=== PATIENT | male | born 1955 | race Caucasian/White ===

== ENCOUNTER 2017-06-10 09:38 | Inpatient (IN) | payer MEDICARE ==
[2017-06-10 09:44] VITALS: BMI 27.4
--- NOTE | 2017-06-10 10:26 | PDOC ---
History of Present Illness - General Chief Complaint: Pain Stated Complaint: ABDOMINAL PAIN,FATIGUE,DISORIENTED X 1 WEEK Time Seen by Provider: 06/10/17 09:44 History Source: Patient, Friend Exam Limitations: No Limitations - History of Present Illness Initial Comments: 06/10/17 10:21 CHIEF COMPLAINT: Patient complains of abdominal pain for one week, somewhat diffuse, loss of appetite, inability to eat. HISTORY OF PRESENT ILLNESS: Patient presents with multiple complaints. He states he hasn't seen a doctor in more than a decade. He complains of loss of peripheral vision and poor vision over the past week. There is no blurring or diplopia, but he does have loss of peripheral vision. He also complains of severe fatigue and falls asleep multiple times every day. He also complains of diffuse abdominal pain with very poor appetite. He states he had been taking Advil for bilateral hip pain, but that was upsetting his stomach, so he stop the Advil and started taking [id number] Zantac. There is nausea but no vomiting. He denies change in bowel movements. REVIEW OF SYSTEMS: GENERAL/CONSTITUTIONAL: No fever or chills. Positive weakness and fatigue. Unsure about any weight change. HEAD, EYES, EARS, NOSE AND THROAT: Positive recent vision changes with loss of peripheral vision. No diplopia or blurring. No ear pain or discharge. No sore throat. CARDIOVASCULAR: No chest pain or shortness of breath. Smokes 2 packs a day for many years. No prior diagnosis of COPD. RESPIRATORY: Denies cough, wheezing, or hemoptysis. However, patient has audible wheezing. GASTROINTESTINAL: Positive nausea, no vomiting, diarrhea or constipation. No rectal bleeding. GENITOURINARY: No dysuria, frequency, or change in urination. MUSCULOSKELETAL: Positive bilateral hip pain, chronic. No neck or back pain. Left ankle fracture with surgery many years ago. SKIN AND BREASTS: No rash or easy bruising. NEUROLOGIC: No headache, vertigo, loss of consciousness, or loss of sensation. PSYCHIATRIC: No depression or anxiety. ENDOCRINE: No increased thirst. No abnormal weight change. HEMATOLOGIC/LYMPHATIC: No anemia, easy bleeding, or history of blood clots. ALLERGIC/IMMUNOLOGIC: No hives or skin allergy. No latex allergy. Past History - Past Medical History Allergies/Adverse Reactions: Allergies Allergy/AdvReac Type Severity Reaction Status Date / Time No Known Allergies Allergy Verified 06/10/17 09:40 Home Medications: Ambulatory Orders NK [No Known Home Medication] 06/10/17 COPD: No (smokes 2 PPD) Other medical history: PT DENIES - Surgical History Orthopedic Surgery: Yes (left ankle surgery) - Suicide/Smoking/Psychosocial Hx Smoking History: Current every day smoker Have you smoked in the past 12 months: Yes Number of Cigarettes Smoked Daily: 40 Information on smoking cessation initiated: Yes 'Breaking Loose' booklet given: 06/10/17 Hx Alcohol Use: No Drug/Substance Use Hx: No Substance Use Type: None *Physical Exam - Vital Signs Last Vital Signs Temp Pulse Resp BP Pulse Ox 98.8 F 108 H 16 151/98 95 06/10/17 09:40 06/10/17 09:40 06/10/17 09:40 06/10/17 09:40 06/10/17 09:40 - Physical Exam Comments: 06/10/17 10:26 GENERAL: The patient is awake, alert, and fully oriented, in no acute distress. HEAD: Normal with no signs of trauma. EYES: Pupils equal, round and reactive to light, extraocular movements intact, sclera anicteric, conjunctiva clear. Fundi with narrowing of the vessels. ENT: Ears normal, nares patent, oropharynx clear without exudates. Moist mucous membranes. NECK: Normal range of motion, supple without lymphadenopathy, JVD, or masses. LUNGS: Decreased breath sounds diffusely with bilateral expiratory wheezes. No crackles. HEART: Regular rhythm, normal S1 and S2 without murmur, rub or gallop. Positive tachycardia. ABDOMEN: Soft, mildly distended, positive tenderness in the right mid abdomen and the left lower quadrant. No guarding. No rebound tenderness. No masses. Negative Pope sign. No McBurney's tenderness. EXTREMITIES: Normal range of motion, no edema. No clubbing or cyanosis. No cords, erythema, or tenderness. NEUROLOGICAL: Cranial nerves II through XII grossly intact. Normal speech, normal gait. PSYCH: Normal mood, normal affect. SKIN: Warm, Dry, normal turgor, no rashes or lesions noted. ED Treatment Course - LABORATORY CBC & Chemistry Diagram: 06/10/17 10:30 06/10/17 10:30 - RADIOLOGY Radiology Studies Ordered: Category Date Time Status ABDOMEN & PELVIS CT WITH CONTR [CT] Stat CT Scan 06/10/17 10:[address] WITHOUT CONTRAST [CT] Stat CT Scan 06/10/17 10:19 Ordered CHEST PA & LAT [RAD] Stat Radiology 06/10/17 10:19 Ordered Medical Decision Making - Medical Decision Making 06/10/17 10:28 Patient presents with myriad complaints. He has neurological complaints with fatigue, frequent sleeping during the day, and also changes in vision with loss of peripheral vision. In addition, he has symptoms of abdominal pain with loss of appetite. Patient has not seen a physician in more than a decade. He will have laboratory workup, head CT scan, abdominal CT scan with oral and IV contrast, urinalysis, EKG, and chest x-ray for comprehensive evaluation given his multiple complaints. Further plans pending initial results. 06/10/17 14:02 *DC/Admit/Observation/Transfer Diagnosis at time of Disposition: Diverticulitis COPD (chronic obstructive pulmonary disease) Qualifiers: COPD type: unspecified COPD Qualified Code(s): J44.9 - Chronic obstructive pulmonary disease, unspecified - Discharge Dispostion Condition at time of disposition: Fair Admit: Yes Decision to Admit order Date/Time: 06/10/17 14:49 Admit to Jenn Tiwari aware. - Referrals - Patient Instructions - Post Discharge Activity
[2017-06-10 11:00] LABS: INR 1.1 (0.82-1.09); PROTHROMBIN TIME (PATIENT) 12.3 SEC (10.2-13.0)
[2017-06-10 11:08] LABS: ALBUMIN 3.5 g/dl (3.5-5.0); ALK PHOS 75 U/L (32-92); ANION GAP 12 (8-16); BILIRUBIN,TOTAL 1.3 mg/dl (0.2-1.0); CALCIUM 9.1 mg/dl (8.4-10.2); CO2 34 mmol/L (22-28); SGOT/AST 20 U/L (10-42); SGPT/ALT 18 U/L (10-40); TOT PROT 7.1 g/dl (6.4-8.3)
[2017-06-10 11:15] LABS: PH,URINE 5.5 (4.5-8); URINE BILIRUBIN 3+ (NEGATIVE); URINE GLUCOSE (UA) Negative (NEGATIVE); URINE KETONE 4+ (NEGATIVE); URINE LEUK ESTERASE Negative (NEGATIVE); URINE NITRITE Negative (NEGATIVE)
[2017-06-10 11:22] LABS: URINE BLOOD 1+ (NEGATIVE); URINE COLOR AMBER; URINE PROTEIN 3+ (NEGATIVE)
[2017-06-10 11:24] LABS: URINE APPEARANCE SL CLOUDY
[2017-06-10 11:28] LABS: GLUCOSE,RANDOM 140 mg/dl (74-106)
[2017-06-10 11:40] LABS: URINE RBC 0-3 /hpf (0-3)
[2017-06-10 11:41] LABS: URINE MUCUS FEW
[2017-06-10] MEDS ORDERED: SODIUM CHLORIDE 1,000 ML IV STA (11:49)
[2017-06-10] MEDS ORDERED: FUROSEMIDE 40 MG/4 ML INJECTABLE VIAL IVPB ONE (11:49)
[2017-06-10] MEDS ORDERED: FUROSEMIDE 40 MG/4 ML INJECTABLE VIAL ONE (11:50)
[2017-06-10] MEDS ORDERED: ALBUTEROL SO4 0.083% IH SOL 2.5 MG/3 ML VIAL.NEB. NEB ONE ×3 (11:50→13:30)
[2017-06-10 12:07] LABS: VENOUS BLOOD GAS HCO3 39.9 meq/L (19-25); VENOUS PH 7.36 (7.32-7.42)
[2017-06-10 13:05] LABS: MEAN PLT VOLUME 9.6 fl (7.5-11.1)
[2017-06-10 13:08] LABS: EOSINOPHIL 0.5 % (0-4.5)
[2017-06-10 13:10] LABS: BASOPHIL 0.1 % (0-2.0); MCHC 33.1 g/dl (32.0-35.9); MEAN CELL VOLUME 90.6 fl (80-96); NEUTROPHILS 72.9 % (42.8-82.8); PLATELET COUNT 306 K/MM3 (134-434); RDW 14.9 % (11.9-15.9); WHITE BLOOD COUNT 12.9 K/mm3 (4.0-10.8)
[2017-06-10] MEDS ORDERED: LEVOFLOXACIN 500 MG IVPB 500 MG/100 ML BAG IVPB ONE ×2 (14:25→15:19)
[2017-06-10] MEDS ORDERED: METRONIDAZOLE 500 MG PREMIXED 500 MG/100 ML MG IVPB ONE ×2 (14:25→15:19)
[2017-06-10] MEDS ORDERED: morphine CARPU-JECT 2 MG/1 ML DISP.SYRIN IVPUSH PRN (14:36)
--- NOTE | 2017-06-10 14:38 | HP ---
CHIEF COMPLAINT: Abdominal pain PCP: None x many years HISTORY OF PRESENT ILLNESS: This is a 62 year old male with no known medical problems (has not seen a doctor for >10 yrs) who presents complaining of band- like lower abdominal pain, nausea, and anorexia since . He denies fevers /chills. He also complains of fatigue (ongoing) and "loss of peripheral vision" (resolved) since Monday. 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 Smokin ppd x >20 yrs Alcohol: None Drugs: None Family History: Non-contributory to this admission Allergies No Known Allergies Allergy (Verified 06/10/17 09:40) HOME MEDICATIONS: Home Medications Medication Instructions Recorded NK [No Known Home Medication] 06/10/17 REVIEW OF SYSTEMS CONSTITUTIONAL: Fatigue, generalized weakness, anorexia Absent: fever, chills, diaphoresis, weight change HEENT: Absent: rhinorrhea, nasal congestion, throat pain, throat swelling, difficulty swallowing, mouth swelling, ear pain, eye pain CARDIOVASCULAR: Absent: chest pain, syncope, palpitations, irregular heart rate, lightheadedness , peripheral edema RESPIRATORY: Absent: cough, shortness of breath, dyspnea with exertion, orthopnea, wheezing, stridor, hemoptysis GASTROINTESTINAL: Abdominal pain, nausea, anorexia Absent: vomiting, diarrhea, constipation, melena, hematochezia GENITOURINARY: Absent: dysuria, frequency, urgency, hesitancy, hematuria, flank pain, genital pain MUSCULOSKELETAL: Absent: myalgia, arthralgia, joint swelling, back pain, neck pain SKIN: Absent: rash, itching, pallor HEMATOLOGIC/IMMUNOLOGIC: Absent: easy bleeding, easy bruising, lymphadenopathy, frequent infections ENDOCRINE: Absent: unexplained weight gain, unexplained weight loss, heat intolerance, cold intolerance NEUROLOGIC: Change in field of vision on Monday, resolved Absent: headache, focal weakness or paresthesias, dizziness, unsteady gait, seizure, mental status changes, bladder or bowel incontinence PSYCHIATRIC: Absent: anxiety, depression, suicidal or homicidal ideation, hallucinations. PHYSICAL EXAMINATION Vital Signs - 24 hr 06/10/17 06/10/17 06/10/17 09:40 12:40 14:07 Temperature 98.8 F 98.6 F Pulse Rate 108 H Pulse Rate [ 100 H Apical] Respiratory 16 16 Rate Blood Pressure 151/98 Blood Pressure 131/88 [Arm] O2 Sat by Pulse 95 94 L Oximetry (%) GENERAL: Awake, alert, and fully oriented, in no acute distress. HEAD: Normal with no signs of trauma. EYES: Pupils equal, round and reactive to light, extraocular movements intact, sclera anicteric, conjunctiva clear. No lid lag. EARS, NOSE, THROAT: Ears normal, nares patent, oropharynx clear without exudates. Moist mucous membranes. NECK: Normal range of motion, supple without lymphadenopathy, JVD, or masses. LUNGS: Breath sounds equal, clear to auscultation bilaterally. No wheezes, and no crackles. No accessory muscle use. HEART: Regular rate and rhythm, normal S1 and S2 without murmur, rub or gallop. ABDOMEN: Soft, obese, bilat lower abdominal tenderness to palpation, LLQ>RLQ, normoactive bowel sounds, no guarding, no rebound, no masses. No hepatomegaly or splenomegaly. MUSCULOSKELETAL: Normal range of motion at all joints. No bony deformities or tenderness. No CVA tenderness. UPPER EXTREMITIES: 2+ pulses, warm, well-perfused. No cyanosis. No clubbing. No peripheral edema. LOWER EXTREMITIES: 2+ pulses, warm, well-perfused. No calf tenderness. No peripheral edema. NEUROLOGICAL: Cranial nerves II-XII intact. Normal speech. Normal gait. PSYCHIATRIC: Cooperative. Good eye contact. Appropriate mood and affect. SKIN: Warm, dry, normal turgor, no rashes or lesions noted, normal capillary refill. Laboratory Results - last 24 hr 06/10/17 06/10/17 06/10/17 10:30 10:30 10:30 WBC 12.9 H RBC 6.53 H Hgb 19.6 H Hct 59.2 H MCV 90.6 MCH 30.0 MCHC 33.1 RDW 14.9 Plt Count 306 MPV 9.6 Neutrophils % 72.9 Lymphocytes % 15.6 Monocytes % 10.9 H Eosinophils % 0.5 Basophils % 0.1 PT with INR 12.3 INR 1.10 VBG pH POC VBG pCO2 POC VBG pO2 Mixed VBG HCO3 Sodium 134 L Potassium 6.1 H* Chloride 88 L Carbon Dioxide 34 H Anion Gap 12 BUN 23 H Creatinine 1.0 Creat Clearance w eGFR > 60 Random Glucose 140 H Calcium 9.1 Total Bilirubin 1.3 H AST 20 ALT 18 Alkaline Phosphatase 75 Troponin I Total Protein 7.1 Albumin 3.5 Lipase 26 Urine Color Urine Appearance Urine pH Ur Specific Martin Urine Protein Urine Glucose (UA) Urine Ketones Urine Blood Urine Nitrite Urine Bilirubin Urine Urobilinogen Ur Leukocyte Esterase Urine RBC Ur Epithelial Cells Urine Mucus 06/10/17 06/10/17 06/10/17 10:30 10:30 10:48 WBC RBC Hgb Hct MCV MCH MCHC RDW Plt Count MPV Neutrophils % Lymphocytes % Monocytes % Eosinophils % Basophils % PT with INR INR VBG pH 7.36 POC VBG pCO2 72.3 H* POC VBG pO2 12.4 L* Mixed VBG HCO3 39.9 H Sodium Potassium Chloride Carbon Dioxide Anion Gap BUN Creatinine Creat Clearance w eGFR Random Glucose Calcium Total Bilirubin AST ALT Alkaline Phosphatase Troponin I < 0.03 L Total Protein Albumin Lipase Urine Color Courtney Urine Appearance Sl cloudy Urine pH 5.5 Ur Specific Martin >= 1.030 H Urine Protein 3+ H Urine Glucose (UA) Negative Urine Ketones 4+ H Urine Blood 1+ H Urine Nitrite Negative Urine Bilirubin 3+ H Urine Urobilinogen 1.0 Ur Leukocyte Esterase Negative Urine RBC 0-3 Ur Epithelial Cells Rare Urine Mucus Few ASSESSMENT/PLAN: Problem List - Problem (1) Diverticulitis Assessment/Plan: -NPO, advance diet as tolerated -Levaquin 750mg daily, Flagyl 500mg q8h -Morphine 2mg IVP q4h prn pain -Zofran 4mg IVP prn nausea Code(s): K57.92 - DVTRCLI OF INTEST, PART UNSP, W/O PERF OR ABSCESS W/O BLEED (2) Hyperkalemia Assessment/Plan: -No EKG changes -Given Lasix and albuterol in ED, no kayexelate given diverticulitis -Repeat BMP 6pm -Follow Code(s): E87.5 - HYPERKALEMIA (3) COPD (chronic obstructive pulmonary disease) Assessment/Plan: -Suspected -Outpatient pulmonary followup/PFTs -Discussed with patient Code(s): J44.9 - CHRONIC OBSTRUCTIVE PULMONARY DISEASE, UNSPECIFIED Visit type - Emergency Visit Emergency Visit: Yes ED Registration Date: 06/10/17 Care time: The patient presented to the Emergency Department on the above date and was hospitalized for further evaluation of their emergent condition. - New Patient This patient is new to me today: Yes Date on this admission: 06/11/17 - Critical Care Critical Care patient: No
[2017-06-10 16:22] LABS: ANION GAP 14 (8-16); CALCIUM 8.2 mg/dl (8.4-10.2); CO2 33 mmol/L (22-28); CREATININE 0.8 mg/dl (0.6-1.3); GLUCOSE,RANDOM 80 mg/dl (74-106)
[2017-06-10] MEDS ORDERED: METRONIDAZOLE PREMIXED IVPB 250 MG/50 ML MG IVPB SCH (18:00)
--- NOTE | 2017-06-10 22:31 | EKG ---
Test Reason : Blood Pressure : / mmHG Vent. Rate : 107 BPM Atrial Rate : 107 BPM P-R Int : 116 ms QRS Dur : 110 ms QT Int : 368 ms P-R-T Axes : 088 140 064 degrees QTc Int : 491 ms SINUS TACHYCARDIA POSSIBLE LEFT ATRIAL ENLARGEMENT BORDERLINE SHORT NM INTERVAL RIGHT BUNDLE BRANCH BLOCK ABNORMAL ECG NO PREVIOUS ECGS AVAILABLE Confirmed by ANGELA DAVILA MD ([id number]) on 06/10/2017 10:30:33 PM Referred By: MERCY FAROOQ Confirmed By:ANGELA DAVILA MD
[2017-06-10] MEDS: METRONIDAZOLE PREMIXED IVPB 250 MG/50 ML MG IVPB SCH (22:42)
[2017-06-11] MEDS: DEXTROSE 5%-0.45% SALINE 1,000 ML IV SCH
[2017-06-11] MEDS: METRONIDAZOLE PREMIXED IVPB 250 MG/50 ML MG IVPB SCH ×3 (06:43→21:56)
[2017-06-11] MEDS ORDERED: PT OWN MED DRAWER 7, Y5N ONE (07:01)
[2017-06-11 09:01] LABS: MCH 29.9 pg (25.7-33.7); MCHC 32.7 g/dl (32.0-35.9); MEAN CELL VOLUME 91.3 fl (80-96); MEAN PLT VOLUME 9.1 fl (7.5-11.1); PLATELET COUNT 293 K/MM3 (134-434); RDW 14.7 % (11.9-15.9); WHITE BLOOD COUNT 11.2 K/mm3 (4.0-10.8)
[2017-06-11] MEDS: LEVOFLOXACIN 750 MG IVPB 750 MG/150 ML BAG IVPB SCH (09:33)
[2017-06-11 10:16] LABS: ALBUMIN 2.8 g/dl (3.5-5.0); ALK PHOS 60 U/L (32-92); ANION GAP 11 (8-16); BILIRUBIN,TOTAL 0.9 mg/dl (0.2-1.0); CALCIUM 8.1 mg/dl (8.4-10.2); CO2 34 mmol/L (22-28); CREATININE 0.8 mg/dl (0.6-1.3); GLUCOSE,RANDOM 67 mg/dl (74-106); SGOT/AST 19 U/L (10-42); SGPT/ALT 16 U/L (10-40); TOT PROT 5.8 g/dl (6.4-8.3)
[2017-06-11] MEDS ORDERED: ALBUTEROL SO4 2.5/IPRATROPIUM 0.5 INH SOL 3 ML VIAL.NEB. NEB PRN (10:19)
--- NOTE | 2017-06-11 10:33 | PN ---
Physical Exam: SUBJECTIVE: Patient seen and examined. Abdominal pain improved. No nausea/ vomiting. Wants to eat. OBJECTIVE: Vital Signs Period Temp Pulse Resp BP Sys/Anna Pulse Ox Last 24 Hr 97.7 F-99.2 F 99-100 16-20 114-131/64-88 89-96 GENERAL: The patient is awake, alert, and fully oriented, in no acute distress. HEAD: Normal with no signs of trauma. EYES: PERRL, extraocular movements intact, sclera anicteric, conjunctiva clear. No ptosis. ENT: Ears normal, nares patent, oropharynx clear without exudates, moist mucous membranes. NECK: Trachea midline, full range of motion, supple. LUNGS: Breath sounds equal, clear to auscultation bilaterally, no wheezes, no crackles, no accessory muscle use. Mild tachypnea. HEART: Regular rate and rhythm, S1, S2 without murmur, rub or gallop. ABDOMEN: Soft, nontender, nondistended, normoactive bowel sounds, no guarding, no rebound, no hepatosplenomegaly, no masses. EXTREMITIES: 2+ pulses, warm, well-perfused, no edema. NEUROLOGICAL: Cranial nerves II through XII grossly intact. Normal speech, gait not observed. PSYCH: Normal mood, normal affect. SKIN: Warm, dry, normal turgor, no rashes or lesions noted Laboratory Results - last 24 hr 06/10/17 06/10/17 06/10/17 10:30 10:30 10:30 WBC 12.9 H RBC 6.53 H Hgb 19.6 H Hct 59.2 H MCV 90.6 MCH 30.0 MCHC 33.1 RDW 14.9 Plt Count 306 MPV 9.6 Neutrophils % 72.9 Lymphocytes % 15.6 Monocytes % 10.9 H Eosinophils % 0.5 Basophils % 0.1 PT with INR 12.3 INR 1.10 VBG pH POC VBG pCO2 POC VBG pO2 Mixed VBG HCO3 Sodium 134 L Potassium 6.1 H* Chloride 88 L Carbon Dioxide 34 H Anion Gap 12 BUN 23 H Creatinine 1.0 Creat Clearance w eGFR > 60 Random Glucose 140 H Calcium 9.1 Phosphorus Magnesium Total Bilirubin 1.3 H AST 20 ALT 18 Alkaline Phosphatase 75 Troponin I Total Protein 7.1 Albumin 3.5 Lipase 26 Urine Color Urine Appearance Urine pH Ur Specific Strang Urine Protein Urine Glucose (UA) Urine Ketones Urine Blood Urine Nitrite Urine Bilirubin Urine Urobilinogen Ur Leukocyte Esterase Urine RBC Ur Epithelial Cells Urine Mucus Blood Type Antibody Screen 06/10/17 06/10/17 06/10/17 10:30 10:30 10:48 WBC RBC Hgb Hct MCV MCH MCHC RDW Plt Count MPV Neutrophils % Lymphocytes % Monocytes % Eosinophils % Basophils % PT with INR INR VBG pH 7.36 POC VBG pCO2 72.3 H* POC VBG pO2 12.4 L* Mixed VBG HCO3 39.9 H Sodium Potassium Chloride Carbon Dioxide Anion Gap BUN Creatinine Creat Clearance w eGFR Random Glucose Calcium Phosphorus Magnesium Total Bilirubin AST ALT Alkaline Phosphatase Troponin I < 0.03 L Total Protein Albumin Lipase Urine Color Courtney Urine Appearance Sl cloudy Urine pH 5.5 Ur Specific Strang >= 1.030 H Urine Protein 3+ H Urine Glucose (UA) Negative Urine Ketones 4+ H Urine Blood 1+ H Urine Nitrite Negative Urine Bilirubin 3+ H Urine Urobilinogen 1.0 Ur Leukocyte Esterase Negative Urine RBC 0-3 Ur Epithelial Cells Rare Urine Mucus Few Blood Type Antibody Screen 06/10/17 06/11/17 06/11/17 14:08 06:00 06:00 WBC 11.2 H RBC 5.82 H Hgb 17.4 H D Hct 53.2 H MCV 91.3 MCH 29.9 MCHC 32.7 RDW 14.7 Plt Count 293 MPV 9.1 Neutrophils % Lymphocytes % Monocytes % Eosinophils % Basophils % PT with INR INR VBG pH POC VBG pCO2 POC VBG pO2 Mixed VBG HCO3 Sodium 129 L 134 L Potassium 4.0 D 4.0 Chloride 82 L 89 L Carbon Dioxide 33 H 34 H Anion Gap 14 11 BUN 19 H 18 Creatinine 0.8 0.8 Creat Clearance w eGFR > 60 Random Glucose 80 D 67 L Calcium 8.2 L 8.1 L Phosphorus 5.0 H Magnesium 2.0 Total Bilirubin 0.9 D AST 19 ALT 16 Alkaline Phosphatase 60 Troponin I Total Protein 5.8 L Albumin 2.8 L Lipase Urine Color Urine Appearance Urine pH Ur Specific Strang Urine Protein Urine Glucose (UA) Urine Ketones Urine Blood Urine Nitrite Urine Bilirubin Urine Urobilinogen Ur Leukocyte Esterase Urine RBC Ur Epithelial Cells Urine Mucus Blood Type Antibody Screen 06/11/17 06/11/17 06:15 06:15 WBC RBC Hgb Hct MCV MCH MCHC RDW Plt Count MPV Neutrophils % Lymphocytes % Monocytes % Eosinophils % Basophils % PT with INR INR VBG pH POC VBG pCO2 POC VBG pO2 Mixed VBG HCO3 Sodium Potassium Chloride Carbon Dioxide Anion Gap BUN Creatinine Creat Clearance w eGFR Random Glucose Calcium Phosphorus Magnesium Total Bilirubin AST ALT Alkaline Phosphatase Troponin I Total Protein Albumin Lipase Urine Color Urine Appearance Urine pH Ur Specific Strang Urine Protein Urine Glucose (UA) Urine Ketones Urine Blood Urine Nitrite Urine Bilirubin Urine Urobilinogen Ur Leukocyte Esterase Urine RBC Ur Epithelial Cells Urine Mucus Blood Type A POSITIVE A POSITIVE Antibody Screen Negative Active Medications Generic Name Dose Route Start Last Admin Trade Name Freq PRN Reason Stop Dose Admin Albuterol/Ipratropium 1 amp 06/11/17 10:19 Duoneb - NEB Q6H PRN SHORTNESS OF BREATH Budesonide/Formoterol Fumarate 2 puff 06/11/17 10:30 Symbicort 80/4.5mcg - IH BID HOSSEIN Levofloxacin 750 mg in 150 mls @ 150 mls/hr 06/11/17 10:00 06/11/17 09:33 Levaquin 750 Mg Premixed Ivpb - IVPB 150 mls/hr DAILY HOSSEIN Administration Metronidazole 250 mg in 50 mls @ 50 mls/hr 06/10/17 22:00 06/11/17 06:43 Flagyl 250mg Premixed Ivpb - IVPB 50 mls/hr Q8H HOSSEIN Administration Dextrose/Sodium Chloride 1,000 mls @ 42 mls/hr 06/10/17 23:45 06/11/17 00:00 D5-1/2ns - IV 42 mls/hr ASDIR HOSSEIN Administration Morphine Sulfate 2 mg 06/10/17 14:36 Morphine Injection - IVPUSH Q4H PRN PAIN Imaging: Head CT 06/10 No pathology CTAP 06/10 Acute uncomplicated sigmoid diverticulitis CXR 06/10 Hyperaeration ASSESSMENT/PLAN: 62 year old male with acute diverticulitis. 1. Diverticulitis -Pain and tenderness improved; start clear liquid diet -Continue Levaquin 750mg daily and Flagyl 500mg q8h -Morphine 2mg IVP q4h prn pain -Zofran 4mg IVP prn nausea 2. Hyperkalemia -Resolved s/p albuterol, Lasix 3. COPD, suspected -Hyperaeration on XR, symptoms of CO2 retention (fatigue, visual changes), PCO2 72 on VBG, heavy smoking history -Send ABG today -Start Symbicort -Echo to eval for pulm HTN -Pulm consultation (patient does not currently have PMD and would expect long delay in outpatient followup) -Albuterol/Atrovent nebs prn wheezing/SOB -Discussed smoking cessation with patient; he declines NRT at this time DISPO: Requires inpatient services Problem List - Problems (1) Diverticulitis Code(s): K57.92 - DVTRCLI OF INTEST, PART UNSP, W/O PERF OR ABSCESS W/O BLEED (2) Hyperkalemia Code(s): E87.5 - HYPERKALEMIA (3) COPD (chronic obstructive pulmonary disease) Code(s): J44.9 - CHRONIC OBSTRUCTIVE PULMONARY DISEASE, UNSPECIFIED
[2017-06-11] MEDS: BUDESONIDE/FORMETEROL FUMARATE 80/4.5 mcg INHALER IH SCH ×2 (11:17→21:55)
[2017-06-11 11:26] LABS: ARTERIAL BLD GAS O2 SATURATION 97.3 % (90-98.9); ARTERIAL BLOOD GAS BASE EXCESS 6.9 meq/l (-2-2); ARTERIAL BLOOD GAS HCO3 35.6 meq/L (22-26); ARTERIAL BLOOD GAS PO2 99.8 mmHg (80-100); ARTERIAL BLOOD GAS pH 7.34 (7.35-7.45)
[2017-06-11 11:30] LABS: ALLENS TEST POSITIVE; ART PUNCT SITE RIGHT RADIAL; LPM/O2% 2L; PT. ON O2? YES
[2017-06-11 11:31] LABS: TYPE OF O2 N/C
[2017-06-12] MEDS: METRONIDAZOLE PREMIXED IVPB 250 MG/50 ML MG IVPB SCH ×3 (06:01→21:57)
[2017-06-12 08:37] LABS: BASOPHIL 0.7 % (0-2.0); EOSINOPHIL 1.2 % (0-4.5); MCHC 33.2 g/dl (32.0-35.9); MEAN CELL VOLUME 90.4 fl (80-96); MEAN PLT VOLUME 8.8 fl (7.5-11.1); NEUTROPHILS 79.1 % (42.8-82.8); PLATELET COUNT 263 K/MM3 (134-434); RDW 14.7 % (11.9-15.9); WHITE BLOOD COUNT 10.4 K/mm3 (4.0-10.8)
[2017-06-12 08:51] LABS: ANION GAP 9 (8-16); CALCIUM 8.5 mg/dl (8.4-10.2); CO2 33 mmol/L (22-28); CREATININE 0.8 mg/dl (0.6-1.3); GLUCOSE,RANDOM 113 mg/dl (74-106)
[2017-06-12] MEDS ORDERED: PT OWN MED DRAWER 7, Y5N ONE ×3 (09:24→21:50)
[2017-06-12] MEDS: BUDESONIDE/FORMETEROL FUMARATE 80/4.5 mcg INHALER IH SCH ×2 (09:30→21:57)
[2017-06-12] MEDS: LEVOFLOXACIN 750 MG IVPB 750 MG/150 ML BAG IVPB SCH (09:30)
--- NOTE | 2017-06-12 11:21 | PN ---
Progress Note (short form) - Note Progress Note: PULMONARY CONSULTATION DICTATED 06/12/17 IMP ACUTE ON CHRONIC HYPOXEMIC/HYPERCAPNEIC RESPIRATORY FAILURE COPD SECONDARY ERYTHROCYTOSIS DIVERTICULITIS PLAN SUPPLEMENTAL O2 INHALED BRONCHODILATORS ANTIBIOTICS CHEST CT MONITOR H+H PHLEBOTOMY IF HCT GREATER THAN [address] SMOKING CESS[address] BOWIE Problem List - Problems (1) Acute on chronic respiratory failure with hypoxia and hypercapnia Code(s): J96.21 - ACUTE AND CHRONIC RESPIRATORY FAILURE WITH HYPOXIA; J96.22 - ACUTE AND CHRONIC RESPIRATORY FAILURE WITH HYPERCAPNIA (2) COPD (chronic obstructive pulmonary disease) Code(s): J44.9 - CHRONIC OBSTRUCTIVE PULMONARY DISEASE, UNSPECIFIED (3) Diverticulitis Code(s): K57.92 - DVTRCLI OF INTEST, PART UNSP, W/O PERF OR ABSCESS W/O BLEED (4) Erythrocytosis Code(s): D75.1 - SECONDARY POLYCYTHEMIA
--- NOTE | 2017-06-12 11:36 | PN ---
Physical Exam: SUBJECTIVE: Patient seen and examined, reports feeling better, reports feeling hungry, denies any tactile fever. OBJECTIVE: Patient is a 62 y/o male with no signifcant past medical history, patient was admitted from the emergency department for acute diverticulitis. Vital Signs Period Temp Pulse Resp BP Sys/Anna Pulse Ox Last 24 Hr 97.8 F-98.4 F 85-92 18-18 122-137/55-73 94-94 GENERAL: The patient is awake, alert, and fully oriented, in no acute distress. HEAD: Normal with no signs of trauma. EYES: PERRL, extraocular movements intact, sclera anicteric, conjunctiva clear. No ptosis. ENT: Ears normal, nares patent, oropharynx clear without exudates, moist mucous membranes. NECK: Trachea midline, full range of motion, supple. LUNGS: Breath sounds equal, clear to auscultation bilaterally, no wheezes, no crackles, no accessory muscle use. HEART: Regular rate and rhythm, S1, S2 without murmur, rub or gallop. ABDOMEN: Soft, nontender, nondistended, normoactive bowel sounds, no guarding, no rebound, no hepatosplenomegaly, no masses. EXTREMITIES: 2+ pulses, warm, well-perfused, no edema. NEUROLOGICAL: Cranial nerves II through XII grossly intact. Normal speech, gait not observed. PSYCH: Normal mood, normal affect. SKIN: Warm, dry, normal turgor, no rashes or lesions noted Laboratory Results - last 24 hr 06/12/17 06/12/17 07:43 07:43 WBC 10.4 RBC 6.00 H Hgb 18.0 H Hct 54.3 H MCV 90.4 MCH 30.0 MCHC 33.2 RDW 14.7 Plt Count 263 MPV 8.8 Neutrophils % 79.1 Lymphocytes % 12.2 D Monocytes % 6.8 Eosinophils % 1.2 D Basophils % 0.7 D Sodium 132 L Potassium 4.4 Chloride 90 L Carbon Dioxide 33 H Anion Gap 9 BUN 10 D Creatinine 0.8 Random Glucose 113 H D Calcium 8.5 Active Medications Generic Name Dose Route Start Last Admin Trade Name Freq PRN Reason Stop Dose Admin Albuterol/Ipratropium 1 amp 06/11/17 10:19 Duoneb - NEB Q6H PRN SHORTNESS OF BREATH Budesonide/Formoterol Fumarate 2 puff 06/11/17 10:30 06/12/17 09:30 Symbicort 80/4.5mcg - IH 2 inhaler BID [facility] Administration Levofloxacin 750 mg in 150 mls @ 150 mls/hr 06/11/17 10:00 06/12/17 09:30 Levaquin 750 Mg Premixed Ivpb - IVPB 150 mls/hr DAILY [facility] Administration Metronidazole 250 mg in 50 mls @ 50 mls/hr 06/10/17 22:00 06/12/17 06:01 Flagyl 250mg Premixed Ivpb - IVPB 50 mls/hr Q8H [facility]OS[facility] Administration Dextrose/Sodium Chloride 1,000 mls @ 42 mls/hr 06/10/17 23:45 06/11/17 00:00 D5-1/2ns - IV 42 mls/hr ASDIR [facility]OS[facility] Administration Morphine Sulfate 2 mg 06/10/17 14:36 Morphine Injection - IVPUSH Q4H PRN PAIN Microbiology 06/10/17 14:08 Blood - Peripheral Venous Blood Culture - Preliminary NO GROWTH OBTAINED AFTER 24 HOURS, INCUBATION TO CONTINUE FOR 4 DAYS. 06/10/17 14:08 Blood - Peripheral Venous Blood Culture - Preliminary NO GROWTH OBTAINED AFTER 24 HOURS, INCUBATION TO CONTINUE FOR 4 DAYS. Imaging: Head CT 06/10 No pathology CTAP 06/10 Acute uncomplicated sigmoid diverticulitis CXR 06/10 Hyperaration ASSESSMENT/PLAN: 1. GI Diverticulitis - continue Levaquin 750mg daily and Flagyl 500mg q8h -Morphine 2mg IVP q4h prn pain -Zofran 4mg IVP prn nausea 2. Hyperkalemia -Resolved s/p albuterol, Lasix 3.pulmonary COPD, suspected -ABG respiratory acidosis, uncompensated metabolic alkalosis, consistent with copd -continue Symbicort -Echo to eval for pulm HTN pending -Pulm consultation (patient does not currently have PMD and would expect long delay in outpatient followup) -Albuterol/Atrovent nebs prn wheezing/SOB -Discussed smoking cessation with patient; he declines NRT at this time DISPO: Requires inpatient services Visit type - Emergency Visit Emergency Visit: Yes ED Registration Date: 06/10/17 Care time: The patient presented to the Emergency Department on the above date and was hospitalized for further evaluation of their emergent condition. - New Patient This patient is new to me today: No - Critical Care Critical Care patient: No - Discharge Referral Referred to [facility] Med P.C.: No
[2017-06-12] MEDS: DEXTROSE 5%-0.45% SALINE 1,000 ML IV SCH (19:48)
--- NOTE | 2017-06-12 21:01 | CONS ---
PULMONARY CONSULTATION DATE OF CONSULTATION: 06/12/2017 REFERRING PHYSICIAN: Adelina Gore NP HISTORY OF PRESENT ILLNESS: The patient is a 62-year-old white male without any significant past medical history, not seen a physician in greater than 10 years secondary to insurance issues, longstanding history of tobacco use, approximately 2 packs a day for many years, admitted to [facility] on June 10 with complaint of 1-week history of generally not feeling himself, sleepiness, and some nausea and some anorexia and just fatigue. He also noticed some loss of peripheral vision which resolved last Monday. He presented to the emergency room with the above. On admission, he was noted to have [id number]-sy-[id number] hypercapnic respiratory failure. Patient denies any fevers, chills. Denies hemoptysis. He does complain of shortness of breath with exertion while walking at a rapid pace or up inclines. He does complain of occasional bronchospasm. PAST MEDICAL HISTORY: Again is unremarkable. 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 Resides in [place]. CURRENT MEDICATIONS: Include Symbicort, Levaquin, Flagyl, DuoNeb, morphine p.r.n. REVIEW OF SYSTEMS: No orthopnea. No PND. No chest pain. No palpitations. Positive shortness of breath. Positive mild abdominal discomfort. PHYSICAL EXAMINATION: General: The patient is a well-developed, well-nourished male, awake, alert, currently in no acute distress. Vital Signs: He is afebrile. Blood pressure 137/55, respiratory rate is 18, O2 saturation is 94% on room air. HEENT: Normocephalic, atraumatic. Neck: Supple. Heart: Regular. S1, S2. Chest: Clear. Abdomen: Soft. Bowel sounds positive. Extremities: No signs of edema. LABORATORY DATA: WBC is 12.9, hemoglobin 19.6, hematocrit 59.2, with a platelet count of 306,000. Repeat WBC is 10.4, hemoglobin 18, hematocrit 54.3, with a platelet count of 263,000. Blood gases showed pH of 7.34, pCO2 of 67, with pCO2 of 99, a bicarbonate of 35, and a saturation of 97; that was on 2 L nasal cannula. Chemistries: BUN 10, creatinine 0.8. Chest x-ray: No acute infiltrates or effusions. CT scan of the head: Negative. Abdominal CT: Acute, uncomplicated sigmoid diverticulitis. IMPRESSION: 1. Appmj-fp-jsmoais hypercapnic respiratory failure. 2. Chronic obstructive pulmonary disease exacerbation. 3. Secondary risk for . 4. Diverticulitis. PLAN: 1. Inhaled bronchodilators. 2. Supplemental O2. Check O2 saturation at rest and post exercise prior to discharge to determine if the patient is a candidate for home O2. 3. Monitor CBC. Patient may require a phlebotomy. 4. Antibiotic therapy. 5. PFTs as an outpatient. JORI BOWIE M.D. JENNIFER/[id number]
[2017-06-12] MEDS ORDERED: REFRIGERATED ANITBIOTICS ONE (21:50)
[2017-06-12 23:16] VITALS: PULSE 86
[2017-06-13] MEDS: DEXTROSE 5%-0.45% SALINE 1,000 ML IV SCH (05:13)
[2017-06-13] MEDS: METRONIDAZOLE PREMIXED IVPB 250 MG/50 ML MG IVPB SCH (05:14)
[2017-06-13] MEDS ORDERED: PT OWN MED DRAWER 7, Y5N ONE ×2 (05:14→10:04)
[2017-06-13 06:38] VITALS: BP 116/69; TEMP 98.1
--- NOTE | 2017-06-13 09:46 | PN ---
Progress Note, Physician History of Present Illness: pulmonary alert,feeling,less dyspneic better,less abd discomfort - Current Medication List Current Medications: Active Medications Albuterol/Ipratropium (Duoneb -) 1 amp NEB Q6H PRN PRN Reason: SHORTNESS OF BREATH Budesonide/Formoterol Fumarate (Symbicort 80/4.5mcg -) 2 puff IH BID [facility] Last Admin: 06/12/17 21:57 Dose: 2 inhaler Levofloxacin (Levaquin 750 Mg Premixed Ivpb -) 750 mg in 150 mls @ 150 mls/hr IVPB DAILY [facility] Last Admin: 06/12/17 09:30 Dose: 150 mls/hr Metronidazole (Flagyl 250mg Premixed Ivpb -) 250 mg in 50 mls @ 50 mls/hr IVPB Q8H [facility] Last Admin: 06/13/17 05:14 Dose: 50 mls/hr Dextrose/Sodium Chloride (D5-1/2ns -) 1,000 mls @ 42 mls/hr IV ASDIR [facility] Last Admin: 06/13/17 05:13 Dose: 42 mls/hr Morphine Sulfate (Morphine Injection -) 2 mg IVPUSH Q4H PRN PRN Reason: PAIN - Objective Vital Signs: Vital Signs Temperature 98.1 F 06/13/17 06:00 Pulse Rate 86 06/13/17 06:00 Respiratory Rate 17 06/13/17 06:00 Blood Pressure 116/69 06/13/17 06:00 O2 Sat by Pulse Oximetry (%) 92 L 06/12/17 22:00 Constitutional: Yes: Well Nourished, Calm Eyes: Yes: WNL HENT: Yes: WNL Neck: Yes: WNL Cardiovascular: Yes: Regular Rate and Rhythm, S1, S2 Respiratory: Yes: CTA Bilaterally Gastrointestinal: Yes: Normal Bowel Sounds, Soft Extremities: Yes: WNL Edema: No Labs: CBC, BMP 12 Problem List - Problems (1) Acute on chronic respiratory failure with hypoxia and hypercapnia Code(s): J96.21 - ACUTE AND CHRONIC RESPIRATORY FAILURE WITH HYPOXIA; J96.22 - ACUTE AND CHRONIC RESPIRATORY FAILURE WITH HYPERCAPNIA (2) COPD (chronic obstructive pulmonary disease) Code(s): J44.9 - CHRONIC OBSTRUCTIVE PULMONARY DISEASE, UNSPECIFIED (3) Diverticulitis Code(s): K57.92 - DVTRCLI OF INTEST, PART UNSP, W/O PERF OR ABSCESS W/O BLEED (4) Erythrocytosis Code(s): D75.1 - SECONDARY POLYCYTHEMIA Assessment/Plan IMP ACUTE ON CHRONIC HYPOXEMIC/HYPERCAPNEIC RESPIRATORY FAILURE COPD SECONDARY ERYTHROCYTOSIS DIVERTICULITIS PLAN SUPPLEMENTAL O2 INHALED BRONCHODILATORS ANTIBIOTICS CHEST CT MONITOR H+H PHLEBOTOMY IF HCT GREATER THAN [address] BOWIE Problem List - Problems (1) Acute on chronic respiratory failure with hypoxia and hypercapnia Code(s): J96.21 - ACUTE AND CHRONIC RESPIRATORY FAILURE WITH HYPOXIA; J96.22 - ACUTE AND CHRONIC RESPIRATORY FAILURE WITH HYPERCAPNIA (2) COPD (chronic obstructive pulmonary disease) Code(s): J44.9 - CHRONIC OBSTRUCTIVE PULMONARY DISEASE, UNSPECIFIED (3) Diverticulitis Code(s): K57.92 - DVTRCLI OF INTEST, PART UNSP, W/O PERF OR ABSCESS W/O BLEED (4) Erythrocytosis Code(s): D75.1 - SECONDARY POLYCYTHEMIA
[2017-06-13] MEDS: LEVOFLOXACIN 750 MG IVPB 750 MG/150 ML BAG IVPB SCH (10:06)
[2017-06-13] MEDS: BUDESONIDE/FORMETEROL FUMARATE 80/4.5 mcg INHALER IH SCH (10:06)
--- NOTE | 2017-06-13 12:26 | DS ---
Physical Exam: SUBJECTIVE: Patient seen and examined, reports feeling improved, denies any chest pain or shortness of breath, patient is tolerating soft diet. OBJECTIVE: patient is a 62 year old male with no known medical problems (has not seen a doctor for >10 yrs) who presents complaining of band-like lower abdominal pain, nausea, and anorexia since . He denies fevers/chills. He also complains of fatigue (ongoing) and "loss of peripheral vision" (resolved ) since Monday. ER course was notable for: (1) SIRS criteria: HR 108, WBC 12.9 (2) CTAP with acute, uncomplicated sigmoid diverticulitis (3) CXR with hyperinflated lungs possible consistent with COPD, venous PCO2 72 (5) K 6.1 without EKG changes (6) CTH: No acute intracranial process Vital Signs Period Temp Pulse Resp BP Sys/Anna Pulse Ox Last 24 Hr 97.5 F-98.1 F 86-93 16-18 110-116/69-70 92-96 PHYSICAL EXAM GENERAL: The patient is awake, alert, and fully oriented, in no acute distress. HEAD: Normal with no signs of trauma. EYES: PERRL, extraocular movements intact, sclera anicteric, conjunctiva clear. ENT: Ears normal, nares patent, oropharynx clear without exudates, moist mucous membranes. NECK: Trachea midline, full range of motion, supple. LUNGS: Breath sounds equal, clear to auscultation bilaterally, no wheezes, no crackles, no accessory muscle use. HEART: Regular rate and rhythm, S1, S2 without murmur, rub or gallop. ABDOMEN: Soft, nontender, nondistended, normoactive bowel sounds, no guarding, no rebound, no hepatosplenomegaly, no masses. EXTREMITIES: 2+ pulses, warm, well-perfused, no edema. NEUROLOGICAL: Cranial nerves II through XII grossly intact. Normal speech, gait not observed. PSYCH: Normal mood, normal affect. SKIN: Warm, dry, normal turgor, no rashes or lesions noted. LABS CBC WBC 10.4 K/mm3 (4.0-10.8) 06/12/17 07:43 RBC 6.00 M/mm3 (4.00-5.60) H 06/12/17 07:43 Hgb 18.0 GM/dl (11.7-16.9) H 06/12/17 07:43 Hct 54.3 % (35.4-49) H 06/12/17 07:43 MCV 90.4 fl (80-96) 06/12/17 07:43 MCH 30.0 pg (25.7-33.7) 06/12/17 07:43 MCHC 33.2 g/dl (32.0-35.9) 06/12/17 07:43 RDW 14.7 % (11.9-15.9) 06/12/17 07:43 Plt Count 263 K/MM3 (134-434) 06/12/17 07:43 MPV 8.8 fl (7.5-11.1) 06/12/17 07:43 Neutrophils % 79.1 % (42.8-82.8) 06/12/17 07:43 Lymphocytes % 12.2 % (8-40) D 06/12/17 07:43 Monocytes % 6.8 % (3.8-10.2) 06/12/17 07:43 Eosinophils % 1.2 % (0-4.5) D 06/12/17 07:43 Basophils % 0.7 % (0-2.0) D 06/12/17 07:43 CMP Sodium 132 mmol/L (136-145) L 06/12/17 07:43 Potassium 4.4 mmol/L (3.5-5.1) 06/12/17 07:43 Chloride 90 mmol/L (98-107) L 06/12/17 07:43 Carbon Dioxide 33 mmol/L (22-28) H 06/12/17 07:43 Anion Gap 9 (8-16) 06/12/17 07:43 BUN 10 mg/dl (7-18) D 06/12/17 07:43 Creatinine 0.8 mg/dl (0.6-1.3) 06/12/17 07:43 Creat Clearance w eGFR > 60 (>60) 06/11/17 06:00 Random Glucose 113 mg/dl (74-106) H D 06/12/17 07:43 Calcium 8.5 mg/dl (8.4-10.2) 06/12/17 07:43 Phosphorus 5.0 mg/dl (2.5-4.6) H 06/11/17 06:00 Magnesium 2.0 mg/dL (1.8-2.4) 06/11/17 06:00 Total Bilirubin 0.9 mg/dl (0.2-1.0) D 06/11/17 06:00 AST 19 U/L (10-42) 06/11/17 06:00 ALT 16 U/L (10-40) 06/11/17 06:00 Alkaline Phosphatase 60 U/L (32-92) 06/11/17 06:00 Troponin I < 0.03 ng/ml (0.03-0.50) L 06/10/17 10:30 Total Protein 5.8 g/dl (6.4-8.3) L 06/11/17 06:00 Albumin 2.8 g/dl (3.5-5.0) L 06/11/17 06:00 Lipase 26 U/L (22-51) 06/10/17 10:30 Microbiology 06/10/17 14:08 Blood - Peripheral Venous Blood Culture - Preliminary NO GROWTH OBTAINED AFTER 48 HOURS, INCUBATION TO CONTINUE FOR 3 DAYS. 06/10/17 14:08 Blood - Peripheral Venous Blood Culture - Preliminary NO GROWTH OBTAINED AFTER 48 HOURS, INCUBATION TO CONTINUE FOR 3 DAYS. 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 Discussed smoking cessation with patient; he declines NRT at this time PLAN: - discharge home, levaquin and flagyl - continue symbicort with prn albuterol - strict followup with GI, pulmonary and PCP within 1 week Date of Admission:06/10/17 Date of Discharge: 06/13/17 Minutes to complete discharge: 45 Discharge Summary Reason For Visit: DIVERTICULITIS & COPD Current Active Problems Acute on chronic respiratory failure with hypoxia and hypercapnia (Acute) COPD (chronic obstructive pulmonary disease) (Acute) COPD (chronic obstructive pulmonary disease) (Acute) Diverticulitis (Acute) Diverticulitis (Acute) Erythrocytosis (Acute) Hyperkalemia (Acute) Condition: Fair - Instructions Diet, Activity, Other Instructions: continue levaquin and flagyl for the next 5 days continue symbicort daily please follow up with GI within 1 week. if any new or persistent symptoms develop please return to the emergency department Referrals: Juancarlos Dong MD [Staff Physician] - 2 Weeks Emanuel Baldwin MD [Staff Physician] - 2 Weeks Disposition: HOME - Home Medications Comprehensive Discharge Medication List: Ambulatory Orders NK [No Known Home Medication] 06/10/17 This patient is new to me today: No Emergency Visit: Yes ED Registration Date: 06/10/17 Care time: The patient presented to the Emergency Department on the above date and was hospitalized for further evaluation of their emergent condition. Critical Care patient: No - Discharge Referral Referred to [facility] Med P.C.: No
== END 2017-06-13 13:54 | disposition home or self-care (01) | DRG 244 ==
LOC: FER 09:38 → FM/S 16:53
PROVIDERS: ADMIT Hospitalist; ATTEND Nurse Practitioner Family
DX: K57.32 Diverticulitis of large intestine without perforation or abscess without bleeding (principal); J44.9 Chronic obstructive pulmonary disease, unspecified; R63.0 Anorexia; Z68.27 Body mass index [BMI] 27.0-27.9, adult; F17.200 Nicotine dependence, unspecified, uncomplicated; E87.5 Hyperkalemia; J96.21 Acute and chronic respiratory failure with hypoxia; J96.22 Acute and chronic respiratory failure with hypercapnia; D75.1 Secondary polycythemia; E87.4 Mixed disorder of acid-base balance
CPT/HCPCS: 36415; 36600; 70450-TC; 71020-TC; 71250-TC; 74177-TC; 80048; 80053; 81003; 81015; 82803; 83690; 83735; 84100; 84484; 85025; 85027; 85610; 86850; 86900; 86901; 87040; 93005; 93306-TC; 99285-25

== ENCOUNTER 2019-01-09 16:33 | Inpatient (IN) | payer OTHER ==
[2019-01-09] MEDS ORDERED: RAPID SEQUENCE INTUBATION KIT NR ONE (16:57)
[2019-01-09 17:31] LABS: VENOUS PO2 70.5 mmHg (30-40)
[2019-01-09 17:34] LABS: BASO % 0.3 % (0-2.0); HEMATOCRIT 63.7 % (35.4-49); LYMPH % 8.5 % (8-40); MCH 30.4 pg (25.7-33.7); MCHC 31.5 g/dl (32.0-35.9); MEAN CELL VOLUME 96.5 fl (80-96); MEAN PLT VOLUME 9.6 fl (7.5-11.1); MONO % 8.9 % (3.8-10.2); NEUT % 82.3 % (42.8-82.8); PLATELET COUNT 327 K/MM3 (134-434); RDW 16.6 % (11.9-15.9); VENOUS PH 7.09 (7.31-7.41); WHITE BLOOD COUNT 11.5 K/mm3 (4.0-10.0)
--- NOTE | 2019-01-09 17:40 | PDOC ---
History of Present Illness - General Chief Complaint: Respiratory Distress Stated Complaint: SEMICONSCIOUS Time Seen by Provider: 01/09/19 17:30 - History of Present Illness Initial Comments: The pt is a 63M w/ a history of COPD, diverticulitis, tobacco abuse who presents by EMS for evaluation of AMS. The pt was noted to be lethargic upon EMS arrival, neighbors may have noted that pt may have fell last night but it was unwitnessed and not investigated until this AM. EMS reports no family/ associates on scene. En route, pt was tachypnic, placed on CPAP, and no meds were given prior to arrival. Remainder of history limited 2/2 pt medical condition. On arrival pt unable to provide history 01/09/19 17:38 Past History - Past Medical History Allergies/Adverse Reactions: Allergies Allergy/AdvReac Type Severity Reaction Status Date / Time No Known Allergies Allergy Verified 01/09/19 17:06 Home Medications: Ambulatory Orders Albuterol Sulfate Inhaler - [Ventolin Hfa Inhaler -] 2 inh PO Q4H PRN #1 inh 06/18 Budesonide/Formeterol Fumarate [SYMBICORT 80/4.5mcg -] 2 puff IH BID #1 inhaler 06/13/17 COPD: No (smokes 2 PPD) - Surgical History Orthopedic Surgery: Yes (left ankle surgery) - Suicide/Smoking/Psychosocial Hx Smoking History: Unknown if ever smoked Have you smoked in the past 12 months: Yes Number of Cigarettes Smoked Daily: 40 Information on smoking cessation initiated: No 'Breaking Loose' booklet given: 06/10/17 Hx Alcohol Use: No Drug/Substance Use Hx: No Substance Use Type: None Review of Systems - Review of Systems Able to Perform ROS?: No (2/2 medical condition) *Physical Exam - Vital Signs Last Vital Signs Temp Pulse Resp BP Pulse Ox 98.3 F 114 H 32 H 149/93 80 L 01/09/19 17:06 01/09/19 17:06 01/09/19 17:06 01/09/19 17:06 01/09/19 17:06 - Physical Exam Comments: GENERAL: Awake, lethargic, wince to pain, not verbally responsive HEAD: No signs of trauma, normocephalic, atraumatic EYES: pupils equal, 3mm, sluggish, sclera anicteric, conjunctiva clear ENT: Nares patent, oropharynx clear without exudates, poor dentition, few teeth present. No uvular deviation. Moist mucosa LUNGS: Tachypnic, breath sounds present b/l, poor inspiratory effort HEART: Tachycardic rate with regular rhythm, normal S1 and S2, no murmurs appreciated, peripheral pulses normal and equal bilaterally. ABDOMEN: Soft, no wince to palpation, normoactive bowel sounds EXTREMITIES: No wounds/obvious deformity; Does not attempt to move extremities independently; no resistance to PROM NEUROLOGICAL: Lethargic, wince to pain, aphasic, does not follow commands, mild BUE clonus on brisk extension of wrists, no upward toe movement with plantar foot stimulus; SKIN: Warm, diaphoretic, no open wounds Procedures - Intubation Intubation Method: orotracheal Blade used: Mac (4) Tube Size (Fr): 7.5 Medications: Etomidate, Succinylcholine Tube position @ lip (cm): 22 Tube position confirmed by: Direct visualization, CO2 detector, Chest x-ray, Breath sounds Breath Sounds after Intubation: equal Intubation Complications: no complications Post Intubation Xray: Yes (Post-intubation CXR w/ confirmation of ETT placement) ED Treatment Course - LABORATORY CBC & Chemistry Diagram: 01/09/19 17:00 01/09/19 17:00 - ADDITIONAL ORDERS Additional order review: Laboratory Results 01/09/19 17:00 VBG pH 7.09 L* POC VBG pCO2 149 H* POC VBG pO2 70.5 H VBG HCO3 42.8 H VBG O2 Sat (Feli) 82.0 H VBG Base Excess 0.8 Medical Decision Making - Medical Decision Making The pt is a 63 w/ a history of COPD, diverticulitis, and tobacco abuse per chart review who presents by EMS lethargic, in acute respiratory distress, tachycardic, and diaphoretic. Ddx includes sepsis (aspiration/PNA/UTI), ACS, fall/trauma, CVA, intoxication/ metabolic, hypoglycemia Pt initially hypoxic to 80% on NC, placed on BiPAP w/ improvement to 92-95% and mild improvement to stimulation with wince to sternal rub 2 IVs obtained Sepsis labs obtained/sent BGM 304 Pt tachycardic to 120s -NS bolus started 01/09/19 17:40 Pt w/ persistent lethargy, tachypnia 7.5cm ETT placed on first pass, 22cm at lip via DL w/ etomidate and succinylcholine -500/16/5/100 -Confirmed with +color change and CXR -Pt with subsequent improvement in SpO2 from mid 90s on BiPAP to 99-100% -Propofol gtt for sedation Queen placed Evidence of polycythemia vera -s/p 1L IVF -Will place on mIVF Will give Vancomycin 1g and Zosyn 3.325mg IV for presumed sepsis 01/09/19 17:55 CT head and c-spine w/o acute bleed/fx ABG obtained and sent VBG w/ evidence of acute hypercapnic respiratory failure -Vent settings changed to 500/18/5/100 -ABG pending Propofol increased to 50mcg/kg/min -Will add Versed IVP PRN for sedation ICU consulted, will evaluate pt Microblog placed to [facility] Admitting Pt signed out to Dr. Moran 01/09/19 17:58 *DC/Admit/Observation/Transfer Diagnosis at time of Disposition: Sepsis Qualifiers: Sepsis type: sepsis due to unspecified organism Qualified Code(s): A41.9 - Sepsis, unspecified organism Acute respiratory failure Qualifiers: Respiratory failure complication: hypercapnia Qualified Code(s): J96.02 - Acute respiratory failure with hypercapnia COPD (chronic obstructive pulmonary disease) Qualifiers: COPD type: unspecified COPD Qualified Code(s): J44.9 - Chronic obstructive pulmonary disease, unspecified - Discharge Dispostion Condition at time of disposition: Critical Decision to Admit order: Yes - Referrals - Patient Instructions - Post Discharge Activity
[2019-01-09] MEDS ORDERED: MIDAZOLAM HCL 2 MG/2 ML SINGLE DOSE VIAL IVPUSH ONE ×3 (17:42→19:25)
[2019-01-09] MEDS ORDERED: MIDAZOLAM HCL 2 MG/2 ML SINGLE DOSE VIAL ONE ×3 (17:43→19:01)
[2019-01-09] MEDS ORDERED: PROPOFOL 1,000,000 MCG/100 ML VIAL IVPB SCH (17:45)
[2019-01-09 17:46] LABS: HEMOGLOBIN 20.1 GM/dL (11.7-16.9)
[2019-01-09] MEDS ORDERED: LACTATED RINGERS SOLUTION 1000 ML INFUS.BAG IV ONE (17:50)
[2019-01-09] MEDS ORDERED: PIPERACILLIN/TAZOB 3.375 GM 3.375 GM in DEXTROSE 5%-WATER - 50 ML IVPB ONE (17:56)
[2019-01-09 17:59] LABS: INR 0.98 (0.83-1.09); PROTHROMBIN TIME (PATIENT) 11.6 SEC (9.7-13.0)
[2019-01-09 18:02] LABS: ACTIVATED PTT 30.2 SECONDS (25.2-36.5)
[2019-01-09] MEDS ORDERED: PIPERACILLIN/TAZOB 3.375 GM 3.375 GM/50 ML BAG IVPB ONE (18:03)
[2019-01-09 18:07] LABS: ALBUMIN 3.1 g/dl (3.4-5.0); ALK PHOS 113 U/L (45-117); ANION GAP 4 MMOL/L (8-16); BILIRUBIN,TOTAL 0.5 mg/dL (0.2-1); BLOOD UREA NITROGEN 58.9 mg/dL (7-18); CALCIUM 9.2 mg/dL (8.5-10.1); CHLORIDE 95 mmol/L (98-107); CO2 40 mmol/L (21-32); CREATININE 1.5 mg/dL (0.55-1.3); POTASSIUM 5.8 mmol/L (3.5-5.1); SGOT/AST 17 U/L (15-37); SGPT/ALT 18 U/L (13-61); SODIUM 140 mmol/L (136-145); TOT PROT 7.8 g/dl (6.4-8.2)
[2019-01-09 18:21] LABS: GLUCOSE,RANDOM 349 mg/dL (74-106)
[2019-01-09 19:28] LABS: ACETONE SERUM NEGATIVE (NEGATIVE)
--- NOTE | 2019-01-09 19:33 | PDOC ---
*Physical Exam - Vital Signs Last Vital Signs Temp Pulse Resp BP Pulse Ox 98.3 F 88 18 105/87 100 01/09/19 17:06 01/09/19 18:50 01/09/19 18:50 01/09/19 18:50 01/09/19 18:50 <DeanDaphne - Last Filed: 01/09/19 19:42> - Vital Signs Last Vital Signs Temp Pulse Resp BP Pulse Ox 98.3 F 76 18 117/80 95 01/09/19 17:06 01/09/19 20:37 01/09/19 19:40 01/09/19 20:37 01/09/19 20:37 <Jeremie Feliciano - Last Filed: 01/09/19 21:12> ED Treatment Course - LABORATORY CBC & Chemistry Diagram: 01/09/19 17:00 01/09/19 17:00 - ADDITIONAL ORDERS Additional order review: Laboratory Results 01/09/19 01/09/19 01/09/19 17:00 17:00 17:00 PT with INR INR PTT (Actin FS) VBG pH POC VBG pCO2 POC VBG pO2 VBG HCO3 VBG O2 Sat (Feli) VBG Base Excess Sodium 140 Potassium 5.8 H Chloride 95 L Carbon Dioxide 40 H Anion Gap 4 L BUN 58.9 H Creatinine 1.5 H Est GFR (CKD-EPI)AfAm 57.01 Est GFR (CKD-EPI)NonAf 49.19 Random Glucose 349 H* Lactic Acid 2.8 H* Calcium 9.2 Total Bilirubin 0.5 AST 17 ALT 18 Alkaline Phosphatase 113 Ammonia 59.30 H Troponin I 0.02 Total Protein 7.8 Albumin 3.1 L Alcohol, Quantitative < 3.0 Acetone, Qual Negative 01/09/19 01/09/19 17:00 17:00 PT with INR 11.60 INR 0.98 PTT (Actin FS) 30.2 VBG pH 7.09 L* POC VBG pCO2 149 H* POC VBG pO2 70.5 H VBG HCO3 42.8 H VBG O2 Sat (Feli) 82.0 H VBG Base Excess 0.8 Sodium Potassium Chloride Carbon Dioxide Anion Gap BUN Creatinine Est GFR (CKD-EPI)AfAm Est GFR (CKD-EPI)NonAf Random Glucose Lactic Acid Calcium Total Bilirubin AST ALT Alkaline Phosphatase Ammonia Troponin I Total Protein Albumin Alcohol, Quantitative Acetone, Qual 01/09/19 17:00 RBC 6.60 H MCV 96.5 H MCHC 31.5 L RDW 16.6 H MPV 9.6 Neutrophils % 82.3 Lymphocytes % 8.5 Monocytes % 8.9 Eosinophils % 0.0 Basophils % 0.3 - Medications Given in the ED: ED Medications Discontinued Medications Generic Name Dose Route Start Last Admin Trade Name Blayne PRN Reason Stop Dose Admin Piperacillin Sod/Tazobactam 50 mls @ 100 mls/hr 01/09/19 17:56 01/09/19 18:23 Sod 3.375 gm/ Dextrose IVPB 01/09/19 18:25 100 mls/hr ONCE ONE Administration Protocol Lactated Ringer's 2,000 ml 01/09/19 17:50 01/09/19 18:23 Lactated Ringers Solution IV 01/09/19 17:51 2,000 ml ONCE ONE Administration Midazolam HCl 2 mg 01/09/19 17:42 01/09/19 17:48 Versed - IVPUSH 01/09/19 17:43 2 mg ONCE ONE Administration Midazolam HCl 2 mg 01/09/19 18:10 01/09/19 18:23 Versed - IVPUSH 01/09/19 18:11 2 mg ONCE ONE Administration Midazolam HCl 2 mg 01/09/19 19:25 01/09/19 19:25 Versed - IVPUSH 01/09/19 19:26 2 mg NOW ONE Administration <Daphne Moran - Last Filed: 01/09/19 19:42> - LABORATORY CBC & Chemistry Diagram: 01/09/19 17:00 01/09/19 17:00 - ADDITIONAL ORDERS Additional order review: Laboratory Results 01/09/19 01/09/19 01/09/19 20:18 19:35 19:30 PT with INR INR PTT (Actin FS) Anticoagulation Therapy No Result Required. Puncture Site No Result Required. ABG pH 7.48 H ABG pCO2 at Pt Temp 44.7 ABG pO2 at Pt Temp 72.8 L ABG HCO3 32.7 H ABG O2 Sat (Measured) 94.8 L ABG O2 Content 24.3 H ABG Base Excess 8.1 H Chaz Test No Result Required. VBG pH POC VBG pCO2 POC VBG pO2 VBG HCO3 VBG O2 Sat (Feli) VBG Base Excess Carboxyhemoglobin 1.6 Methemoglobin 0.6 O2 Delivery Device No Result Required. Oxygen Flow Rate No Result Required. Vent Mode No Result Required. Vent Rate No Result Required. Mechanical Rate No Result Required. Pressure Support Vent No Result Required. Sodium Potassium Chloride Carbon Dioxide Anion Gap BUN Creatinine Est GFR (CKD-EPI)AfAm Est GFR (CKD-EPI)NonAf POC Glucometer 304 Random Glucose Lactic Acid Calcium Total Bilirubin AST ALT Alkaline Phosphatase Ammonia Creatine Kinase Troponin I Total Protein Albumin Urine Color Urine Appearance Urine pH Ur Specific [place] Urine Protein Urine Glucose (UA) Urine Ketones Urine Blood Urine Nitrite Urine Bilirubin Urine Urobilinogen Ur Leukocyte Esterase Urine WBC (Auto) Urine RBC (Auto) U Pathogenic Cast Auto U Epithel Cells (Auto) U Sm Round Cell (Auto) Urine Bacteria (Auto) Alcohol, Quantitative Acetone, Qual 01/09/19 01/09/19 01/09/19 19:30 19:20 17:13 PT with INR INR PTT (Actin FS) Anticoagulation Therapy No Result Required. Puncture Site No Result Required. ABG pH 7.44 ABG pCO2 at Pt Temp 48.4 H ABG pO2 at Pt Temp 93.9 ABG HCO3 32.4 H ABG O2 Sat (Measured) 97.2 ABG O2 Content 24.7 H ABG Base Excess 7.0 H Chaz Test No Result Required. VBG pH POC VBG pCO2 POC VBG pO2 VBG HCO3 VBG O2 Sat (Feli) VBG Base Excess Carboxyhemoglobin Methemoglobin O2 Delivery Device No Result Required. Oxygen Flow Rate No Result Required. Vent Mode No Result Required. Vent Rate No Result Required. Mechanical Rate No Result Required. Pressure Support Vent No Result Required. Sodium Potassium Chloride Carbon Dioxide Anion Gap BUN Creatinine Est GFR (CKD-EPI)AfAm Est GFR (CKD-EPI)NonAf POC Glucometer Random Glucose Lactic Acid 5.3 H* Calcium Total Bilirubin AST ALT Alkaline Phosphatase Ammonia Creatine Kinase Troponin I Total Protein Albumin Urine Color Dk yellow Urine Appearance Cloudy Urine pH 5.0 Ur Specific [place] 1.037 H Urine Protein 4+ H Urine Glucose (UA) 1+ H Urine Ketones Trace H Urine Blood 2+ H Urine Nitrite Negative Urine Bilirubin Small Urine Urobilinogen 1.0 Ur Leukocyte Esterase Negative Urine WBC (Auto) 4.9 Urine RBC (Auto) 6.2 U Pathogenic Cast Auto None seen U Epithel Cells (Auto) 93.9 U Sm Round Cell (Auto) None seen Urine Bacteria (Auto) 3.9 Alcohol, Quantitative Acetone, Qual 01/09/19 01/09/19 01/09/19 17:00 17:00 17:00 PT with INR INR PTT (Actin FS) Anticoagulation Therapy Puncture Site ABG pH ABG pCO2 at Pt Temp ABG pO2 at Pt Temp ABG HCO3 ABG O2 Sat (Measured) ABG O2 Content ABG Base Excess Chaz Test VBG pH POC VBG pCO2 POC VBG pO2 VBG HCO3 VBG O2 Sat (Feli) VBG Base Excess Carboxyhemoglobin Methemoglobin O2 Delivery Device Oxygen Flow Rate Vent Mode Vent Rate Mechanical Rate Pressure Support Vent Sodium 140 Potassium 5.8 H Chloride 95 L Carbon Dioxide 40 H Anion Gap 4 L BUN 58.9 H Creatinine 1.5 H Est GFR (CKD-EPI)AfAm 57.01 Est GFR (CKD-EPI)NonAf 49.19 POC Glucometer Random Glucose 349 H* Lactic Acid 2.8 H* Calcium 9.2 Total Bilirubin 0.5 AST 17 ALT 18 Alkaline Phosphatase 113 Ammonia 59.30 H Creatine Kinase 107 Troponin I 0.02 Total Protein 7.8 Albumin 3.1 L Urine Color Urine Appearance Urine pH Ur Specific [place] Urine Protein Urine Glucose (UA) Urine Ketones Urine Blood Urine Nitrite Urine Bilirubin Urine Urobilinogen Ur Leukocyte Esterase Urine WBC (Auto) Urine RBC (Auto) U Pathogenic Cast Auto U Epithel Cells (Auto) U Sm Round Cell (Auto) Urine Bacteria (Auto) Alcohol, Quantitative < 3.0 Acetone, Qual Negative 01/09/19 01/09/19 17:00 17:00 PT with INR 11.60 INR 0.98 PTT (Actin FS) 30.2 Anticoagulation Therapy Puncture Site ABG pH ABG pCO2 at Pt Temp ABG pO2 at Pt Temp ABG HCO3 ABG O2 Sat (Measured) ABG O2 Content ABG Base Excess Chaz Test VBG pH 7.09 L* POC VBG pCO2 149 H* POC VBG pO2 70.5 H VBG HCO3 42.8 H VBG O2 Sat (Feli) 82.0 H VBG Base Excess 0.8 Carboxyhemoglobin Methemoglobin O2 Delivery Device Oxygen Flow Rate Vent Mode Vent Rate Mechanical Rate Pressure Support Vent Sodium Potassium Chloride Carbon Dioxide Anion Gap BUN Creatinine Est GFR (CKD-EPI)AfAm Est GFR (CKD-EPI)NonAf POC Glucometer Random Glucose Lactic Acid Calcium Total Bilirubin AST ALT Alkaline Phosphatase Ammonia Creatine Kinase Troponin I Total Protein Albumin Urine Color Urine Appearance Urine pH Ur Specific [place] Urine Protein Urine Glucose (UA) Urine Ketones Urine Blood Urine Nitrite Urine Bilirubin Urine Urobilinogen Ur Leukocyte Esterase Urine WBC (Auto) Urine RBC (Auto) U Pathogenic Cast Auto U Epithel Cells (Auto) U Sm Round Cell (Auto) Urine Bacteria (Auto) Alcohol, Quantitative Acetone, Qual 01/09/19 01/09/19 20:18 17:00 RBC 6.60 H MCV 96.5 H MCHC 31.5 L RDW 16.6 H MPV 9.6 Neutrophils % 82.3 Lymphocytes % 8.5 Monocytes % 8.9 Eosinophils % 0.0 Basophils % 0.3 POC Glucometer 304 - Medications Given in the ED: ED Medications Discontinued Medications Generic Name Dose Route Start Last Admin Trade Name Freq PRN Reason Stop Dose Admin Piperacillin Sod/Tazobactam 50 mls @ 100 mls/hr 01/09/19 17:56 01/09/19 18:23 Sod 3.375 gm/ Dextrose IVPB 01/09/19 18:25 100 mls/hr ONCE ONE Administration Protocol Insulin Human Regular 6 units 01/09/19 20:22 01/09/19 20:30 Novolin R Vial *For Ivpush Or Iv Drip Only* SQ 01/09/19 20:23 6 units ONCE ONE Administration Lactated Ringer's 2,000 ml 01/09/19 17:50 01/09/19 18:23 Lactated Ringers Solution IV 01/09/19 17:51 2,000 ml ONCE ONE Administration Midazolam HCl 2 mg 01/09/19 17:42 01/09/19 17:48 Versed - IVPUSH 01/09/19 17:43 2 mg ONCE ONE Administration Midazolam HCl 2 mg 01/09/19 18:10 01/09/19 18:23 Versed - IVPUSH 01/09/19 18:11 2 mg ONCE ONE Administration Midazolam HCl 2 mg 01/09/19 19:25 01/09/19 19:25 Versed - IVPUSH 01/09/19 19:26 2 mg NOW ONE Administration <Jeremie Feliciano - Last Filed: 01/09/19 21:12> Medical Decision Making - Medical Decision Making 01/09/19 19:31 Sign out received from Dr Nicolas. Kailash Kwan is a 63yo man with a PMH of COPD who was BIBA after being found down. On arrival he grimaced to noxious stimuli but was otherwise unresponsive to commands. He was intubated in the ED, and sepsis order set was sent. ED course so far was notable for: - Intubated - vbg notable for CO2 149, pH 7.09. ABG sent - Leukocytosis to 11, elevated hgb, elevated glucose in 300's w/ negative acetone. - UA pending - ICU consulted - Microblog sent to hospitalist team for admission, waiting for call back 01/09/19 19:42 <Daphne Moran - Last Filed: 01/09/19 19:42> *DC/Admit/Observation/Transfer <Daphne Moran - Last Filed: 01/09/19 19:42> - Discharge Dispostion Decision to Admit order: Yes <Jeremie Feliciano - Last Filed: 01/09/19 21:12> Diagnosis at time of Disposition: Acute renal failure Sepsis Qualifiers: Sepsis type: sepsis due to unspecified organism Qualified Code(s): A41.9 - Sepsis, unspecified organism Acute respiratory failure Qualifiers: Respiratory failure complication: hypercapnia Qualified Code(s): J96.02 - Acute respiratory failure with hypercapnia - Discharge Dispostion Condition at time of disposition: Critical
[2019-01-09 19:45] LABS: ARTERIAL BLD GAS O2 SATURATION 97.2 % (95-98); ARTERIAL BLOOD GAS PCO2 48.4 mmHg (35-45); ARTERIAL BLOOD GAS PO2 93.9 mmHg (80-105); ARTERIAL BLOOD GAS pH 7.44 (7.35-7.45)
[2019-01-09 19:48] LABS: CARBOXYHEMOGLOBIN 1.6 % (0-2)
[2019-01-09] MEDS ORDERED: ALBUTEROL SO4 8 GM HFA INHALER IH PRN (19:52)
[2019-01-09 19:54] LABS: URINE COLOR DK YELLOW
[2019-01-09 19:55] LABS: URINE APPEARANCE CLOUDY
[2019-01-09 19:56] LABS: URINE BILIRUBIN SMALL (NEGATIVE); URINE GLUCOSE (UA) 1+ (NEGATIVE); URINE KETONE TRACE (NEGATIVE)
[2019-01-09 19:57] LABS: URINE PROTEIN 4+ (NEGATIVE)
[2019-01-09 19:58] LABS: EPI CELLS 93.9 /HPF (0-5/HPF); URINE BACTERIA 3.9 /hpf (NEGATIVE); URINE LEUK ESTERASE NEGATIVE (NEGATIVE); URINE NITRITE NEGATIVE (NEGATIVE); URINE RBC 6.2 /hpf (0-4); URINE WBC 4.9 /hpf (0-5)
[2019-01-09] MEDS ORDERED: HEPARIN NA (PORCINE) 5,000 UNITS/ML 1ML VIAL SQ SCH (20:00)
[2019-01-09] MEDS ORDERED: methylPREDNISolone NA SUCC 40 MG/1 ML VIAL IVPUSH SCH (20:00)
[2019-01-09] MEDS ORDERED: LACTULOSE 20 GM/30 ML UDC (FOR ORAL USE ONLY) NGT ONE (20:04)
[2019-01-09] MEDS ORDERED: INSULIN REGULAR HUMAN 100 UNITS/ML *VIAL SQ ONE (20:22)
[2019-01-09] MEDS ORDERED: SODIUM CHLORIDE 1,000 ML IV SCH (20:30)
[2019-01-09] MEDS ORDERED: ALBUTEROL SO4 2.5/IPRATROPIUM 0.5 INH SOL 3 ML VIAL.NEB. NEB ONE (20:30)
[2019-01-09] MEDS: INSULIN SLIDING SCALE (NOVOLOG) 1 VIAL SQ SCH (20:35)
[2019-01-09] MEDS: ALBUTEROL SO4 2.5/IPRATROPIUM 0.5 INH SOL 3 ML VIAL.NEB. NEB SCH (20:35)
--- NOTE | 2019-01-09 20:37 | PDOC ---
Documentation entered by Latoya Be SCRIBE, acting as scribe for Jeremie Feliciano MD. Jeremie Feliciano MD: This documentation has been prepared by the eleniibe, Latoya Be SCRIBE, under my direction and personally reviewed by me in its entirety. I confirm that the documentation accurately reflects all work, treatment, procedures, and medical decision making performed by me. Attending Attestation - Resident Resident Name: FidencioJosé - ED Attending Attestation I have performed the following: I have examined & evaluated the patient, The case was reviewed & discussed with the resident, I agree w/resident's findings & plan, Exceptions are as noted - HPI HPI: 01/09/19 20:30 63-year-old male with history of COPD, possible polycythemia brought in by EMS after he was found on the floor of his house during a welfare check. Initially patient was somnolent but arousable and was able to provide his name to EMS personnel. Patient's mental status deteriorated prior to arrival in the ER. No other history is provided. No history of trauma or toxic ingestion is available. Patient is unable to cooperate with the detailed history of present illness due to his clinical condition. - Physicial Exam PE: 01/09/19 20:32 Patient seen and evaluated immediately upon arrival. This physical exam is being recorded prior to admission to the ICU. On arrival: Patient is lethargic, opens his eyes to sternal rub, does not follow commands, does not localize to pain. Patient is noted to be tachycardic, tachypneic and dyspneic. Normocephalic, atraumatic Pupils are reactive to light, round (3 mm); I'm unable to test extraocular movements; mm-dry no jvd RRR, tachycardic Tachypneic, dyspneic, patient's respirations are shallow; no wheezing/rhonchi or rails appreciated bilaterally; Abdomen is soft, nontender, nondistended Pelvis is stable Bilateral bruising to the knees is appreciated, there is no lower extremity edema bilaterally Babinski is negative bilaterally Increased tone to the upper extremities is noted + Asterixis bilaterally - Critical Care Time Total Critical Care Time: 55 Critical Care Statement: The care of this patient involved high complexity decision making to prevent further life threatening deterioration of the patient 's condition and/or to evaluate & treat vital organ system(s) failure or risk of failure. - Medical Decision Making 01/09/19 20:35 Patient is a 63-year-old male with history of COPD, polycythemia who presents with altered mental status, tachycardic, tachypnea and hypoxemia which corrected with administration of supplemental O2 via nonrebreather. Given the patient's decreased mental status, hypoxemia and route quire meant of further testing, patient was intubated for airway protection, oxygenation and expectant management using RSI. Differential diagnoses includes metabolic encephalopathy versus neurological insult versus sepsis versus traumatic brain injury versus toxic ingestion. Blood and urine cultures were obtained. Blood alcohol and ammonia were obtained as well. Broad-spectrum antibiotics were administered. CT of head and cervical spine was obtained to rule out traumatic injury. Will hydrate. Will admit to the ICU. 01/09/19 21:[address] shows no evidence of acute cranial pathology. Cervical spine CT reveals no evidence of traumatic fracture/dislocation. Ammonia levels noted to be elevated. ABG reveals no evidence of severe acidosis or hypercapnia. CBC revealed significantly elevated hemoglobin/hematocrit consistent with previous finding of polycythemia. Urinalysis reveals no evidence of pyuria. Chest x-ray reveals no evidence of aspiration pneumonia. We'll admit to the ICU for respiratory failure, acute renal failure, dehydration.
[2019-01-09 20:45] LABS: ARTERIAL BLD GAS O2 SATURATION 94.8 % (95-98); ARTERIAL BLOOD GAS BASE EXCESS 8.1 meq/l (-2-2); ARTERIAL BLOOD GAS PCO2 44.7 mmHg (35-45); ARTERIAL BLOOD GAS PO2 72.8 mmHg (80-105); ARTERIAL BLOOD GAS pH 7.48 (7.35-7.45)
--- NOTE | 2019-01-09 20:58 | CONSULT ---
Consultation: REQUESTING PROVIDER: Dr. Esposito CONSULT REQUEST: We have been asked to medically evaluate this patient for altered mental status HISTORY OF PRESENT ILLNESS: 63 year old male with a history of COPD and diverticulitis was brought to the ED by ambulance after he was found down in his home. Per EMS reports, neighbors heard him fall the day prior, but no one checked on him until today. In the ED patient was lethargic and reportedly had difficulty breathing. He was on bipap, and when he was sent to CT he was intubated for airway protection. On my exam, patient is not awake or alert and is unable to provide any history. Patient has no family at bedside and next of kin, a friend named Josue in the chart, was unable to be reached by phone. REVIEW OF SYSTEMS: Unable to assess based on mental status PHYSICAL EXAMINATION Vital Signs - 24 hr 01/09/19 01/09/19 01/09/19 17:00 17:06 18:50 Temperature 98.3 F Pulse Rate 114 H Pulse Rate [ 88 Apical] Respiratory 16 32 H 18 Rate Blood Pressure 149/93 Blood Pressure 105/87 [Left Arm] O2 Sat by Pulse 80 L 100 Oximetry (%) 01/09/19 01/09/19 19:40 20:37 Temperature Pulse Rate Pulse Rate [ 76 Apical] Respiratory 18 Rate Blood Pressure Blood Pressure 117/80 [Left Arm] O2 Sat by Pulse 95 Oximetry (%) GENERAL: A&Ox0, intubated/sedated EYES: pinpoint pupils, minimally reactive ENT: Dry mucus membranes NECK: No JVD LUNGS: Coarse mechanical breath sounds HEART: RRR, no murmurs ABDOMEN: Soft, BS present EXTREMITIES: 2+ pulses, no edema. NEUROLOGICAL: Unable to assess due to mental status Laboratory Results - last 24 hr 01/09/19 01/09/19 01/09/19 17:00 17:00 17:00 WBC 11.5 H RBC 6.60 H Hgb 20.1 H* Hct 63.7 H MCV 96.5 H MCH 30.4 MCHC 31.5 L RDW 16.6 H Plt Count 327 MPV 9.6 Absolute Neuts (auto) 9.4 H Neutrophils % 82.3 Lymphocytes % 8.5 Monocytes % 8.9 Eosinophils % 0.0 Basophils % 0.3 Nucleated RBC % 0 PT with INR 11.60 INR 0.98 PTT (Actin FS) 30.2 Anticoagulation Therapy Puncture Site ABG pH ABG pCO2 at Pt Temp ABG pO2 at Pt Temp ABG HCO3 ABG O2 Sat (Measured) ABG O2 Content ABG Base Excess Chaz Test VBG pH 7.09 L* POC VBG pCO2 149 H* POC VBG pO2 70.5 H VBG HCO3 42.8 H VBG O2 Sat (Feli) 82.0 H VBG Base Excess 0.8 Carboxyhemoglobin Methemoglobin O2 Delivery Device Oxygen Flow Rate Vent Mode Vent Rate Mechanical Rate Pressure Support Vent Sodium Potassium Chloride Carbon Dioxide Anion Gap BUN Creatinine Est GFR (CKD-EPI)AfAm Est GFR (CKD-EPI)NonAf POC Glucometer Random Glucose Lactic Acid Calcium Total Bilirubin AST ALT Alkaline Phosphatase Ammonia Creatine Kinase Troponin I Total Protein Albumin Urine Color Urine Appearance Urine pH Ur Specific [place] Urine Protein Urine Glucose (UA) Urine Ketones Urine Blood Urine Nitrite Urine Bilirubin Urine Urobilinogen Ur Leukocyte Esterase Urine WBC (Auto) Urine RBC (Auto) U Pathogenic Cast Auto U Epithel Cells (Auto) U Sm Round Cell (Auto) Urine Bacteria (Auto) Alcohol, Quantitative Acetone, Qual 01/09/19 01/09/19 01/09/19 17:00 17:00 17:00 WBC RBC Hgb Hct MCV MCH MCHC RDW Plt Count MPV Absolute Neuts (auto) Neutrophils % Lymphocytes % Monocytes % Eosinophils % Basophils % Nucleated RBC % PT with INR INR PTT (Actin FS) Anticoagulation Therapy Puncture Site ABG pH ABG pCO2 at Pt Temp ABG pO2 at Pt Temp ABG HCO3 ABG O2 Sat (Measured) ABG O2 Content ABG Base Excess Chaz Test VBG pH POC VBG pCO2 POC VBG pO2 VBG HCO3 VBG O2 Sat (Feli) VBG Base Excess Carboxyhemoglobin Methemoglobin O2 Delivery Device Oxygen Flow Rate Vent Mode Vent Rate Mechanical Rate Pressure Support Vent Sodium 140 Potassium 5.8 H Chloride 95 L Carbon Dioxide 40 H Anion Gap 4 L BUN 58.9 H Creatinine 1.5 H Est GFR (CKD-EPI)AfAm 57.01 Est GFR (CKD-EPI)NonAf 49.19 POC Glucometer Random Glucose 349 H* Lactic Acid 2.8 H* Calcium 9.2 Total Bilirubin 0.5 AST 17 ALT 18 Alkaline Phosphatase 113 Ammonia 59.30 H Creatine Kinase 107 Troponin I 0.02 Total Protein 7.8 Albumin 3.1 L Urine Color Urine Appearance Urine pH Ur Specific [place] Urine Protein Urine Glucose (UA) Urine Ketones Urine Blood Urine Nitrite Urine Bilirubin Urine Urobilinogen Ur Leukocyte Esterase Urine WBC (Auto) Urine RBC (Auto) U Pathogenic Cast Auto U Epithel Cells (Auto) U Sm Round Cell (Auto) Urine Bacteria (Auto) Alcohol, Quantitative < 3.0 Acetone, Qual Negative 01/09/19 01/09/19 01/09/19 17:13 19:20 19:30 WBC RBC Hgb Hct MCV MCH MCHC RDW Plt Count MPV Absolute Neuts (auto) Neutrophils % Lymphocytes % Monocytes % Eosinophils % Basophils % Nucleated RBC % PT with INR INR PTT (Actin FS) Anticoagulation Therapy No Result Required. Puncture Site No Result Required. ABG pH 7.44 ABG pCO2 at Pt Temp 48.4 H ABG pO2 at Pt Temp 93.9 ABG HCO3 32.4 H ABG O2 Sat (Measured) 97.2 ABG O2 Content 24.7 H ABG Base Excess 7.0 H Chaz Test No Result Required. VBG pH POC VBG pCO2 POC VBG pO2 VBG HCO3 VBG O2 Sat (Feli) VBG Base Excess Carboxyhemoglobin Methemoglobin O2 Delivery Device No Result Required. Oxygen Flow Rate No Result Required. Vent Mode No Result Required. Vent Rate No Result Required. Mechanical Rate No Result Required. Pressure Support Vent No Result Required. Sodium Potassium Chloride Carbon Dioxide Anion Gap BUN Creatinine Est GFR (CKD-EPI)AfAm Est GFR (CKD-EPI)NonAf POC Glucometer Random Glucose Lactic Acid 5.3 H* Calcium Total Bilirubin AST ALT Alkaline Phosphatase Ammonia Creatine Kinase Troponin I Total Protein Albumin Urine Color Dk yellow Urine Appearance Cloudy Urine pH 5.0 Ur Specific [place] 1.037 H Urine Protein 4+ H Urine Glucose (UA) 1+ H Urine Ketones Trace H Urine Blood 2+ H Urine Nitrite Negative Urine Bilirubin Small Urine Urobilinogen 1.0 Ur Leukocyte Esterase Negative Urine WBC (Auto) 4.9 Urine RBC (Auto) 6.2 U Pathogenic Cast Auto None seen U Epithel Cells (Auto) 93.9 U Sm Round Cell (Auto) None seen Urine Bacteria (Auto) 3.9 Alcohol, Quantitative Acetone, Qual 01/09/19 01/09/19 01/09/19 19:30 19:35 20:18 WBC RBC Hgb Hct MCV MCH MCHC RDW Plt Count MPV Absolute Neuts (auto) Neutrophils % Lymphocytes % Monocytes % Eosinophils % Basophils % Nucleated RBC % PT with INR INR PTT (Actin FS) Anticoagulation Therapy No Result Required. Puncture Site No Result Required. ABG pH 7.48 H ABG pCO2 at Pt Temp 44.7 ABG pO2 at Pt Temp 72.8 L ABG HCO3 32.7 H ABG O2 Sat (Measured) 94.8 L ABG O2 Content 24.3 H ABG Base Excess 8.1 H Chaz Test No Result Required. VBG pH POC VBG pCO2 POC VBG pO2 VBG HCO3 VBG O2 Sat (Feli) VBG Base Excess Carboxyhemoglobin 1.6 Methemoglobin 0.6 O2 Delivery Device No Result Required. Oxygen Flow Rate No Result Required. Vent Mode No Result Required. Vent Rate No Result Required. Mechanical Rate No Result Required. Pressure Support Vent No Result Required. Sodium Potassium Chloride Carbon Dioxide Anion Gap BUN Creatinine Est GFR (CKD-EPI)AfAm Est GFR (CKD-EPI)NonAf POC Glucometer 304 Random Glucose Lactic Acid Calcium Total Bilirubin AST ALT Alkaline Phosphatase Ammonia Creatine Kinase Troponin I Total Protein Albumin Urine Color Urine Appearance Urine pH Ur Specific [place] Urine Protein Urine Glucose (UA) Urine Ketones Urine Blood Urine Nitrite Urine Bilirubin Urine Urobilinogen Ur Leukocyte Esterase Urine WBC (Auto) Urine RBC (Auto) U Pathogenic Cast Auto U Epithel Cells (Auto) U Sm Round Cell (Auto) Urine Bacteria (Auto) Alcohol, Quantitative Acetone, Qual Active Medications Generic Name Dose Route Start Last Admin Trade Name Freq PRN Reason Stop Dose Admin Albuterol Sulfate 2 puff 01/09/19 19:52 Ventolin Hfa Inhaler - IH Q4H PRN SHORT OF BREATH/WHEEZING Albuterol/Ipratropium 1 amp 01/09/19 20:00 01/09/19 20:35 Duoneb - NEB 1 amp RQID HOSSEIN Administration Budesonide/Formoterol Fumarate 2 puff 01/09/19 22:00 Symbicort 80/4.5mcg - IH BID HOSSEIN Chlorhexidine Gluconate 1 applic 01/09/19 22:00 Hibiclens For Decolonization - TP HS HOSSEIN Heparin Sodium (Porcine) 5,000 unit 01/09/19 20:00 Heparin - SQ Q8H-IV HOSSEIN Propofol 1,000,000 mcg in 100 mls @ 4.8 mls/hr 01/09/19 17:45 01/09/19 18:20 Diprivan - IVPB 10 mcg/kg/min TITR HOS[facility] 4.8 mls/hr Administration Protocol 10 MCG/KG/MIN Sodium Chloride 1,000 mls @ 100 mls/hr 01/09/19 20:30 01/09/19 20:35 Normal Saline - IV 100 mls/hr ASDIR [facility]OS[facility] Administration Insulin Aspart 1 vial 01/09/19 19:45 01/09/19 20:35 Novolog Vial Sliding Scale - SQ Not Given Q6HPO [facility] Protocol Methylprednisolone Sodium Succinate 40 mg 01/09/19 20:00 Solu-Medrol - IVPUSH DAILY HOSSEIN Mupirocin 1 applic 01/09/19 22:00 Bactroban Ointment (For Decolonization) - NS 01/14/19 21:59 BID [facility] ASSESSMENT/PLAN: 63 year old male with a history of COPD and diverticulitis was brought to the ED by ambulance after he was found down in his home and admitted for acute on chronic hypoxic hypercapnic respiratory failure Neurologic -altered mental status on presentation -now intubated/sedated on propofol -pinpoint pupils that are sluggish to react -will observe patient on period off propofol for proper neurologic exam -head CT shows no evidence of intracranial pathology Cardiovascular -tachycardia likely 2/2 hypovolemia and hypoxia, resolved after intubation and mechanical ventilation and fluid resuscitation -no other current cardiovascular issues -EKG shows sinus tachycardia rate 111, qtc 481, right bundle branch block, unchanged from prior EKG from 2017 -troponins negative -echo ordered by primary team Pulmonary -acute on chronic hypoxic hypercapnic respiratory failure likely 2/2 to COPD exacerbation -patient is intubated and mechanically ventilated with the following settings: -on medrol 60q6h -duonebs/albuterol -will attempt to wean patient in the morning -VBG initially showed pH 7.09, PCO2 149, HCO3 42.8, likely representing an acute on chronic respiratory acidosis -Repeat ABG after intubation improved to a pH of 7.48, PCO2 44.7, HCO3 34.7 -CXR unremarkable -per primary team, will get CT chest to assess for source of infection Gastrointestinal -no acute issues -will be getting CT abd/pelvis per primary team Renal -Acute kidney injury with creatinine 1.5, baseline normal in 2017 -this is likely pre-renal azotemia 2/2 volume depletion -patient is s/p 2L LR and on maintenance fluids -UA shows concentrated urine with evidence of nephrotic range proteinuria, nitrite/LE negative and negative for pyuria; notably urine had 2+ blood with only 6 RBCs, however patient has a CK that is normal, making rhabdo less likely a diagnosis -would appreciate renal consultation for proteinuria in the setting of acute kidney injury -lactic acidosis is worsening, initial LA 2.8 -> 5.3, could be 2/2 hypoxemia and end organ tissue injury vs overt sepsis -> will hydrate and oxygenate patient, repeat LA q4h until normal -hyperkalemia, could be a result of extracellular shift due to acidosis, will repeat BMP - no EKG changes suggestive of severe hyperkalemia Infectious Diseases -patient meets SIRS criteria, however source of infection is unclear -patient may be tachycardic/tachypneic from hypoxic respiratory failure due to COPD and not necessarily from sepsis -CXR normal -UA clean -CT chest/abdomen ordered -ID consulted -fluid resuscitation -lactic acidosis worsening, will repeat -continue zosyn for now Heme Onc -patient has polycythemia, which had been present on previous admission to the hospital in 2017. Based on patient's history of COPD, CO2 retention and likely chronic hypoxia, suspect this polycythemia is due to reflexive EPO secretion due to chronic respiratory disease -however, patient may have underlying polycythemia vera -heme/onc consulted by primary team and several heme lab studies have been ordered -if considering polycythemia vera, may consider ordering EPO level Endocrine -patient has hyperglycemia >300 without a known diagnosis of diabetes mellitus, likely insulin independent -will order insulin sliding scale coverage q6h with a low dose scale -blood glucose monitoring q6h while NPO -A1C for the morning -will need diabetic counseling prior to discharge FEN -on NS @ 100cc/hr -replete lytes as necessary in AM -NPO while intubated Prophylaxis -heparin prophylaxis Disposition -continue to monitor in ICU -full code -would like to wean patient off ventilator hopefully by tomorrow and obtain a more comprehensive history Visit type - Emergency Visit Emergency Visit: Yes ED Registration Date: 01/09/19 Care time: The patient presented to the Emergency Department on the above date and was hospitalized for further evaluation of their emergent condition. - New Patient This patient is new to me today: Yes Date on this admission: 01/09/19 - Critical Care Critical Care patient: Yes Total Critical Care Time (in minutes): 45 Critical Care Statement: The care of this patient involved high complexity decision making to prevent further life threatening deterioration of the patient 's condition and/or to evaluate & treat vital organ system(s) failure or risk of failure. ATTENDING PHYSICIAN STATEMENT I saw and evaluated the patient. I reviewed the resident's note and discussed the case with the resident. I agree with the resident's findings and plan as documented. SUBJECTIVE: OBJECTIVE: ASSESSMENT AND PLAN:
[2019-01-09] MEDS ORDERED: HEPARIN NA (PORCINE) 5,000 UNITS/ML 1ML VIAL ONE (21:00)
[2019-01-09] MEDS ORDERED: methylPREDNISolone NA SUCC 40 MG/1 ML VIAL ONE (21:01)
[2019-01-09] MEDS ORDERED: LACTULOSE 20 GM/30 ML UDC (FOR RECTAL USE ONLY) PR ONE (21:06)
[2019-01-09] MEDS ORDERED: PROPOFOL 1,000,000 MCG/100 ML VIAL ONE (21:26)
[2019-01-09] MEDS ORDERED: BUDESONIDE/FORMETEROL FUMARATE 80/4.5 mcg INHALER IH SCH (22:00)
[2019-01-09] MEDS ORDERED: MUPIROCIN 2% TOPICAL OINTMENT FOR DECOLONIZATION NS SCH (22:00)
[2019-01-09] MEDS ORDERED: CHLORHEXIDINE GLUCONATE 4% CLEANSER FOR DECOLONIZATION TP SCH (22:00)
[2019-01-09 22:03] LABS: COCAINE, UR NEGATIVE ng/ml (CUTOFF=300); METHADONE, UR NEGATIVE ng/ml (CUTOFF=300); OPIATES, URI NEGATIVE ng/ml (CUTOFF=300); PHENCYCLIDINE,URINE NEGATIVE ng/ml (CUTOFF=25); URINE AMPHETAMINES NEGATIVE ng/ml (CUTOFF=500); URINE BARBITURATES NEGATIVE ng/ml (CUTOFF=200); URINE BENZODIAZEPINES NEGATIVE ng/ml (CUTOFF=200)
--- NOTE | 2019-01-09 22:27 | PN ---
Teaching Attending Note ATTENDING PHYSICIAN STATEMENT I saw and evaluated the patient. I reviewed the resident's note and discussed the case with the resident. I agree with the resident's findings and plan as documented. SUBJECTIVE: Seen and examined; please refer to resident note for HPI/PMH/PSH/FH/SH/ROS. Briefly, patient presents altered found on the floor of his house during a welfare check and is unable to provide further history. He is tachycardic, tachypnic, and hypoxic on arrival. OBJECTIVE: Intubated and sedated, not agitated, RASS 3 NC AT EOMI PERRLA RRR s1/2 no mgr Lungs with vent assoc. breath sounds and scattered wheezes Questionably tender abd, ND +BS CN2-12 wnl, moves all [address] C-spine/Head negative for acute cranial pathology/trauma; CT abd/pelv/chest pending ABG reviewed; slight metabolic alkalosis with mild hypoxia after intial primary respiratory acidosis on VBG CBC with leukocytosis with Hb 20.1 and macrocytosis to 96.5 Chemistry with uptrending lactate 2.8 to 5.3, elevated NH4 59, hyperglycemia 304 , hyperkalemia 5.8, BUN/Cr 58/1/5, normal anion gap, 3.1 alb UA with 4+ protein, trace ketones, 2+ blood Utox negative, negative acetone, negative alcohol ASSESSMENT AND PLAN: Patient presents with AMS found to have: #Acute Hypercarbic Respiratory Failure with likely COPD exacerbation #AMS #Sepsis #Severe Lactic Acidosis #Elevated Hb/Polycythemia #Severe Hyperglycemia #Elevated NH4 #Hx Diverticulitis #RONAK #COPD hx #Hyperkalemia #Hypoalbuminemia Patient will be admitted to the ICU for respiratory support and vent care will be deferred to pulmonary medicine. He will be treated for presumed COPD exacerbation with IV steroids and ATC nebs. He will be aggressively hydrated and his lactate and ABG will be trended, and he will be kept on broad-spectrum abx with ID consultation per policy given abx choices; we will also followup imaging as source not clear (some ? discomfort on abd exam with hx diverticultitis). Pancultures willbe followed. For the polycythemia we will check iron studies, B12/folate, epo, and consult hematology. His AMS is likely multifactoral-considering toxic metabolic encephalopathy due to sepsis, hypercarbia, polycythemia, hyperglycemia, hyperammonemia, etc. If his mentation doesn't improve with sedation holiday can consider further neuro workup/neuroimaging. Will be started prophylactically on thiamine and folate. For the likely hepatic encephalopathy component can start lactulose enemas. Given his sepsis assuming potential prerenal etiology for RONAK; recheck BMP tonight (also to check for hyperK resolution) and consider nephrology consult if worsens. Finally, can check prealbumin, HCV Ab, HIV screen. Consultants: PCCM, ID, Hematology DVT Px: Hep SQ GI Px: IV PPI 65 minutes critical care time.
[2019-01-09] MEDS: PANTOPRAZOLE SODIUM 40 MG VIAL IVPUSH SCH (23:30)
[2019-01-09] MEDS: MUPIROCIN 2% TOPICAL OINTMENT FOR DECOLONIZATION NS SCH (23:30)
[2019-01-09] MEDS: CHLORHEXIDINE GLUCONATE 4% CLEANSER FOR DECOLONIZATION TP SCH (23:30)
[2019-01-09] MEDS ORDERED: PNEUMOC 13-VAL CONJ-DIP CRM/PF 0.5 ML DISP.SYRIN IM ONE (23:46)
--- NOTE | 2019-01-10 00:16 | HP ---
CHIEF COMPLAINT: PCP: HISTORY OF PRESENT ILLNESS: 63M with pmh of simgoid diverticulitis, nondomicile, BIBA after being found down during a social sciences lecturer field visit. EMS found patient responsive and oriented. In the ED, patient had increased respiratory requirements and AMS. Intubated to protect airway. Patient was intubated, on propofol gtt upon Medicine team assessment. HPI supplemented by chart review ER course was notable for: (1) increased respiratory needs + AMS (2) intubation (3) CT Head - neg (4) CXR - neg (5) ABG 7.44/48.4/93.9/32.4/7 Recent Travel: PAST MEDICAL HISTORY: simgoid diverticulitis, nondomicile PAST SURGICAL HISTORY: uknown Social History: Smoking: unknown, possibly 2ppd x 20ys Alcohol: unknown Drugs: unknown Family History: Allergies: No Known Allergies Allergy (Verified 01/09/19 17:06) HOME MEDICATIONS: Home Medications Medication Instructions Recorded Albuterol Sulfate Inhaler - 2 inh PO Q4H PRN #1 inh 06/13/17 [Ventolin Hfa Inhaler -] Budesonide/Formeterol Fumarate 2 puff IH BID #1 inhaler 06/13/17 [SYMBICORT 80/4.5mcg -] REVIEW OF SYSTEMS -unable to obtain as patient is intubated PHYSICAL EXAMINATION Vital Signs - 24 hr 01/09/19 01/09/19 01/09/19 17:00 17:06 18:50 Temperature 98.3 F Pulse Rate 114 H Pulse Rate [ 88 Apical] Respiratory 16 32 H 18 Rate Blood Pressure 149/93 Blood Pressure 105/87 [Left Arm] O2 Sat by Pulse 80 L 100 Oximetry (%) 01/09/19 01/09/19 01/09/19 19:40 20:37 21:31 Temperature Pulse Rate Pulse Rate [ 76 78 Apical] Respiratory 18 20 Rate Blood Pressure Blood Pressure 117/80 126/84 [Left Arm] O2 Sat by Pulse 95 95 Oximetry (%) 01/09/19 01/09/19 23:08 23:13 Temperature 98 F Pulse Rate 84 Pulse Rate [ Apical] Respiratory 20 16 Rate Blood Pressure 142/95 Blood Pressure [Left Arm] O2 Sat by Pulse 95 Oximetry (%) GENERAL: intubated, on propofol gtt HEAD: Normal with no signs of trauma. EYES: no exudate EARS, NOSE, THROAT: Ears normal, nares patent, oropharynx clear without exudates. Moist mucous membranes. NECK: supple without lymphadenopathy, JVD, or masses. LUNGS: Breath sounds equal, mild wheezes. Mechanical ventilation HEART: Regular rate and rhythm, normal S1 and S2 without murmur, rub or gallop. ABDOMEN: Soft, not distended MUSCULOSKELETAL: no spontaneous movements as patient is intubated and sedated UPPER EXTREMITIES: 2+ pulses, warm, well-perfused. Ecchymosis of medial upper arm. LOWER EXTREMITIES: 2+ pulses, cool. No peripheral edema. Mild abrasions to knees b/l NEUROLOGICAL: not assessed as patient is sedated PSYCHIATRIC: not assessed as patient is sedated SKIN: cool lower extremities. Dry, normal turgor, no rashes or lesions noted, normal capillary refill. Laboratory Results - last 24 hr 01/09/19 01/09/19 01/09/19 17:00 17:00 17:00 WBC 11.5 H RBC 6.60 H Hgb 20.1 H* Hct 63.7 H MCV 96.5 H MCH 30.4 MCHC 31.5 L RDW 16.6 H Plt Count 327 MPV 9.6 Absolute Neuts (auto) 9.4 H Neutrophils % 82.3 Lymphocytes % 8.5 Monocytes % 8.9 Eosinophils % 0.0 Basophils % 0.3 Nucleated RBC % 0 PT with INR 11.60 INR 0.98 PTT (Actin FS) 30.2 Anticoagulation Therapy Puncture Site ABG pH ABG pCO2 at Pt Temp ABG pO2 at Pt Temp ABG HCO3 ABG O2 Sat (Measured) ABG O2 Content ABG Base Excess Chaz Test VBG pH 7.09 L* POC VBG pCO2 149 H* POC VBG pO2 70.5 H VBG HCO3 42.8 H VBG O2 Sat (Feli) 82.0 H VBG Base Excess 0.8 Carboxyhemoglobin Methemoglobin O2 Delivery Device Oxygen Flow Rate Vent Mode Vent Rate Mechanical Rate Pressure Support Vent Sodium Potassium Chloride Carbon Dioxide Anion Gap BUN Creatinine Est GFR (CKD-EPI)AfAm Est GFR (CKD-EPI)NonAf POC Glucometer Random Glucose Lactic Acid Calcium Total Bilirubin AST ALT Alkaline Phosphatase Ammonia Creatine Kinase Troponin I Total Protein Albumin Urine Color Urine Appearance Urine pH Ur Specific [place] Urine Protein Urine Glucose (UA) Urine Ketones Urine Blood Urine Nitrite Urine Bilirubin Urine Urobilinogen Ur Leukocyte Esterase Urine WBC (Auto) Urine RBC (Auto) U Pathogenic Cast Auto U Epithel Cells (Auto) U Sm Round Cell (Auto) Urine Bacteria (Auto) Opiates Screen Methadone Screen Barbiturate Screen Phencyclidine Screen Ur Amphetamines Screen MDMA (Ecstasy) Screen Benzodiazepines Screen Cocaine Screen U Marijuana (THC) Screen Alcohol, Quantitative Acetone, Qual 01/09/19 01/09/19 01/09/19 17:00 17:00 17:00 WBC RBC Hgb Hct MCV MCH MCHC RDW Plt Count MPV Absolute Neuts (auto) Neutrophils % Lymphocytes % Monocytes % Eosinophils % Basophils % Nucleated RBC % PT with INR INR PTT (Actin FS) Anticoagulation Therapy Puncture Site ABG pH ABG pCO2 at Pt Temp ABG pO2 at Pt Temp ABG HCO3 ABG O2 Sat (Measured) ABG O2 Content ABG Base Excess Chaz Test VBG pH POC VBG pCO2 POC VBG pO2 VBG HCO3 VBG O2 Sat (Feli) VBG Base Excess Carboxyhemoglobin Methemoglobin O2 Delivery Device Oxygen Flow Rate Vent Mode Vent Rate Mechanical Rate Pressure Support Vent Sodium 140 Potassium 5.8 H Chloride 95 L Carbon Dioxide 40 H Anion Gap 4 L BUN 58.9 H Creatinine 1.5 H Est GFR (CKD-EPI)AfAm 57.01 Est GFR (CKD-EPI)NonAf 49.19 POC Glucometer Random Glucose 349 H* Lactic Acid 2.8 H* Calcium 9.2 Total Bilirubin 0.5 AST 17 ALT 18 Alkaline Phosphatase 113 Ammonia 59.30 H Creatine Kinase 107 Troponin I 0.02 Total Protein 7.8 Albumin 3.1 L Urine Color Urine Appearance Urine pH Ur Specific [place] Urine Protein Urine Glucose (UA) Urine Ketones Urine Blood Urine Nitrite Urine Bilirubin Urine Urobilinogen Ur Leukocyte Esterase Urine WBC (Auto) Urine RBC (Auto) U Pathogenic Cast Auto U Epithel Cells (Auto) U Sm Round Cell (Auto) Urine Bacteria (Auto) Opiates Screen Methadone Screen Barbiturate Screen Phencyclidine Screen Ur Amphetamines Screen MDMA (Ecstasy) Screen Benzodiazepines Screen Cocaine Screen U Marijuana (THC) Screen Alcohol, Quantitative < 3.0 Acetone, Qual Negative 01/09/19 01/09/19 01/09/19 17:13 19:20 19:30 WBC RBC Hgb Hct MCV MCH MCHC RDW Plt Count MPV Absolute Neuts (auto) Neutrophils % Lymphocytes % Monocytes % Eosinophils % Basophils % Nucleated RBC % PT with INR INR PTT (Actin FS) Anticoagulation Therapy No Result Required. Puncture Site No Result Required. ABG pH 7.44 ABG pCO2 at Pt Temp 48.4 H ABG pO2 at Pt Temp 93.9 ABG HCO3 32.4 H ABG O2 Sat (Measured) 97.2 ABG O2 Content 24.7 H ABG Base Excess 7.0 H Chaz Test No Result Required. VBG pH POC VBG pCO2 POC VBG pO2 VBG HCO3 VBG O2 Sat (Feli) VBG Base Excess Carboxyhemoglobin Methemoglobin O2 Delivery Device No Result Required. Oxygen Flow Rate No Result Required. Vent Mode No Result Required. Vent Rate No Result Required. Mechanical Rate No Result Required. Pressure Support Vent No Result Required. Sodium Potassium Chloride Carbon Dioxide Anion Gap BUN Creatinine Est GFR (CKD-EPI)AfAm Est GFR (CKD-EPI)NonAf POC Glucometer Random Glucose Lactic Acid 5.3 H* Calcium Total Bilirubin AST ALT Alkaline Phosphatase Ammonia Creatine Kinase Troponin I Total Protein Albumin Urine Color Dk yellow Urine Appearance Cloudy Urine pH 5.0 Ur Specific [place] 1.037 H Urine Protein 4+ H Urine Glucose (UA) 1+ H Urine Ketones Trace H Urine Blood 2+ H Urine Nitrite Negative Urine Bilirubin Small Urine Urobilinogen 1.0 Ur Leukocyte Esterase Negative Urine WBC (Auto) 4.9 Urine RBC (Auto) 6.2 U Pathogenic Cast Auto None seen U Epithel Cells (Auto) 93.9 U Sm Round Cell (Auto) None seen Urine Bacteria (Auto) 3.9 Opiates Screen Methadone Screen Barbiturate Screen Phencyclidine Screen Ur Amphetamines Screen MDMA (Ecstasy) Screen Benzodiazepines Screen Cocaine Screen U Marijuana (THC) Screen Alcohol, Quantitative Acetone, Qual 01/09/19 01/09/19 01/09/19 19:30 19:35 20:18 WBC RBC Hgb Hct MCV MCH MCHC RDW Plt Count MPV Absolute Neuts (auto) Neutrophils % Lymphocytes % Monocytes % Eosinophils % Basophils % Nucleated RBC % PT with INR INR PTT (Actin FS) Anticoagulation Therapy No Result Required. Puncture Site No Result Required. ABG pH 7.48 H ABG pCO2 at Pt Temp 44.7 ABG pO2 at Pt Temp 72.8 L ABG HCO3 32.7 H ABG O2 Sat (Measured) 94.8 L ABG O2 Content 24.3 H ABG Base Excess 8.1 H Chaz Test No Result Required. VBG pH POC VBG pCO2 POC VBG pO2 VBG HCO3 VBG O2 Sat (Feli) VBG Base Excess Carboxyhemoglobin 1.6 Methemoglobin 0.6 O2 Delivery Device No Result Required. Oxygen Flow Rate No Result Required. Vent Mode No Result Required. Vent Rate No Result Required. Mechanical Rate No Result Required. Pressure Support Vent No Result Required. Sodium Potassium Chloride Carbon Dioxide Anion Gap BUN Creatinine Est GFR (CKD-EPI)AfAm Est GFR (CKD-EPI)NonAf POC Glucometer 304 Random Glucose Lactic Acid Calcium Total Bilirubin AST ALT Alkaline Phosphatase Ammonia Creatine Kinase Troponin I Total Protein Albumin Urine Color Urine Appearance Urine pH Ur Specific [place] Urine Protein Urine Glucose (UA) Urine Ketones Urine Blood Urine Nitrite Urine Bilirubin Urine Urobilinogen Ur Leukocyte Esterase Urine WBC (Auto) Urine RBC (Auto) U Pathogenic Cast Auto U Epithel Cells (Auto) U Sm Round Cell (Auto) Urine Bacteria (Auto) Opiates Screen Methadone Screen Barbiturate Screen Phencyclidine Screen Ur Amphetamines Screen MDMA (Ecstasy) Screen Benzodiazepines Screen Cocaine Screen U Marijuana (THC) Screen Alcohol, Quantitative Acetone, Qual 01/09/19 20:35 WBC RBC Hgb Hct MCV MCH MCHC RDW Plt Count MPV Absolute Neuts (auto) Neutrophils % Lymphocytes % Monocytes % Eosinophils % Basophils % Nucleated RBC % PT with INR INR PTT (Actin FS) Anticoagulation Therapy Puncture Site ABG pH ABG pCO2 at Pt Temp ABG pO2 at Pt Temp ABG HCO3 ABG O2 Sat (Measured) ABG O2 Content ABG Base Excess Chaz Test VBG pH POC VBG pCO2 POC VBG pO2 VBG HCO3 VBG O2 Sat (Feli) VBG Base Excess Carboxyhemoglobin Methemoglobin O2 Delivery Device Oxygen Flow Rate Vent Mode Vent Rate Mechanical Rate Pressure Support Vent Sodium Potassium Chloride Carbon Dioxide Anion Gap BUN Creatinine Est GFR (CKD-EPI)AfAm Est GFR (CKD-EPI)NonAf POC Glucometer Random Glucose Lactic Acid Calcium Total Bilirubin AST ALT Alkaline Phosphatase Ammonia Creatine Kinase Troponin I Total Protein Albumin Urine Color Urine Appearance Urine pH Ur Specific [place] Urine Protein Urine Glucose (UA) Urine Ketones Urine Blood Urine Nitrite Urine Bilirubin Urine Urobilinogen Ur Leukocyte Esterase Urine WBC (Auto) Urine RBC (Auto) U Pathogenic Cast Auto U Epithel Cells (Auto) U Sm Round Cell (Auto) Urine Bacteria (Auto) Opiates Screen Negative Methadone Screen Negative Barbiturate Screen Negative Phencyclidine Screen Negative Ur Amphetamines Screen Negative MDMA (Ecstasy) Screen Negative Benzodiazepines Screen Negative Cocaine Screen Negative U Marijuana (THC) Screen Negative Alcohol, Quantitative Acetone, Qual ASSESSMENT/PLAN: 63M with pmh of simgoid diverticulitis, nondomicile, BIBA after being found down during a social sciences lecturer field visit. Intubated for increased respiratory requirements and AMS. # SIRS - s/p LR 2L - cw zosyn - fu bcx, ucx, sputum cx - possible CT A/P to r/o abdominal source # AMS >CT Head(01/09) - neg >ammonia 59.3 >Utox - neg -lactulose -glycemic control: SSI vs insulin gtt -fu HbAc1 # respiratory distress >CXR -- neg >Lactic acid ~5.3 - fu repeat lactate - COPD tx: prednisone 60mg q6H, scheduled duoneb # polycythemia vera - uknown if w/u done # possible h/o of substance abuse - labs: hepC, HIV Jaziel Cai, DO PGY-1 Medicine, PM-Float [id number] 01/10/19 Visit type - Emergency Visit Emergency Visit: Yes ED Registration Date: 01/09/19 Care time: The patient presented to the Emergency Department on the above date and was hospitalized for further evaluation of their emergent condition. - New Patient This patient is new to me today: Yes Date on this admission: 01/10/19 - Critical Care Critical Care patient: No ATTENDING PHYSICIAN STATEMENT I saw and evaluated the patient. I reviewed the resident's note and discussed the case with the resident. I agree with the resident's findings and plan as documented. SUBJECTIVE: OBJECTIVE: ASSESSMENT AND PLAN:
[2019-01-10 00:37] LABS: HEMATOCRIT 59.8 % (35.4-49); HEMOGLOBIN 19.2 GM/dL (11.7-16.9); MCH 30.4 pg (25.7-33.7); MCHC 32.1 g/dl (32.0-35.9); MEAN CELL VOLUME 94.6 fl (80-96); MEAN PLT VOLUME 9.4 fl (7.5-11.1); PLATELET COUNT 242 K/MM3 (134-434); RBC 6.32 M/mm3 (4.00-5.60); RDW 16.5 % (11.9-15.9); WHITE BLOOD COUNT 12.7 K/mm3 (4.0-10.0)
[2019-01-10 01:07] LABS: INR 1.04 (0.83-1.09); PROTHROMBIN TIME (PATIENT) 12.3 SEC (9.7-13.0)
[2019-01-10 01:48] LABS: BLOOD UREA NITROGEN 53.9 mg/dL (7-18); CALCIUM 8.1 mg/dL (8.5-10.1); CREATININE 0.9 mg/dL (0.55-1.3); MAGNESIUM 2.2 mg/dL (1.8-2.4); PHOSPHOROUS 1.9 mg/dL (2.5-4.9); POTASSIUM 4.2 mmol/L (3.5-5.1)
[2019-01-10] MEDS ORDERED: NAPH,MB-DB/K PH,MBDB POWDER PACKET NGT ONE (02:20)
[2019-01-10] MEDS: PIPERACILLIN/TAZOB 3.375 GM 3.375 GM in DEXTROSE 5%-WATER - 50 ML IVPB SCH ×4 (03:00→21:15)
[2019-01-10 03:01] LABS: RETICULOCYTES 1.74 % (0.5-1.5)
[2019-01-10] MEDS ORDERED: DEXTROSE 5%-WATER - 50 ML IVPB ONE ×4 (03:49→20:44)
[2019-01-10] MEDS ORDERED: PIPERACILLIN/TAZOBACTAM 3.375 GM VIAL IVPB ONE ×4 (03:49→20:44)
[2019-01-10] MEDS: methylPREDNISolone NA SUCC 40 MG/1 ML VIAL IVPUSH SCH ×4 (03:50→21:15)
[2019-01-10] MEDS: HEPARIN NA (PORCINE) 5,000 UNITS/ML 1ML VIAL SQ SCH ×3 (05:50→21:16)
[2019-01-10] MEDS: INSULIN SLIDING SCALE (NOVOLOG) 1 VIAL SQ SCH ×5 (05:59→21:16)
[2019-01-10] MEDS ORDERED: LACTULOSE 20 GM/30 ML UDC (FOR RECTAL USE ONLY) PR SCH (06:00)
[2019-01-10 06:09] LABS: ARTERIAL BLD GAS O2 SATURATION 94.2 % (95-98); ARTERIAL BLOOD GAS BASE EXCESS 8.8 meq/l (-2-2); ARTERIAL BLOOD GAS PCO2 45.3 mmHg (35-45); ARTERIAL BLOOD GAS PO2 72.1 mmHg (80-105); ARTERIAL BLOOD GAS pH 7.48 (7.35-7.45)
[2019-01-10 06:12] LABS: ALLENS TEST POSITIVE
[2019-01-10 06:18] LABS: HEMATOCRIT 56.8 % (35.4-49); HEMOGLOBIN 18.4 GM/dL (11.7-16.9); MCH 30.4 pg (25.7-33.7); MCHC 32.3 g/dl (32.0-35.9); MEAN PLT VOLUME 9.3 fl (7.5-11.1); PLATELET COUNT 244 K/MM3 (134-434); RBC 6.04 M/mm3 (4.00-5.60); RDW 16.6 % (11.9-15.9)
[2019-01-10 06:52] LABS: ALBUMIN 2.1 g/dl (3.4-5.0); BILIRUBIN,TOTAL 0.4 mg/dL (0.2-1); BLOOD UREA NITROGEN 47.7 mg/dL (7-18); CALCIUM 8.1 mg/dL (8.5-10.1); CREATININE 0.9 mg/dL (0.55-1.3); POTASSIUM 4.2 mmol/L (3.5-5.1); TOT PROT 5.1 g/dl (6.4-8.2)
[2019-01-10 08:18] LABS: PHOSPHOROUS 2.6 mg/dL (2.5-4.9)
[2019-01-10] MEDS: ALBUTEROL SO4 2.5/IPRATROPIUM 0.5 INH SOL 3 ML VIAL.NEB. NEB SCH ×2 (08:30→14:01)
[2019-01-10] MEDS ORDERED: FOLIC ACID 5 MG/1 ML IVPB SCH (10:00)
[2019-01-10] MEDS ORDERED: FOLIC ACID 5 MG/1 ML SQ SCH (10:00)
[2019-01-10] MEDS ORDERED: THIAMINE HCL 200 MG/2 ML VIAL IVPB SCH (10:00)
[2019-01-10] MEDS ORDERED: PT OWN MED DRAWER 7, Y5N ONE ×2 (10:42→11:08)
[2019-01-10] MEDS: MUPIROCIN 2% TOPICAL OINTMENT FOR DECOLONIZATION NS SCH ×2 (10:59→21:19)
[2019-01-10] MEDS: PANTOPRAZOLE SODIUM 40 MG VIAL IVPUSH SCH (10:59)
[2019-01-10] MEDS ORDERED: PNEUMOCOCCAL 23 VACCINE 0.5 ML VIAL IM ONE (11:00)
--- NOTE | 2019-01-10 11:18 | CONSULT ---
Consultation: CONSULT REQUEST: Heme/Onc HISTORY OF PRESENT ILLNESS: Patient a 63 yo M with a PMHx of COPD, Diverticulitis, presented to the ED after being found down on the floor during a social psychologist visit. Patient was found hypoxic with altered mental status and had increased respiratory secretions and was intubated for airway protection. He was extubated this morning. Patient says he has no recollection on what happened except falling on the floor. He had He says he currently has no symptoms. He currently denies chest pain, cough, sob, dizziness, urinary changes, nausea, vomiting, diarrhea, fevers, chills, myalgia, weakness, fatigue, blurred vision, headaches. ER course was notable for: Head/Spine CT unremarkable. CXR unremarkable. Light metabolic alkalosis with mild hypoxia after initial primary respiratory acidosis on VBG. He was started on broad spectrum antibiotics and was fluid rescusitated. CBC with leukocytosis with Hb 20.1, HCT 63. When asked about history of increased hgb, hct levels, patient says he was told they were elevated in the past but does not know why. He says he was admitted in [place] around June and was told then. Patient says he does not follow with a doctor nor does he take any medications. 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 Never had a colonoscopy REVIEW OF SYSTEMS: CONSTITUTIONAL: Absent: fever, chills, diaphoresis, generalized weakness, malaise, loss of appetite, weight change HEENT: Absent: rhinorrhea, nasal congestion, throat pain, throat swelling, difficulty swallowing, mouth swelling, ear pain, eye pain, visual changes CARDIOVASCULAR: Absent: chest pain, syncope, palpitations, irregular heart rate, lightheadedness , peripheral edema RESPIRATORY: Absent: cough, shortness of breath, dyspnea with exertion, orthopnea, wheezing, stridor, hemoptysis GASTROINTESTINAL: Absent: abdominal pain, abdominal distension, nausea, vomiting, diarrhea, constipation, melena, hematochezia GENITOURINARY: Absent: dysuria, frequency, urgency, hesitancy, hematuria, flank pain, genital pain MUSCULOSKELETAL: Absent: myalgia, arthralgia, joint swelling, back pain, neck pain SKIN: Absent: rash, itching, pallor HEMATOLOGIC/IMMUNOLOGIC: Absent: easy bleeding, easy bruising, lymphadenopathy, frequent infections PHYSICAL EXAMINATION Vital Signs - 24 hr 01/09/19 01/09/19 01/09/19 17:00 17:06 18:50 Temperature 98.3 F Pulse Rate 114 H Pulse Rate [ 88 Apical] Respiratory 16 32 H 18 Rate Blood Pressure 149/93 Blood Pressure 105/87 [Left Arm] O2 Sat by Pulse 80 L 100 Oximetry (%) 01/09/19 01/09/19 01/09/19 19:40 20:37 21:31 Temperature Pulse Rate Pulse Rate [ 76 78 Apical] Respiratory 18 20 Rate Blood Pressure Blood Pressure 117/80 126/84 [Left Arm] O2 Sat by Pulse 95 95 Oximetry (%) 01/09/19 01/09/19 01/10/19 23:08 23:13 00:13 Temperature 98 F Pulse Rate 84 88 Pulse Rate [ Apical] Respiratory 20 16 16 Rate Blood Pressure 142/95 124/83 Blood Pressure [Left Arm] O2 Sat by Pulse 95 Oximetry (%) GENERAL: A/o x 3 HEAD: Normal with no signs of trauma. EYES: Pupils equal, round and reactive to light, extraocular movements intact, sclera anicteric EARS, NOSE, THROAT: oropharynx clear without exudates. dry mucous membranes NECK: supple without lymphadenopathy, JVD, or masses. LUNGS: scattered mild wheezing HEART: Regular rate and rhythm, normal S1 and S2 without murmur, rub or gallop. ABDOMEN: Soft, nontender, not distended, normoactive bowel sounds, no guarding, no rebound, no masses. No hepatomegaly or splenomegaly. LOWER EXTREMITIES: 2+ pulses, warm, well-perfused. No calf tenderness. No peripheral edema. NEUROLOGICAL: Cranial nerves II-XII intact. Normal speech. b/l hand tremors TESTES: no masses palpable. Laboratory Results - last 24 hr 01/09/19 01/09/19 01/09/19 17:00 17:00 17:00 WBC RBC Hgb Hct MCV MCH MCHC RDW Plt Count MPV Absolute Neuts (auto) Neutrophils % Lymphocytes % Monocytes % Eosinophils % Basophils % Nucleated RBC % Retic Count PT with INR INR PTT (Actin FS) Anticoagulation Therapy Puncture Site ABG pH ABG pCO2 at Pt Temp ABG pO2 at Pt Temp ABG HCO3 ABG O2 Sat (Measured) ABG O2 Content ABG Base Excess Chaz Test VBG pH 7.09 L* POC VBG pCO2 149 H* POC VBG pO2 70.5 H VBG HCO3 42.8 H VBG O2 Sat (Feli) 82.0 H VBG Base Excess 0.8 Carboxyhemoglobin Methemoglobin O2 Delivery Device Oxygen Flow Rate Vent Mode Vent Rate Mechanical Rate PEEP Pressure Support Vent Sodium 140 Potassium 5.8 H Chloride 95 L Carbon Dioxide 40 H Anion Gap 4 L BUN 58.9 H Creatinine 1.5 H Est GFR (CKD-EPI)AfAm 57.01 Est GFR (CKD-EPI)NonAf 49.19 POC Glucometer Random Glucose 349 H* Hemoglobin A1c % Lactic Acid 2.8 H* Calcium 9.2 Phosphorus Magnesium Ferritin Total Bilirubin 0.5 AST 17 ALT 18 Alkaline Phosphatase 113 Ammonia Creatine Kinase 107 Troponin I 0.02 Total Protein 7.8 Albumin 3.1 L Vitamin B12 Urine Color Urine Appearance Urine pH Ur Specific [place] Urine Protein Urine Glucose (UA) Urine Ketones Urine Blood Urine Nitrite Urine Bilirubin Urine Urobilinogen Ur Leukocyte Esterase Urine WBC (Auto) Urine RBC (Auto) U Pathogenic Cast Auto U Epithel Cells (Auto) U Sm Round Cell (Auto) Urine Bacteria (Auto) Salicylates Opiates Screen Methadone Screen Barbiturate Screen Phencyclidine Screen Ur Amphetamines Screen MDMA (Ecstasy) Screen Benzodiazepines Screen Cocaine Screen U Marijuana (THC) Screen Alcohol, Quantitative < 3.0 Acetone, Qual Negative ASSESSMENT/PLAN: #Polycythemia -likely secondary to chronic respiratory failure, hypoxia from COPD -FU epo levels -baseline HCT around 54% -consider phlebotomy if needed Dispo: We will continue to follow the patient. Thank you for this consultative opportunity. Visit type - Emergency Visit Emergency Visit: Yes ED Registration Date: 01/09/19 Care time: The patient presented to the Emergency Department on the above date and was hospitalized for further evaluation of their emergent condition. - New Patient This patient is new to me today: Yes Date on this admission: 01/17/19 - Critical Care Critical Care patient: No ATTENDING PHYSICIAN STATEMENT I saw and evaluated the patient. I reviewed the resident's note and discussed the case with the resident. I agree with the resident's findings and plan as documented. SUBJECTIVE: OBJECTIVE: ASSESSMENT AND PLAN:
--- NOTE | 2019-01-10 12:12 | PN ---
Teaching Attending Note Name of Resident: Oneil Abbasi ATTENDING PHYSICIAN STATEMENT I saw and evaluated the patient. I reviewed the resident's note and discussed the case with the resident. I agree with the resident's findings and plan as documented. SUBJECTIVE: Pt seen and examined in the ICU. Awake, alert while intubated, following commands. Placed on CPAP/PS with good RSBI and respiratory effort, subsequently extubated during rounds. OBJECTIVE: Vital Signs Period Temp Pulse Resp BP Sys/Anna Pulse Ox Last 24 Hr 98 F-98.3 F 76-114 16-32 105-149/80-95 80-100 Intake & Output 01/07/19 01/08/19 01/09/19 01/10/19 23:59 23:59 23:59 23:59 Output Total 100 800 Balance -100 -800 Weight 77.6 kg 77.6 kg Gen: extubated Heart: RRR Lung: scattered rhonchi Abd: soft, nontender Ext: no edema CBC, BMP 01/10/19 05:25 Active Medications Albuterol/Ipratropium (Duoneb -) 1 amp NEB RQID [facility] Last Admin: 01/10/19 08:30 Dose: 1 amp Chlorhexidine Gluconate (Hibiclens For Decolonization -) 1 applic TP HS [facility] Last Admin: 01/09/19 23:30 Dose: 1 applic Folic Acid (Folic Acid -) 1 mg PO DAILY [facility] Heparin Sodium (Porcine) (Heparin -) 5,000 unit SQ TID [facility] Last Admin: 01/10/19 05:50 Dose: 5,000 unit Sodium Chloride (Normal Saline -) 1,000 mls @ 100 mls/hr IV ASDIR [facility] Last Admin: 01/09/19 20:35 Dose: 100 mls/hr Piperacillin Sod/Tazobactam (Sod 3.375 gm/ Dextrose) 50 mls @ 100 mls/hr IVPB Q6H-IV [facility]; Protocol Piperacillin Sod/Tazobactam (Sod 3.375 gm/ Dextrose) 50 mls @ 100 mls/hr IVPB Q6H-IV [facility]OS[facility]; Protocol Stop: 01/10/19 21:29 Last Admin: 01/10/19 10:58 Dose: 100 mls/hr Azithromycin 250 mg/ Dextrose 250 mls @ 250 mls/hr IVPB DAILY [facility] Ceftriaxone Sodium 1 gm/ (Dextrose) 100 mls @ 200 mls/hr IVPB DAILY [facility]OS[facility]; Protocol Insulin Aspart (Novolog Vial Sliding Scale -) 1 vial SQ Q6HPO [facility]OS[facility]; Protocol Last Admin: 01/10/19 05:59 Dose: 1 units Lactulose (Cephulac (Oral Use)) 20 gm PO TID [facility] Methylprednisolone Sodium Succinate (Solu-Medrol -) 60 mg IVPUSH Q6H-IV [facility] Last Admin: 01/10/19 10:00 Dose: 60 mg Mupirocin (Bactroban Ointment (For Decolonization) -) 1 applic NS BID [facility] Stop: 01/14/19 21:59 Last Admin: 01/10/19 10:59 Dose: 1 applic Pantoprazole Sodium (Protonix -) 40 mg PO DAILY [facility]OS[facility] Thiamine HCl (Vitamin B1 -) 200 mg PO DAILY [facility]OS[facility] ASSESSMENT AND PLAN: Acute on likely Chronic Hypoxic and Hypercapneic Respiratory Failure r/o Pneumonia Acute COPD Exacerbation Acute Kidney Injury Lactic Acidosis Polycythemia likely due to chronic hypoxia - pt extubated - continue antibiotics - f/u cultures - IV medrol - inhaled bronchodilators - O2 to keep SpO2 >90% - monitor urine output, creatinine - PO as tolerated - DVT prophylaxis critical care time spent in reviewing chart, evaluating patient and formulating plan 35 min
[2019-01-10] MEDS ORDERED: AZITHROMYCIN IVPB 250 MG in DEXTROSE 5%-WATER - 250 ML IVPB SCH (12:30)
[2019-01-10] MEDS ORDERED: ALBUTEROL SO4 2.5/IPRATROPIUM 0.5 INH SOL 3 ML VIAL.NEB. NEB PRN (12:31)
--- NOTE | 2019-01-10 12:55 | CON.ID ---
Consult Consult Specialty:: infectious diseases Referred by:: Sade Reason for Consultation:: resp failure,ams - History of Present Illness Chief Complaint: resp failure,ams History of Present Illness: 63-year-old male with history of COPD, polycythemia who came because of altered mental status, tachycardic, tachypnea and hypoxemia which corrected with administration of supplemental O2 via nonrebreather. Given the patient's decreased mental status, hypoxemia and route quire meant of further testing, patient was intubated for airway protection, patient was extubated this morning and now is feeling better,though he still does have tremors patient was started on zosyn and then switched to ceftriaxone patient does not remember rest of the things - History Source History Provided By: Patient, Medical Record Limitations to Obtaining History: Clinical Condition - Alcohol/Substance Use Hx Alcohol Use: No - Smoking History Smoking history: Unknown if ever smoked Have you smoked in the past 12 months: Yes Aproximately how many cigarettes per day: 40 Home Medications - Allergies Allergies/Adverse Reactions: Allergies Allergy/AdvReac Type Severity Reaction Status Date / Time No Known Allergies Allergy Verified 01/09/19 17:06 - Home Medications Home Medications: Ambulatory Orders Albuterol Sulfate Inhaler - [Ventolin Hfa Inhaler -] 2 inh PO Q4H PRN #1 inh 06/18 Budesonide/Formeterol Fumarate [SYMBICORT 80/4.5mcg -] 2 puff IH BID #1 inhaler 06/13/17 Review of Systems Unable to obtain ROS, reason: doesnt remember Physical Exam Vital Signs: Vital Signs Temperature 98.4 F 01/10/19 08:00 Pulse Rate 82 01/10/19 08:00 Respiratory Rate 16 01/10/19 08:57 Blood Pressure 133/82 01/10/19 08:00 O2 Sat by Pulse Oximetry (%) 95 01/09/19 23:08 Constitutional: Yes: Calm, Mild Distress Cardiovascular: Yes: Regular Rate and Rhythm Respiratory: Yes: On Nasal O2, Poor Air Entry (bases) Gastrointestinal: Yes: Normal Bowel Sounds, Soft Musculoskeletal: Yes: WNL Extremities: Yes: WNL Integumentary: Yes: Other (redness of the face) Neurological: Yes: Alert, Oriented, Other (tremors) Psychiatric: Yes: Alert, Oriented Labs: CBC, BMP 07/11/19 05:25 Imaging - Results Chest X-ray: Report Reviewed, Image Reviewed Cat Scan: Report Reviewed, Image Reviewed Assessment/Plan 63 year old male with a history of COPD and diverticulitis was brought to the ED by ambulance after he was found down in his home and admitted for acute on chronic hypoxic hypercapnic respiratory failure ams resp failure ac kidney njury tremors polycythemia lactic acidosis leukocytosis plan hydration close watch rest as per icu monitor wbc await for all reports if patient remains s table can stop abx cc 40 min
--- NOTE | 2019-01-10 13:38 | ECHO ---
Name: JENNA BOOGIE Exam:Adult Echocardiogram Study Date: 01/10/2019 07:33 AM Age: 63 yrs Reason For Study: sepsis Height: 67 in Weight: 176 lb BSA: 1.9 m2 MMode/2D Measurements & Calculations IVSd: 1.1 cm Ao root diam: 2.9 cm LVIDd: 4.0 cm LA dimension: 2.4 cm LVIDs: 2.9 cm LVPWd: 1.2 cm EDV(Teich): 68.0 ml LVOT diam: 2.0 cm ESV(Teich): 33.1 ml Doppler Measurements & Calculations MV E max pedrito: 60.6 cm/sec Ao V2 max: 97.7 cm/sec MV A max pedrito: 95.6 cm/sec Ao max P.8 mmHg MV E/A: 0.63 MV dec time: 0.16 sec HERMINIA(V,D): 2.3 cm2 LV V1 max P.2 mmHg PA V2 max: 66.5 cm/sec LV V1 max: 73.7 cm/sec PA max P.8 mmHg Med Peak E' Pedrito: 4.6 cm/sec Med E/e': 13.3 Lat Peak E' Pedrito: 4.9 cm/sec Lat E/e': 12.4 Procedure A complete two-dimensional transthoracic echocardiogram was performed (2D, M-mode, Doppler and color flow Doppler). Left Ventricle The left ventricular size, thickness and function are normal. The left ventricular ejection fraction is normal. Ejection Fraction = 60-65%. The left ventricular wall motion is normal. Right Ventricle The right ventricle is normal in size and function. Atria Normal left and right atrial size and function. Mitral Valve There is no mitral regurgitation noted. Tricuspid Valve There is trace tricuspid regurgitation. There was insufficient TR detected to calculate RV systolic p ressure. Aortic Valve No hemodynamically significant valvular aortic stenosis. No aortic regurgitation is present. Pulmonic Valve There is no pulmonic valvular regurgitation. Great Vessels The aortic root is normal size. Pericardium/Pleura There is no pericardial effusion. Interpretation Summary The left ventricular size, thickness and function are normal The right ventricle is normal in size and function. There is trace tricuspid regurgitation. MD Joe Dodson 01/10/2019 01:37 PM
[2019-01-10] MEDS ORDERED: HALOPERIDOL LACTATE 5 MG/ML ONE (13:42)
--- NOTE | 2019-01-10 13:46 | PN ---
Physical Exam: SUBJECTIVE: Patient seen and examined at the bedside. While intubated, patient was able to follow basic commands and respond nonverbally. Patient had good RSBI , good cough reflex, and a resolution of his primary respiratory failure. Patient was subsequently extubated and tolerated this well. Currently on NC 7L. Denies sob, cp, abd pain, n/v/c/d, numbness, tingling, weakness. OBJECTIVE: Vital Signs Period Temp Pulse Resp BP Sys/Anna Pulse Ox Last 24 Hr 98 F-98.4 F 76-114 16-32 105-149/80-95 80-100 GENERAL: The patient is awake, alert, and fully oriented, in no acute distress. Has tremors. HEAD: Normal with no signs of trauma. EYES: PERRL, extraocular movements intact, sclera anicteric, conjunctiva clear. No ptosis. NECK: Trachea midline, full range of motion, supple. LUNGS: Expiratory wheezes heard bilaterally L>R. No crackles, or coarse breath sounds heard. HEART: Regular rate and rhythm, S1, S2 without murmur, rub or gallop. ABDOMEN: Soft, nontender, nondistended, normoactive bowel sounds, no guarding, no rebound, no hepatosplenomegaly, no masses. EXTREMITIES: 2+ pulses, warm, well-perfused, no edema. NEUROLOGICAL: Cranial nerves II through XII grossly intact. Normal speech, tremors observed. PSYCH: Normal mood, normal affect. SKIN: Warm, dry, normal turgor, no rashes or lesions noted Laboratory Results - last 24 hr 01/09/19 01/09/19 01/09/19 00:10 17:00 17:00 WBC 11.5 H RBC 6.60 H Hgb 20.1 H* Hct 63.7 H MCV 96.5 H MCH 30.4 MCHC 31.5 L RDW 16.6 H Plt Count 327 MPV 9.6 Absolute Neuts (auto) 9.4 H Neutrophils % 82.3 Lymphocytes % 8.5 Monocytes % 8.9 Eosinophils % 0.0 Basophils % 0.3 Nucleated RBC % 0 Retic Count PT with INR 12.30 11.60 INR 1.04 0.98 PTT (Actin FS) 30.2 Anticoagulation Therapy Puncture Site ABG pH ABG pCO2 at Pt Temp ABG pO2 at Pt Temp ABG HCO3 ABG O2 Sat (Measured) ABG O2 Content ABG Base Excess Chaz Test VBG pH POC VBG pCO2 POC VBG pO2 VBG HCO3 VBG O2 Sat (Feli) VBG Base Excess Carboxyhemoglobin Methemoglobin O2 Delivery Device Oxygen Flow Rate Vent Mode Vent Rate Mechanical Rate PEEP Pressure Support Vent Sodium Potassium Chloride Carbon Dioxide Anion Gap BUN Creatinine Est GFR (CKD-EPI)AfAm Est GFR (CKD-EPI)NonAf POC Glucometer Random Glucose Hemoglobin A1c % Lactic Acid Calcium Phosphorus Magnesium Ferritin Total Bilirubin AST ALT Alkaline Phosphatase Ammonia Creatine Kinase Troponin I Total Protein Albumin Vitamin B12 Urine Color Urine Appearance Urine pH Ur Specific [place] Urine Protein Urine Glucose (UA) Urine Ketones Urine Blood Urine Nitrite Urine Bilirubin Urine Urobilinogen Ur Leukocyte Esterase Urine WBC (Auto) Urine RBC (Auto) U Pathogenic Cast Auto U Epithel Cells (Auto) U Sm Round Cell (Auto) Urine Bacteria (Auto) Salicylates Opiates Screen Methadone Screen Barbiturate Screen Phencyclidine Screen Ur Amphetamines Screen MDMA (Ecstasy) Screen Benzodiazepines Screen Cocaine Screen U Marijuana (THC) Screen Alcohol, Quantitative Acetone, Qual 01/09/19 01/09/19 01/09/19 17:00 17:00 17:00 WBC RBC Hgb Hct MCV MCH MCHC RDW Plt Count MPV Absolute Neuts (auto) Neutrophils % Lymphocytes % Monocytes % Eosinophils % Basophils % Nucleated RBC % Retic Count PT with INR INR PTT (Actin FS) Anticoagulation Therapy Puncture Site ABG pH ABG pCO2 at Pt Temp ABG pO2 at Pt Temp ABG HCO3 ABG O2 Sat (Measured) ABG O2 Content ABG Base Excess Chaz Test VBG pH 7.09 L* POC VBG pCO2 149 H* POC VBG pO2 70.5 H VBG HCO3 42.8 H VBG O2 Sat (Feli) 82.0 H VBG Base Excess 0.8 Carboxyhemoglobin Methemoglobin O2 Delivery Device Oxygen Flow Rate Vent Mode Vent Rate Mechanical Rate PEEP Pressure Support Vent Sodium 140 Potassium 5.8 H Chloride 95 L Carbon Dioxide 40 H Anion Gap 4 L BUN 58.9 H Creatinine 1.5 H Est GFR (CKD-EPI)AfAm 57.01 Est GFR (CKD-EPI)NonAf 49.19 POC Glucometer Random Glucose 349 H* Hemoglobin A1c % Lactic Acid 2.8 H* Calcium 9.2 Phosphorus Magnesium Ferritin Total Bilirubin 0.5 AST 17 ALT 18 Alkaline Phosphatase 113 Ammonia Creatine Kinase 107 Troponin I 0.02 Total Protein 7.8 Albumin 3.1 L Vitamin B12 Urine Color Urine Appearance Urine pH Ur Specific [place] Urine Protein Urine Glucose (UA) Urine Ketones Urine Blood Urine Nitrite Urine Bilirubin Urine Urobilinogen Ur Leukocyte Esterase Urine WBC (Auto) Urine RBC (Auto) U Pathogenic Cast Auto U Epithel Cells (Auto) U Sm Round Cell (Auto) Urine Bacteria (Auto) Salicylates Opiates Screen Methadone Screen Barbiturate Screen Phencyclidine Screen Ur Amphetamines Screen MDMA (Ecstasy) Screen Benzodiazepines Screen Cocaine Screen U Marijuana (THC) Screen Alcohol, Quantitative < 3.0 Acetone, Qual Negative 01/09/19 01/09/19 01/09/19 17:00 17:13 19:20 WBC RBC Hgb Hct MCV MCH MCHC RDW Plt Count MPV Absolute Neuts (auto) Neutrophils % Lymphocytes % Monocytes % Eosinophils % Basophils % Nucleated RBC % Retic Count PT with INR INR PTT (Actin FS) Anticoagulation Therapy Puncture Site ABG pH ABG pCO2 at Pt Temp ABG pO2 at Pt Temp ABG HCO3 ABG O2 Sat (Measured) ABG O2 Content ABG Base Excess Chaz Test VBG pH POC VBG pCO2 POC VBG pO2 VBG HCO3 VBG O2 Sat (Feli) VBG Base Excess Carboxyhemoglobin Methemoglobin O2 Delivery Device Oxygen Flow Rate Vent Mode Vent Rate Mechanical Rate PEEP Pressure Support Vent Sodium Potassium Chloride Carbon Dioxide Anion Gap BUN Creatinine Est GFR (CKD-EPI)AfAm Est GFR (CKD-EPI)NonAf POC Glucometer Random Glucose Hemoglobin A1c % Lactic Acid 5.3 H* Calcium Phosphorus Magnesium Ferritin Total Bilirubin AST ALT Alkaline Phosphatase Ammonia 59.30 H Creatine Kinase Troponin I Total Protein Albumin Vitamin B12 Urine Color Dk yellow Urine Appearance Cloudy Urine pH 5.0 Ur Specific [place] 1.037 H Urine Protein 4+ H Urine Glucose (UA) 1+ H Urine Ketones Trace H Urine Blood 2+ H Urine Nitrite Negative Urine Bilirubin Small Urine Urobilinogen 1.0 Ur Leukocyte Esterase Negative Urine WBC (Auto) 4.9 Urine RBC (Auto) 6.2 U Pathogenic Cast Auto None seen U Epithel Cells (Auto) 93.9 U Sm Round Cell (Auto) None seen Urine Bacteria (Auto) 3.9 Salicylates Opiates Screen Methadone Screen Barbiturate Screen Phencyclidine Screen Ur Amphetamines Screen MDMA (Ecstasy) Screen Benzodiazepines Screen Cocaine Screen U Marijuana (THC) Screen Alcohol, Quantitative Acetone, Qual 01/09/19 01/09/19 01/09/19 19:30 19:30 19:35 WBC RBC Hgb Hct MCV MCH MCHC RDW Plt Count MPV Absolute Neuts (auto) Neutrophils % Lymphocytes % Monocytes % Eosinophils % Basophils % Nucleated RBC % Retic Count PT with INR INR PTT (Actin FS) Anticoagulation Therapy No Result Required. No Result Required. Puncture Site No Result Required. No Result Required. ABG pH 7.44 7.48 H ABG pCO2 at Pt Temp 48.4 H 44.7 ABG pO2 at Pt Temp 93.9 72.8 L ABG HCO3 32.4 H 32.7 H ABG O2 Sat (Measured) 97.2 94.8 L ABG O2 Content 24.7 H 24.3 H ABG Base Excess 7.0 H 8.1 H Chaz Test No Result Required. No Result Required. VBG pH POC VBG pCO2 POC VBG pO2 VBG HCO3 VBG O2 Sat (Feli) VBG Base Excess Carboxyhemoglobin 1.6 Methemoglobin 0.6 O2 Delivery Device No Result Required. No Result Required. Oxygen Flow Rate No Result Required. No Result Required. Vent Mode No Result Required. No Result Required. Vent Rate No Result Required. No Result Required. Mechanical Rate No Result Required. No Result Required. PEEP Pressure Support Vent No Result Required. No Result Required. Sodium Potassium Chloride Carbon Dioxide Anion Gap BUN Creatinine Est GFR (CKD-EPI)AfAm Est GFR (CKD-EPI)NonAf POC Glucometer Random Glucose Hemoglobin A1c % Lactic Acid Calcium Phosphorus Magnesium Ferritin Total Bilirubin AST ALT Alkaline Phosphatase Ammonia Creatine Kinase Troponin I Total Protein Albumin Vitamin B12 Urine Color Urine Appearance Urine pH Ur Specific [place] Urine Protein Urine Glucose (UA) Urine Ketones Urine Blood Urine Nitrite Urine Bilirubin Urine Urobilinogen Ur Leukocyte Esterase Urine WBC (Auto) Urine RBC (Auto) U Pathogenic Cast Auto U Epithel Cells (Auto) U Sm Round Cell (Auto) Urine Bacteria (Auto) Salicylates Opiates Screen Methadone Screen Barbiturate Screen Phencyclidine Screen Ur Amphetamines Screen MDMA (Ecstasy) Screen Benzodiazepines Screen Cocaine Screen U Marijuana (THC) Screen Alcohol, Quantitative Acetone, Qual 01/09/19 01/09/19 01/10/19 20:18 20:35 00:10 WBC RBC Hgb Hct MCV MCH MCHC RDW Plt Count MPV Absolute Neuts (auto) Neutrophils % Lymphocytes % Monocytes % Eosinophils % Basophils % Nucleated RBC % Retic Count PT with INR INR PTT (Actin FS) Anticoagulation Therapy Puncture Site ABG pH ABG pCO2 at Pt Temp ABG pO2 at Pt Temp ABG HCO3 ABG O2 Sat (Measured) ABG O2 Content ABG Base Excess Chaz Test VBG pH POC VBG pCO2 POC VBG pO2 VBG HCO3 VBG O2 Sat (Feli) VBG Base Excess Carboxyhemoglobin Methemoglobin O2 Delivery Device Oxygen Flow Rate Vent Mode Vent Rate Mechanical Rate PEEP Pressure Support Vent Sodium Potassium Chloride Carbon Dioxide Anion Gap BUN Creatinine Est GFR (CKD-EPI)AfAm Est GFR (CKD-EPI)NonAf POC Glucometer 304 Random Glucose Hemoglobin A1c % Lactic Acid 2.5 H* Calcium Phosphorus Magnesium Ferritin Total Bilirubin AST ALT Alkaline Phosphatase Ammonia Creatine Kinase Troponin I Total Protein Albumin Vitamin B12 Urine Color Urine Appearance Urine pH Ur Specific [place] Urine Protein Urine Glucose (UA) Urine Ketones Urine Blood Urine Nitrite Urine Bilirubin Urine Urobilinogen Ur Leukocyte Esterase Urine WBC (Auto) Urine RBC (Auto) U Pathogenic Cast Auto U Epithel Cells (Auto) U Sm Round Cell (Auto) Urine Bacteria (Auto) Salicylates Opiates Screen Negative Methadone Screen Negative Barbiturate Screen Negative Phencyclidine Screen Negative Ur Amphetamines Screen Negative MDMA (Ecstasy) Screen Negative Benzodiazepines Screen Negative Cocaine Screen Negative U Marijuana (THC) Screen Negative Alcohol, Quantitative Acetone, Qual 01/10/19 01/10/19 01/10/19 00:10 00:10 01:00 WBC 12.7 H RBC 6.32 H Hgb 19.2 H Hct 59.8 H MCV 94.6 MCH 30.4 MCHC 32.1 RDW 16.5 H Plt Count 242 D MPV 9.4 Absolute Neuts (auto) Neutrophils % Lymphocytes % Monocytes % Eosinophils % Basophils % Nucleated RBC % Retic Count 1.74 H PT with INR INR PTT (Actin FS) Anticoagulation Therapy Puncture Site ABG pH ABG pCO2 at Pt Temp ABG pO2 at Pt Temp ABG HCO3 ABG O2 Sat (Measured) ABG O2 Content ABG Base Excess Chaz Test VBG pH POC VBG pCO2 POC VBG pO2 VBG HCO3 VBG O2 Sat (Feli) VBG Base Excess Carboxyhemoglobin Methemoglobin O2 Delivery Device Oxygen Flow Rate Vent Mode Vent Rate Mechanical Rate PEEP Pressure Support Vent Sodium Cancelled 144 Potassium Cancelled 4.2 Chloride Cancelled 106 Carbon Dioxide Cancelled 33 H Anion Gap Cancelled 5 L BUN Cancelled 53.9 H Creatinine Cancelled 0.9 Est GFR (CKD-EPI)AfAm Cancelled 105.72 Est GFR (CKD-EPI)NonAf Cancelled 91.22 POC Glucometer Random Glucose Cancelled 214 H Hemoglobin A1c % Lactic Acid Calcium Cancelled 8.1 L Phosphorus Cancelled 1.9 L Magnesium Cancelled 2.2 Ferritin Cancelled 16.9 Total Bilirubin AST ALT Alkaline Phosphatase Ammonia Creatine Kinase Troponin I 0.04 Total Protein Albumin Vitamin B12 Cancelled Urine Color Urine Appearance Urine pH Ur Specific [place] Urine Protein Urine Glucose (UA) Urine Ketones Urine Blood Urine Nitrite Urine Bilirubin Urine Urobilinogen Ur Leukocyte Esterase Urine WBC (Auto) Urine RBC (Auto) U Pathogenic Cast Auto U Epithel Cells (Auto) U Sm Round Cell (Auto) Urine Bacteria (Auto) Salicylates Cancelled Opiates Screen Methadone Screen Barbiturate Screen Phencyclidine Screen Ur Amphetamines Screen MDMA (Ecstasy) Screen Benzodiazepines Screen Cocaine Screen U Marijuana (THC) Screen Alcohol, Quantitative Acetone, Qual 01/10/19 01/10/19 01/10/19 05:25 05:25 05:25 WBC 10.0 RBC 6.04 H Hgb 18.4 H Hct 56.8 H MCV 94.0 MCH 30.4 MCHC 32.3 RDW 16.6 H Plt Count 244 MPV 9.3 Absolute Neuts (auto) Neutrophils % Lymphocytes % Monocytes % Eosinophils % Basophils % Nucleated RBC % Retic Count PT with INR INR PTT (Actin FS) Anticoagulation Therapy Puncture Site ABG pH ABG pCO2 at Pt Temp ABG pO2 at Pt Temp ABG HCO3 ABG O2 Sat (Measured) ABG O2 Content ABG Base Excess Chaz Test VBG pH POC VBG pCO2 POC VBG pO2 VBG HCO3 VBG O2 Sat (Feli) VBG Base Excess Carboxyhemoglobin Methemoglobin O2 Delivery Device Oxygen Flow Rate Vent Mode Vent Rate Mechanical Rate PEEP Pressure Support Vent Sodium Potassium Chloride Carbon Dioxide Anion Gap BUN Creatinine Est GFR (CKD-EPI)AfAm Est GFR (CKD-EPI)NonAf POC Glucometer Random Glucose Hemoglobin A1c % 8.3 H Lactic Acid 1.3 Calcium Phosphorus Magnesium Ferritin Total Bilirubin AST ALT Alkaline Phosphatase Ammonia Creatine Kinase Troponin I Total Protein Albumin Vitamin B12 Urine Color Urine Appearance Urine pH Ur Specific [place] Urine Protein Urine Glucose (UA) Urine Ketones Urine Blood Urine Nitrite Urine Bilirubin Urine Urobilinogen Ur Leukocyte Esterase Urine WBC (Auto) Urine RBC (Auto) U Pathogenic Cast Auto U Epithel Cells (Auto) U Sm Round Cell (Auto) Urine Bacteria (Auto) Salicylates Opiates Screen Methadone Screen Barbiturate Screen Phencyclidine Screen Ur Amphetamines Screen MDMA (Ecstasy) Screen Benzodiazepines Screen Cocaine Screen U Marijuana (THC) Screen Alcohol, Quantitative Acetone, Qual 01/10/19 01/10/19 01/10/19 05:25 05:33 06:00 WBC RBC Hgb Hct MCV MCH MCHC RDW Plt Count MPV Absolute Neuts (auto) Neutrophils % Lymphocytes % Monocytes % Eosinophils % Basophils % Nucleated RBC % Retic Count PT with INR INR PTT (Actin FS) Anticoagulation Therapy Puncture Site Left radial ABG pH 7.48 H ABG pCO2 at Pt Temp 45.3 H ABG pO2 at Pt Temp 72.1 L ABG HCO3 33.5 H ABG O2 Sat (Measured) 94.2 L ABG O2 Content 24.5 H ABG Base Excess 8.8 H Chaz Test Positive VBG pH POC VBG pCO2 POC VBG pO2 VBG HCO3 VBG O2 Sat (Feli) VBG Base Excess Carboxyhemoglobin Methemoglobin O2 Delivery Device Vent Oxygen Flow Rate 60% Vent Mode A/c Vent Rate 16 Mechanical Rate PEEP 5.0 Pressure Support Vent 500 Sodium 145 Potassium 4.2 Chloride 106 Carbon Dioxide 34 H Anion Gap 6 L BUN 47.7 H Creatinine 0.9 Est GFR (CKD-EPI)AfAm 105.72 Est GFR (CKD-EPI)NonAf 91.22 POC Glucometer 218 Random Glucose 213 H Hemoglobin A1c % Lactic Acid Calcium 8.1 L Phosphorus 2.6 Magnesium Ferritin Total Bilirubin 0.4 AST 13 L ALT 11 L Alkaline Phosphatase 69 Ammonia Creatine Kinase Troponin I Total Protein 5.1 L Albumin 2.1 L Vitamin B12 Urine Color Urine Appearance Urine pH Ur Specific [place] Urine Protein Urine Glucose (UA) Urine Ketones Urine Blood Urine Nitrite Urine Bilirubin Urine Urobilinogen Ur Leukocyte Esterase Urine WBC (Auto) Urine RBC (Auto) U Pathogenic Cast Auto U Epithel Cells (Auto) U Sm Round Cell (Auto) Urine Bacteria (Auto) Salicylates Opiates Screen Methadone Screen Barbiturate Screen Phencyclidine Screen Ur Amphetamines Screen MDMA (Ecstasy) Screen Benzodiazepines Screen Cocaine Screen U Marijuana (THC) Screen Alcohol, Quantitative Acetone, Qual 01/10/19 12:14 WBC RBC Hgb Hct MCV MCH MCHC RDW Plt Count MPV Absolute Neuts (auto) Neutrophils % Lymphocytes % Monocytes % Eosinophils % Basophils % Nucleated RBC % Retic Count PT with INR INR PTT (Actin FS) Anticoagulation Therapy Puncture Site ABG pH ABG pCO2 at Pt Temp ABG pO2 at Pt Temp ABG HCO3 ABG O2 Sat (Measured) ABG O2 Content ABG Base Excess Chaz Test VBG pH POC VBG pCO2 POC VBG pO2 VBG HCO3 VBG O2 Sat (Feli) VBG Base Excess Carboxyhemoglobin Methemoglobin O2 Delivery Device Oxygen Flow Rate Vent Mode Vent Rate Mechanical Rate PEEP Pressure Support Vent Sodium Potassium Chloride Carbon Dioxide Anion Gap BUN Creatinine Est GFR (CKD-EPI)AfAm Est GFR (CKD-EPI)NonAf POC Glucometer 166 Random Glucose Hemoglobin A1c % Lactic Acid Calcium Phosphorus Magnesium Ferritin Total Bilirubin AST ALT Alkaline Phosphatase Ammonia Creatine Kinase Troponin I Total Protein Albumin Vitamin B12 Urine Color Urine Appearance Urine pH Ur Specific [place] Urine Protein Urine Glucose (UA) Urine Ketones Urine Blood Urine Nitrite Urine Bilirubin Urine Urobilinogen Ur Leukocyte Esterase Urine WBC (Auto) Urine RBC (Auto) U Pathogenic Cast Auto U Epithel Cells (Auto) U Sm Round Cell (Auto) Urine Bacteria (Auto) Salicylates Opiates Screen Methadone Screen Barbiturate Screen Phencyclidine Screen Ur Amphetamines Screen MDMA (Ecstasy) Screen Benzodiazepines Screen Cocaine Screen U Marijuana (THC) Screen Alcohol, Quantitative Acetone, Qual Active Medications Generic Name Dose Route Start Last Admin Trade Name Freq PRN Reason Stop Dose Admin Albuterol/Ipratropium 1 amp 01/10/19 12:31 Duoneb - NEB RQID PRN WHEEZING Chlorhexidine Gluconate 1 applic 01/09/19 22:00 01/09/19 23:30 Hibiclens For Decolonization - TP 1 applic HS HOSSEIN Administration Folic Acid 1 mg 01/11/19 10:00 Folic Acid - PO DAILY HOSSEIN Heparin Sodium (Porcine) 5,000 unit 01/10/19 06:00 01/10/19 05:50 Heparin - SQ 5,000 unit TID HOSSEIN Administration Sodium Chloride 1,000 mls @ 100 mls/hr 01/09/19 20:30 01/09/19 20:35 Normal Saline - IV 100 mls/hr ASDIR HOSSEIN Administration Piperacillin Sod/Tazobactam 50 mls @ 100 mls/hr 01/10/19 03:00 Sod 3.375 gm/ Dextrose IVPB Q6H-IV HOSSEIN Protocol Piperacillin Sod/Tazobactam 50 mls @ 100 mls/hr 01/10/19 03:00 01/10/19 10:58 Sod 3.375 gm/ Dextrose IVPB 01/10/19 21:29 100 mls/hr Q6H-IV HOSSEIN Administration Protocol Ceftriaxone Sodium 1 gm/ 50 mls @ 100 mls/hr 01/11/19 10:00 Dextrose IVPB DAILY HOSSEIN Protocol Azithromycin 250 mg/ Dextrose 250 mls @ 250 mls/hr 01/11/19 10:00 IVPB DAILY HOSSEIN Insulin Aspart 1 vial 01/09/19 19:45 01/10/19 05:59 Novolog Vial Sliding Scale - SQ 1 units Q6HPO HOSSEIN Administration Protocol Lactulose 20 gm 01/10/19 14:00 Cephulac (Oral Use) PO TID HOSSEIN Methylprednisolone Sodium Succinate 60 mg 01/10/19 03:00 01/10/19 10:00 Solu-Medrol - IVPUSH 60 mg Q6H-IV HOSSEIN Administration Mupirocin 1 applic 01/09/19 22:00 01/10/19 10:59 Bactroban Ointment (For Decolonization) - NS 01/14/19 21:59 1 applic BID HOSSEIN Administration Pantoprazole Sodium 40 mg 01/11/19 10:00 Protonix - PO DAILY HOSSEIN Thiamine HCl 200 mg 01/11/19 10:00 Vitamin B1 - PO DAILY HOSSEIN ASSESSMENT/PLAN: Kailash Kwan is a 63 year old male with a PMHx of COPD, diverticulitis , former tobacco user who was admitted to the ICU after being intubated for acute hypoxic hyerpcapneic respiratory failure. Acute hypoxic hypercapneic respiratory failure COPD Polycythemia vera Diabetes Mellitus NEUROLOGIC - alert, some disorientation likely secondary to hypoxia - continue to monitor neurologic status - head CT shows no acute pathology - Utox negative CARDIOLOGY - echocardiogram is within normal limits, EF 60-65% - continue to monitor hemodynamics - syncope workup RESPIRATORY - initial VBG pH 7.09, pCO2 149 - subsequent ABG 7.48, CO2 45, resolution of hypercapneia - CXR show no acute pathology - Chest CT pending - extubated - currently on NC 7L - continue to monitor respiratory status - Duoneb qid prn - Solumedrol 60mg q6h - Zosyn doses given RENAL - RONAK upon presentation of CRE to 1.5, likely pre-renal, resolving latest CRE 0.9 - 1/2NS for fluids for RONAK - Dr. Winter consulted, recs appreciated GASTROINTESTINAL - elevated ammonia level 59 - LFTS within normal limits - lactulose 20g tid given, stopped due to excessive diarrhea and dehydration - Abd pelvis CT with contrast pending GENITOURINARY - no acute issues - butler discontinued INFECTIOUS DISEASE - lactic elevated upon arrival at 2.8--> 5.2--> 2.5--> 1.3, normalized - Zosyn doses given - if remains stable, can d/c antibiotics - urine cxs pending - blood cxs negative after 24 hours - Dr. Fisher consulted recs appreciated - if patient stable can d/c antibiotics ENDOCRINE - HgbA1c 8.3 - BGM q6h - ISS - field counsel patient on DM management and f/u with outpatient provider HEMATOLOGY - elevated WBC likely from acute COPD exacerbation and corticosteroid treatment - elevated HGb likely from chronic hypoxia - iron studies, B12, folate ordered - EPO ordered - Dr. Palomino consulted recs appreciated MUSCULOSKELETAL - no acute issues PSYCHIATRY - no acute issues F/E/N - 1/2NS @ 100mls/hr - hypophosphatemia, repleted, replete electrolytes as necessary - diabetic diet LINES - R FA inserted 01/09 PROPHYLAXIS - heparin 5000 units tid subq CODE - full code DISPO - continue to monitor patient in ICU CASE DISCUSSED WITH DR. ANGLIN AND PRIMARY TEAM JUNG LARSON DO - PGY-1 INTERNAL MEDICINE Problem List - Problems (1) Acute renal failure Code(s): N17.9 - ACUTE KIDNEY FAILURE, UNSPECIFIED (2) COPD (chronic obstructive pulmonary disease) Code(s): J44.9 - CHRONIC OBSTRUCTIVE PULMONARY DISEASE, UNSPECIFIED Qualifiers: COPD type: unspecified COPD Qualified Code(s): J44.9 - Chronic obstructive pulmonary disease, unspecified (3) Acute on chronic respiratory failure with hypoxia and hypercapnia Code(s): J96.21 - ACUTE AND CHRONIC RESPIRATORY FAILURE WITH HYPOXIA; J96.22 - ACUTE AND CHRONIC RESPIRATORY FAILURE WITH HYPERCAPNIA Visit type - Emergency Visit Emergency Visit: No - New Patient This patient is new to me today: Yes Date on this admission: 01/10/19 - Critical Care Critical Care patient: Yes Total Critical Care Time (in minutes): 35 Critical Care Statement: The care of this patient involved high complexity decision making to prevent further life threatening deterioration of the patient 's condition and/or to evaluate & treat vital organ system(s) failure or risk of failure. ATTENDING PHYSICIAN STATEMENT I saw and evaluated the patient. I reviewed the resident's note and discussed the case with the resident. I agree with the resident's findings and plan as documented. SUBJECTIVE: OBJECTIVE: ASSESSMENT AND PLAN:
[2019-01-10] MEDS ORDERED: LACTULOSE 20 GM/30 ML UDC (FOR ORAL USE ONLY) PO SCH (14:00)
--- NOTE | 2019-01-10 14:07 | CONSULT ---
Consult Consult Specialty:: Nephrology Reason for Consultation:: RONAK - History of Present Illness Chief Complaint: change in mental status History of Present Illness: Pt is a 63 year old male with pmhx of COPD, diverticulitis, and tobacco use who was brought to the ER with change in mental status. He was also lethargic. I was called to evaluate him for RONAK. He was intubated yesterday and extubated today. He does not remember what happened. He is confused and not a great historian. He was also found to have lactic acidosis. He is now awake and denies shortness of breath. He denies history of kidney disease. He denies nsaid use. - History Source History Provided By: Patient, Medical Record - Past Medical History Pulmonary: Yes: COPD Gastrointestinal: Yes: Diverticulitis - Alcohol/Substance Use Hx Alcohol Use: No - Smoking History Smoking history: Unknown if ever smoked Have you smoked in the past 12 months: Yes Aproximately how many cigarettes per day: 40 Home Medications - Allergies Allergies/Adverse Reactions: Allergies Allergy/AdvReac Type Severity Reaction Status Date / Time No Known Allergies Allergy Verified 01/09/19 17:06 - Home Medications Home Medications: Ambulatory Orders Albuterol Sulfate Inhaler - [Ventolin Hfa Inhaler -] 2 inh PO Q4H PRN #1 inh 06/18 Budesonide/Formeterol Fumarate [SYMBICORT 80/4.5mcg -] 2 puff IH BID #1 inhaler 06/13/17 Family Disease History - Family Disease History Family History: Denies Review of Systems - Review of Systems Constitutional: reports: No Symptoms Eyes: reports: No Symptoms HENT: reports: No Symptoms Neck: reports: No Symptoms Cardiovascular: reports: No Symptoms Respiratory: reports: SOB on Exertion, Wheezing Gastrointestinal: reports: No Symptoms Genitourinary: reports: No Symptoms Musculoskeletal: reports: No Symptoms Integumentary: reports: No Symptoms Neurological: reports: No Symptoms Endocrine: reports: No Symptoms Hematology/Lymphatic: reports: No Symptoms Psychiatric: reports: No Symptoms Physical Exam Vital Signs: Vital Signs Temperature 98.4 F 01/10/19 08:00 Pulse Rate 82 01/10/19 08:00 Respiratory Rate 16 01/10/19 08:57 Blood Pressure 133/82 01/10/19 08:00 O2 Sat by Pulse Oximetry (%) 95 01/09/19 23:08 Constitutional: Yes: Calm, Poor Hygeine Eyes: Yes: Conjunctiva Clear Cardiovascular: Yes: S1, S2 Respiratory: Yes: On Nasal O2, Wheezes Gastrointestinal: Yes: Soft Renal/: Yes: Queen Present Musculoskeletal: Yes: WNL Edema: No Integumentary: Yes: WNL Neurological: Yes: Confusion Psychiatric: Yes: Oriented Labs: CBC, BMP 01/10/19 05:25 Laboratory Tests 01/09/19 01/09/19 01/09/19 17:00 17:00 17:00 WBC 11.5 H Hgb 20.1 H* Plt Count Sodium Potassium BUN 58.9 H Creatinine 1.5 H Lactic Acid 2.8 H* Urine Protein Urine Blood 01/09/19 01/09/19 01/10/19 17:13 19:20 00:10 WBC Hgb Plt Count Sodium Potassium BUN Creatinine Lactic Acid 5.3 H* 2.5 H* Urine Protein 4+ H Urine Blood 2+ H 01/10/19 01/10/19 01/10/19 00:10 01:00 05:25 WBC 12.7 H Hgb 19.2 H Plt Count Sodium Potassium BUN 53.9 H Creatinine 0.9 Lactic Acid 1.3 Urine Protein Urine Blood 01/10/19 01/10/19 05:25 05:25 WBC Hgb 18.4 H Plt Count 244 Sodium 145 Potassium 4.2 BUN 47.7 H Creatinine 0.9 Lactic Acid Urine Protein Urine Blood Imaging - Results Chest X-ray: Report Reviewed Assessment/Plan Current Medications Generic Name Dose Route Start Last Admin Trade Name Freq PRN Reason Stop Dose Admin Albuterol/Ipratropium 1 amp 01/10/19 12:31 Duoneb - NEB RQID PRN WHEEZING Chlorhexidine Gluconate 1 applic 01/09/19 22:00 01/09/19 23:30 Hibiclens For Decolonization - TP 1 applic HS [facility]OS[facility] Administration Folic Acid 1 mg 01/11/19 10:00 Folic Acid - PO DAILY [facility]OS[facility] Heparin Sodium (Porcine) 5,000 unit 01/10/19 06:00 01/10/19 05:50 Heparin - SQ 5,000 unit TID [facility]OS[facility] Administration Sodium Chloride 1,000 mls @ 100 mls/hr 01/09/19 20:30 01/09/19 20:35 Normal Saline - IV 100 mls/hr ASDIR [facility] Administration Piperacillin Sod/Tazobactam 50 mls @ 100 mls/hr 01/10/19 03:00 Sod 3.375 gm/ Dextrose IVPB Q6H-IV [facility]OS[facility] Protocol Piperacillin Sod/Tazobactam 50 mls @ 100 mls/hr 01/10/19 03:00 01/10/19 10:58 Sod 3.375 gm/ Dextrose IVPB 01/10/19 21:29 100 mls/hr Q6H-IV [facility] Administration Protocol Ceftriaxone Sodium 1 gm/ 50 mls @ 100 mls/hr 01/11/19 10:00 Dextrose IVPB DAILY [facility] Protocol Azithromycin 250 mg/ Dextrose 250 mls @ 250 mls/hr 01/11/19 10:00 IVPB DAILY [facility]OS[facility]IN Insulin Aspart 1 vial 01/09/19 19:45 01/10/19 13:57 Novolog Vial Sliding Scale - SQ Not Given Q6HPO [facility] Protocol Lactulose 20 gm 01/10/19 14:00 Cephulac (Oral Use) PO TID [facility] Methylprednisolone Sodium Succinate 60 mg 01/10/19 03:00 01/10/19 10:00 Solu-Medrol - IVPUSH 60 mg Q6H-IV [facility] Administration Mupirocin 1 applic 01/09/19 22:00 01/10/19 10:59 Bactroban Ointment (For Decolonization) - NS 01/14/19 21:59 1 applic BID [facility]OS[facility] Administration Pantoprazole Sodium 40 mg 01/11/19 10:00 Protonix - PO DAILY [facility] Thiamine HCl 200 mg 01/11/19 10:00 Vitamin B1 - PO DAILY [facility] Impression 1. RONAK 2. dehydration 3. polycythemia 4. copd 5. resp failure requiring intubation 6. lactic acidosis 7. copd 8. hx diverticulitis Plan - renal function is improving - lactic acid improved - repeat ua - change fluids to 1/2 ns - follow cultures
--- NOTE | 2019-01-10 14:13 | PN ---
Teaching Attending Note Name of Resident: Princess Khalil ATTENDING PHYSICIAN STATEMENT I saw and evaluated the patient. I reviewed the resident's note and discussed the case with the resident. I agree with the resident's findings and plan as documented. pt seen just shortly after extubation and was uneasy, was unable to question patient more in depth to obtain PMI SUBJECTIVE: reports no pain or difficulty breathing OBJECTIVE: Last Vital Signs Temp Pulse Resp BP Pulse Ox 98.4 F 82 16 133/82 95 01/10/19 08:00 01/10/19 08:00 01/10/19 08:57 01/10/19 08:00 01/09/19 23:08 General mildly anxious CV S1 S2 tachy Lungs diffuse rhonchi, poor inspiratory effort Abdomen soft NT/ND no rebound or guarding normal BS Extremities no pedal edema ASSESSMENT AND PLAN: 63yo M with PMH COPD and diverticulosis presented to the ER after he was found on the floor of his home. he was intubated in the ER for airway protection 1. Acute on likely Chronic Hypoxic and Hypercapneic Respiratory Failure- due to COPD exacerbation. now extubated. saturating 92% on 50% face mask. on medrol 60mg Q6H, can start azithro for inflammatory effects. nebs prn and inhalers. titrate down supplemental oxygen as tolerated. pulmonary team on board 2. Acute metabolic encephalopathy- currently alert. may have been obtunded due to hypoxia vs dehydration vs alternate etiology. mildly elevated ammonia level. will need to obtain more information from patient. come back and re-assess patient. Head and c-spine CT are negative. will d/c abx at this time due to no source identified. Utox negative. 3. SIRS- unclear source. possible could have aspirated, CXR negative but can lag. received vanco/zosyn in the ER. CT chest ordered.can likely stop and monitor. f/u Cx 4. Severe dehydration- as evident in labs. IVF. cont at this time. encourage po intake 5. Lactic acidosis- due to hypoxia vs dehydration. quickly resolved with IVF 6. RONAK with proteinuria- would repeat UA. likely dehydration component. nephro consulted 7. Acute on chronic polycythemia- likely due to chronic hypoxia. epo level pending. hematology consulted 8. Hyperkalemia- treated in the Er. resolved 9. DVT ppx- hep sq 10. MICU monitoring The care of this patient involved high complexity decision making to prevent further life threatening deterioration of the patient's condition and/or to evaluate & treat vital organ system(s) failure or risk of failure. 45 minutes
--- NOTE | 2019-01-10 17:03 | EKG ---
Test Reason : Blood Pressure : / mmHG Vent. Rate : 111 BPM Atrial Rate : 111 BPM P-R Int : 130 ms QRS Dur : 136 ms QT Int : 354 ms P-R-T Axes : 088 191 060 degrees QTc Int : 481 ms SINUS TACHYCARDIA POSSIBLE LEFT ATRIAL ENLARGEMENT RIGHT BUNDLE BRANCH BLOCK ABNORMAL ECG WHEN COMPARED WITH ECG OF 10-JUN-2017 10:43, QRS DURATION HAS INCREASED Confirmed by JUANITA WILSON MD ([id number]) on 01/10/2019 5:03:00 PM Referred By: Confirmed By:JUANITA WILSON MD
[2019-01-10] MEDS: SODIUM CHLORIDE 0.45% 1,000 ML IV SCH (17:26)
--- NOTE | 2019-01-10 18:01 | PN ---
Physical Exam: SUBJECTIVE: Patient seen and examined bedside. Pt is extubated. Pt states he is not experiencing any pain. Pt does not remember what happened yesterday or what brought him into the hospital. OBJECTIVE: Vital Signs Period Temp Pulse Resp BP Sys/Anna Pulse Ox Last 24 Hr 98 F-98.6 F 76-117 16-23 105-166/80-95 95-100 GENERAL: The patient is awake, alert, and oriented, in no acute distress. HEAD: Normal with no signs of trauma. LUNGS: Breath sounds equal, B/L rhonchi no accessory muscle use. HEART: tachycardic and regular rhythm, S1, S2 without murmur, rub or gallop. ABDOMEN: Soft, nontender, nondistended, normoactive bowel sounds EXTREMITIES: warm, well-perfused, no edema. SKIN: Warm, dry, normal turgor, no rashes or lesions noted Laboratory Last Values WBC 10.0 K/mm3 (4.0-10.0) 01/10/19 05:25 RBC 6.04 M/mm3 (4.00-5.60) H 01/10/19 05:25 Hgb 18.4 GM/dL (11.7-16.9) H 01/10/19 05:25 Hct 56.8 % (35.4-49) H 01/10/19 05:25 MCV 94.0 fl (80-96) 01/10/19 05:25 MCH 30.4 pg (25.7-33.7) 01/10/19 05:25 MCHC 32.3 g/dl (32.0-35.9) 01/10/19 05:25 RDW 16.6 % (11.9-15.9) H 01/10/19 05:25 Plt Count 244 K/MM3 (134-434) 01/10/19 05:25 MPV 9.3 fl (7.5-11.1) 01/10/19 05:25 Absolute Neuts (auto) 9.4 K/mm3 (1.5-8.0) H 01/09/19 17:00 Neutrophils % 82.3 % (42.8-82.8) 01/09/19 17:00 Lymphocytes % 8.5 % (8-40) 01/09/19 17:00 Monocytes % 8.9 % (3.8-10.2) 01/09/19 17:00 Eosinophils % 0.0 % (0-4.5) 01/09/19 17:00 Basophils % 0.3 % (0-2.0) 01/09/19 17:00 Nucleated RBC % 0 % (0-0) 01/09/19 17:00 Retic Count 1.74 % (0.5-1.5) H 01/10/19 00:10 PT with INR 11.60 SEC (9.7-13.0) 01/09/19 17:00 INR 0.98 (0.83-1.09) 01/09/19 17:00 PTT (Actin FS) 30.2 SECONDS (25.2-36.5) 01/09/19 17:00 Anticoagulation Therapy No Result Required. 01/09/19 19:35 Puncture Site Left radial 01/10/19 06:00 ABG pH 7.48 (7.35-7.45) H 01/10/19 06:00 ABG pCO2 at Pt Temp 45.3 mmHg (35-45) H 01/10/19 06:00 ABG pO2 at Pt Temp 72.1 mmHg (80-105) L 01/10/19 06:00 ABG HCO3 33.5 mmol/L (22-27) H 01/10/19 06:00 ABG O2 Sat (Measured) 94.2 % (95-98) L 01/10/19 06:00 ABG O2 Content 24.5 % vol (15-22) H 01/10/19 06:00 ABG Base Excess 8.8 meq/l (-2-2) H 01/10/19 06:00 Chaz Test Positive 01/10/19 06:00 VBG pH 7.09 (7.31-7.41) L* 01/09/19 17:00 POC VBG pCO2 149 mmHg (41-51) H* 01/09/19 17:00 POC VBG pO2 70.5 mmHg (30-40) H 01/09/19 17:00 VBG HCO3 42.8 mmol/L (23-29) H 01/09/19 17:00 VBG O2 Sat (Feli) 82.0 % (70-80) H 01/09/19 17:00 VBG Base Excess 0.8 meq/l (-2-2) 01/09/19 17:00 Carboxyhemoglobin 1.6 % (0-2) 01/09/19 19:30 Methemoglobin 0.6 % (0-2) 01/09/19 19:30 O2 Delivery Device Vent 01/10/19 06:00 Oxygen Flow Rate 60% 01/10/19 06:00 Vent Mode A/c 01/10/19 06:00 Vent Rate 16 01/10/19 06:00 Mechanical Rate No Result Required. 01/09/19 19:35 PEEP 5.0 cmH2O 01/10/19 06:00 Pressure Support Vent 500 01/10/19 06:00 Sodium 145 mmol/L (136-145) 01/10/19 05:25 Potassium 4.2 mmol/L (3.5-5.1) 01/10/19 05:25 Chloride 106 mmol/L (98-107) 01/10/19 05:25 Carbon Dioxide 34 mmol/L (21-32) H 01/10/19 05:25 Anion Gap 6 MMOL/L (8-16) L 01/10/19 05:25 BUN 47.7 mg/dL (7-18) H 01/10/19 05:25 Creatinine 0.9 mg/dL (0.55-1.3) 01/10/19 05:25 Est GFR (CKD-EPI)AfAm 105.72 01/10/19 05:25 Est GFR (CKD-EPI)NonAf 91.22 01/10/19 05:25 POC Glucometer 166 UNITS (80-120) 01/10/19 12:14 Random Glucose 213 mg/dL (74-106) H 01/10/19 05:25 Hemoglobin A1c % 8.3 % (4.2-6.3) H 01/10/19 05:25 Lactic Acid 1.3 mmol/L (0.4-2.0) 01/10/19 05:25 Calcium 8.1 mg/dL (8.5-10.1) L 01/10/19 05:25 Phosphorus 2.6 mg/dL (2.5-4.9) 01/10/19 05:25 Magnesium 2.2 mg/dL (1.8-2.4) 01/10/19 01:00 Ferritin 16.9 ng/ml (8-388) 01/10/19 01:00 Total Bilirubin 0.4 mg/dL (0.2-1) 01/10/19 05:25 AST 13 U/L (15-37) L 01/10/19 05:25 ALT 11 U/L (13-61) L 01/10/19 05:25 Alkaline Phosphatase 69 U/L (45-117) 01/10/19 05:25 Ammonia 59.30 umol/L (11-32) H 01/09/19 17:00 Creatine Kinase 107 U/L (26-308) 01/09/19 17:00 Troponin I 0.04 ng/ml (0.00-0.05) 01/10/19 01:00 Total Protein 5.1 g/dl (6.4-8.2) L 01/10/19 05:25 Albumin 2.1 g/dl (3.4-5.0) L 01/10/19 05:25 Vitamin B12 Cancelled 01/10/19 00:10 Urine Color Dk yellow 01/09/19 17:13 Urine Appearance Cloudy 01/09/19 17:13 Urine pH 5.0 (5.0-8.0) 01/09/19 17:13 Ur Specific [place] 1.037 (1.010-1.035) H 01/09/19 17:13 Urine Protein 4+ (NEGATIVE) H 01/09/19 17:13 Urine Glucose (UA) 1+ (NEGATIVE) H 01/09/19 17:13 Urine Ketones Trace (NEGATIVE) H 01/09/19 17:13 Urine Blood 2+ (NEGATIVE) H 01/09/19 17:13 Urine Nitrite Negative (NEGATIVE) 01/09/19 17:13 Urine Bilirubin Small (NEGATIVE) 01/09/19 17:13 Urine Urobilinogen 1.0 mg/dL (0.2-1.0) 01/09/19 17:13 Ur Leukocyte Esterase Negative (NEGATIVE) 01/09/19 17:13 Urine WBC (Auto) 4.9 /hpf (0-5) 01/09/19 17:13 Urine RBC (Auto) 6.2 /hpf (0-4) 01/09/19 17:13 U Pathogenic Cast Auto None seen /lpf (NEGATIVE) 01/09/19 17:13 U Epithel Cells (Auto) 93.9 /HPF (0-5/HPF) 01/09/19 17:13 U Sm Round Cell (Auto) None seen 01/09/19 17:13 Urine Bacteria (Auto) 3.9 /hpf (NEGATIVE) 01/09/19 17:13 Salicylates Cancelled 01/10/19 00:10 Opiates Screen Negative ng/ml (JITZRW=975) 01/09/19 20:35 Methadone Screen Negative ng/ml (QDURIM=123) 01/09/19 20:35 Barbiturate Screen Negative ng/ml (UMRKVC=881) 01/09/19 20:35 Phencyclidine Screen Negative ng/ml (CUTOFF=25) 01/09/19 20:35 Ur Amphetamines Screen Negative ng/ml (IXVAUI=684) 01/09/19 20:35 MDMA (Ecstasy) Screen Negative ng/ml (WDNVUL=118) 01/09/19 20:35 Benzodiazepines Screen Negative ng/ml (KYNPVG=290) 01/09/19 20:35 Cocaine Screen Negative ng/ml (OXZDFO=004) 01/09/19 20:35 U Marijuana (THC) Screen Negative ng/ml (CUTOFF=50) 01/09/19 20:35 Alcohol, Quantitative < 3.0 mg/dL (0.0-5.0) 01/09/19 17:00 Acetone, Qual Negative (NEGATIVE) 01/09/19 17:00 CT Cervical Spine IMPRESSION: Mild degenerative arthritis with no fracture or acute pathology. CT Head IMPRESSION: No evidence of acute intracranial pathology. CT Abdomen/ Pelvis IMPRESSION: 1. Extensive left lower lobe atelectasis with small bilateral pleural effusions. 2. No evidence of intra-abdominal abscess or acute pathology within the abdomen or pelvis. Current Medications Albuterol/Ipratropium (Duoneb -) 1 amp NEB RQID PRN PRN Reason: WHEEZING Chlorhexidine Gluconate (Hibiclens For Decolonization -) 1 applic TP HS [facility] Last Admin: 01/09/19 23:30 Dose: 1 applic Folic Acid (Folic Acid -) 1 mg PO DAILY [facility] Heparin Sodium (Porcine) (Heparin -) 5,000 unit SQ TID [facility] Last Admin: 01/10/19 16:30 Dose: 5,000 unit Piperacillin Sod/Tazobactam (Sod 3.375 gm/ Dextrose) 50 mls @ 100 mls/hr IVPB Q6H-IV [facility]; Protocol Piperacillin Sod/Tazobactam (Sod 3.375 gm/ Dextrose) 50 mls @ 100 mls/hr IVPB Q6H-IV [facility]; Protocol Stop: 01/10/19 21:29 Last Admin: 01/10/19 16:50 Dose: 100 mls/hr Sodium Chloride (1/2 Normal Saline) 1,000 mls @ 100 mls/hr IV ASDIR [facility] Insulin Aspart (Novolog Vial Sliding Scale -) 1 vial SQ Q6HPO [facility]; Protocol Last Admin: 01/10/19 13:57 Dose: Not Given Lactulose (Cephulac (Oral Use)) 20 gm PO TID [facility] Last Admin: 01/10/19 15:00 Dose: Not Given Methylprednisolone Sodium Succinate (Solu-Medrol -) 60 mg IVPUSH Q6H-IV [facility] Last Admin: 01/10/19 16:48 Dose: 60 mg Mupirocin (Bactroban Ointment (For Decolonization) -) 1 applic NS BID [facility]OSSEIN Stop: 01/14/19 21:59 Last Admin: 01/10/19 10:59 Dose: 1 applic Pantoprazole Sodium (Protonix -) 40 mg PO DAILY [facility]OS[facility] Thiamine HCl (Vitamin B1 -) 200 mg PO DAILY [facility]OS[facility] ASSESSMENT/PLAN: 63M with PMH of simgoid diverticulitis and COPD BIBA after being found down during a social worker health services field visit. EMS found patient responsive and oriented. In the ED, patient had increased respiratory distress and AMS therefore was intubated to protect airway. Overnight, pt was on propofol gtt. Pt is observed in the ICU Acute on likely Chronic Hypoxic and Hypercapneic Respiratory Failure -2/2 COPD exacerbation. -now extubated saturating well on 6L NC. continue titrating O2 as tolerated -on medrol 60mg Q6H, on duonebs prn -pulm on board Acute metabolic encephalopathy- likely 2/2 hypoxia -pt currently alert. -mildly elevated ammonia level -pt unable to remember events from last night -Head and c-spine CT are negative. -Utox negative. SIRS- -unclear source -possible could have aspirated, - CT chest ordered Severe dehydration -c/w IVF -c/w PO intake Lactic acidosis 2/2 hypoxia vs dehydration -resolved w/ IVF RONAK with proteinuria -repeat UA -likely dehydration component -nephro consult appreciated Acute on chronic polycythemia- likely 2/2 hypoxia -awaiting epo level -Heme consult appreciated DVT ppx- hep sq Visit type - Emergency Visit Emergency Visit: No - New Patient This patient is new to me today: Yes Date on this admission: 01/10/19 - Critical Care Critical Care patient: Yes Total Critical Care Time (in minutes): 37 Critical Care Statement: The care of this patient involved high complexity decision making to prevent further life threatening deterioration of the patient 's condition and/or to evaluate & treat vital organ system(s) failure or risk of failure. - Discharge Referral Referred to [facility] No ATTENDING PHYSICIAN STATEMENT I saw and evaluated the patient. I reviewed the resident's note and discussed the case with the resident. I agree with the resident's findings and plan as documented. SUBJECTIVE: OBJECTIVE: ASSESSMENT AND PLAN:
[2019-01-10] MEDS ORDERED: SODIUM CHLORIDE 0.45% 500 ML IV ONE (18:11)
[2019-01-10 18:24] LABS: EPI CELLS 3.3 /HPF (0-5/HPF); HYALINE CASTS 11 /lpf (0-8); URINE APPEARANCE TURBID; URINE BACTERIA 34.5 /hpf (NEGATIVE); URINE BILIRUBIN NEGATIVE (NEGATIVE); URINE COLOR YELLOW; URINE GLUCOSE (UA) NEGATIVE (NEGATIVE); URINE KETONE TRACE (NEGATIVE); URINE LEUK ESTERASE 1+ (NEGATIVE); URINE NITRITE NEGATIVE (NEGATIVE); URINE PROTEIN 2+ (NEGATIVE); URINE UROBILINOGEN 0.2 mg/dL (0.2-1.0); URINE WBC 10 /hpf (0-5)
[2019-01-10 19:03] LABS: URINE CRYSTALS URIC ACID /hpf
[2019-01-10] MEDS: CHLORHEXIDINE GLUCONATE 4% CLEANSER FOR DECOLONIZATION TP SCH (21:16)
--- NOTE | 2019-01-10 21:42 | PN ---
Teaching Attending Note Name of Resident: Elise Egna ATTENDING PHYSICIAN STATEMENT I saw and evaluated the patient. I reviewed the resident's note and discussed the case with the resident. I agree with the resident's findings and plan as documented. ASSESSMENT AND PLAN: 63 y/o patient with COPD, acute on chronic respiratory failure Extubated Patien oriened WE have been consuled for eryhrocyosis Suspect secondary due to underlying COPD f/u epo level Baseline hc seems 54% Would consider phlebotomy if needed based on clinical course follow CBC
--- NOTE | 2019-01-10 21:45 | FALL ---
Fall Exam - Event Witnessed fall: No Location of Fall: ICU Fall from: Bed - Pre-Fall Mental Status: Alert, Oriented, Cooperative Current Medications: Current Medications Generic Name Dose Route Start Last Admin Trade Name Blayne PRN Reason Stop Dose Admin Albuterol/Ipratropium 1 amp 01/10/19 12:31 Duoneb - NEB RQID PRN WHEEZING Chlorhexidine Gluconate 1 applic 01/09/19 22:00 01/10/19 21:16 Hibiclens For Decolonization - TP 1 applic HS [facility]OS[facility] Administration Folic Acid 1 mg 01/11/19 10:00 Folic Acid - PO DAILY [facility]OS[facility]IN Heparin Sodium (Porcine) 5,000 unit 01/10/19 06:00 01/10/19 21:16 Heparin - SQ 5,000 unit TID [facility]OS[facility] Administration Piperacillin Sod/Tazobactam 50 mls @ 100 mls/hr 01/10/19 03:00 Sod 3.375 gm/ Dextrose IVPB Q6H-IV [facility] Protocol Sodium Chloride 1,000 mls @ 100 mls/hr 01/10/19 14:15 01/10/19 17:26 1/2 Normal Saline IV 100 mls/hr ASDIR [facility] Administration Insulin Aspart 1 vial 01/10/19 22:00 01/10/19 21:16 Novolog Vial Sliding Scale - SQ 4 units ACHS [facility]OS[facility] Administration Protocol Methylprednisolone Sodium Succinate 60 mg 01/10/19 03:00 01/10/19 21:15 Solu-Medrol - IVPUSH 60 mg Q6H-IV [facility]OS[facility] Administration Mupirocin 1 applic 01/09/19 22:00 01/10/19 21:19 Bactroban Ointment (For Decolonization) - NS 01/14/19 21:59 1 applic BID [facility]OS[facility] Administration Pantoprazole Sodium 40 mg 01/11/19 10:00 Protonix - PO DAILY HOSSEIN Thiamine HCl 200 mg 01/11/19 10:00 Vitamin B1 - PO DAILY [facility]OS[facility] - Post-Fall Patient Outcome: No Injury Exam Findings: Gen: A&O x 2(baseline) unchanged. Head: No gross trauma to head. Heart: nml S1, S2, no murmurs. Lungs: baseline coarse breath sounds. Abd: NT, ND, soft. Ext: 2+ dpp, ROM intact, no tenderness, no bruises, no hematoma, no lcaerations, Neuro: 5/5 muscle strength and sensation grossly intact bilaterally, no dysmetria, no dysarthria, EOMI, PERRLA, CN II-XII. Skin : in tact, as baseline Treatment: None Vital Signs: Vital Signs Temperature 98.6 F 01/10/19 10:00 Pulse Rate 120 H 01/10/19 19:46 Respiratory Rate 22 H 01/10/19 19:46 Blood Pressure 151/86 01/10/19 19:46 O2 Sat by Pulse Oximetry (%) 96 01/10/19 19:46 LOC Post-Fall: Awake, Alert, Oriented Identify factors for HIGH RISK for Head Injury: Pt on anticoagulant (Hep. SQ)
[2019-01-11] MEDS: PIPERACILLIN/TAZOB 3.375 GM 3.375 GM in DEXTROSE 5%-WATER - 50 ML IVPB SCH (00:19)
[2019-01-11] MEDS ORDERED: ALBUTEROL SO4 0.042% IH SOL 1.25 MG/3 ML VIAL.NEB NEB ONE (02:05)
[2019-01-11] MEDS: methylPREDNISolone NA SUCC 40 MG/1 ML VIAL IVPUSH SCH ×4 (02:06→21:50)
[2019-01-11 04:56] LABS: ARTERIAL BLD GAS O2 SATURATION 88.5 % (95-98); ARTERIAL BLOOD GAS BASE EXCESS 2.6 meq/l (-2-2); ARTERIAL BLOOD GAS PO2 68.4 mmHg (80-105)
[2019-01-11 05:03] LABS: ALLENS TEST POSITIVE
[2019-01-11 05:06] LABS: ARTERIAL BLOOD GAS PCO2 97.8 mmHg (35-45)
--- NOTE | 2019-01-11 05:16 | PN ---
Progress Note (short form) - Note Progress Note: Overnight, patient desaturated to mid to low 80s. Patient was encouraged to breathe and head of bed was raised and chin lifted to open airway. Oxygen requirements increased to 4-5L NC for brief periods with limited efficacy. Patient continued to have shortened breaths with snoring sounds and wheezing. One dose of low dose albuterol given as patient's HR was in 90s. Limited efficacy of albuterol as patient continued to wheeze. Repeat ABG done pH 7.20, CO2 97.8, 02 68.4, respiratory acidosis. Patient placed back on BiPAP, rate 18, IPAP 12, EPAP 6, O2 50%. Patient will likely require BiPAP at night to maintain airway patency. Will likely need sleep apnea evaluation. Problem List - Problems (1) Acute renal failure Code(s): N17.9 - ACUTE KIDNEY FAILURE, UNSPECIFIED (2) COPD (chronic obstructive pulmonary disease) Code(s): J44.9 - CHRONIC OBSTRUCTIVE PULMONARY DISEASE, UNSPECIFIED Qualifiers: COPD type: unspecified COPD Qualified Code(s): J44.9 - Chronic obstructive pulmonary disease, unspecified (3) Acute on chronic respiratory failure with hypoxia and hypercapnia Code(s): J96.21 - ACUTE AND CHRONIC RESPIRATORY FAILURE WITH HYPOXIA; J96.22 - ACUTE AND CHRONIC RESPIRATORY FAILURE WITH HYPERCAPNIA
[2019-01-11] MEDS: HEPARIN NA (PORCINE) 5,000 UNITS/ML 1ML VIAL SQ SCH ×3 (05:53→21:51)
[2019-01-11] MEDS: INSULIN SLIDING SCALE (NOVOLOG) 1 VIAL SQ SCH ×4 (06:06→21:52)
[2019-01-11 06:14] LABS: HEMATOCRIT 58.8 % (35.4-49); MCH 30.6 pg (25.7-33.7); MCHC 31.7 g/dl (32.0-35.9); MEAN CELL VOLUME 96.5 fl (80-96); MEAN PLT VOLUME 9.2 fl (7.5-11.1); PLATELET COUNT 255 K/MM3 (134-434); RDW 16.4 % (11.9-15.9); WHITE BLOOD COUNT 13.5 K/mm3 (4.0-10.0)
[2019-01-11 06:42] LABS: ALBUMIN 2.5 g/dl (3.4-5.0); BILIRUBIN,TOTAL 0.6 mg/dL (0.2-1); BLOOD UREA NITROGEN 40.1 mg/dL (7-18); CALCIUM 8.2 mg/dL (8.5-10.1); MAGNESIUM 2.5 mg/dL (1.8-2.4); PHOSPHOROUS 6.4 mg/dL (2.5-4.9); POTASSIUM 5.3 mmol/L (3.5-5.1); TOT PROT 6.5 g/dl (6.4-8.2)
[2019-01-11 08:05] LABS: HEMOGLOBIN 18.7 GM/dL (11.7-16.9)
[2019-01-11 08:11] LABS: SERUM IRON SATURATION 7 % (15-55); TOTAL IRON BINDING CAPACITY 256 ug/dL (250-450)
[2019-01-11 08:11] LABS: SERUM IRON SATURATION 7 % (15-55); TOTAL IRON BINDING CAPACITY 281 ug/dL (250-450)
--- NOTE | 2019-01-11 09:19 | PN ---
Physical Exam: SUBJECTIVE: Patient seen and examined at the bedside. Overnight, patient desaturated to mid to low 80s. His positioning was adjusted to open airway and his NC O2 requirements were increased. Patient continued to have difficulty breathing and was SOB and a repeat ABG showed respiratory acidosis, pH 7.20, CO2 97.8, 02 68.4. Patient was placed on BiPAP rate 18, IPAP 12, EPAP 6, O2 50% and his O2 saturation improved. Patient will likely require BiPAP at night to maintain airway patency. Will likely need sleep apnea evaluation. OBJECTIVE: Vital Signs Period Temp Pulse Resp BP Sys/Anna Pulse Ox Last 24 Hr 98.6 F-99 F 88-120 17-25 116-166/73-95 91-96 GENERAL: The patient is awake, alert, and fully oriented, in no acute distress. Has tremors. HEAD: Normal with no signs of trauma. EYES: PERRL, extraocular movements intact, sclera anicteric, conjunctiva clear. No ptosis. NECK: Trachea midline, full range of motion, supple. LUNGS: Expiratory wheezes heard bilaterally. No crackles, or coarse breath sounds heard. HEART: Regular rate and rhythm, S1, S2 without murmur, rub or gallop. ABDOMEN: Soft, nontender, nondistended, normoactive bowel sounds, no guarding, no rebound, no hepatosplenomegaly, no masses. EXTREMITIES: 2+ pulses, warm, well-perfused, no edema. NEUROLOGICAL: Cranial nerves II through XII grossly intact. Normal speech, tremors observed. PSYCH: Normal mood, normal affect. SKIN: Warm, dry, normal turgor, no rashes or lesions noted Laboratory Results - last 24 hr 01/10/19 01/10/19 01/10/19 01:00 07:45 07:45 WBC RBC Hgb Hct 55.9 H MCV MCH MCHC RDW Plt Count MPV Puncture Site ABG pH ABG pCO2 at Pt Temp ABG pO2 at Pt Temp ABG HCO3 ABG O2 Sat (Measured) ABG O2 Content ABG Base Excess Chaz Test O2 Delivery Device Oxygen Flow Rate Sodium Potassium Chloride Carbon Dioxide Anion Gap BUN Creatinine Est GFR (CKD-EPI)AfAm Est GFR (CKD-EPI)NonAf POC Glucometer Random Glucose Calcium Phosphorus Magnesium Iron 19 L TIBC 281 Iron Saturation 7 L Unsaturated IBC 262 Total Bilirubin AST ALT Alkaline Phosphatase Total Protein Albumin Folate 766 Folate Hemolysate 428.2 Urine Color Urine Appearance Urine pH Ur Specific [place] Urine Protein Urine Glucose (UA) Urine Ketones Urine Blood Urine Nitrite Urine Bilirubin Urine Urobilinogen Ur Leukocyte Esterase Urine WBC (Auto) Urine RBC (Auto) Urine Casts (Auto) U Epithel Cells (Auto) Urine Crystals (Auto) Urine Bacteria (Auto) HIV 1&2 Ag/Ab, 4th Gen Non reactive 01/10/19 01/10/19 01/10/19 07:45 12:14 16:30 WBC RBC Hgb Hct MCV MCH MCHC RDW Plt Count MPV Puncture Site ABG pH ABG pCO2 at Pt Temp ABG pO2 at Pt Temp ABG HCO3 ABG O2 Sat (Measured) ABG O2 Content ABG Base Excess Chaz Test O2 Delivery Device Oxygen Flow Rate Sodium Potassium Chloride Carbon Dioxide Anion Gap BUN Creatinine Est GFR (CKD-EPI)AfAm Est GFR (CKD-EPI)NonAf POC Glucometer 166 Random Glucose Calcium Phosphorus Magnesium Iron 18 L TIBC 256 Iron Saturation 7 L Unsaturated IBC 238 Total Bilirubin AST ALT Alkaline Phosphatase Total Protein Albumin Folate Folate Hemolysate Urine Color Yellow Urine Appearance Turbid Urine pH 6.0 Ur Specific [place] 1.025 Urine Protein 2+ H Urine Glucose (UA) Negative Urine Ketones Trace H Urine Blood 3+ H Urine Nitrite Negative Urine Bilirubin Negative Urine Urobilinogen 0.2 Ur Leukocyte Esterase 1+ H Urine WBC (Auto) 10 Urine RBC (Auto) 26.0 Urine Casts (Auto) 11 U Epithel Cells (Auto) 3.3 Urine Crystals (Auto) Uric acid Urine Bacteria (Auto) 34.5 HIV 1&2 Ag/Ab, 4th Gen 01/10/19 01/10/19 01/11/19 17:42 20:58 04:37 WBC RBC Hgb Hct MCV MCH MCHC RDW Plt Count MPV Puncture Site Right radial ABG pH 7.20 L ABG pCO2 at Pt Temp 97.8 H* ABG pO2 at Pt Temp 68.4 L ABG HCO3 36.7 H ABG O2 Sat (Measured) 88.5 L ABG O2 Content 23.7 H ABG Base Excess 2.6 H Chaz Test Positive O2 Delivery Device Nasal Oxygen Flow Rate 3l Sodium Potassium Chloride Carbon Dioxide Anion Gap BUN Creatinine Est GFR (CKD-EPI)AfAm Est GFR (CKD-EPI)NonAf POC Glucometer 233 262 Random Glucose Calcium Phosphorus Magnesium Iron TIBC Iron Saturation Unsaturated IBC Total Bilirubin AST ALT Alkaline Phosphatase Total Protein Albumin Folate Folate Hemolysate Urine Color Urine Appearance Urine pH Ur Specific [place] Urine Protein Urine Glucose (UA) Urine Ketones Urine Blood Urine Nitrite Urine Bilirubin Urine Urobilinogen Ur Leukocyte Esterase Urine WBC (Auto) Urine RBC (Auto) Urine Casts (Auto) U Epithel Cells (Auto) Urine Crystals (Auto) Urine Bacteria (Auto) HIV 1&2 Ag/Ab, 4th Gen 01/11/19 01/11/19 01/11/19 05:40 05:40 05:51 WBC 13.5 H RBC 6.10 H Hgb 18.7 H Hct 58.8 H MCV 96.5 H MCH 30.6 MCHC 31.7 L RDW 16.4 H Plt Count 255 MPV 9.2 Puncture Site ABG pH ABG pCO2 at Pt Temp ABG pO2 at Pt Temp ABG HCO3 ABG O2 Sat (Measured) ABG O2 Content ABG Base Excess Chaz Test O2 Delivery Device Oxygen Flow Rate Sodium 143 Potassium 5.3 H Chloride 100 Carbon Dioxide 39 H Anion Gap 4 L BUN 40.1 H Creatinine 1.0 Est GFR (CKD-EPI)AfAm 93.08 Est GFR (CKD-EPI)NonAf 80.31 POC Glucometer 233 Random Glucose 222 H Calcium 8.2 L Phosphorus 6.4 H Magnesium 2.5 H Iron TIBC Iron Saturation Unsaturated IBC Total Bilirubin 0.6 AST 20 ALT 17 Alkaline Phosphatase 74 Total Protein 6.5 Albumin 2.5 L Folate Folate Hemolysate Urine Color Urine Appearance Urine pH Ur Specific [place] Urine Protein Urine Glucose (UA) Urine Ketones Urine Blood Urine Nitrite Urine Bilirubin Urine Urobilinogen Ur Leukocyte Esterase Urine WBC (Auto) Urine RBC (Auto) Urine Casts (Auto) U Epithel Cells (Auto) Urine Crystals (Auto) Urine Bacteria (Auto) HIV 1&2 Ag/Ab, 4th Gen Active Medications Generic Name Dose Route Start Last Admin Trade Name Freq PRN Reason Stop Dose Admin Albuterol/Ipratropium 1 amp 01/10/19 12:31 Duoneb - NEB RQID PRN WHEEZING Chlorhexidine Gluconate 1 applic 01/09/19 22:00 01/10/19 21:16 Hibiclens For Decolonization - TP 1 applic HS [facility] Administration Folic Acid 1 mg 01/11/19 10:00 Folic Acid - PO DAILY [facility] Heparin Sodium (Porcine) 5,000 unit 01/10/19 06:00 01/11/19 05:53 Heparin - SQ 5,000 unit TID [facility] Administration Sodium Chloride 1,000 mls @ 100 mls/hr 01/10/19 14:15 01/10/19 17:26 1/2 Normal Saline IV 100 mls/hr ASDIR [facility] Administration Insulin Aspart 1 vial 01/10/19 22:00 01/11/19 06:06 Novolog Vial Sliding Scale - SQ 2 units ACHS [facility] Administration Protocol Methylprednisolone Sodium Succinate 60 mg 01/10/19 03:00 01/11/19 02:06 Solu-Medrol - IVPUSH 60 mg Q6H-IV [facility] Administration Mupirocin 1 applic 01/09/19 22:00 01/10/19 21:19 Bactroban Ointment (For Decolonization) - NS 01/14/19 21:59 1 applic BID [facility] Administration Pantoprazole Sodium 40 mg 01/11/19 10:00 Protonix - PO DAILY [facility] Thiamine HCl 200 mg 01/11/19 10:00 Vitamin B1 - PO DAILY [facility] ASSESSMENT/PLAN: Kailash Kwan is a 63 year old male with a PMHx of COPD, diverticulitis , former tobacco user who was admitted to the ICU after being intubated for acute hypoxic hyerpcapneic respiratory failure. NEUROLOGIC - alert and oriented to self and location - continue to monitor neurologic status - head CT shows no acute pathology - Utox negative CARDIOLOGY - echocardiogram is within normal limits, EF 60-65% - continue to monitor hemodynamics RESPIRATORY - initial VBG pH 7.09, pCO2 149 - subsequent ABG 7.48, CO2 45, resolution of hypercapneia however, overnight the patient was having difficulty breathing and was once again acidodic ABG H 7.20, CO2 97.8, 02 68.4. Patient was placed on BiPAP over night and ABG was repeated in the morning. - Pending results of ABG, start high flow NC - CXR show no acute pathology - Chest CT pending - extubated - currently on BiPAP rate 18, IPAP 12, EPAP 6, O2 50% - continue to monitor respiratory status - Duoneb qid prn - Solumedrol 60mg q6h RENAL - RONAK upon presentation of CRE to 1.5, likely pre-renal, resolving latest CRE 1.0 - 1/2NS for fluids for RONAK - Dr. Winter consulted, recs appreciated GASTROINTESTINAL - elevated ammonia level 59 - LFTS within normal limits - lactulose 20g tid given, stopped due to excessive diarrhea and dehydration - Abd pelvis CT with contrast pending GENITOURINARY - no acute issues - butler discontinued INFECTIOUS DISEASE - lactic elevated upon arrival at 2.8--> 5.2--> 2.5--> 1.3, normalized - Zosyn doses given -> D/C'd as NGTD in [place] and lactic acidosis resolved - urine cxs pending - blood cxs negative after 24 hours - Dr. 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 Palomino consulted recs appreciated MUSCULOSKELETAL - no acute issues PSYCHIATRY - no acute issues F/E/N - 1/2NS @ 100mls/hr - hypophosphatemia, repleted, replete electrolytes as necessary - diabetic diet LINES - R FA inserted 01/09 PROPHYLAXIS - heparin 5000 units tid subq CODE - full code DISPO - continue to monitor patient in ICU Visit type - Emergency Visit Emergency Visit: Yes ED Registration Date: 01/09/19 Care time: The patient presented to the Emergency Department on the above date and was hospitalized for further evaluation of their emergent condition. - New Patient This patient is new to me today: No - Critical Care Critical Care patient: Yes Total Critical Care Time (in minutes): 40 Critical Care Statement: The care of this patient involved high complexity decision making to prevent further life threatening deterioration of the patient 's condition and/or to evaluate & treat vital organ system(s) failure or risk of failure. ATTENDING PHYSICIAN STATEMENT I saw and evaluated the patient. I reviewed the resident's note and discussed the case with the resident. I agree with the resident's findings and plan as documented. SUBJECTIVE: OBJECTIVE: ASSESSMENT AND PLAN:
[2019-01-11] MEDS: THIAMINE HCL 100 MG TABLET (FP) PO SCH (09:37)
[2019-01-11] MEDS: FOLIC ACID 1 MG TABLET (FP) PO SCH (09:37)
[2019-01-11] MEDS: PANTOPRAZOLE 40 MG TABLET (FP) PO SCH (09:37)
[2019-01-11] MEDS: MUPIROCIN 2% TOPICAL OINTMENT FOR DECOLONIZATION NS SCH ×2 (09:37→21:51)
[2019-01-11] MEDS ORDERED: AZITHROMYCIN IVPB 250 MG in DEXTROSE 5%-WATER - 250 ML IVPB SCH (10:00)
[2019-01-11] MEDS ORDERED: CEFTRIAXONE 1 GM in DEXTROSE 5%-WATER - 50 ML IVPB SCH (10:00)
--- NOTE | 2019-01-11 11:41 | PN ---
Progress Note, Physician History of Present Illness: starting to improve still with resp difficulty needed bipap this morning - Current Medication List Current Medications: Active Medications Albuterol/Ipratropium (Duoneb -) 1 amp NEB RQID PRN PRN Reason: WHEEZING Chlorhexidine Gluconate (Hibiclens For Decolonization -) 1 applic TP HS [facility] Last Admin: 01/10/19 21:16 Dose: 1 applic Folic Acid (Folic Acid -) 1 mg PO DAILY [facility] Last Admin: 01/11/19 09:37 Dose: 1 mg Heparin Sodium (Porcine) (Heparin -) 5,000 unit SQ TID [facility] Last Admin: 01/11/19 05:53 Dose: 5,000 unit Sodium Chloride (1/2 Normal Saline) 1,000 mls @ 100 mls/hr IV ASDIR [facility] Last Admin: 01/10/19 17:26 Dose: 100 mls/hr Insulin Aspart (Novolog Vial Sliding Scale -) 1 vial SQ ACHS [facility]; Protocol Last Admin: 01/11/19 11:19 Dose: 2 units Methylprednisolone Sodium Succinate (Solu-Medrol -) 60 mg IVPUSH Q6H-IV [facility] Last Admin: 01/11/19 09:37 Dose: 60 mg Mupirocin (Bactroban Ointment (For Decolonization) -) 1 applic NS BID [facility] Stop: 01/14/19 21:59 Last Admin: 01/11/19 09:37 Dose: 1 applic Pantoprazole Sodium (Protonix -) 40 mg PO DAILY [facility] Last Admin: 01/11/19 09:37 Dose: 40 mg Thiamine HCl (Vitamin B1 -) 200 mg PO DAILY [facility] Last Admin: 01/11/19 09:37 Dose: 200 mg - Objective Vital Signs: Vital Signs Temperature 98.9 F 01/11/19 06:00 Pulse Rate 104 H 01/11/19 10:00 Respiratory Rate 23 H 01/11/19 10:00 Blood Pressure 125/80 01/11/19 10:00 O2 Sat by Pulse Oximetry (%) 92 L 01/11/19 08:26 Constitutional: Yes: No Distress, Calm Cardiovascular: Yes: Regular Rate and Rhythm, S1 Respiratory: Yes: Regular, On Nasal O2, Poor Air Entry, Rhonchi Gastrointestinal: Yes: Normal Bowel Sounds, Soft Musculoskeletal: Yes: WNL Extremities: Yes: WNL Neurological: Yes: Alert, Oriented, Tremors Psychiatric: Yes: Alert, Oriented Labs: CBC, BMP 01/11/19 05:40 01/11/19 05:40 INR, PTT INR 0.98 (0.83-1.09) 01/09/19 17:00 Assessment/Plan 63 year old male with a history of COPD and diverticulitis was brought to the ED by ambulance after he was found down in his home and admitted for acute on chronic hypoxic hypercapnic respiratory failure ams resp failure ac kidney njury tremors polycythemia lactic acidosis leukocytosis plan hydration close watch rest as per icu monitor wbc await for all reports cc 40 min
--- NOTE | 2019-01-11 12:19 | PN ---
Teaching Attending Note Name of Resident: Aliza Castillo ATTENDING PHYSICIAN STATEMENT I saw and evaluated the patient. I reviewed the resident's note and discussed the case with the resident. I agree with the resident's findings and plan as documented. SUBJECTIVE: Patient seen and examined in the ICU. Awake and alert. Mildly tachypneic on NC O2. ABG early this AM reveals significant worsening of hypercapneic respiratory failure. No CP. Congested cough persists. Intake & Output 01/08/19 01/09/19 01/10/19 01/11/19 23:59 23:59 23:59 23:59 Intake Total 1350 1250 Output Total 100 800 Balance -461 869 4751 Weight 171 lb 1.259 oz 171 lb 1.259 oz 172 lb 4.8 oz Last Vital Signs Temp Pulse Resp BP Pulse Ox 98.9 F 103 H 23 H 142/86 92 L 01/11/19 06:00 01/11/19 12:00 01/11/19 10:00 01/11/19 12:00 01/11/19 08:26 Active Medications Albuterol/Ipratropium (Duoneb -) 1 amp NEB RQID PRN PRN Reason: WHEEZING Chlorhexidine Gluconate (Hibiclens For Decolonization -) 1 applic TP HS [facility] Last Admin: 01/10/19 21:16 Dose: 1 applic Folic Acid (Folic Acid -) 1 mg PO DAILY [facility] Last Admin: 01/11/19 09:37 Dose: 1 mg Heparin Sodium (Porcine) (Heparin -) 5,000 unit SQ TID [facility] Last Admin: 01/11/19 05:53 Dose: 5,000 unit Sodium Chloride (1/2 Normal Saline) 1,000 mls @ 100 mls/hr IV ASDIR [facility] Last Admin: 01/10/19 17:26 Dose: 100 mls/hr Insulin Aspart (Novolog Vial Sliding Scale -) 1 vial SQ ACHS [facility]; Protocol Last Admin: 01/11/19 11:19 Dose: 2 units Methylprednisolone Sodium Succinate (Solu-Medrol -) 60 mg IVPUSH Q6H-IV [facility] Last Admin: 01/11/19 09:37 Dose: 60 mg Mupirocin (Bactroban Ointment (For Decolonization) -) 1 applic NS BID [facility] Stop: 01/14/19 21:59 Last Admin: 01/11/19 09:37 Dose: 1 applic Pantoprazole Sodium (Protonix -) 40 mg PO DAILY [facility] Last Admin: 01/11/19 09:37 Dose: 40 mg Thiamine HCl (Vitamin B1 -) 200 mg PO DAILY [facility] Last Admin: 01/11/19 09:37 Dose: 200 mg Gen: Awake and alert, mildly tachypneic on NC O2 Heart: RRR Lung: Bilateral expiratory wheeze and scattered rhonchi Abd: soft, nontender Ext: no edema Laboratory Results - last 24 hr 01/10/19 01/10/19 01/10/19 01:00 05:25 07:45 WBC RBC Hgb Hct MCV MCH MCHC RDW Plt Count MPV Puncture Site ABG pH ABG pCO2 at Pt Temp ABG pO2 at Pt Temp ABG HCO3 ABG O2 Sat (Measured) ABG O2 Content ABG Base Excess Chaz Test O2 Delivery Device Oxygen Flow Rate Sodium Potassium Chloride Carbon Dioxide Anion Gap BUN Creatinine Est GFR (CKD-EPI)AfAm Est GFR (CKD-EPI)NonAf POC Glucometer Random Glucose Calcium Phosphorus Magnesium Iron 19 L TIBC 281 Iron Saturation 7 L Unsaturated IBC 262 Erythropoietin 47.6 H Total Bilirubin AST ALT Alkaline Phosphatase Total Protein Albumin Folate Folate Hemolysate Urine Color Urine Appearance Urine pH Ur Specific [place] Urine Protein Urine Glucose (UA) Urine Ketones Urine Blood Urine Nitrite Urine Bilirubin Urine Urobilinogen Ur Leukocyte Esterase Urine WBC (Auto) Urine RBC (Auto) Urine Casts (Auto) U Epithel Cells (Auto) Urine Crystals (Auto) Urine Bacteria (Auto) HIV 1&2 Ag/Ab, 4th Gen Non reactive 01/10/19 01/10/19 01/10/19 07:45 07:45 12:14 WBC RBC Hgb Hct 55.9 H MCV MCH MCHC RDW Plt Count MPV Puncture Site ABG pH ABG pCO2 at Pt Temp ABG pO2 at Pt Temp ABG HCO3 ABG O2 Sat (Measured) ABG O2 Content ABG Base Excess Chaz Test O2 Delivery Device Oxygen Flow Rate Sodium Potassium Chloride Carbon Dioxide Anion Gap BUN Creatinine Est GFR (CKD-EPI)AfAm Est GFR (CKD-EPI)NonAf POC Glucometer 166 Random Glucose Calcium Phosphorus Magnesium Iron 18 L TIBC 256 Iron Saturation 7 L Unsaturated IBC 238 Erythropoietin Total Bilirubin AST ALT Alkaline Phosphatase Total Protein Albumin Folate 766 Folate Hemolysate 428.2 Urine Color Urine Appearance Urine pH Ur Specific [place] Urine Protein Urine Glucose (UA) Urine Ketones Urine Blood Urine Nitrite Urine Bilirubin Urine Urobilinogen Ur Leukocyte Esterase Urine WBC (Auto) Urine RBC (Auto) Urine Casts (Auto) U Epithel Cells (Auto) Urine Crystals (Auto) Urine Bacteria (Auto) HIV 1&2 Ag/Ab, 4th Gen 01/10/19 01/10/19 01/10/19 16:30 17:42 20:58 WBC RBC Hgb Hct MCV MCH MCHC RDW Plt Count MPV Puncture Site ABG pH ABG pCO2 at Pt Temp ABG pO2 at Pt Temp ABG HCO3 ABG O2 Sat (Measured) ABG O2 Content ABG Base Excess Chaz Test O2 Delivery Device Oxygen Flow Rate Sodium Potassium Chloride Carbon Dioxide Anion Gap BUN Creatinine Est GFR (CKD-EPI)AfAm Est GFR (CKD-EPI)NonAf POC Glucometer 233 262 Random Glucose Calcium Phosphorus Magnesium Iron TIBC Iron Saturation Unsaturated IBC Erythropoietin Total Bilirubin AST ALT Alkaline Phosphatase Total Protein Albumin Folate Folate Hemolysate Urine Color Yellow Urine Appearance Turbid Urine pH 6.0 Ur Specific [place] 1.025 Urine Protein 2+ H Urine Glucose (UA) Negative Urine Ketones Trace H Urine Blood 3+ H Urine Nitrite Negative Urine Bilirubin Negative Urine Urobilinogen 0.2 Ur Leukocyte Esterase 1+ H Urine WBC (Auto) 10 Urine RBC (Auto) 26.0 Urine Casts (Auto) 11 U Epithel Cells (Auto) 3.3 Urine Crystals (Auto) Uric acid Urine Bacteria (Auto) 34.5 HIV 1&2 Ag/Ab, 4th Gen 01/11/19 01/11/19 01/11/19 04:37 05:40 05:40 WBC 13.5 H RBC 6.10 H Hgb 18.7 H Hct 58.8 H MCV 96.5 H MCH 30.6 MCHC 31.7 L RDW 16.4 H Plt Count 255 MPV 9.2 Puncture Site Right radial ABG pH 7.20 L ABG pCO2 at Pt Temp 97.8 H* ABG pO2 at Pt Temp 68.4 L ABG HCO3 36.7 H ABG O2 Sat (Measured) 88.5 L ABG O2 Content 23.7 H ABG Base Excess 2.6 H Chaz Test Positive O2 Delivery Device Nasal Oxygen Flow Rate 3l Sodium 143 Potassium 5.3 H Chloride 100 Carbon Dioxide 39 H Anion Gap 4 L BUN 40.1 H Creatinine 1.0 Est GFR (CKD-EPI)AfAm 93.08 Est GFR (CKD-EPI)NonAf 80.31 POC Glucometer Random Glucose 222 H Calcium 8.2 L Phosphorus 6.4 H Magnesium 2.5 H Iron TIBC Iron Saturation Unsaturated IBC Erythropoietin Total Bilirubin 0.6 AST 20 ALT 17 Alkaline Phosphatase 74 Total Protein 6.5 Albumin 2.5 L Folate Folate Hemolysate Urine Color Urine Appearance Urine pH Ur Specific [place] Urine Protein Urine Glucose (UA) Urine Ketones Urine Blood Urine Nitrite Urine Bilirubin Urine Urobilinogen Ur Leukocyte Esterase Urine WBC (Auto) Urine RBC (Auto) Urine Casts (Auto) U Epithel Cells (Auto) Urine Crystals (Auto) Urine Bacteria (Auto) HIV 1&2 Ag/Ab, 4th Gen 01/11/19 05:51 WBC RBC Hgb Hct MCV MCH MCHC RDW Plt Count MPV Puncture Site ABG pH ABG pCO2 at Pt Temp ABG pO2 at Pt Temp ABG HCO3 ABG O2 Sat (Measured) ABG O2 Content ABG Base Excess Chaz Test O2 Delivery Device Oxygen Flow Rate Sodium Potassium Chloride Carbon Dioxide Anion Gap BUN Creatinine Est GFR (CKD-EPI)AfAm Est GFR (CKD-EPI)NonAf POC Glucometer 233 Random Glucose Calcium Phosphorus Magnesium Iron TIBC Iron Saturation Unsaturated IBC Erythropoietin Total Bilirubin AST ALT Alkaline Phosphatase Total Protein Albumin Folate Folate Hemolysate Urine Color Urine Appearance Urine pH Ur Specific [place] Urine Protein Urine Glucose (UA) Urine Ketones Urine Blood Urine Nitrite Urine Bilirubin Urine Urobilinogen Ur Leukocyte Esterase Urine WBC (Auto) Urine RBC (Auto) Urine Casts (Auto) U Epithel Cells (Auto) Urine Crystals (Auto) Urine Bacteria (Auto) HIV 1&2 Ag/Ab, 4th Gen ASSESSMENT AND PLAN: Acute on likely Chronic Hypoxic and Hypercapneic Respiratory Failure r/o Pneumonia Acute COPD Exacerbation Acute Kidney Injury Lactic Acidosis Polycythemia likely due to chronic hypoxia - Recheck ABG: if hypercapneic -> trial of HFOT - continue antibiotics - f/u cultures - IV medrol - inhaled bronchodilators - O2 to keep SpO2 >90% - monitor urine output, creatinine - PO as tolerated - DVT prophylaxis Dr Trujillo critical care time spent in reviewing chart, evaluating patient and formulating plan 35 min
--- NOTE | 2019-01-11 12:19 | PN ---
Progress Note, Physician History of Present Illness: Pt seen and examined at bedside. He is more awake and alert today. - Current Medication List Current Medications: Active Medications Albuterol/Ipratropium (Duoneb -) 1 amp NEB RQID PRN PRN Reason: WHEEZING Chlorhexidine Gluconate (Hibiclens For Decolonization -) 1 applic TP HS [facility] Last Admin: 01/10/19 21:16 Dose: 1 applic Folic Acid (Folic Acid -) 1 mg PO DAILY [facility] Last Admin: 01/11/19 09:37 Dose: 1 mg Heparin Sodium (Porcine) (Heparin -) 5,000 unit SQ TID [facility] Last Admin: 01/11/19 05:53 Dose: 5,000 unit Sodium Chloride (1/2 Normal Saline) 1,000 mls @ 100 mls/hr IV ASDIR [facility] Last Admin: 01/10/19 17:26 Dose: 100 mls/hr Insulin Aspart (Novolog Vial Sliding Scale -) 1 vial SQ ACHS [facility]; Protocol Last Admin: 01/11/19 11:19 Dose: 2 units Methylprednisolone Sodium Succinate (Solu-Medrol -) 60 mg IVPUSH Q6H-IV [facility] Last Admin: 01/11/19 09:37 Dose: 60 mg Mupirocin (Bactroban Ointment (For Decolonization) -) 1 applic NS BID [facility] Stop: 01/14/19 21:59 Last Admin: 01/11/19 09:37 Dose: 1 applic Pantoprazole Sodium (Protonix -) 40 mg PO DAILY [facility] Last Admin: 01/11/19 09:37 Dose: 40 mg Thiamine HCl (Vitamin B1 -) 200 mg PO DAILY [facility] Last Admin: 01/11/19 09:37 Dose: 200 mg - Objective Vital Signs: Vital Signs Temperature 98.9 F 01/11/19 06:00 Pulse Rate 103 H 01/11/19 12:00 Respiratory Rate 23 H 01/11/19 10:00 Blood Pressure 142/86 01/11/19 12:00 O2 Sat by Pulse Oximetry (%) 92 L 01/11/19 08:26 Constitutional: Yes: Calm Eyes: Yes: Conjunctiva Clear HENT: Yes: Atraumatic Neck: Yes: Supple Cardiovascular: Yes: S1, S2 Respiratory: Yes: CTA Bilaterally Gastrointestinal: Yes: Normal Bowel Sounds, Soft Genitourinary: Yes: WNL Musculoskeletal: Yes: WNL Edema: No Neurological: Yes: Oriented Psychiatric: Yes: Oriented Labs: CBC, BMP 01/11/19 05:40 01/11/19 05:40 INR, PTT INR 0.98 (0.83-1.09) 01/09/19 17:00 Assessment/Plan Current Medications Generic Name Dose Route Start Last Admin Trade Name Freq PRN Reason Stop Dose Admin Albuterol/Ipratropium 1 amp 01/10/19 12:31 Duoneb - NEB RQID PRN WHEEZING Chlorhexidine Gluconate 1 applic 01/09/19 22:00 01/10/19 21:16 Hibiclens For Decolonization - TP 1 applic HS [facility] Administration Folic Acid 1 mg 01/11/19 10:00 01/11/19 09:37 Folic Acid - PO 1 mg DAILY [facility] Administration Heparin Sodium (Porcine) 5,000 unit 01/10/19 06:00 01/11/19 05:53 Heparin - SQ 5,000 unit TID [facility] Administration Sodium Chloride 1,000 mls @ 100 mls/hr 01/10/19 14:15 01/10/19 17:26 1/2 Normal Saline IV 100 mls/hr [facility] Administration Insulin Aspart 1 vial 01/10/19 22:00 01/11/19 11:19 Novolog Vial Sliding Scale - SQ 2 units ACHS [facility] Administration Protocol Methylprednisolone Sodium Succinate 60 mg 01/10/19 03:00 01/11/19 09:37 Solu-Medrol - IVPUSH 60 mg Q6H-IV [facility] Administration Mupirocin 1 applic 01/09/19 22:00 01/11/19 09:37 Bactroban Ointment (For Decolonization) - NS 01/14/19 21:59 1 applic BID [facility] Administration Pantoprazole Sodium 40 mg 01/11/19 10:00 01/11/19 09:37 Protonix - PO 40 mg DAILY [facility] Administration Thiamine HCl 200 mg 01/11/19 10:00 01/11/19 09:37 Vitamin B1 - PO 200 mg DAILY [facility] Administration Microbiology 01/10/19 16:30 Urine For Antigen Detection Legionella Antigen - Final 01/10/19 16:30 Urine For Antigen Detection Streptococcus pneumoniae Antigen (M - Final 01/09/19 17:13 Urine - Urine - Catheterized Urine Culture - Final Lactobacillus Species 01/09/19 17:13 Blood - Peripheral Venous Blood Culture - Preliminary NO GROWTH OBTAINED AFTER 24 HOURS, INCUBATION TO CONTINUE FOR 4 DAYS. 01/09/19 17:00 Blood - Peripheral Venous Blood Culture - Preliminary NO GROWTH OBTAINED AFTER 24 HOURS, INCUBATION TO CONTINUE FOR 4 DAYS. Impression 1. RONAK 2. dehydration 3. polycythemia 4. copd 5. resp failure requiring intubation 6. lactic acidosis 7. copd 8. hx diverticulitis Plan - bun is improving - repeat labs to evaluate potassium - cont to monitor renal function - follow repeat ua - follow cultures
[2019-01-11 12:36] LABS: ARTERIAL BLD GAS O2 SATURATION 88.4 % (95-98); ARTERIAL BLOOD GAS BASE EXCESS 3.2 meq/l (-2-2); ARTERIAL BLOOD GAS PO2 63.2 mmHg (80-105); ARTERIAL BLOOD GAS pH 7.25 (7.35-7.45)
[2019-01-11 12:38] LABS: ALLENS TEST POSITIVE
--- NOTE | 2019-01-11 12:52 | PN ---
Teaching Attending Note Name of Resident: Princess Kahlil ATTENDING PHYSICIAN STATEMENT I saw and evaluated the patient. I reviewed the resident's note and discussed the case with the resident. I agree with the resident's findings and plan as documented. SUBJECTIVE:asymptomatic. reports he felt weak going to the bathroom yesterday and fell to his knees. denies Cp, SOB, fever, chills, N/V/C/D states he was in usual state of health the past few weeks. states he was sitting at the desk and then felt dizzy when he stood up and remembers falling. he does not recall any other events until yesterday when the ventilator tube was pulled out yesterday but those memories are fuzzy. currently he has a cough but unsure if he is bringing up phlegm. does not have any medical problems and does not take any medications. has not seem PMD in 5+ years. 2ppd smoker OBJECTIVE: Last Vital Signs Temp Pulse Resp BP Pulse Ox 98.9 F 103 H 23 H 142/86 92 L 01/11/19 06:00 01/11/19 12:00 01/11/19 10:00 01/11/19 12:00 01/11/19 08:26 General NAD CV S1 S2 RRR no murmur/rub/gallop Lungs scattered expiratory wheezes, coarse breath sounds Abdomen soft NT/ND obese Extremities no pedal edema ASSESSMENT AND PLAN: 63yo M with PMH COPD and diverticulosis presented to the ER after he was found on the floor of his home. he was intubated in the ER for airway protection 1. Acute on likely Chronic Hypoxic and Hypercapneic Respiratory Failure- due to COPD exacerbation. CO2 trending up 80's and started on bipap. will need to repeat ABG. cont steroids. will need to start LABA/ICS/LAMA. titrate down supplemental oxygen as tolerated. pulmonary team on board. will need official PFT as outpatient and polysomography 2. Acute metabolic encephalopathy-possible due to hypercapnia. alert but has poor recollection of what happened. cont with neurochecks. 3. SIRS- unclear source. possible could have aspirated, CXR negative but can lag. received vanco/zosyn in the ER. CT chest ordered.can likely stop and monitor. f/u Cx 4. Fall- likely mechanical due to generalized weakness. will need PT eval and will likely benefit from KAREN when medically optimized 5. Severe dehydration- as evident in labs. IVF. cont at this time. encourage po intake 6. Lactic acidosis- due to hypoxia vs dehydration. quickly resolved with IVF 7. RONAK with proteinuria- RONAK now resolved. repeat UA to follow up protein level. nephro on board 8. Acute on chronic polycythemia- likely due to chronic hypoxia. epo level pending. hematology consulted 9. Hyperkalemia-slight uptrend. no ekg changes. repeat 10. hyperphosphatemia- repeat later today. 11. DVT ppx- hep sq 12. If Co2 improves can transfer to floor that has continuous pulse oximetry The care of this patient involved high complexity decision making to prevent further life threatening deterioration of the patient's condition and/or to evaluate & treat vital organ system(s) failure or risk of failure. 40 minutes
[2019-01-11] MEDS: NICOTINE 21 MG/24 HOURS TOPICAL PATCH TD SCH (13:45)
--- NOTE | 2019-01-11 14:13 | PN ---
Physical Exam: SUBJECTIVE: Patient seen and examined at bedside. pt has no acute complaints. pt does not remember the events prior to falling at home. pt smokes 2 ppd OBJECTIVE: Vital Signs Period Temp Pulse Resp BP Sys/Anna Pulse Ox Last 24 Hr 98.9 F-99 F 88-120 17-25 116-151/73-92 91-96 GENERAL: The patient is awake, alert, and fully oriented, in no acute distress. LUNGS: Breath sounds equal, scattered wheezes, no accessory muscle use. HEART: Regular rate and rhythm, S1, S2 without murmur, rub or gallop. ABDOMEN: Soft, nontender, nondistended, normoactive bowel sounds, no guarding EXTREMITIES: 2+ pulses, warm, well-perfused, no edema. Current Medications Albuterol/Ipratropium (Duoneb -) 1 amp NEB RQID PRN PRN Reason: WHEEZING Chlorhexidine Gluconate (Hibiclens For Decolonization -) 1 applic TP HS [facility] Last Admin: 01/10/19 21:16 Dose: 1 applic Folic Acid (Folic Acid -) 1 mg PO DAILY [facility] Last Admin: 01/11/19 09:37 Dose: 1 mg Heparin Sodium (Porcine) (Heparin -) 5,000 unit SQ TID [facility] Last Admin: 01/11/19 13:51 Dose: 5,000 unit Sodium Chloride (1/2 Normal Saline) 1,000 mls @ 100 mls/hr IV [facility] Last Admin: 01/10/19 17:26 Dose: 100 mls/hr Insulin Aspart (Novolog Vial Sliding Scale -) 1 vial SQ ACHS [facility]; Protocol Last Admin: 01/11/19 11:19 Dose: 2 units Methylprednisolone Sodium Succinate (Solu-Medrol -) 60 mg IVPUSH Q6H-IV [facility] Last Admin: 01/11/19 09:37 Dose: 60 mg Mupirocin (Bactroban Ointment (For Decolonization) -) 1 applic NS BID [facility] Stop: 01/14/19 21:59 Last Admin: 01/11/19 09:37 Dose: 1 applic Nicotine (Nicoderm Patch -) 21 mg TD DAILY [facility] Last Admin: 01/11/19 13:45 Dose: 21 mg Pantoprazole Sodium (Protonix -) 40 mg PO DAILY [facility] Last Admin: 01/11/19 09:37 Dose: 40 mg Thiamine HCl (Vitamin B1 -) 200 mg PO DAILY [facility] Last Admin: 01/11/19 09:37 Dose: 200 mg ASSESSMENT/PLAN: 63M with PMH of simgoid diverticulitis and COPD BIBA after being found down during a certified social workers in health care field visit. EMS found patient responsive and oriented. In the ED, patient had increased respiratory distress and AMS therefore was intubated to protect airway. Overnight, pt was on propofol gtt. Pt is observed in the ICU. Overnight, the pt fell and was seen in mild distress with low sat. pt was put on BIPAP and ABG was drawn showing respiratory acidosis Acute on likely Chronic Hypoxic and Hypercapneic Respiratory Failure -2/2 COPD exacerbation. -awaiting rpt ABG -now extubated saturating well on 6L NC. continue titrating O2 as tolerated -on medrol 60mg Q6H, on duonebs prn -should initiate on Spiriva, symbicort -pulm recs appreciated -pt should follow up outpt with pulmonology for PFT & polysomography Acute metabolic encephalopathy- likely 2/2 hypoxia -pt currently alert. -pt unable to remember events from falling -Head and c-spine CT are negative. -Utox negative. -c/w neurochecks SIRS- -unclear source -s/p vanc , zosyn in ED -possible could have aspirated, - CT chest above - awaiting Cultures Severe dehydration -c/w IVF -c/w PO intake Lactic acidosis 2/2 hypoxia vs dehydration -resolved w/ IVF RONAK with proteinuria -repeat UA -likely dehydration component -nephro consult appreciated Acute on chronic polycythemia- likely 2/2 hypoxia -awaiting epo level -Heme consult appreciated DVT ppx- hep sq Visit type - Emergency Visit Emergency Visit: No - New Patient This patient is new to me today: No - Critical Care Critical Care patient: Yes Total Critical Care Time (in minutes): 36 Critical Care Statement: The care of this patient involved high complexity decision making to prevent further life threatening deterioration of the patient 's condition and/or to evaluate & treat vital organ system(s) failure or risk of failure. - Discharge Referral Referred to [facility] Med [facility] No ATTENDING PHYSICIAN STATEMENT I saw and evaluated the patient. I reviewed the resident's note and discussed the case with the resident. I agree with the resident's findings and plan as documented. SUBJECTIVE: OBJECTIVE: ASSESSMENT AND PLAN:
[2019-01-11] MEDS: SODIUM CHLORIDE 0.45% 1,000 ML IV SCH (15:44)
--- NOTE | 2019-01-11 16:59 | PN ---
Progress Note (short form) - Note Progress Note: Patient seen and examined Oriented in person, place On BIPAP Discussed secondary erythrocytosis due to hypoxia Informed consent obtained to phlebotomize 1 unit of blood. Discussed rare side effects of hypotension/hemodynamic instability Last Vital Signs Temp Pulse Resp BP Pulse Ox 99.1 F 99 H 22 H 147/75 96 01/11/19 14:00 01/11/19 16:00 01/11/19 16:00 01/11/19 16:00 01/11/19 13:51 Cor: RSR, No murmurs, No gallops Lungs: Clear to P&A Abd: Soft, Normal bowel sounds, Ext:No significant edema Abnormal Lab Results 01/10/19 01/10/19 01/10/19 01:00 05:25 07:45 WBC RBC Hgb Hct 55.9 H MCV MCHC RDW ABG pH ABG pCO2 at Pt Temp ABG pO2 at Pt Temp ABG HCO3 ABG O2 Sat (Measured) ABG O2 Content ABG Base Excess Potassium Carbon Dioxide Anion Gap BUN Random Glucose Calcium Phosphorus Magnesium Iron 19 L Iron Saturation 7 L Erythropoietin 47.6 H Albumin Urine Protein Urine Ketones Urine Blood Ur Leukocyte Esterase 01/10/19 01/10/19 01/11/19 07:45 16:30 04:37 WBC RBC Hgb Hct MCV MCHC RDW ABG pH 7.20 L ABG pCO2 at Pt Temp 97.8 H* ABG pO2 at Pt Temp 68.4 L ABG HCO3 36.7 H ABG O2 Sat (Measured) 88.5 L ABG O2 Content 23.7 H ABG Base Excess 2.6 H Potassium Carbon Dioxide Anion Gap BUN Random Glucose Calcium Phosphorus Magnesium Iron 18 L Iron Saturation 7 L Erythropoietin Albumin Urine Protein 2+ H Urine Ketones Trace H Urine Blood 3+ H Ur Leukocyte Esterase 1+ H 01/11/19 01/11/19 01/11/19 05:40 05:40 12:20 WBC 13.5 H RBC 6.10 H Hgb 18.7 H Hct 58.8 H MCV 96.5 H MCHC 31.7 L RDW 16.4 H ABG pH 7.25 L ABG pCO2 at Pt Temp 81.0 H* ABG pO2 at Pt Temp 63.2 L ABG HCO3 34.6 H ABG O2 Sat (Measured) 88.4 L ABG O2 Content 23.2 H ABG Base Excess 3.2 H Potassium 5.3 H Carbon Dioxide 39 H Anion Gap 4 L BUN 40.1 H Random Glucose 222 H Calcium 8.2 L Phosphorus 6.4 H Magnesium 2.5 H Iron Iron Saturation Erythropoietin Albumin 2.5 L Urine Protein Urine Ketones Urine Blood Ur Leukocyte Esterase 01/11/19 16:18 WBC RBC Hgb Hct MCV MCHC RDW ABG pH 7.23 L ABG pCO2 at Pt Temp 92.8 H* ABG pO2 at Pt Temp ABG HCO3 37.4 H ABG O2 Sat (Measured) 93.8 L ABG O2 Content 24.3 H ABG Base Excess 4.4 H Potassium Carbon Dioxide Anion Gap BUN Random Glucose Calcium Phosphorus Magnesium Iron Iron Saturation Erythropoietin Albumin Urine Protein Urine Ketones Urine Blood Ur Leukocyte Esterase Active Medications Generic Name Dose Route Start Last Admin Trade Name Freq PRN Reason Stop Dose Admin Albuterol/Ipratropium 1 amp 01/10/19 12:31 Duoneb - NEB RQID PRN WHEEZING Chlorhexidine Gluconate 1 applic 01/09/19 22:00 01/10/19 21:16 Hibiclens For Decolonization - TP 1 applic [facility] Administration Folic Acid 1 mg 01/11/19 10:00 01/11/19 09:37 Folic Acid - PO 1 mg DAILY [facility] Administration Heparin Sodium (Porcine) 5,000 unit 01/10/19 06:00 01/11/19 13:51 Heparin - SQ 5,000 unit TID [facility] Administration Sodium Chloride 1,000 mls @ 100 mls/hr 01/10/19 14:15 01/11/19 15:44 1/2 Normal Saline IV 100 mls/hr ASDIR [facility] Administration Insulin Aspart 1 vial 01/10/19 22:00 01/11/19 16:51 Novolog Vial Sliding Scale - SQ 4 units ACHS [facility] Administration Protocol Methylprednisolone Sodium Succinate 60 mg 01/10/19 03:00 01/11/19 15:44 Solu-Medrol - IVPUSH 60 mg Q6H-IV [facility] Administration Mupirocin 1 applic 01/09/19 22:00 01/11/19 09:37 Bactroban Ointment (For Decolonization) - NS 01/14/19 21:59 1 applic BID [facility] Administration Nicotine 21 mg 01/11/19 12:45 01/11/19 13:45 Nicoderm Patch - TD 21 mg DAILY [facility] Administration Pantoprazole Sodium 40 mg 01/11/19 10:00 01/11/19 09:37 Protonix - PO 40 mg DAILY [facility] Administration Thiamine HCl 200 mg 01/11/19 10:00 01/11/19 09:37 Vitamin B1 - PO 200 mg DAILY [facility] Administration A/P 63 y/o patient with COPD, acute on chronic respiratory failure We have been consuled for eryhrocyosis Suspect secondary due to underlying COPD/ chronic resp. failure f/u epo level Baseline hct seems 54% Phlebotomized 1 unit whole blood-- 450ml . Replace with 500ml saline. Patient tolerated the phlebotomy well Monitor Hgb/HCt
[2019-01-11 17:16] LABS: ARTERIAL BLD GAS O2 SATURATION 93.8 % (95-98); ARTERIAL BLOOD GAS BASE EXCESS 4.4 meq/l (-2-2); ARTERIAL BLOOD GAS PO2 82.3 mmHg (80-105); ARTERIAL BLOOD GAS pH 7.23 (7.35-7.45)
[2019-01-11 17:17] LABS: ALLENS TEST POSITIVE
[2019-01-11 17:20] LABS: ARTERIAL BLOOD GAS PCO2 92.8 mmHg (35-45)
[2019-01-11] MEDS ORDERED: SODIUM CHLORIDE 0.9% 500 ML INFUS.BAG IV ONE (18:38)
[2019-01-11] MEDS: CHLORHEXIDINE GLUCONATE 4% CLEANSER FOR DECOLONIZATION TP SCH (21:52)
[2019-01-12] MEDS: methylPREDNISolone NA SUCC 40 MG/1 ML VIAL IVPUSH SCH ×4 (02:31→21:21)
[2019-01-12] MEDS: HEPARIN NA (PORCINE) 5,000 UNITS/ML 1ML VIAL SQ SCH ×3 (05:05→21:21)
[2019-01-12] MEDS: INSULIN SLIDING SCALE (NOVOLOG) 1 VIAL SQ SCH ×4 (07:01→21:21)
[2019-01-12 07:17] LABS: HEMATOCRIT 56.1 % (35.4-49); HEMOGLOBIN 17.1 GM/dL (11.7-16.9); MCH 29.6 pg (25.7-33.7); MCHC 30.5 g/dl (32.0-35.9); MEAN CELL VOLUME 97.1 fl (80-96); MEAN PLT VOLUME 9.2 fl (7.5-11.1); PLATELET COUNT 212 K/MM3 (134-434); RBC 5.78 M/mm3 (4.00-5.60); RDW 16.7 % (11.9-15.9); WHITE BLOOD COUNT 11.8 K/mm3 (4.0-10.0)
[2019-01-12 07:37] LABS: ARTERIAL BLD GAS O2 SATURATION 86.9 % (95-98); ARTERIAL BLOOD GAS BASE EXCESS 8.9 meq/l (-2-2); ARTERIAL BLOOD GAS PO2 56.7 mmHg (80-105)
[2019-01-12 07:37] LABS: ALBUMIN 2.4 g/dl (3.4-5.0); BILIRUBIN,TOTAL 0.2 mg/dL (0.2-1); BLOOD UREA NITROGEN 30.1 mg/dL (7-18); CALCIUM 8.4 mg/dL (8.5-10.1); CREATININE 0.8 mg/dL (0.55-1.3); MAGNESIUM 2.2 mg/dL (1.8-2.4); PHOSPHOROUS 3.2 mg/dL (2.5-4.9); POTASSIUM 4.9 mmol/L (3.5-5.1); TOT PROT 5.8 g/dl (6.4-8.2)
--- NOTE | 2019-01-12 08:01 | PN ---
Progress Note (short form) - Note Progress Note: states breathing well. denies CP, SOB, fever, chills, N/V/C/D Current Medications Generic Name Dose Route Start Last Admin Trade Name Freq PRN Reason Stop Dose Admin Albuterol/Ipratropium 1 amp 01/10/19 12:31 01/11/19 21:15 Duoneb - NEB 1 amp RQID PRN Administration WHEEZING Chlorhexidine Gluconate 1 applic 01/09/19 22:00 01/11/19 21:52 Hibiclens For Decolonization - TP 1 applic HS [facility] Administration Folic Acid 1 mg 01/11/19 10:00 01/11/19 09:37 Folic Acid - PO 1 mg DAILY [facility] Administration Heparin Sodium (Porcine) 5,000 unit 01/10/19 06:00 01/12/19 05:05 Heparin - SQ 5,000 unit TID [facility] Administration Sodium Chloride 1,000 mls @ 100 mls/hr 01/10/19 14:15 01/11/19 15:44 1/2 Normal Saline IV 100 mls/hr [facility] Administration Insulin Aspart 1 vial 01/10/19 22:00 01/12/19 07:01 Novolog Vial Sliding Scale - SQ 2 units ACHS [facility] Administration Protocol Methylprednisolone Sodium Succinate 60 mg 01/10/19 03:00 01/12/19 02:31 Solu-Medrol - IVPUSH 60 mg Q6H-IV [facility] Administration Mupirocin 1 applic 01/09/19 22:00 01/11/19 21:51 Bactroban Ointment (For Decolonization) - NS 01/14/19 21:59 1 applic BID [facility] Administration Nicotine 21 mg 01/11/19 12:45 01/11/19 13:45 Nicoderm Patch - TD 21 mg DAILY [facility] Administration Pantoprazole Sodium 40 mg 01/11/19 10:00 01/11/19 09:37 Protonix - PO 40 mg DAILY [facility] Administration Thiamine HCl 200 mg 01/11/19 10:00 01/11/19 09:37 Vitamin B1 - PO 200 mg DAILY [facility] Administration Last Vital Signs Temp Pulse Resp BP Pulse Ox 98.2 F 102 H 18 139/88 90 L 01/12/19 06:00 01/12/19 07:16 01/12/19 06:00 01/12/19 06:00 01/12/19 07:16 General NAD, shaky CV S1 S2 RRR no murmur/rub/gallop Lungs poor inspiratory effort, decreased bases Abdomen soft NT/ND obese Extremities no pedal edema CBCD WBC 11.8 K/mm3 (4.0-10.0) H 01/12/19 05:30 RBC 5.78 M/mm3 (4.00-5.60) H 01/12/19 05:30 Hgb 17.1 GM/dL (11.7-16.9) H 01/12/19 05:30 Hct 56.1 % (35.4-49) H 01/12/19 05:30 MCV 97.1 fl (80-96) H 01/12/19 05:30 MCHC 30.5 g/dl (32.0-35.9) L 01/12/19 05:30 RDW 16.7 % (11.9-15.9) H 01/12/19 05:30 Plt Count 212 K/MM3 (134-434) 01/12/19 05:30 MPV 9.2 fl (7.5-11.1) 01/12/19 05:30 CMP Sodium 141 mmol/L (136-145) 01/12/19 05:30 Potassium 4.9 mmol/L (3.5-5.1) 01/12/19 05:30 Chloride 100 mmol/L (98-107) 01/12/19 05:30 Carbon Dioxide 40 mmol/L (21-32) H 01/12/19 05:30 Anion Gap 1 MMOL/L (8-16) L 01/12/19 05:30 BUN 30.1 mg/dL (7-18) H 01/12/19 05:30 Creatinine 0.8 mg/dL (0.55-1.3) 01/12/19 05:30 Random Glucose 197 mg/dL (74-106) H 01/12/19 05:30 Calcium 8.4 mg/dL (8.5-10.1) L 01/12/19 05:30 Total Bilirubin 0.2 mg/dL (0.2-1) 01/12/19 05:30 AST 13 U/L (15-37) L 01/12/19 05:30 ALT 16 U/L (13-61) 01/12/19 05:30 Alkaline Phosphatase 57 U/L (45-117) 01/12/19 05:30 Total Protein 5.8 g/dl (6.4-8.2) L 01/12/19 05:30 Albumin 2.4 g/dl (3.4-5.0) L 01/12/19 05:30 CARDIAC ENZYMES Creatine Kinase 107 U/L (26-308) 01/09/19 17:00 Troponin I 0.04 ng/ml (0.00-0.05) 01/10/19 01:00 ASSESSMENT AND PLAN: 63yo M with PMH COPD and diverticulosis presented to the ER after he was found on the floor of his home. he was intubated in the ER for airway protection 1. Acute on likely Chronic Hypoxic and Hypercapneic Respiratory Failure- due to COPD exacerbation. currently on high flow oxygen, intermittently on bipap for hypercapnia. trend CO2. cont steroids. will need to start LABA/ICS/LAMA. titrate down supplemental oxygen as tolerated. pulmonary team on board. will need official PFT as outpatient and polysomography 2. Acute metabolic encephalopathy-possible due to hypercapnia. alert but confused with poor memory recollection. 3. SIRS- unclear source. possible could have aspirated, CXR negative but can lag. monitoring off abx. 4. Fall- likely mechanical due to generalized weakness. no repeat episodes since yesterday. will need PT eval and will likely benefit from KAREN when medically optimized 5. Severe dehydration- as evident in labs. resolved. can d/c IVF 6. Lactic acidosis- due to hypoxia vs dehydration. quickly resolved with IVF 7. RONAK with proteinuria- RONAK now resolved. proteinuria improved however remains 2+. nephro on board 8. Acute on chronic polycythemia- likely due to chronic hypoxia. epo level pending. s/p phlebotomized 1 unit of PRBC and tolerated well. note drop in Hgb today. will monitor and consider repeat if necessary hematology consulted 9. Hyperkalemia-slight uptrend. no ekg changes 10. hyperphosphatemia- now resolved 11. DVT ppx- hep sq 12. Do to tennuous breathing status would cont to monitor in ICU The care of this patient involved high complexity decision making to prevent further life threatening deterioration of the patient's condition and/or to evaluate & treat vital organ system(s) failure or risk of failure. 38 minutes Visit type - Emergency Visit Emergency Visit: Yes ED Registration Date: 01/09/19 Care time: The patient presented to the Emergency Department on the above date and was hospitalized for further evaluation of their emergent condition. - New Patient This patient is new to me today: No - Critical Care Critical Care patient: Yes Total Critical Care Time (in minutes): 38 Critical Care Statement: The care of this patient involved high complexity decision making to prevent further life threatening deterioration of the patient 's condition and/or to evaluate & treat vital organ system(s) failure or risk of failure. - Discharge Referral Referred to [facility] No
[2019-01-12 08:02] LABS: ARTERIAL BLOOD GAS PCO2 84.2 mmHg (35-45)
[2019-01-12] MEDS: FOLIC ACID 1 MG TABLET (FP) PO SCH (09:25)
[2019-01-12] MEDS: NICOTINE 21 MG/24 HOURS TOPICAL PATCH TD SCH (09:25)
[2019-01-12] MEDS: MUPIROCIN 2% TOPICAL OINTMENT FOR DECOLONIZATION NS SCH ×2 (09:25→21:27)
[2019-01-12] MEDS: PANTOPRAZOLE 40 MG TABLET (FP) PO SCH (09:25)
[2019-01-12] MEDS: THIAMINE HCL 100 MG TABLET (FP) PO SCH (09:26)
--- NOTE | 2019-01-12 10:11 | PN ---
Progress Note (short form) - Note Progress Note: PULMONARY/CRITICAL CARE PROGRESS NOTE: SUBJECTIVE: Patient seen and examined in the ICU. States SOB is better Still with significant expiratory wheeze ABG better on HFNC Has been off abx Current Medications Albuterol/Ipratropium (Duoneb -) 1 amp NEB RQID PRN PRN Reason: WHEEZING Last Admin: 01/11/19 21:15 Dose: 1 amp Chlorhexidine Gluconate (Hibiclens For Decolonization -) 1 applic TP HS [facility] Last Admin: 01/11/19 21:52 Dose: 1 applic Folic Acid (Folic Acid -) 1 mg PO DAILY [facility] Last Admin: 01/12/19 09:25 Dose: 1 mg Heparin Sodium (Porcine) (Heparin -) 5,000 unit SQ TID [facility] Last Admin: 01/12/19 05:05 Dose: 5,000 unit Insulin Aspart (Novolog Vial Sliding Scale -) 1 vial SQ ACHS [facility]; Protocol Last Admin: 01/12/19 07:01 Dose: 2 units Methylprednisolone Sodium Succinate (Solu-Medrol -) 60 mg IVPUSH Q6H-IV [facility] Last Admin: 01/12/19 09:24 Dose: 60 mg Mupirocin (Bactroban Ointment (For Decolonization) -) 1 applic NS BID [facility] Stop: 01/14/19 21:59 Last Admin: 01/12/19 09:25 Dose: 1 applic Nicotine (Nicoderm Patch -) 21 mg TD DAILY [facility] Last Admin: 01/12/19 09:25 Dose: 21 mg Pantoprazole Sodium (Protonix -) 40 mg PO DAILY [facility] Last Admin: 01/12/19 09:25 Dose: 40 mg Thiamine HCl (Vitamin B1 -) 200 mg PO DAILY [facility] Last Admin: 01/12/19 09:26 Dose: 200 mg Vital Signs Temp 98.2 F 01/12/19 06:00 Pulse 97 H 01/12/19 08:14 Resp 18 01/12/19 06:00 BP 139/88 01/12/19 06:00 Pulse Ox 93 L 01/12/19 08:14 Intake & Output 01/11/19 01/12/19 01/12/19 18:59 06:59 18:59 Intake Total 900 1200 Output Total 300 200 Balance 600 1000 Weight 78.018 kg 78.199 kg Intake: IV 900 1200 1/2 Normal Saline 1,291 095 8792 ml @ 100 mls/hr IV [facility] Rx#:[id number] Output: Urine 300 200 Queen 300 200 Other: Voiding Method Urinal Urinal Bowel Movement Yes Yes # Bowel Movements 2 2 Height 5 ft 7 in Body Mass Index (BMI) 26.9 Weight Measurement [facility] neuro: alert and oriented HEENT: PERRL, anicteric, dry mucus membranes chest: significant expiratory wheeze heart: tachy abd: soft, non-tender ext: no edema, warm skin: warm, dry CBC, BMP 01/12/19 05:30 01/12/19 05:30 ASSESSMENT AND PLAN: Acute on Chronic Hypoxic and Hypercapneic Respiratory Failure r/o Pneumonia Acute COPD Exacerbation Polycythemia likely due to chronic hypoxia -Needs standing nebs + PRN for now -Continue IV Solu-medrol at current dose because he still has significant wheeze , can taper when improves - Continue HFNC O2 to keep SpO2 >90% - monitor urine output, creatinine - PO as tolerated - DVT prophylaxis Patient is critically ill Critical Care time 35" Continue ICU level of care Oneil Feliciano Pulm/Critical Care CONTROL CHEMIST
[2019-01-12] MEDS ORDERED: ALBUTEROL SO4 0.5 % INH SOLN 2.5 MG/0.5 ML VIAL.NEB. NEB PRN (10:13)
[2019-01-12] MEDS: ALBUTEROL SO4 2.5/IPRATROPIUM 0.5 INH SOL 3 ML VIAL.NEB. NEB SCH ×3 (12:02→21:10)
--- NOTE | 2019-01-12 12:12 | PN ---
Progress Note, Physician History of Present Illness: continues to need resp support calm - Current Medication List Current Medications: Active Medications Albuterol Sulfate (Ventolin 0.5% -) 1 amp NEB Q4H PRN PRN Reason: SHORT OF BREATH/WHEEZING Albuterol/Ipratropium (Duoneb -) 1 amp NEB RQID [facility] Last Admin: 01/12/19 12:02 Dose: 1 amp Chlorhexidine Gluconate (Hibiclens For Decolonization -) 1 applic TP HS [facility] Last Admin: 01/11/19 21:52 Dose: 1 applic Folic Acid (Folic Acid -) 1 mg PO DAILY [facility] Last Admin: 01/12/19 09:25 Dose: 1 mg Heparin Sodium (Porcine) (Heparin -) 5,000 unit SQ TID [facility] Last Admin: 01/12/19 05:05 Dose: 5,000 unit Insulin Aspart (Novolog Vial Sliding Scale -) 1 vial SQ ACHS [facility]; Protocol Last Admin: 01/12/19 07:01 Dose: 2 units Methylprednisolone Sodium Succinate (Solu-Medrol -) 60 mg IVPUSH Q6H-IV [facility] Last Admin: 01/12/19 09:24 Dose: 60 mg Mupirocin (Bactroban Ointment (For Decolonization) -) 1 applic NS BID [facility] Stop: 01/14/19 21:59 Last Admin: 01/12/19 09:25 Dose: 1 applic Nicotine (Nicoderm Patch -) 21 mg TD DAILY [facility] Last Admin: 01/12/19 09:25 Dose: 21 mg Pantoprazole Sodium (Protonix -) 40 mg PO DAILY [facility] Last Admin: 01/12/19 09:25 Dose: 40 mg Thiamine HCl (Vitamin B1 -) 200 mg PO DAILY [facility] Last Admin: 01/12/19 09:26 Dose: 200 mg - Objective Vital Signs: Vital Signs Temperature 98.2 F 01/12/19 06:00 Pulse Rate 97 H 01/12/19 08:14 Respiratory Rate 18 01/12/19 06:00 Blood Pressure 139/88 01/12/19 06:00 O2 Sat by Pulse Oximetry (%) 93 L 01/12/19 08:14 Constitutional: Yes: Calm, Mild Distress Cardiovascular: Yes: S1, S2 Respiratory: Yes: On Nasal O2, Poor Air Entry, Other Gastrointestinal: Yes: Normal Bowel Sounds, Soft Musculoskeletal: Yes: WNL Extremities: Yes: WNL Neurological: Yes: Alert, Oriented Labs: CBC, BMP 01/12/19 05:30 01/12/19 05:30 INR, PTT INR 0.98 (0.83-1.09) 01/09/19 17:00 Assessment/Plan 63 year old male with a history of COPD and diverticulitis was brought to the ED by ambulance after he was found down in his home and admitted for acute on chronic hypoxic hypercapnic respiratory failure ams resp failure ac kidney njury tremors polycythemia lactic acidosis leukocytosis plan hydration close watch rest as per icu monitor wbc await for all reports cc 40 min
--- NOTE | 2019-01-12 15:05 | PN ---
Progress Note (short form) - Note Progress Note: covering dr helton 1. RONAK 2. dehydration 3. polycythemia 4. copd 5. resp failure requiring intubation 6. lactic acidosis 7. copd 8. hx diverticulitis Current Medications Albuterol Sulfate (Ventolin 0.5% -) 1 amp NEB Q4H PRN PRN Reason: SHORT OF BREATH/WHEEZING Albuterol/Ipratropium (Duoneb -) 1 amp NEB RQID [facility] Last Admin: 01/12/19 12:02 Dose: 1 amp Chlorhexidine Gluconate (Hibiclens For Decolonization -) 1 applic TP HS [facility] Last Admin: 01/11/19 21:52 Dose: 1 applic Folic Acid (Folic Acid -) 1 mg PO DAILY [facility] Last Admin: 01/12/19 09:25 Dose: 1 mg Heparin Sodium (Porcine) (Heparin -) 5,000 unit SQ TID [facility] Last Admin: 01/12/19 05:05 Dose: 5,000 unit Insulin Aspart (Novolog Vial Sliding Scale -) 1 vial SQ ACHS [facility]; Protocol Last Admin: 01/12/19 12:39 Dose: 2 units Methylprednisolone Sodium Succinate (Solu-Medrol -) 60 mg IVPUSH Q6H-IV [facility] Last Admin: 01/12/19 09:24 Dose: 60 mg Mupirocin (Bactroban Ointment (For Decolonization) -) 1 applic NS BID [facility] Stop: 01/14/19 21:59 Last Admin: 01/12/19 09:25 Dose: 1 applic Nicotine (Nicoderm Patch -) 21 mg TD DAILY [facility] Last Admin: 01/12/19 09:25 Dose: 21 mg Pantoprazole Sodium (Protonix -) 40 mg PO DAILY [facility] Last Admin: 01/12/19 09:25 Dose: 40 mg Thiamine HCl (Vitamin B1 -) 200 mg PO DAILY [facility] Last Admin: 01/12/19 09:26 Dose: 200 mg Last Vital Signs Temp Pulse Resp BP Pulse Ox 98.4 F 105 H 20 129/57 L 93 L 01/12/19 12:00 01/12/19 12:00 01/12/19 10:00 01/12/19 12:00 01/12/19 08:14 stable lying flat in nad Lungs clear Heart reg Abd soft nontender CBC, BMP 01/12/19 05:30 01/12/19 05:30 IMP -resolving ronak Plan- f/u bmp Plan - bun is improving - repeat labs to evaluate potassium - cont to monitor renal function - follow repeat ua - follow cultures
[2019-01-12] MEDS: CHLORHEXIDINE GLUCONATE 4% CLEANSER FOR DECOLONIZATION TP SCH (21:22)
[2019-01-13] MEDS: methylPREDNISolone NA SUCC 40 MG/1 ML VIAL IVPUSH SCH ×4 (02:29→21:58)
[2019-01-13] MEDS: HEPARIN NA (PORCINE) 5,000 UNITS/ML 1ML VIAL SQ SCH ×3 (05:58→21:58)
[2019-01-13] MEDS: INSULIN SLIDING SCALE (NOVOLOG) 1 VIAL SQ SCH ×4 (05:59→22:04)
--- NOTE | 2019-01-13 06:32 | PN ---
Progress Note (short form) - Note Progress Note: PULMONARY/CRITICAL CARE PROGRESS NOTE: SUBJECTIVE: Patient seen and examined in the ICU. Significant improvement after adding standing nebs Changed to regular NC Oxygen this morning Current Medications Albuterol Sulfate (Ventolin 0.5% -) 1 amp NEB Q4H PRN PRN Reason: SHORT OF BREATH/WHEEZING Albuterol/Ipratropium (Duoneb -) 1 amp NEB RQID [facility] Last Admin: 01/12/19 21:10 Dose: 1 amp Chlorhexidine Gluconate (Hibiclens For Decolonization -) 1 applic TP HS [facility] Last Admin: 01/12/19 21:22 Dose: 1 applic Folic Acid (Folic Acid -) 1 mg PO DAILY [facility] Last Admin: 01/12/19 09:25 Dose: 1 mg Heparin Sodium (Porcine) (Heparin -) 5,000 unit SQ TID [facility] Last Admin: 01/13/19 05:58 Dose: 5,000 unit Insulin Aspart (Novolog Vial Sliding Scale -) 1 vial SQ ACHS [facility]; Protocol Last Admin: 01/13/19 05:59 Dose: 4 units Methylprednisolone Sodium Succinate (Solu-Medrol -) 60 mg IVPUSH Q6H-IV [facility] Last Admin: 01/13/19 02:29 Dose: 60 mg Mupirocin (Bactroban Ointment (For Decolonization) -) 1 applic NS BID [facility] Stop: 01/14/19 21:59 Last Admin: 01/12/19 21:27 Dose: 1 applic Nicotine (Nicoderm Patch -) 21 mg TD DAILY [facility] Last Admin: 01/12/19 09:25 Dose: 21 mg Pantoprazole Sodium (Protonix -) 40 mg PO DAILY [facility] Last Admin: 01/12/19 09:25 Dose: 40 mg Thiamine HCl (Vitamin B1 -) 200 mg PO DAILY [facility] Last Admin: 01/12/19 09:26 Dose: 200 mg Vital Signs Temp 98.9 F 01/13/19 06:00 Pulse 97 H 01/13/19 06:00 Resp 21 H 01/13/19 06:00 BP 147/79 01/13/19 06:00 Pulse Ox 98 01/12/19 20:43 Intake & Output 01/12/19 01/12/19 01/13/19 06:59 18:59 06:59 Intake Total 1200 1000 Output Total 200 300 Balance 1000 1000 -300 Weight 78.199 kg 78.698 kg Intake: IV 1200 1000 1/2 Normal Saline 1,000 1200 1000 ml @ 100 mls/hr IV [facility] Rx#:[id number] Output: Urine 200 300 Queen 200 300 Other: Voiding Method Urinal Urinal Urinal # Unmeasured Voids Queen 1 Bowel Movement Yes Yes # Bowel Movements 2 1 Weight Measurement Method Built in Bedscale EXAM: neuro: alert and oriented HEENT: PERRL, anicteric, dry mucus membranes chest: no wheezing, diminished heart: RRR abd: soft, non-tender ext: no edema, warm skin: warm, dry CBC, BMP 01/13/19 05:40 01/13/19 05:40 ASSESSMENT AND PLAN: Acute on Chronic Hypoxic and Hypercapneic Respiratory Failure r/o Pneumonia Acute COPD Exacerbation Polycythemia likely due to chronic hypoxia -Continue standing nebs + PRN for now -Continue IV Solu-medrol at current dose - start taper tomorrow if remains stable on NC -NC O2 -Monitor urine output, creatinine -PO as tolerated -DVT prophylaxis Can transfer to floor if able to tolerate being off HFNC Critical Care time 35" Oneil Feliciano Pulm/Critical Care [employer]
[2019-01-13 06:37] LABS: BASO % 0.1 % (0-2.0); HEMATOCRIT 51.2 % (35.4-49); HEMOGLOBIN 16.5 GM/dL (11.7-16.9); LYMPH % 2.6 % (8-40); MCH 30.7 pg (25.7-33.7); MCHC 32.3 g/dl (32.0-35.9); MEAN CELL VOLUME 95.1 fl (80-96); MEAN PLT VOLUME 9.1 fl (7.5-11.1); MONO % 0.7 % (3.8-10.2); NEUT % 96.6 % (42.8-82.8); PLATELET COUNT 221 K/MM3 (134-434); RBC 5.38 M/mm3 (4.00-5.60); RDW 16.1 % (11.9-15.9); WHITE BLOOD COUNT 9.5 K/mm3 (4.0-10.0)
[2019-01-13 07:12] LABS: ALBUMIN 2.5 g/dl (3.4-5.0); BILIRUBIN,TOTAL 0.7 mg/dL (0.2-1); BLOOD UREA NITROGEN 22.1 mg/dL (7-18); CALCIUM 7.9 mg/dL (8.5-10.1); CREATININE 0.6 mg/dL (0.55-1.3); MAGNESIUM 1.9 mg/dL (1.8-2.4); PHOSPHOROUS 2.9 mg/dL (2.5-4.9); POTASSIUM 4.9 mmol/L (3.5-5.1); TOT PROT 5.8 g/dl (6.4-8.2)
[2019-01-13 07:28] LABS: ARTERIAL BLD GAS O2 SATURATION 91.4 % (95-98); ARTERIAL BLOOD GAS BASE EXCESS 10.1 meq/l (-2-2); ARTERIAL BLOOD GAS PO2 68.4 mmHg (80-105)
[2019-01-13 07:29] LABS: ALLENS TEST POSITIVE
[2019-01-13 07:30] LABS: ARTERIAL BLOOD GAS PCO2 79.4 mmHg (35-45)
[2019-01-13] MEDS: ALBUTEROL SO4 2.5/IPRATROPIUM 0.5 INH SOL 3 ML VIAL.NEB. NEB SCH ×4 (07:30→19:50)
[2019-01-13] MEDS: MUPIROCIN 2% TOPICAL OINTMENT FOR DECOLONIZATION NS SCH ×2 (10:14→21:06)
[2019-01-13] MEDS: FOLIC ACID 1 MG TABLET (FP) PO SCH (10:14)
[2019-01-13] MEDS: NICOTINE 21 MG/24 HOURS TOPICAL PATCH TD SCH (10:15)
[2019-01-13] MEDS: THIAMINE HCL 100 MG TABLET (FP) PO SCH (10:15)
[2019-01-13] MEDS: PANTOPRAZOLE 40 MG TABLET (FP) PO SCH (10:15)
--- NOTE | 2019-01-13 11:15 | PN ---
Progress Note, Physician History of Present Illness: improving on nasal canula breathing better says he feels better - Current Medication List Current Medications: Active Medications Albuterol Sulfate (Ventolin 0.5% -) 1 amp NEB Q4H PRN PRN Reason: SHORT OF BREATH/WHEEZING Albuterol/Ipratropium (Duoneb -) 1 amp NEB RQID [facility] Last Admin: 01/13/19 07:30 Dose: 1 amp Chlorhexidine Gluconate (Hibiclens For Decolonization -) 1 applic TP HS [facility] Last Admin: 01/12/19 21:22 Dose: 1 applic Folic Acid (Folic Acid -) 1 mg PO DAILY [facility] Last Admin: 01/13/19 10:14 Dose: 1 mg Heparin Sodium (Porcine) (Heparin -) 5,000 unit SQ TID [facility] Last Admin: 01/13/19 05:58 Dose: 5,000 unit Insulin Aspart (Novolog Vial Sliding Scale -) 1 vial SQ ACHS [facility]; Protocol Last Admin: 01/13/19 05:59 Dose: 4 units Methylprednisolone Sodium Succinate (Solu-Medrol -) 60 mg IVPUSH Q6H-IV [facility] Last Admin: 01/13/19 10:14 Dose: 60 mg Mupirocin (Bactroban Ointment (For Decolonization) -) 1 applic NS BID [facility] Stop: 01/14/19 21:59 Last Admin: 01/13/19 10:14 Dose: 1 applic Nicotine (Nicoderm Patch -) 21 mg TD DAILY [facility] Last Admin: 01/13/19 10:15 Dose: 21 mg Pantoprazole Sodium (Protonix -) 40 mg PO DAILY [facility] Last Admin: 01/13/19 10:15 Dose: 40 mg Thiamine HCl (Vitamin B1 -) 200 mg PO DAILY [facility] Last Admin: 01/13/19 10:15 Dose: 200 mg - Objective Vital Signs: Vital Signs Temperature 98.9 F 01/13/19 06:00 Pulse Rate 93 H 01/13/19 08:27 Respiratory Rate 21 H 01/13/19 06:00 Blood Pressure 147/79 01/13/19 06:00 O2 Sat by Pulse Oximetry (%) 92 L 01/13/19 08:27 Constitutional: Yes: No Distress, Calm Cardiovascular: Yes: Regular Rate and Rhythm Respiratory: Yes: Regular, On Nasal O2, Poor Air Entry Gastrointestinal: Yes: Normal Bowel Sounds, Soft Musculoskeletal: Yes: WNL Extremities: Yes: WNL Neurological: Yes: Alert, Oriented Psychiatric: Yes: Alert, Oriented Labs: CBC, BMP 01/13/19 05:40 01/13/19 05:40 INR, PTT INR 0.98 (0.83-1.09) 01/09/19 17:00 Assessment/Plan 63 year old male with a history of COPD and diverticulitis was brought to the ED by ambulance after he was found down in his home and admitted for acute on chronic hypoxic hypercapnic respiratory failure ams resp failure ac kidney njury tremors polycythemia lactic acidosis leukocytosis plan hydration close watch rest as per icu monitor wbc await for all reports cc 38 min
--- NOTE | 2019-01-13 11:25 | PN ---
Teaching Attending Note Name of Resident: Princess Khalil ATTENDING PHYSICIAN STATEMENT I saw and evaluated the patient. I reviewed the resident's note and discussed the case with the resident. I agree with the resident's findings and plan as documented. SUBJECTIVE:states breathing is better. denies CP, SOB, fever, chills, N/V/?CD OBJECTIVE: Last Vital Signs Temp Pulse Resp BP Pulse Ox 98.9 F 93 H 21 H 147/79 92 L 01/13/19 06:00 01/13/19 08:27 01/13/19 06:00 01/13/19 06:00 01/13/19 08:27 General NAD Lungs CTA B/L decreased at bases. no wheezing ASSESSMENT AND PLAN: 63yo M with PMH COPD and diverticulosis presented to the ER after he was found on the floor of his home. he was intubated in the ER for airway protection 1. Acute on likely Chronic Hypoxic and Hypercapneic Respiratory Failure- due to COPD exacerbation. currently 92% on 2L NC. remains hypercapnic mental status is stable. likely has chronic component. cont with current steroid dosing. will consider tapering if continues to stay stable on current oxygen therapy. would benefit from pulmonary rehab. might require device for hypercapnia. will need to start LABA/ICS/LAMA. titrate down supplemental oxygen as tolerated. pulmonary team on board. will need official PFT as outpatient and polysomography 2. Acute metabolic encephalopathy-possible due to hypercapnia. alert but confused with poor memory recollection. 3. SIRS- unclear source. possible could have aspirated, CXR negative but can lag. monitoring off abx. 4. Fall- likely mechanical due to generalized weakness. no repeat episodes. will need PT eval and will likely benefit from KAREN when medically optimized 5. Severe dehydration- as evident in labs. resolved. can d/c IVF 6. Lactic acidosis- due to hypoxia vs dehydration. quickly resolved with IVF 7. RONAK with proteinuria- RONAK now resolved. proteinuria improved however remains 2+. nephro on board 8. Acute on chronic polycythemia- likely due to chronic hypoxia. epo level pending. s/p phlebotomized 1 unit of PRBC and tolerated well. note drop in Hgb today. will monitor and consider repeat if necessary hematology consulted 9. Hyperkalemia-resolved 10. hyperphosphatemia- now resolved 11. DVT ppx- hep sq 12. stable for transfer to floor when oxygen level can be continuously monitored. Will need KAREN when medically optimized. patient is agreeable The care of this patient involved high complexity decision making to prevent further life threatening deterioration of the patient's condition and/or to evaluate & treat vital organ system(s) failure or risk of failure. 38 minutes
[2019-01-13 12:36] LABS: ANISOCYTOSIS 0; MACROCYTOSIS 1+; PLATELET ESTIMATE NORMAL
--- NOTE | 2019-01-13 12:42 | PN ---
Physical Exam: SUBJECTIVE: Patient seen and examined at bedside. pt has no acute complants. pt states his breathing is improved. OBJECTIVE: Vital Signs Period Temp Pulse Resp BP Sys/Anna Pulse Ox Last 24 Hr 98.2 F-98.9 F 92-104 20- 121-147/71-91 92-98 GENERAL: The patient is awake, alert, and oriented, in no acute distress. HEAD: Normal with no signs of trauma. LUNGS: Breath sounds equal, clear to auscultation bilaterally, no wheezes, no crackles, no accessory muscle use. HEART: Regular rate and rhythm, S1, S2 without murmur, rub or gallop. ABDOMEN: Soft, nontender, nondistended, normoactive bowel sounds, no guarding EXTREMITIES: 2+ pulses, warm, well-perfused, no edema. PSYCH: Normal mood, normal affect. SKIN: Warm, dry, normal turgor, no rashes or lesions noted Laboratory Results - last 24 hr 01/13/19 01/13/19 01/13/19 05:40 05:40 07:00 WBC 9.5 RBC 5.38 Hgb 16.5 Hct 51.2 H MCV 95.1 MCH 30.7 MCHC 32.3 RDW 16.1 H Plt Count 221 MPV 9.1 Absolute Neuts (auto) 9.2 H Neutrophils % 96.6 H Lymphocytes % 2.6 L D Monocytes % 0.7 L D Eosinophils % 0.0 Basophils % 0.1 Nucleated RBC % 0 Anticoagulation Therapy No Result Required. Puncture Site Right radial ABG pH 7.30 L ABG pCO2 at Pt Temp 79.4 H* ABG pO2 at Pt Temp 68.4 L ABG HCO3 40.9 H ABG O2 Sat (Measured) 91.4 L ABG O2 Content 20.9 ABG Base Excess 10.1 H Chaz Test Positive O2 Delivery Device No Result Required. Oxygen Flow Rate Yes Vent Mode No Result Required. Vent Rate No Result Required. Mechanical Rate No Result Required. Pressure Support Vent No Result Required. Sodium 140 Potassium 4.9 Chloride 96 L Carbon Dioxide 40 H Anion Gap 4 L BUN 22.1 H Creatinine 0.6 Est GFR (CKD-EPI)AfAm 124.89 Est GFR (CKD-EPI)NonAf 107.76 Random Glucose 252 H Calcium 7.9 L Phosphorus 2.9 Magnesium 1.9 Total Bilirubin 0.7 AST 13 L ALT 18 Alkaline Phosphatase 59 Total Protein 5.8 L Albumin 2.5 L Current Medications Albuterol Sulfate (Ventolin 0.5% -) 1 amp NEB Q4H PRN PRN Reason: SHORT OF BREATH/WHEEZING Albuterol/Ipratropium (Duoneb -) 1 amp NEB RQID [facility] Last Admin: 01/13/19 11:30 Dose: 1 amp Chlorhexidine Gluconate (Hibiclens For Decolonization -) 1 applic TP HS [facility] Last Admin: 01/12/19 21:22 Dose: 1 applic Folic Acid (Folic Acid -) 1 mg PO DAILY [facility] Last Admin: 01/13/19 10:14 Dose: 1 mg Heparin Sodium (Porcine) (Heparin -) 5,000 unit SQ TID [facility] Last Admin: 01/13/19 05:58 Dose: 5,000 unit Insulin Aspart (Novolog Vial Sliding Scale -) 1 vial SQ ACHS [facility]; Protocol Last Admin: 01/13/19 05:59 Dose: 4 units Methylprednisolone Sodium Succinate (Solu-Medrol -) 60 mg IVPUSH Q6H-IV [facility] Last Admin: 01/13/19 10:14 Dose: 60 mg Mupirocin (Bactroban Ointment (For Decolonization) -) 1 applic NS BID [facility] Stop: 01/14/19 21:59 Last Admin: 01/13/19 10:14 Dose: 1 applic Nicotine (Nicoderm Patch -) 21 mg TD DAILY [facility] Last Admin: 01/13/19 10:15 Dose: 21 mg Pantoprazole Sodium (Protonix -) 40 mg PO DAILY [facility] Last Admin: 01/13/19 10:15 Dose: 40 mg Thiamine HCl (Vitamin B1 -) 200 mg PO DAILY [facility] Last Admin: 01/13/19 10:15 Dose: [address] Cervical Spine IMPRESSION: Mild degenerative arthritis with no fracture or acute pathology. CT Head IMPRESSION: No evidence of acute intracranial pathology. CT Abdomen/ Pelvis IMPRESSION: 1. Extensive left lower lobe atelectasis with small bilateral pleural effusions. 2. No evidence of intra-abdominal abscess or acute pathology within the abdomen or pelvis. 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 EMS found patient responsive and oriented. In the ED, patient had increased respiratory distress and AMS therefore was intubated to protect airway.In ICU, pt was on propofol gtt. Pt is observed in the ICU. Throughout the ICU course, the pt fell and was seen in mild distress with low sat. pt was put on BIPAP and ABG was drawn showing respiratory acidosis. pt ABG progressively showing improving pCO2. Acute on likely Chronic Hypoxic and Hypercapneic Respiratory Failure -2/2 COPD exacerbation. -pt on 2L NC saturating 90%, will titrate as tolerated -daily ABG -on medrol 60mg Q6H, on duonebs prn -consider initiating Spiriva, symbicort -pulm recs appreciated -pt should follow up outpt with pulmonology for PFT & polysomography Acute metabolic encephalopathy- likely 2/2 hypoxia -pt currently alert and oriented -pt unable to remember events from fall at home -Head and c-spine CT are negative. -Utox negative. SIRS- -unclear source -s/p vanc , zosyn in ED -possible could have aspirated - CT chest above -BCx neg Severe dehydration -c/w IVF -c/w PO intake Lactic acidosis 2/2 hypoxia vs dehydration -resolved w/ IVF RONAK with proteinuria -repeat UA -likely dehydration component -resolved -rpt UA Acute on chronic polycythemia- likely 2/2 hypoxia - epo level 47.6 -Heme following Fall: -likely mechanical -PT eval -KAREN on D/C DVT ppx- hep sq Dispo: transfer to floors with oxygen monitoring, KAREN when medically optimized 8. Acute on chronic polycythemia- likely due to chronic hypoxia. epo level pending. s/p phlebotomized 1 unit of PRBC and tolerated well. note drop in Hgb today. will monitor and consider repeat if necessary hematology consulted 9. Hyperkalemia-resolved 10. hyperphosphatemia- now resolved Visit type - Emergency Visit Emergency Visit: No - New Patient This patient is new to me today: No - Critical Care Critical Care patient: No - Discharge Referral Referred to [facility] Med P.C[facility] No ATTENDING PHYSICIAN STATEMENT I saw and evaluated the patient. I reviewed the resident's note and discussed the case with the resident. I agree with the resident's findings and plan as documented. SUBJECTIVE: OBJECTIVE: ASSESSMENT AND PLAN:
--- NOTE | 2019-01-13 16:34 | PN ---
Progress Note (short form) - Note Progress Note: covering dr helton 1. RONAK 2. dehydration 3. polycythemia 4. copd 5. resp failure requiring intubation 6. lactic acidosis 7. copd 8. hx diverticulitis Current Medications Albuterol Sulfate (Ventolin 0.5% -) 1 amp NEB Q4H PRN PRN Reason: SHORT OF BREATH/WHEEZING Albuterol/Ipratropium (Duoneb -) 1 amp NEB RQID [facility] Last Admin: 01/13/19 11:30 Dose: 1 amp Chlorhexidine Gluconate (Hibiclens For Decolonization -) 1 applic TP HS [facility] Last Admin: 01/12/19 21:22 Dose: 1 applic Folic Acid (Folic Acid -) 1 mg PO DAILY [facility] Last Admin: 01/13/19 10:14 Dose: 1 mg Heparin Sodium (Porcine) (Heparin -) 5,000 unit SQ TID [facility] Last Admin: 01/13/19 13:48 Dose: 5,000 unit Insulin Aspart (Novolog Vial Sliding Scale -) 1 vial SQ ACHS [facility]; Protocol Last Admin: 01/13/19 13:25 Dose: 6 units Methylprednisolone Sodium Succinate (Solu-Medrol -) 60 mg IVPUSH Q6H-IV [facility] Last Admin: 01/13/19 10:14 Dose: 60 mg Mupirocin (Bactroban Ointment (For Decolonization) -) 1 applic NS BID [facility] Stop: 01/14/19 21:59 Last Admin: 01/13/19 10:14 Dose: 1 applic Nicotine (Nicoderm Patch -) 21 mg TD DAILY [facility] Last Admin: 01/13/19 10:15 Dose: 21 mg Pantoprazole Sodium (Protonix -) 40 mg PO DAILY [facility] Last Admin: 01/13/19 10:15 Dose: 40 mg Thiamine HCl (Vitamin B1 -) 200 mg PO DAILY [facility] Last Admin: 01/13/19 10:15 Dose: 200 mg clinically better pending transfer to medical floor Last Vital Signs Temp Pulse Resp BP Pulse Ox 98.9 F 93 H 21 H 147/79 92 L 01/13/19 06:00 01/13/19 08:27 01/13/19 06:00 01/13/19 06:00 01/13/19 08:27 stable lying flat in nad Lungs clear Heart reg Abd soft nontender CBC, BMP 01/13/19 05:40 01/13/19 05:40 CBC, BMP 01/12/19 05:30 01/12/19 05:30 IMP -s/p ronak ckd elevated bun partly from steroids copd Plan- f/u bmp Plan - bun is improving - repeat labs to evaluate potassium - cont to monitor renal function - follow repeat ua - follow cultures
[2019-01-13 18:56] LABS: HEP B CORE AB, TOT NEGATIVE
[2019-01-13 18:57] LABS: HEP A AB, IGM NEGATIVE
[2019-01-13] MEDS: CHLORHEXIDINE GLUCONATE 4% CLEANSER FOR DECOLONIZATION TP SCH (21:06)
[2019-01-14] MEDS: methylPREDNISolone NA SUCC 40 MG/1 ML VIAL IVPUSH SCH ×3 (03:15→17:43)
[2019-01-14] MEDS: HEPARIN NA (PORCINE) 5,000 UNITS/ML 1ML VIAL SQ SCH ×3 (06:26→22:22)
[2019-01-14] MEDS: INSULIN SLIDING SCALE (NOVOLOG) 1 VIAL SQ SCH ×4 (06:26→22:25)
[2019-01-14 07:02] LABS: ARTERIAL BLD GAS O2 SATURATION 94.5 % (95-98); ARTERIAL BLOOD GAS BASE EXCESS 11.5 meq/l (-2-2); ARTERIAL BLOOD GAS PCO2 75.7 mmHg (35-45); ARTERIAL BLOOD GAS PO2 75.6 mmHg (80-105); ARTERIAL BLOOD GAS pH 7.35 (7.35-7.45)
[2019-01-14] MEDS: ALBUTEROL SO4 2.5/IPRATROPIUM 0.5 INH SOL 3 ML VIAL.NEB. NEB SCH ×4 (07:14→20:47)
[2019-01-14 07:29] LABS: HEMATOCRIT 50.1 % (35.4-49); HEMOGLOBIN 16.2 GM/dL (11.7-16.9); MCH 30.4 pg (25.7-33.7); MCHC 32.3 g/dl (32.0-35.9); MEAN CELL VOLUME 94.3 fl (80-96); MEAN PLT VOLUME 9.1 fl (7.5-11.1); PLATELET COUNT 216 K/MM3 (134-434); RBC 5.31 M/mm3 (4.00-5.60); RDW 16.2 % (11.9-15.9); WHITE BLOOD COUNT 8.9 K/mm3 (4.0-10.0)
[2019-01-14 08:00] LABS: BLOOD UREA NITROGEN 21.9 mg/dL (7-18); CREATININE 0.6 mg/dL (0.55-1.3); MAGNESIUM 2.1 mg/dL (1.8-2.4); PHOSPHOROUS 2.9 mg/dL (2.5-4.9)
--- NOTE | 2019-01-14 09:30 | PN ---
Progress Note, Physician History of Present Illness: continues to improve no issues nothing bothering him at the moment - Current Medication List Current Medications: Active Medications Albuterol Sulfate (Ventolin 0.5% -) 1 amp NEB Q4H PRN PRN Reason: SHORT OF BREATH/WHEEZING Albuterol/Ipratropium (Duoneb -) 1 amp NEB RQID [facility] Last Admin: 01/14/19 07:14 Dose: 1 amp Chlorhexidine Gluconate (Hibiclens For Decolonization -) 1 applic TP HS [facility] Last Admin: 01/13/19 21:06 Dose: Not Given Folic Acid (Folic Acid -) 1 mg PO DAILY [facility] Last Admin: 01/13/19 10:14 Dose: 1 mg Heparin Sodium (Porcine) (Heparin -) 5,000 unit SQ TID [facility] Last Admin: 01/14/19 06:26 Dose: 5,000 unit Insulin Aspart (Novolog Vial Sliding Scale -) 1 vial SQ ACHS [facility]; Protocol Last Admin: 01/14/19 06:26 Dose: 4 units Methylprednisolone Sodium Succinate (Solu-Medrol -) 60 mg IVPUSH Q6H-IV [facility] Last Admin: 01/14/19 03:15 Dose: 60 mg Mupirocin (Bactroban Ointment (For Decolonization) -) 1 applic NS BID [facility] Stop: 01/14/19 21:59 Last Admin: 01/13/19 21:06 Dose: Not Given Nicotine (Nicoderm Patch -) 21 mg TD DAILY [facility] Last Admin: 01/13/19 10:15 Dose: 21 mg Pantoprazole Sodium (Protonix -) 40 mg PO DAILY [facility] Last Admin: 01/13/19 10:15 Dose: 40 mg Thiamine HCl (Vitamin B1 -) 200 mg PO DAILY [facility] Last Admin: 01/13/19 10:15 Dose: 200 mg - Objective Vital Signs: Vital Signs Temperature 98.1 F 01/14/19 06:00 Pulse Rate 93 H 01/14/19 06:00 Respiratory Rate 20 01/14/19 06:00 Blood Pressure 141/87 01/14/19 06:00 O2 Sat by Pulse Oximetry (%) 92 L 01/13/19 22:00 Constitutional: Yes: No Distress, Calm Cardiovascular: Yes: Regular Rate and Rhythm Respiratory: Yes: Regular, On Nasal O2, Poor Air Entry Gastrointestinal: Yes: Normal Bowel Sounds, Soft Musculoskeletal: Yes: WNL Extremities: Yes: WNL Neurological: Yes: Alert, Oriented Psychiatric: Yes: Alert, Oriented Labs: CBC, BMP 01/14/19 06:45 01/14/19 06:45 INR, PTT INR 0.98 (0.83-1.09) 01/09/19 17:00 Assessment/Plan 63 year old male with a history of COPD and diverticulitis was brought to the ED by ambulance after he was found down in his home and admitted for acute on chronic hypoxic hypercapnic respiratory failure ams resp failure ac kidney njury tremors polycythemia lactic acidosis leukocytosis plan continue current mgmt resp support
[2019-01-14] MEDS: MUPIROCIN 2% TOPICAL OINTMENT FOR DECOLONIZATION NS SCH (10:27)
[2019-01-14] MEDS: FOLIC ACID 1 MG TABLET (FP) PO SCH (10:36)
[2019-01-14] MEDS: PANTOPRAZOLE 40 MG TABLET (FP) PO SCH (10:36)
[2019-01-14] MEDS: THIAMINE HCL 100 MG TABLET (FP) PO SCH (10:36)
[2019-01-14] MEDS: NICOTINE 21 MG/24 HOURS TOPICAL PATCH TD SCH (10:36)
--- NOTE | 2019-01-14 11:05 | PN ---
Progress Note (short form) - Note Progress Note: PULMONARY States breathing improving. Less cough and wheezing. No fevers or chills. Vital Signs Period Temp Pulse Resp BP Sys/Anna Pulse Ox Last 24 Hr 97.0 F-98.8 F 92-96 20-20 131-148/77-87 92-94 Gen: NAD at rest Heart: RRR Lung: scattered rhonchi, wheezes Abd: soft, nontender Ext: + edema CBC, BMP 01/14/19 06:45 01/14/19 06:45 Active Medications Albuterol Sulfate (Ventolin 0.5% -) 1 amp NEB Q4H PRN PRN Reason: SHORT OF BREATH/WHEEZING Albuterol/Ipratropium (Duoneb -) 1 amp NEB RQID [facility] Last Admin: 01/14/19 07:14 Dose: 1 amp Chlorhexidine Gluconate (Hibiclens For Decolonization -) 1 applic TP HS [facility] Last Admin: 01/13/19 21:06 Dose: Not Given Folic Acid (Folic Acid -) 1 mg PO DAILY [facility] Last Admin: 01/14/19 10:36 Dose: 1 mg Heparin Sodium (Porcine) (Heparin -) 5,000 unit SQ TID [facility] Last Admin: 01/14/19 06:26 Dose: 5,000 unit Insulin Aspart (Novolog Vial Sliding Scale -) 1 vial SQ ACHS [facility]; Protocol Last Admin: 01/14/19 06:26 Dose: 4 units Methylprednisolone Sodium Succinate (Solu-Medrol -) 60 mg IVPUSH Q6H-IV [facility] Last Admin: 01/14/19 10:35 Dose: 60 mg Mupirocin (Bactroban Ointment (For Decolonization) -) 1 applic NS BID [facility] Stop: 01/14/19 21:59 Last Admin: 01/14/19 10:27 Dose: Not Given Nicotine (Nicoderm Patch -) 21 mg TD DAILY [facility] Last Admin: 01/14/19 10:36 Dose: 21 mg Pantoprazole Sodium (Protonix -) 40 mg PO DAILY [facility] Last Admin: 01/14/19 10:36 Dose: 40 mg Thiamine HCl (Vitamin B1 -) 200 mg PO DAILY [facility] Last Admin: 01/14/19 10:36 Dose: 200 mg A/P Acute on likely Chronic Hypoxic and Hypercapneic Respiratory Failure r/o Pneumonia Acute COPD Exacerbation Acute Kidney Injury improved Polycythemia likely due to chronic hypoxia - will decrease medrol to 40mg q8h - inhaled bronchodilators - O2 to keep SpO2 >90% - monitor urine output, creatinine - PO as tolerated - DVT prophylaxis - when ready for discharge, check ambulatory SpO2 on room air to assess for home O2
--- NOTE | 2019-01-14 16:02 | PN ---
Teaching Attending Note Name of Resident: Princess Khalil ATTENDING PHYSICIAN STATEMENT I saw and evaluated the patient. I reviewed the resident's note and discussed the case with the resident. I agree with the resident's findings and plan as documented. SUBJECTIVE:states breathing has improved. minimal cough. denies CP, SOB, fever, chills, N/V/C/D OBJECTIVE: Last Vital Signs Temp Pulse Resp BP Pulse Ox 97.8 F 86 20 137/76 92 L 01/14/19 10:00 01/14/19 10:00 01/14/19 10:01/14/19 10:01/13/19 22:00 General NAD Lungs CTA B/L no wheezing ASSESSMENT AND PLAN: 63yo M with PMH COPD and diverticulosis presented to the ER after he was found on the floor of his home. he was intubated in the ER for airway protection 1. Acute on likely Chronic Hypoxic and Hypercapneic Respiratory Failure- due to COPD exacerbation. currently 92% on 2L NC. remains hypercapnic will benefit from trilogy device. will decrease medrol to 40mg Q6H. supplemental oxygen as needed. pulmonary team on board. will need official PFT as outpatient and polysomography 2. Acute metabolic encephalopathy-possible due to hypercapnia. alert but confused with poor memory recollection. 3. SIRS- unclear source. possible could have aspirated, CXR negative but can lag. monitoring off abx. 4. Fall- likely mechanical due to generalized weakness. no repeat episodes. will need PT eval and will likely benefit from KAREN when medically optimized 5. Severe dehydration- as evident in labs. resolved. 6. Lactic acidosis- due to hypoxia vs dehydration. quickly resolved with IVF 7. RONAK with proteinuria- RONAK now resolved. proteinuria improved however remains 2+. nephro on board 8. Acute on chronic polycythemia- likely due to chronic hypoxia. epo level pending. s/p phlebotomized 1 unit of PRBC and tolerated well. note drop in Hgb today. will monitor and consider repeat if necessary hematology consulted 9. Hyperkalemia-resolved 10. hyperphosphatemia- now resolved 11. DVT ppx- hep sq 12. PT eval. will liekly benefit from KAREN and pulmonary rehab
--- NOTE | 2019-01-14 16:18 | PN ---
Progress Note, Physician History of Present Illness: Pt seen and examined at bedside. He is awake and alert. He denies dysuria. - Current Medication List Current Medications: Active Medications Albuterol Sulfate (Ventolin 0.5% -) 1 amp NEB Q4H PRN PRN Reason: SHORT OF BREATH/WHEEZING Albuterol/Ipratropium (Duoneb -) 1 amp NEB RQID [facility] Last Admin: 01/14/19 11:05 Dose: 1 amp Folic Acid (Folic Acid -) 1 mg PO DAILY [facility] Last Admin: 01/14/19 10:36 Dose: 1 mg Heparin Sodium (Porcine) (Heparin -) 5,000 unit SQ TID [facility] Last Admin: 01/14/19 13:37 Dose: 5,000 unit Insulin Aspart (Novolog Vial Sliding Scale -) 1 vial SQ ACHS [facility]; Protocol Last Admin: 01/14/19 11:29 Dose: 6 units Methylprednisolone Sodium Succinate (Solu-Medrol -) 40 mg IVPUSH Q8H-IV [facility] Nicotine (Nicoderm Patch -) 21 mg TD DAILY [facility] Last Admin: 01/14/19 10:36 Dose: 21 mg Pantoprazole Sodium (Protonix -) 40 mg PO DAILY [facility] Last Admin: 01/14/19 10:36 Dose: 40 mg Thiamine HCl (Vitamin B1 -) 200 mg PO DAILY [facility] Last Admin: 01/14/19 10:36 Dose: 200 mg - Objective Vital Signs: Vital Signs Temperature 97.8 F 01/14/19 10:00 Pulse Rate 86 01/14/19 10:00 Respiratory Rate 20 01/14/19 10:00 Blood Pressure 137/76 01/14/19 10:00 O2 Sat by Pulse Oximetry (%) 92 L 01/13/19 22:00 Constitutional: Yes: Calm Eyes: Yes: Conjunctiva Clear HENT: Yes: Atraumatic Neck: Yes: Supple Cardiovascular: Yes: S1, S2 Respiratory: Yes: CTA Bilaterally Gastrointestinal: Yes: Normal Bowel Sounds, Soft Genitourinary: Yes: WNL Musculoskeletal: Yes: WNL Edema: No Neurological: Yes: Oriented Psychiatric: Yes: Oriented Labs: CBC, BMP 01/14/19 06:45 01/14/19 06:45 INR, PTT INR 0.98 (0.83-1.09) 01/09/19 17:00 Assessment/Plan Current Medications Generic Name Dose Route Start Last Admin Trade Name Blayne PRN Reason Stop Dose Admin Albuterol Sulfate 1 amp 01/12/19 10:13 Ventolin 0.5% - NEB Q4H PRN SHORT OF BREATH/WHEEZING Albuterol/Ipratropium 1 amp 01/12/19 12:00 01/14/19 11:05 Duoneb - NEB 1 amp RQID [facility] Administration Folic Acid 1 mg 01/11/19 10:00 01/14/19 10:36 Folic Acid - PO 1 mg DAILY [facility] Administration Heparin Sodium (Porcine) 5,000 unit 01/10/19 06:00 01/14/19 13:37 Heparin - SQ 5,000 unit TID [facility] Administration Insulin Aspart 1 vial 01/10/19 22:00 01/14/19 11:29 Novolog Vial Sliding Scale - SQ 6 units ACHS [facility] Administration Protocol Methylprednisolone Sodium Succinate 40 mg 01/14/19 18:00 Solu-Medrol - IVPUSH Q8H-IV [facility] Nicotine 21 mg 01/11/19 12:45 01/14/19 10:36 Nicoderm Patch - TD 21 mg DAILY [facility] Administration Pantoprazole Sodium 40 mg 01/11/19 10:00 01/14/19 10:36 Protonix - PO 40 mg DAILY [facility] Administration Thiamine HCl 200 mg 01/11/19 10:00 01/14/19 10:36 Vitamin B1 - PO 200 mg DAILY [facility] Administration Impression 1. RONAK 2. dehydration 3. polycythemia 4. copd 5. resp failure requiring intubation 6. lactic acidosis 7. copd 8. hx diverticulitis Plan - renal function stabilizing - steroids can contribute to elevated bun - potassium improved - avoid nephrotoxins
--- NOTE | 2019-01-14 18:40 | PN ---
Progress Note (short form) - Note Progress Note: Patient seen and examined Breathing improved Last Vital Signs Temp Pulse Resp BP Pulse Ox 98.0 F 88 18 139/71 92 L 01/14/19 14:00 01/14/19 14:00 01/14/19 14:00 01/14/19 14:00 01/13/19 22:00 Diminished breath sounds bilaterally Cor-RSR Soft abd Ext- neg CBC, BMP 01/14/19 06:45 01/14/19 06:45 Current Medications Generic Name Dose Route Start Last Admin Trade Name Freq PRN Reason Stop Dose Admin Albuterol Sulfate 1 amp 01/12/19 10:13 Ventolin 0.5% - NEB Q4H PRN SHORT OF BREATH/WHEEZING Albuterol/Ipratropium 1 amp 01/12/19 12:00 01/14/19 16:25 Duoneb - NEB 1 amp RQID [facility] Administration Folic Acid 1 mg 01/11/19 10:00 01/14/19 10:36 Folic Acid - PO 1 mg DAILY [facility] Administration Heparin Sodium (Porcine) 5,000 unit 01/10/19 06:00 01/14/19 13:37 Heparin - SQ 5,000 unit TID [facility] Administration Insulin Aspart 1 vial 01/10/19 22:00 01/14/19 16:44 Novolog Vial Sliding Scale - SQ 6 units ACHS [facility] Administration Protocol Methylprednisolone Sodium Succinate 40 mg 01/14/19 18:00 01/14/19 17:43 Solu-Medrol - IVPUSH 40 mg Q8H-IV [facility] Administration Nicotine 21 mg 01/11/19 12:45 01/14/19 10:36 Nicoderm Patch - TD 21 mg DAILY [facility] Administration Pantoprazole Sodium 40 mg 01/11/19 10:00 01/14/19 10:36 Protonix - PO 40 mg DAILY [facility] Administration Thiamine HCl 200 mg 01/11/19 10:00 01/14/19 10:36 Vitamin B1 - PO 200 mg DAILY [facility] Administration Impression Hypercapniaa /chronic respiratory failure COPD Erythrocytosis Hct has declined post phlebotomy Would optimize with additional phlebotomy to Hct 45%.
--- NOTE | 2019-01-14 19:26 | PN ---
Physical Exam: SUBJECTIVE: Patient seen and examined OBJECTIVE: Vital Signs Period Temp Pulse Resp BP Sys/Anna Pulse Ox Last 24 Hr 97.0 F-98.4 F 86-96 18-20 131-141/71-87 92-94 GENERAL: The patient is awake, alert, and fully oriented, in no acute distress. HEAD: Normal with no signs of trauma. EYES: PERRL, extraocular movements intact, sclera anicteric, conjunctiva clear. No ptosis. ENT: Ears normal, nares patent, oropharynx clear without exudates, moist mucous membranes. NECK: Trachea midline, full range of motion, supple. LUNGS: Breath sounds equal, clear to auscultation bilaterally, no wheezes, no crackles, no accessory muscle use. HEART: Regular rate and rhythm, S1, S2 without murmur, rub or gallop. ABDOMEN: Soft, nontender, nondistended, normoactive bowel sounds, no guarding, no rebound, no hepatosplenomegaly, no masses. EXTREMITIES: 2+ pulses, warm, well-perfused, no edema. NEUROLOGICAL: Cranial nerves II through XII grossly intact. Normal speech, gait not observed. PSYCH: Normal mood, normal affect. SKIN: Warm, dry, normal turgor, no rashes or lesions noted Laboratory Results - last 24 hr 01/11/19 01/11/19 01/11/19 11:16 16:49 21:45 WBC RBC Hgb Hct MCV MCH MCHC RDW Plt Count MPV Puncture Site ABG pH ABG pCO2 at Pt Temp ABG pO2 at Pt Temp ABG HCO3 ABG O2 Sat (Measured) ABG O2 Content ABG Base Excess Chaz Test O2 Delivery Device Oxygen Flow Rate Sodium Potassium Chloride Carbon Dioxide Anion Gap BUN Creatinine Est GFR (CKD-EPI)AfAm Est GFR (CKD-EPI)NonAf POC Glucometer 212 253 242 Random Glucose Calcium Phosphorus Magnesium 01/12/19 01/12/19 01/12/19 05:43 12:36 18:29 WBC RBC Hgb Hct MCV MCH MCHC RDW Plt Count MPV Puncture Site ABG pH ABG pCO2 at Pt Temp ABG pO2 at Pt Temp ABG HCO3 ABG O2 Sat (Measured) ABG O2 Content ABG Base Excess Chaz Test O2 Delivery Device Oxygen Flow Rate Sodium Potassium Chloride Carbon Dioxide Anion Gap BUN Creatinine Est GFR (CKD-EPI)AfAm Est GFR (CKD-EPI)NonAf POC Glucometer 201 229 127 Random Glucose Calcium Phosphorus Magnesium 01/12/19 01/13/19 01/13/19 21:12 13:21 17:51 WBC RBC Hgb Hct MCV MCH MCHC RDW Plt Count MPV Puncture Site ABG pH ABG pCO2 at Pt Temp ABG pO2 at Pt Temp ABG HCO3 ABG O2 Sat (Measured) ABG O2 Content ABG Base Excess Chaz Test O2 Delivery Device Oxygen Flow Rate Sodium Potassium Chloride Carbon Dioxide Anion Gap BUN Creatinine Est GFR (CKD-EPI)AfAm Est GFR (CKD-EPI)NonAf POC Glucometer 157 334 202 Random Glucose Calcium Phosphorus Magnesium 01/13/19 01/14/19 01/14/19 22:00 05:15 06:00 WBC RBC Hgb Hct MCV MCH MCHC RDW Plt Count MPV Puncture Site Right radial ABG pH 7.35 ABG pCO2 at Pt Temp 75.7 H* ABG pO2 at Pt Temp 75.6 L ABG HCO3 41.1 H ABG O2 Sat (Measured) 94.5 L ABG O2 Content 21.5 ABG Base Excess 11.5 H Chaz Test No Result Required. O2 Delivery Device N/c Oxygen Flow Rate 3l Sodium Potassium Chloride Carbon Dioxide Anion Gap BUN Creatinine Est GFR (CKD-EPI)AfAm Est GFR (CKD-EPI)NonAf POC Glucometer 389 252 Random Glucose Calcium Phosphorus Magnesium 01/14/19 01/14/19 01/14/19 06:45 06:45 11:22 WBC 8.9 RBC 5.31 Hgb 16.2 Hct 50.1 H MCV 94.3 MCH 30.4 MCHC 32.3 RDW 16.2 H Plt Count 216 MPV 9.1 Puncture Site ABG pH ABG pCO2 at Pt Temp ABG pO2 at Pt Temp ABG HCO3 ABG O2 Sat (Measured) ABG O2 Content ABG Base Excess Chaz Test O2 Delivery Device Oxygen Flow Rate Sodium 137 Potassium 5.0 Chloride 94 L Carbon Dioxide 41 H Anion Gap 3 L BUN 21.9 H Creatinine 0.6 Est GFR (CKD-EPI)AfAm 124.89 Est GFR (CKD-EPI)NonAf 107.76 POC Glucometer 302 Random Glucose 248 H Calcium 8.0 L Phosphorus 2.9 Magnesium 2.1 01/14/19 16:42 WBC RBC Hgb Hct MCV MCH MCHC RDW Plt Count MPV Puncture Site ABG pH ABG pCO2 at Pt Temp ABG pO2 at Pt Temp ABG HCO3 ABG O2 Sat (Measured) ABG O2 Content ABG Base Excess Chaz Test O2 Delivery Device Oxygen Flow Rate Sodium Potassium Chloride Carbon Dioxide Anion Gap BUN Creatinine Est GFR (CKD-EPI)AfAm Est GFR (CKD-EPI)NonAf POC Glucometer 301 Random Glucose Calcium Phosphorus Magnesium Current Medications Albuterol Sulfate (Ventolin 0.5% -) 1 amp NEB Q4H PRN PRN Reason: SHORT OF BREATH/WHEEZING Albuterol/Ipratropium (Duoneb -) 1 amp NEB RQID [facility] Last Admin: 01/14/19 16:25 Dose: 1 amp Folic Acid (Folic Acid -) 1 mg PO DAILY [facility] Last Admin: 01/14/19 10:36 Dose: 1 mg Heparin Sodium (Porcine) (Heparin -) 5,000 unit SQ TID [facility] Last Admin: 01/14/19 13:37 Dose: 5,000 unit Insulin Aspart (Novolog Vial Sliding Scale -) 1 vial SQ ACHS [facility]; Protocol Last Admin: 01/14/19 16:44 Dose: 6 units Methylprednisolone Sodium Succinate (Solu-Medrol -) 40 mg IVPUSH Q8H-IV [facility] Last Admin: 01/14/19 17:43 Dose: 40 mg Nicotine (Nicoderm Patch -) 21 mg TD DAILY [facility] Last Admin: 01/14/19 10:36 Dose: 21 mg Pantoprazole Sodium (Protonix -) 40 mg PO DAILY [facility] Last Admin: 01/14/19 10:36 Dose: 40 mg Thiamine HCl (Vitamin B1 -) 200 mg PO DAILY [facility] Last Admin: 01/14/19 10:36 Dose: 200 mg ASSESSMENT/PLAN: CT Cervical Spine IMPRESSION: Mild degenerative arthritis with no fracture or acute pathology. CT Head IMPRESSION: No evidence of acute intracranial pathology. CT Abdomen/ Pelvis IMPRESSION: 1. Extensive left lower lobe atelectasis with small bilateral pleural effusions. 2. No evidence of intra-abdominal abscess or acute pathology within the abdomen or pelvis. ASSESSMENT/PLAN: 63M with PMH of simgoid diverticulitis and COPD BIBA after being found down during a marriage and family social worker field visit. EMS found patient responsive and oriented. In the ED, patient had increased respiratory distress and AMS therefore was intubated to protect airway.In ICU, pt was on propofol gtt. Pt is observed in the ICU. Throughout the ICU course, the pt fell and was seen in mild distress with low sat. pt was put on BIPAP and ABG was drawn showing respiratory acidosis. pt ABG progressively showing improving pCO2. Acute on likely Chronic Hypoxic and Hypercapneic Respiratory Failure -2/2 COPD exacerbation. -pt on 3L NC saturating 94%, will titrate as tolerated -daily ABG -pt titrated down to medrol 40 q8 as per pulm recs -consider initiating Spiriva, symbicort -pulm recs appreciated -pt should follow up outpt with pulmonology for PFT & polysomography -Due to chronic respiratory failure and advancement of COPD along with lack of gas exchange the patient requires ventilation via non invasive ventilator. Bipap no longer is effective in treatment to effectively decrease the work of breathing and improve pulmonary status and prevent interruption or failure of respiratory support Acute metabolic encephalopathy- likely 2/2 hypoxia -pt currently alert and oriented -pt unable to remember events from fall at home -Head and c-spine CT are negative, Utox negative. SIRS- -unclear source -s/p vanc , zosyn in ED -possibly could have aspirated - CT chest above -BCx neg Severe dehydration -resolved -c/w PO intake Lactic acidosis 2/2 hypoxia vs dehydration -resolved w/ IVF RONAK with proteinuria likely 2/2 dehydration -resolved Acute on chronic polycythemia- likely 2/2 hypoxia - epo level 47.6 -s/p phlebotomized 1 unit of PRBC, pt tolerated well -Heme following Fall: -likely mechanical -pt also has chronic hip pain -PT eval -KAREN on D/C Diabetes A1C is 8.3% c/w BGM and ISS F: c/w PO intake E: Hyperkalemia and hyperphosphatemia are resolved N: pt should continue on diabetic diet DVT ppx- hep sq Dispo: continue to monitor floors with oxygen monitoring, KAREN when medically optimized Visit type - Emergency Visit Emergency Visit: No - New Patient This patient is new to me today: No - Critical Care Critical Care patient: No - Discharge Referral Referred to [facility] No ATTENDING PHYSICIAN STATEMENT I saw and evaluated the patient. I reviewed the resident's note and discussed the case with the resident. I agree with the resident's findings and plan as documented. SUBJECTIVE: OBJECTIVE: ASSESSMENT AND PLAN:
[2019-01-14] MEDS ORDERED: INSULIN (NOVOLOG) ASPART 100 UNITS/ML 10ML VIAL ONE (22:13)
[2019-01-15] MEDS: methylPREDNISolone NA SUCC 40 MG/1 ML VIAL IVPUSH SCH ×2 (02:38→10:55)
[2019-01-15] MEDS: HEPARIN NA (PORCINE) 5,000 UNITS/ML 1ML VIAL SQ SCH ×3 (05:40→21:47)
[2019-01-15] MEDS: INSULIN SLIDING SCALE (NOVOLOG) 1 VIAL SQ SCH ×4 (06:18→21:49)
[2019-01-15 06:31] LABS: ARTERIAL BLD GAS O2 SATURATION 90.8 % (95-98); ARTERIAL BLOOD GAS BASE EXCESS 12.2 meq/l (-2-2); ARTERIAL BLOOD GAS PO2 64.6 mmHg (80-105); ARTERIAL BLOOD GAS pH 7.35 (7.35-7.45)
[2019-01-15 06:39] LABS: ALLENS TEST POSITIVE; ARTERIAL BLOOD GAS PCO2 78.4 mmHg (35-45)
[2019-01-15 07:08] LABS: HEMATOCRIT 49.1 % (35.4-49); MCH 30.6 pg (25.7-33.7); MCHC 32.6 g/dl (32.0-35.9); MEAN PLT VOLUME 9.1 fl (7.5-11.1); RBC 5.22 M/mm3 (4.00-5.60); RDW 16.2 % (11.9-15.9); WHITE BLOOD COUNT 10.3 K/mm3 (4.0-10.0)
[2019-01-15 07:35] LABS: BLOOD UREA NITROGEN 19.7 mg/dL (7-18); CALCIUM 8.4 mg/dL (8.5-10.1); CREATININE 0.6 mg/dL (0.55-1.3); PHOSPHOROUS 2.7 mg/dL (2.5-4.9); POTASSIUM 4.8 mmol/L (3.5-5.1)
[2019-01-15] MEDS: ALBUTEROL SO4 2.5/IPRATROPIUM 0.5 INH SOL 3 ML VIAL.NEB. NEB SCH ×4 (07:42→20:15)
[2019-01-15 08:08] LABS: PLATELET COUNT 227 K/MM3 (134-434)
--- NOTE | 2019-01-15 10:41 | PN ---
Progress Note (short form) - Note Progress Note: PULMONARY States breathing continues to improve. Less cough and wheezing. No fevers or chills. Vital Signs Period Temp Pulse Resp BP Sys/Anna Pulse Ox Last 24 Hr 98.0 F-99.5 F 88-93 13-18 122-139/69-76 Gen: NAD at rest Heart: RRR Lung: scattered rhonchi Abd: soft, nontender Ext: + edema CBC, BMP 01/15/19 06:22 01/15/19 06:22 Active Medications Albuterol Sulfate (Ventolin 0.5% -) 1 amp NEB Q4H PRN PRN Reason: SHORT OF BREATH/WHEEZING Albuterol/Ipratropium (Duoneb -) 1 amp NEB RQID [facility] Last Admin: 01/15/19 07:42 Dose: 1 amp Folic Acid (Folic Acid -) 1 mg PO DAILY [facility] Last Admin: 01/14/19 10:36 Dose: 1 mg Heparin Sodium (Porcine) (Heparin -) 5,000 unit SQ TID [facility] Last Admin: 01/15/19 05:40 Dose: 5,000 unit Insulin Aspart (Novolog Vial Sliding Scale -) 1 vial SQ ACHS [facility]; Protocol Last Admin: 01/15/19 06:18 Dose: 2 units Methylprednisolone Sodium Succinate (Solu-Medrol -) 40 mg IVPUSH Q8H-IV [facility] Last Admin: 01/15/19 02:38 Dose: 40 mg Nicotine (Nicoderm Patch -) 21 mg TD DAILY [facility] Last Admin: 01/14/19 10:36 Dose: 21 mg Pantoprazole Sodium (Protonix -) 40 mg PO DAILY [facility] Last Admin: 01/14/19 10:36 Dose: 40 mg Thiamine HCl (Vitamin B1 -) 200 mg PO DAILY [facility] Last Admin: 01/14/19 10:36 Dose: 200 mg A/P Acute on likely Chronic Hypoxic and Hypercapneic Respiratory Failure r/o Pneumonia Acute COPD Exacerbation Acute Kidney Injury improved Polycythemia likely due to chronic hypoxia - can likely change steroids to PO prednisone 40mg daily in AM if continues to improve - inhaled bronchodilators - O2 to keep SpO2 >90% - monitor urine output, creatinine - PO as tolerated - DVT prophylaxis - when ready for discharge, check ambulatory SpO2 on room air to assess for home O2 - agree with trilogy placement due to chronic hypercapneic respiratory failure
[2019-01-15] MEDS: THIAMINE HCL 100 MG TABLET (FP) PO SCH (10:53)
[2019-01-15] MEDS: PANTOPRAZOLE 40 MG TABLET (FP) PO SCH (10:53)
[2019-01-15] MEDS: FOLIC ACID 1 MG TABLET (FP) PO SCH (10:53)
[2019-01-15] MEDS: NICOTINE 21 MG/24 HOURS TOPICAL PATCH TD SCH (10:56)
--- NOTE | 2019-01-15 12:23 | CONSULT ---
Admitting History and Physical - Primary Care Physician PCP: Chelita Faulkner - Admission History of Present Illness: 63M with pmh of simgoid diverticulitis, nondomicile, BIBA after being found down during a family welfare social work professor field visit. EMS found patient responsive and oriented. In the ED, patient had increased respiratory requirements and AMS. Intubated 01/09 to protect airway. Extubated 01/10. Selected Entries 01/13/19 01/13/19 01/13/19 02:00 06:00 08:00 Breakfast Lunch Supper Temperature 98.2 F 98.9 F 98.4 F 01/13/19 01/13/19 01/13/19 09:27 12:00 14:00 Breakfast 100% Lunch Supper Temperature 98.8 F 98.8 F 01/13/19 01/13/19 01/14/19 15:54 20:00 01:10 Breakfast Lunch 75% Supper Temperature 98.4 F 97.0 F L 01/14/19 01/14/19 01/14/19 06:00 10:00 14:00 Breakfast Lunch Supper Temperature 98.1 F 97.8 F 98.0 F 01/14/19 01/14/19 01/14/19 15:22 18:00 19:45 Breakfast 75% Lunch 75% Supper 75% Temperature 98.6 F 01/15/19 01/15/19 01/15/19 01:45 06:00 08:41 Breakfast Lunch Supper Temperature 99.3 F 98.1 F 99.5 F 01/15/19 10:43 Breakfast 100% Lunch Supper Temperature Laboratory Tests 01/12/19 01/13/19 01/14/19 05:30 05:40 06:45 WBC 11.8 H 9.5 8.9 01/15/19 06:22 WBC 10.3 H Pt states breathing improving. Less cough and wheezing. No fevers or chills. Pt c/o solids sticking, points to neck, needing to "wash down" his food. He denies ETOH abuse, but LT smoker, 2 packs daily. Never seen by ENT. History Source: Patient Limitations to Obtaining History: No Limitations - Past Medical History Pulmonary: Yes: COPD Gastrointestinal: Yes: Diverticulitis - Smoking History Smoking history: Unknown if ever smoked Have you smoked in the past 12 months: Yes Aproximately how many cigarettes per day: 40 - Alcohol/Substance Use Hx Alcohol Use: No History - Admission Reason For Visit: ACUTE KIDNEY INJURY - Diagnostics X-ray: Report Reviewed - General Mental Status: Alert and Oriented, Awake and Alert, Able to Follow Commands Attention: Intact Ability to Follow Directions: Excellent Head/Neck Control: WFL - Hearing Hearing: Functional Speech Evaluation - Communication Primary Language: FRISIAN Communication: Yes: Within Normal Limits Oral Expression Ability: Yes: No Impairment - Speech Production Able to Make Needs Known: Yes: WNL Intelligibility: Yes: WNL - Speech Characteristics Voice Loudness: Normal Voice Pitch: Yes: Normal Voice Phonatory-based Quality: Yes: Normal Speech Pattern: Normal Speech Clarity: < 100% Nasal Resonance: Normal Articulation: Yes: Precise Rate of Speech: Intact - Language/Auditory Comprehension Follows: Yes: 2 Stage Simple Commands - Language/Verbal Expression Able to Respond to Simple Queries: Yes: WNL Able to Communicate Wants and Needs: Yes: WNL Functional Communication Status: Yes: WNL - Memory/Perception FCI Memory: Yes: WNL Short Term Memory: Yes: WNL - Swallow Evaluation/Bedside Assessment Current Nutritional Intake: Regular, Thin Liquids Oral Secretions: Yes: WFL Dentition: Yes: Edentulous Facial Symmetry at Rest: Symmetrical Facial Symmetry on Retraction: Symmetrical Facial Movement: Controlled Sensation: Normal Against Resistance Opening: Normal Against Resistance Closing: Normal Pucker Lips: Normal Smile: Normal Lingual Movement: Normal, Symmetric Lingual Speed of Movement: Normal Lingual Movement Strgth Against Opposition: Normal Lingual Movement Characteristics: Normal Velopharyngeal Movement: Normal Laryngeal Movement: Able to Palpate Rate of Intake: WFL Bolus Size: WFL Labial Seal: WFL Chewing: WFL Oral Prep Time: WFL A-P Transit: WFL Pocketing: None Coughing/Throat Clear: No Change in Voice: No Recommendations - Speech Evaluation, Impression/Plan Impression: c/o Dysphagia for solids, needing to follow bolus with liquids. r/o pharyngeal vs esophageal Dysphagia. LT h/o smoking, never seen by ENT. Voic fairly euphonic. - Dysphagia Impressions/Plan Swallowing Skills: Impaired Dysphagia Impressions: Ongoing Evaluation *Silent aspiration: cannot be R/O at bedside Recommendations: ENT Consult, MBS w Esophagus
--- NOTE | 2019-01-15 12:28 | PN ---
Physical Exam: SUBJECTIVE: Patient seen and examined at bedside. pt states his breathing is improved. pt also states that he is having dysphagia to solid foods like chicken but does not have a problem with pudding. pt states he feels like the food gets stuck in his throat. he states he noticed this during this hospital course. pt also is complaining of hip pain that is chronic. OBJECTIVE: Vital Signs Period Temp Pulse Resp BP Sys/Anna Pulse Ox Last 24 Hr 98.0 F-99.5 F 88-93 13-18 122-139/69-76 GENERAL: The patient is awake, alert, and fully oriented, in no acute distress. pt on nasal cannula LUNGS: Breath sounds equal, clear to auscultation bilaterally, scattered wheezes , no accessory muscle use. HEART: Regular rate and rhythm, S1, S2 without murmur, rub or gallop. ABDOMEN: Soft, nontender, nondistended, normoactive bowel sounds, no guarding EXTREMITIES: 2+ pulses, warm, well-perfused, no edema. NEUROLOGICAL: Cranial nerves II through XII grossly intact. Normal speech, gait not observed. PSYCH: Normal mood, normal affect. SKIN: Warm, dry, normal turgor, no rashes or lesions noted CBC, BMP 01/15/19 06:22 01/15/19 06:22 Current Medications Albuterol Sulfate (Ventolin 0.5% -) 1 amp NEB Q4H PRN PRN Reason: SHORT OF BREATH/WHEEZING Albuterol/Ipratropium (Duoneb -) 1 amp NEB RQID [facility] Last Admin: 01/15/19 12:09 Dose: 1 amp Folic Acid (Folic Acid -) 1 mg PO DAILY [facility] Last Admin: 01/15/19 10:53 Dose: 1 mg Heparin Sodium (Porcine) (Heparin -) 5,000 unit SQ TID [facility] Last Admin: 01/15/19 05:40 Dose: 5,000 unit Insulin Aspart (Novolog Vial Sliding Scale -) 1 vial SQ ACHS [facility]; Protocol Last Admin: 01/15/19 06:18 Dose: 2 units Methylprednisolone Sodium Succinate (Solu-Medrol -) 40 mg IVPUSH Q8H-IV [facility] Stop: 01/15/19 23:59 Nicotine (Nicoderm Patch -) 21 mg TD DAILY [facility] Last Admin: 01/15/19 10:56 Dose: 21 mg Pantoprazole Sodium (Protonix -) 40 mg PO DAILY [facility] Last Admin: 01/15/19 10:53 Dose: 40 mg Prednisone (Deltasone -) 40 mg PO DAILY [facility] Thiamine HCl (Vitamin B1 -) 200 mg PO DAILY [facility] Last Admin: 01/15/19 10:53 Dose: [address] Cervical Spine IMPRESSION: Mild degenerative arthritis with no fracture or acute pathology. CT Head IMPRESSION: No evidence of acute intracranial pathology. CT Abdomen/ Pelvis IMPRESSION: 1. Extensive left lower lobe atelectasis with small bilateral pleural effusions. 2. No evidence of intra-abdominal abscess or acute pathology within the abdomen or pelvis. ASSESSMENT/PLAN: 63M with PMH of simgoid diverticulitis and COPD BIBA after being found down during a social staff worker field visit. EMS found patient responsive and oriented. In the ED, patient had increased respiratory distress and AMS therefore was intubated to protect airway.In ICU, pt was on propofol gtt. Pt is observed in the ICU. Throughout the ICU course, the pt fell and was seen in mild distress with low sat. pt was put on BIPAP and ABG was drawn showing respiratory acidosis. pt ABG progressively showing improving pCO2. Acute on likely Chronic Hypoxic and Hypercapneic Respiratory Failure -2/2 COPD exacerbation. -pt on 3L NC saturating 94%, will titrate as tolerated -daily ABG, pt retaining CO2 -pt will switch to po prednisone 40 mg daily starting tomorrow am as per pulm recs -consider initiating Spiriva, symbicort -pulm recs appreciated -pt should follow up outpt with pulmonology for PFT & polysomography -Due to chronic respiratory failure and advancement of COPD along with lack of gas exchange the patient requires ventilation via non invasive ventilator. Bipap no longer is effective in treatment to effectively decrease the work of breathing and improve pulmonary status and prevent interruption or failure of respiratory support Acute metabolic encephalopathy- likely 2/2 hypoxia -pt currently alert and oriented -pt unable to remember events from fall at home -Head and c-spine CT are negative, Utox negative. SIRS- -unclear source -s/p vanc , zosyn in ED -possibly could have aspirated - CT chest above -BCx neg Severe dehydration -resolved -c/w PO intake Lactic acidosis 2/2 hypoxia vs dehydration -resolved w/ IVF RONAK with proteinuria likely 2/2 dehydration -resolved Acute on chronic polycythemia- likely 2/2 hypoxia - epo level 47.6 -s/p phlebotomized 1 unit of PRBC, pt tolerated well -Heme following Fall: -likely mechanical -pt also has chronic hip pain -PT eval -KAREN on D/C Diabetes A1C is 8.3% c/w BGM and ISS Dysphagia -modified barium swallow performed and shows normal swallow -pt can follow up outpt w/ otolaryngology to r/o laryngopharyngeal reflux B/L hip pain -B/L XRAY negative F: c/w PO intake E: Hyperkalemia and hyperphosphatemia are resolved N: pt should continue on diabetic diet DVT ppx- hep sq Dispo: continue to monitor floors with oxygen monitoring, KAREN when medically optimized Visit type - Emergency Visit Emergency Visit: No - New Patient This patient is new to me today: No - Critical Care Critical Care patient: No - Discharge Referral Referred to [facility] Med P.C[facility] No ATTENDING PHYSICIAN STATEMENT I saw and evaluated the patient. I reviewed the resident's note and discussed the case with the resident. I agree with the resident's findings and plan as documented. SUBJECTIVE: OBJECTIVE: ASSESSMENT AND PLAN:
--- NOTE | 2019-01-15 13:39 | PN ---
Progress Note, Physician History of Present Illness: stable no new issues - Current Medication List Current Medications: Active Medications Albuterol Sulfate (Ventolin 0.5% -) 1 amp NEB Q4H PRN PRN Reason: SHORT OF BREATH/WHEEZING Albuterol/Ipratropium (Duoneb -) 1 amp NEB RQID [facility] Last Admin: 01/15/19 12:09 Dose: 1 amp Folic Acid (Folic Acid -) 1 mg PO DAILY [facility] Last Admin: 01/15/19 10:53 Dose: 1 mg Heparin Sodium (Porcine) (Heparin -) 5,000 unit SQ TID [facility] Last Admin: 01/15/19 05:40 Dose: 5,000 unit Insulin Aspart (Novolog Vial Sliding Scale -) 1 vial SQ ACHS [facility]; Protocol Last Admin: 01/15/19 12:53 Dose: 4 units Methylprednisolone Sodium Succinate (Solu-Medrol -) 40 mg IVPUSH Q8H-IV [facility] Stop: 01/15/19 23:59 Nicotine (Nicoderm Patch -) 21 mg TD DAILY [facility] Last Admin: 01/15/19 10:56 Dose: 21 mg Pantoprazole Sodium (Protonix -) 40 mg PO DAILY [facility] Last Admin: 01/15/19 10:53 Dose: 40 mg Prednisone (Deltasone -) 40 mg PO DAILY [facility] Thiamine HCl (Vitamin B1 -) 200 mg PO DAILY [facility] Last Admin: 01/15/19 10:53 Dose: 200 mg - Objective Vital Signs: Vital Signs Temperature 99.5 F 01/15/19 08:41 Pulse Rate 93 H 01/15/19 08:41 Respiratory Rate 13 01/15/19 08:41 Blood Pressure 125/69 01/15/19 08:41 O2 Sat by Pulse Oximetry (%) 92 L 01/13/19 22:00 Constitutional: Yes: No Distress, Calm Cardiovascular: Yes: Regular Rate and Rhythm Respiratory: Yes: Regular, Poor Air Entry (bases) Gastrointestinal: Yes: Normal Bowel Sounds, Soft Musculoskeletal: Yes: WNL Extremities: Yes: WNL Neurological: Yes: Alert, Oriented Psychiatric: Yes: Alert, Oriented Labs: CBC, BMP 01/15/19 06:22 01/15/19 06:22 INR, PTT INR 0.98 (0.83-1.09) 01/09/19 17:00 Assessment/Plan 63 year old male with a history of COPD and diverticulitis was brought to the ED by ambulance after he was found down in his home and admitted for acute on chronic hypoxic hypercapnic respiratory failure ams resp failure ac kidney njury tremors polycythemia lactic acidosis leukocytosis plan continue current mgmt resp support
--- NOTE | 2019-01-15 14:21 | PN ---
Progress Note, Physician History of Present Illness: Pt seen and examined at bedside. He is awake and alert. He denies shortness of breath. - Current Medication List Current Medications: Active Medications Albuterol Sulfate (Ventolin 0.5% -) 1 amp NEB Q4H PRN PRN Reason: SHORT OF BREATH/WHEEZING Albuterol/Ipratropium (Duoneb -) 1 amp NEB RQID [facility] Last Admin: 01/15/19 12:09 Dose: 1 amp Folic Acid (Folic Acid -) 1 mg PO DAILY [facility] Last Admin: 01/15/19 10:53 Dose: 1 mg Heparin Sodium (Porcine) (Heparin -) 5,000 unit SQ TID [facility] Last Admin: 01/15/19 05:40 Dose: 5,000 unit Insulin Aspart (Novolog Vial Sliding Scale -) 1 vial SQ ACHS [facility]; Protocol Last Admin: 01/15/19 12:53 Dose: 4 units Methylprednisolone Sodium Succinate (Solu-Medrol -) 40 mg IVPUSH Q8H-IV [facility] Stop: 01/15/19 23:59 Nicotine (Nicoderm Patch -) 21 mg TD DAILY [facility] Last Admin: 01/15/19 10:56 Dose: 21 mg Pantoprazole Sodium (Protonix -) 40 mg PO DAILY [facility] Last Admin: 01/15/19 10:53 Dose: 40 mg Prednisone (Deltasone -) 40 mg PO DAILY [facility] Thiamine HCl (Vitamin B1 -) 200 mg PO DAILY [facility] Last Admin: 01/15/19 10:53 Dose: 200 mg - Objective Vital Signs: Vital Signs Temperature 99.5 F 01/15/19 08:41 Pulse Rate 93 H 01/15/19 08:41 Respiratory Rate 13 01/15/19 09:00 Blood Pressure 125/69 01/15/19 08:41 O2 Sat by Pulse Oximetry (%) 92 L 01/13/19 22:00 Constitutional: Yes: Calm Eyes: Yes: Conjunctiva Clear HENT: Yes: Atraumatic Neck: Yes: Supple Cardiovascular: Yes: S1, S2 Respiratory: Yes: CTA Bilaterally Gastrointestinal: Yes: Normal Bowel Sounds, Soft Genitourinary: Yes: WNL Musculoskeletal: Yes: WNL Edema: No Neurological: Yes: Oriented Psychiatric: Yes: Oriented Labs: CBC, BMP 01/15/19 06:22 01/15/19 06:22 INR, PTT INR 0.98 (0.83-1.09) 01/09/19 17:00 Assessment/Plan Current Medications Generic Name Dose Route Start Last Admin Trade Name Freq PRN Reason Stop Dose Admin Albuterol Sulfate 1 amp 01/12/19 10:13 Ventolin 0.5% - NEB Q4H PRN SHORT OF BREATH/WHEEZING Albuterol/Ipratropium 1 amp 01/12/19 12:00 01/15/19 12:09 Duoneb - NEB 1 amp RQID [facility] Administration Folic Acid 1 mg 01/11/19 10:00 01/15/19 10:53 Folic Acid - PO 1 mg DAILY [facility] Administration Heparin Sodium (Porcine) 5,000 unit 01/10/19 06:00 01/15/19 05:40 Heparin - SQ 5,000 unit TID [facility] Administration Insulin Aspart 1 vial 01/10/19 22:00 01/15/19 12:53 Novolog Vial Sliding Scale - SQ 4 units ACHS [facility] Administration Protocol Methylprednisolone Sodium Succinate 40 mg 01/15/19 18:00 Solu-Medrol - IVPUSH 01/15/19 23:59 Q8H-IV [facility] Nicotine 21 mg 01/11/19 12:45 01/15/19 10:56 Nicoderm Patch - TD 21 mg DAILY [facility] Administration Pantoprazole Sodium 40 mg 01/11/19 10:00 01/15/19 10:53 Protonix - PO 40 mg DAILY [facility] Administration Prednisone 40 mg 01/16/19 10:00 Deltasone - PO DAILY [facility] Thiamine HCl 200 mg 01/11/19 10:00 01/15/19 10:53 Vitamin B1 - PO 200 mg DAILY [facility] Administration Impression 1. RONAK 2. dehydration 3. polycythemia 4. copd 5. resp failure requiring intubation 6. lactic acidosis 7. copd 8. hx diverticulitis Plan - bun improving - renal function stable - steroids can contribute to elevated bun, taper as tolerated - potassium improved - avoid nephrotoxins - will follow PRN
--- NOTE | 2019-01-15 15:08 | PN ---
Teaching Attending Note Name of Resident: Princess Khalil ATTENDING PHYSICIAN STATEMENT I saw and evaluated the patient. I reviewed the resident's note and discussed the case with the resident. I agree with the resident's findings and plan as documented. SUBJECTIVE: Complains of difficulty swallowing since intubation/extubation. Breathing improved. No stridor. Clearing secretions OBJECTIVE: Afebrile, Hemodynamically Stable. Last Vital Signs Temp Pulse Resp BP Pulse Ox 99.5 F 93 H 13 125/69 92 L 01/15/19 08:41 01/15/19 08:41 01/15/19 09:00 01/15/19 08:41 01/13/19 22:00 HEENT - Atraumatic, Normocephalic, no pharyngeal erythema/exudate Heart - S1, S2, Lungs - reduced air entry bilaterally Abdomen - Soft, non-tender. Bowel Sounds normal. Extremities - No calf tenderness. Laboratory Results - last 24 hr 01/14/19 01/14/19 01/15/19 16:42 22:24 06:14 WBC RBC Hgb Hct MCV MCH MCHC RDW Plt Count MPV Puncture Site ABG pH ABG pCO2 at Pt Temp ABG pO2 at Pt Temp ABG HCO3 ABG O2 Sat (Measured) ABG O2 Content ABG Base Excess Chaz Test O2 Delivery Device Oxygen Flow Rate Sodium Potassium Chloride Carbon Dioxide Anion Gap BUN Creatinine Est GFR (CKD-EPI)AfAm Est GFR (CKD-EPI)NonAf POC Glucometer 301 235 227 Random Glucose Calcium Phosphorus Magnesium 01/15/19 01/15/19 01/15/19 06:20 06:22 06:22 WBC 10.3 H RBC 5.22 Hgb 16.0 Hct 49.1 H MCV 94.0 MCH 30.6 MCHC 32.6 RDW 16.2 H Plt Count 227 MPV 9.1 Puncture Site Left radial ABG pH 7.35 ABG pCO2 at Pt Temp 78.4 H* ABG pO2 at Pt Temp 64.6 L ABG HCO3 42.2 H ABG O2 Sat (Measured) 90.8 L ABG O2 Content 20.6 ABG Base Excess 12.2 H Chaz Test Positive O2 Delivery Device Nasal cannual Oxygen Flow Rate 3l Sodium 137 Potassium 4.8 Chloride 91 L Carbon Dioxide 43 H Anion Gap 3 L BUN 19.7 H Creatinine 0.6 Est GFR (CKD-EPI)AfAm 124.89 Est GFR (CKD-EPI)NonAf 107.76 POC Glucometer Random Glucose 211 H Calcium 8.4 L Phosphorus 2.7 Magnesium 2.0 01/15/19 12:04 WBC RBC Hgb Hct MCV MCH MCHC RDW Plt Count MPV Puncture Site ABG pH ABG pCO2 at Pt Temp ABG pO2 at Pt Temp ABG HCO3 ABG O2 Sat (Measured) ABG O2 Content ABG Base Excess Chaz Test O2 Delivery Device Oxygen Flow Rate Sodium Potassium Chloride Carbon Dioxide Anion Gap BUN Creatinine Est GFR (CKD-EPI)AfAm Est GFR (CKD-EPI)NonAf POC Glucometer 288 Random Glucose Calcium Phosphorus Magnesium Current Medications Generic Name Dose Route Start Last Admin Trade Name Freq PRN Reason Stop Dose Admin Albuterol Sulfate 1 amp 01/12/19 10:13 Ventolin 0.5% - NEB Q4H PRN SHORT OF BREATH/WHEEZING Albuterol/Ipratropium 1 amp 01/12/19 12:00 01/15/19 12:09 Duoneb - NEB 1 amp RQID [facility] Administration Folic Acid 1 mg 01/11/19 10:00 01/15/19 10:53 Folic Acid - PO 1 mg DAILY [facility] Administration Heparin Sodium (Porcine) 5,000 unit 01/10/19 06:00 01/15/19 14:44 Heparin - SQ 5,000 unit TID [facility] Administration Insulin Aspart 1 vial 01/10/19 22:00 01/15/19 12:53 Novolog Vial Sliding Scale - SQ 4 units ACHS [facility] Administration Protocol Methylprednisolone Sodium Succinate 40 mg 01/15/19 18:00 Solu-Medrol - IVPUSH 01/15/19 23:59 Q8H-IV [facility] Nicotine 21 mg 01/11/19 12:45 01/15/19 10:56 Nicoderm Patch - TD 21 mg DAILY [facility] Administration Pantoprazole Sodium 40 mg 01/11/19 10:00 01/15/19 10:53 Protonix - PO 40 mg DAILY [facility] Administration Prednisone 40 mg 01/16/19 10:00 Deltasone - PO DAILY [facility] Thiamine HCl 200 mg 01/11/19 10:00 01/15/19 10:53 Vitamin B1 - PO 200 mg DAILY [facility] Administration ASSESSMENT AND PLAN: 63 year old male with history of Diverticulosis, brought to ED after being found on the floor of his home. He was intubated in the ED for airway protection and treated for COPD exacerbation. 1. Acute Hypoxic and Hypercapneic Respiratory Failure secondary to COPD Extubated. SpO2 92% on 2L via NC [place] Chronic hypercapnea - Trial of BiPAP tonight. Likely candidate for Trilogy on discharge. Continue Solumedrol - for transition to oral prednisone tomorrow. 2. Acute Metabolic Encephalopathy secondary to Hypercapnea. Trial of BiPAP tonight and likely Trilogy on discharge. Will need PFTs and PSG as outpatient. 3. RONAK sec to dehydration - resolved. 4. Polycythemia - likely sec to Chronic Hypoxia due to COPD - s/p phlebotomy 1 unit blood, for removal of another unit as per Hematology. 5. Hyperkalemia/Hyperphosphatemia - resolved. 6. Falls/Ambulatory dysfunction - for PT eval. 7. Dysphagia - reports difficulty swallowing s/p extubation - clearing secretions, no stridor - Swallow assessment requested. Issue discussed with Pulm given onset post-extubation. MBS ordered. DVT Px - Heparin SQ GI PX -Protonix
[2019-01-15 16:32] VITALS: BMI 27.1
[2019-01-15] MEDS ORDERED: INSULIN (NOVOLOG) ASPART 100 UNITS/ML 10ML VIAL ONE (17:43)
[2019-01-15] MEDS ORDERED: methylPREDNISolone NA SUCC 40 MG/1 ML VIAL IVPUSH SCH (18:00)
[2019-01-16] MEDS: HEPARIN NA (PORCINE) 5,000 UNITS/ML 1ML VIAL SQ SCH ×3 (06:44→21:38)
[2019-01-16] MEDS: INSULIN SLIDING SCALE (NOVOLOG) 1 VIAL SQ SCH ×4 (06:44→21:40)
[2019-01-16 07:06] LABS: ARTERIAL BLD GAS O2 SATURATION 89.7 % (95-98); ARTERIAL BLOOD GAS BASE EXCESS 12.2 meq/l (-2-2); ARTERIAL BLOOD GAS PO2 61.1 mmHg (80-105); ARTERIAL BLOOD GAS pH 7.39 (7.35-7.45)
[2019-01-16 07:07] LABS: HEMATOCRIT 51.6 % (35.4-49); MCH 30.5 pg (25.7-33.7); MCHC 32.9 g/dl (32.0-35.9); MEAN CELL VOLUME 92.8 fl (80-96); RBC 5.56 M/mm3 (4.00-5.60); RDW 16.3 % (11.9-15.9); WHITE BLOOD COUNT 10.5 K/mm3 (4.0-10.0)
[2019-01-16 07:11] LABS: BLOOD UREA NITROGEN 15.5 mg/dL (7-18); CALCIUM 8.8 mg/dL (8.5-10.1); CREATININE 0.6 mg/dL (0.55-1.3); MAGNESIUM 2.1 mg/dL (1.8-2.4); PHOSPHOROUS 2.9 mg/dL (2.5-4.9); POTASSIUM 4.3 mmol/L (3.5-5.1)
[2019-01-16 07:15] LABS: ALLENS TEST POSITIVE
[2019-01-16 07:16] LABS: ARTERIAL BLOOD GAS PCO2 70.2 mmHg (35-45)
[2019-01-16 07:38] LABS: PLATELET COUNT 233 K/MM3 (134-434)
[2019-01-16] MEDS: ALBUTEROL SO4 2.5/IPRATROPIUM 0.5 INH SOL 3 ML VIAL.NEB. NEB SCH ×4 (08:00→20:45)
[2019-01-16] MEDS: NICOTINE 21 MG/24 HOURS TOPICAL PATCH TD SCH (09:27)
[2019-01-16] MEDS: FOLIC ACID 1 MG TABLET (FP) PO SCH (09:27)
[2019-01-16] MEDS: predniSONE 20 MG TABLET (UD) PO SCH (09:28)
[2019-01-16] MEDS: PANTOPRAZOLE 40 MG TABLET (FP) PO SCH (09:28)
[2019-01-16] MEDS: THIAMINE HCL 100 MG TABLET (FP) PO SCH (09:28)
[2019-01-16] MEDS ORDERED: INSULIN (NOVOLOG) ASPART 100 UNITS/ML 10ML VIAL ONE ×2 (12:38→21:39)
--- NOTE | 2019-01-16 12:46 | PN ---
Progress Note, Physician History of Present Illness: Pt seen and examined at bedside. He is awake and alert. He was refusing to use the bipap but he now agrees to use it. - Current Medication List Current Medications: Active Medications Albuterol Sulfate (Ventolin 0.5% -) 1 amp NEB Q4H PRN PRN Reason: SHORT OF BREATH/WHEEZING Albuterol/Ipratropium (Duoneb -) 1 amp NEB RQID [facility] Last Admin: 01/16/19 12:00 Dose: 1 amp Folic Acid (Folic Acid -) 1 mg PO DAILY [facility] Last Admin: 01/16/19 09:27 Dose: 1 mg Heparin Sodium (Porcine) (Heparin -) 5,000 unit SQ TID [facility] Last Admin: 01/16/19 06:44 Dose: 5,000 unit Insulin Aspart (Novolog Vial Sliding Scale -) 1 vial SQ ACHS [facility]; Protocol Last Admin: 01/16/19 12:41 Dose: 2 units Nicotine (Nicoderm Patch -) 21 mg TD DAILY [facility] Last Admin: 01/16/19 09:27 Dose: 21 mg Pantoprazole Sodium (Protonix -) 40 mg PO DAILY [facility] Last Admin: 01/16/19 09:28 Dose: 40 mg Prednisone (Deltasone -) 40 mg PO DAILY [facility] Last Admin: 01/16/19 09:28 Dose: 40 mg Thiamine HCl (Vitamin B1 -) 200 mg PO DAILY [facility] Last Admin: 01/16/19 09:28 Dose: 200 mg - Objective Vital Signs: Vital Signs Temperature 98.9 F 01/16/19 02:00 Pulse Rate 87 01/16/19 02:00 Respiratory Rate 20 01/16/19 02:00 Blood Pressure 145/87 01/16/19 02:00 O2 Sat by Pulse Oximetry (%) 94 L 01/15/19 21:00 Constitutional: Yes: Calm Eyes: Yes: Conjunctiva Clear HENT: Yes: Atraumatic Neck: Yes: Supple Cardiovascular: Yes: S1, S2 Respiratory: Yes: On Nasal O2 Gastrointestinal: Yes: Soft Genitourinary: Yes: WNL Musculoskeletal: Yes: WNL Edema: No Neurological: Yes: Oriented Psychiatric: Yes: Oriented Labs: CBC, BMP 01/16/19 06:20 01/16/19 06:20 INR, PTT INR 0.98 (0.83-1.09) 01/09/19 17:00 Assessment/Plan Current Medications Generic Name Dose Route Start Last Admin Trade Name [place] PRN Reason Stop Dose Admin Albuterol Sulfate 1 amp 01/12/19 10:13 Ventolin 0.5% - NEB Q4H PRN SHORT OF BREATH/WHEEZING Albuterol/Ipratropium 1 amp 01/12/19 12:00 01/16/19 12:00 Duoneb - NEB 1 amp RQID [facility] Administration Folic Acid 1 mg 01/11/19 10:00 01/16/19 09:27 Folic Acid - PO 1 mg DAILY [facility] Administration Heparin Sodium (Porcine) 5,000 unit 01/10/19 06:00 01/16/19 06:44 Heparin - SQ 5,000 unit TID [facility] Administration Insulin Aspart 1 vial 01/10/19 22:00 01/16/19 12:41 Novolog Vial Sliding Scale - SQ 2 units ACHS [facility] Administration Protocol Nicotine 21 mg 01/11/19 12:45 01/16/19 09:27 Nicoderm Patch - TD 21 mg DAILY [facility] Administration Pantoprazole Sodium 40 mg 01/11/19 10:00 01/16/19 09:28 Protonix - PO 40 mg DAILY [facility] Administration Prednisone 40 mg 01/16/19 10:00 01/16/19 09:28 Deltasone - PO 40 mg DAILY [facility] Administration Thiamine HCl 200 mg 01/11/19 10:00 01/16/19 09:28 Vitamin B1 - PO 200 mg DAILY [facility] Administration Impression 1. RONAK 2. dehydration 3. polycythemia 4. copd 5. resp failure requiring intubation 6. lactic acidosis 7. hx diverticulitis Plan - renal function stable - bipap for c02 retention - met alk is a compensation for resp acidosis - steroid taper as tolerated - avoid nephrotoxins - will follow PRN
--- NOTE | 2019-01-16 13:51 | PN ---
Progress Note, Physician History of Present Illness: stable no new issues - Current Medication List Current Medications: Active Medications Albuterol Sulfate (Ventolin 0.5% -) 1 amp NEB Q4H PRN PRN Reason: SHORT OF BREATH/WHEEZING Albuterol/Ipratropium (Duoneb -) 1 amp NEB RQID [facility] Last Admin: 01/16/19 12:00 Dose: 1 amp Folic Acid (Folic Acid -) 1 mg PO DAILY [facility] Last Admin: 01/16/19 09:27 Dose: 1 mg Heparin Sodium (Porcine) (Heparin -) 5,000 unit SQ TID [facility] Last Admin: 01/16/19 06:44 Dose: 5,000 unit Insulin Aspart (Novolog Vial Sliding Scale -) 1 vial SQ ACHS [facility]; Protocol Last Admin: 01/16/19 12:41 Dose: 2 units Nicotine (Nicoderm Patch -) 21 mg TD DAILY [facility] Last Admin: 01/16/19 09:27 Dose: 21 mg Pantoprazole Sodium (Protonix -) 40 mg PO DAILY [facility] Last Admin: 01/16/19 09:28 Dose: 40 mg Prednisone (Deltasone -) 40 mg PO DAILY [facility] Last Admin: 01/16/19 09:28 Dose: 40 mg Thiamine HCl (Vitamin B1 -) 200 mg PO DAILY [facility] Last Admin: 01/16/19 09:28 Dose: 200 mg - Objective Vital Signs: Vital Signs Temperature 98.9 F 01/16/19 02:00 Pulse Rate 87 01/16/19 02:00 Respiratory Rate 20 01/16/19 02:00 Blood Pressure 145/87 01/16/19 02:00 O2 Sat by Pulse Oximetry (%) 94 L 01/15/19 21:00 Constitutional: Yes: No Distress, Calm Cardiovascular: Yes: S1, S2 Respiratory: Yes: Regular, On Nasal O2 Gastrointestinal: Yes: Normal Bowel Sounds, Soft Musculoskeletal: Yes: WNL Extremities: Yes: WNL Neurological: Yes: Alert, Oriented Psychiatric: Yes: Alert, Oriented Labs: CBC, BMP 01/16/19 06:20 01/16/19 06:20 INR, PTT INR 0.98 (0.83-1.09) 01/09/19 17:00 Assessment/Plan 63 year old male with a history of COPD and diverticulitis was brought to the ED by ambulance after he was found down in his home and admitted for acute on chronic hypoxic hypercapnic respiratory failure ams resp failure ac kidney njury tremors polycythemia lactic acidosis leukocytosis plan continue current mgmt resp support
--- NOTE | 2019-01-16 14:34 | PN ---
Progress Note (short form) - Note Progress Note: PULMONARY States breathing continues to improve. Less cough and wheezing. Ambulated with PT. Vital Signs Period Temp Pulse Resp BP Sys/Anna Pulse Ox Last 24 Hr 97.1 F-99.9 F 87-103 18-20 129-145/67-87 91-94 Gen: NAD at rest Heart: RRR Lung: decreased breath sounds at the bases Abd: soft, nontender Ext: + edema CBC, BMP 01/16/19 06:20 01/16/19 06:20 Active Medications Albuterol Sulfate (Ventolin 0.5% -) 1 amp NEB Q4H PRN PRN Reason: SHORT OF BREATH/WHEEZING Albuterol/Ipratropium (Duoneb -) 1 amp NEB RQID [facility] Last Admin: 01/16/19 12:00 Dose: 1 amp Folic Acid (Folic Acid -) 1 mg PO DAILY [facility] Last Admin: 01/16/19 09:27 Dose: 1 mg Heparin Sodium (Porcine) (Heparin -) 5,000 unit SQ TID [facility] Last Admin: 01/16/19 06:44 Dose: 5,000 unit Insulin Aspart (Novolog Vial Sliding Scale -) 1 vial SQ ACHS [facility]; Protocol Last Admin: 01/16/19 12:41 Dose: 2 units Nicotine (Nicoderm Patch -) 21 mg TD DAILY [facility] Last Admin: 01/16/19 09:27 Dose: 21 mg Pantoprazole Sodium (Protonix -) 40 mg PO DAILY [facility] Last Admin: 01/16/19 09:28 Dose: 40 mg Prednisone (Deltasone -) 40 mg PO DAILY [facility] Last Admin: 01/16/19 09:28 Dose: 40 mg Thiamine HCl (Vitamin B1 -) 200 mg PO DAILY [facility] Last Admin: 01/16/19 09:28 Dose: 200 mg A/P Acute on likely Chronic Hypoxic and Hypercapneic Respiratory Failure r/o Pneumonia Acute COPD Exacerbation Acute Kidney Injury improved Polycythemia likely due to chronic hypoxia - prednisone taper - inhaled bronchodilators - O2 to keep SpO2 >90% - monitor urine output, creatinine - PO as tolerated - DVT prophylaxis - when ready for discharge, check ambulatory SpO2 on room air to assess for home O2 - agree with trilogy placement due to chronic hypercapneic respiratory failure
--- NOTE | 2019-01-16 17:07 | PN ---
Physical Exam: SUBJECTIVE: Patient seen and examined OBJECTIVE: Vital Signs Period Temp Pulse Resp BP Sys/Anna Pulse Ox Last 24 Hr 97.1 F-99.9 F 86-103 18-20 128-145/64-87 91-94 GENERAL: The patient is awake, alert, and fully oriented, in no acute distress. HEAD: Normal with no signs of trauma. EYES: PERRL, extraocular movements intact, sclera anicteric, conjunctiva clear. No ptosis. ENT: Ears normal, nares patent, oropharynx clear without exudates, moist mucous membranes. NECK: Trachea midline, full range of motion, supple. LUNGS: Breath sounds equal, clear to auscultation bilaterally, no wheezes, no crackles, no accessory muscle use. HEART: Regular rate and rhythm, S1, S2 without murmur, rub or gallop. ABDOMEN: Soft, nontender, nondistended, normoactive bowel sounds, no guarding, no rebound, no hepatosplenomegaly, no masses. EXTREMITIES: 2+ pulses, warm, well-perfused, no edema. NEUROLOGICAL: Cranial nerves II through XII grossly intact. Normal speech, gait not observed. PSYCH: Normal mood, normal affect. SKIN: Warm, dry, normal turgor, no rashes or lesions noted Laboratory Results - last 24 hr 01/15/19 01/16/19 01/16/19 21:47 05:51 06:15 WBC RBC Hgb Hct MCV MCH MCHC RDW Plt Count MPV Puncture Site Right radial ABG pH 7.39 ABG pCO2 at Pt Temp 70.2 H* ABG pO2 at Pt Temp 61.1 L ABG HCO3 41.2 H ABG O2 Sat (Measured) 89.7 L ABG O2 Content 21.3 ABG Base Excess 12.2 H Chaz Test Positive O2 Delivery Device N/c Oxygen Flow Rate 3l Sodium Potassium Chloride Carbon Dioxide Anion Gap BUN Creatinine Est GFR (CKD-EPI)AfAm Est GFR (CKD-EPI)NonAf POC Glucometer 245 144 Random Glucose Calcium Phosphorus Magnesium 01/16/19 01/16/19 01/16/19 06:20 06:20 11:13 WBC 10.5 H RBC 5.56 Hgb 17.0 H Hct 51.6 H MCV 92.8 MCH 30.5 MCHC 32.9 RDW 16.3 H Plt Count 233 MPV 9.0 Puncture Site ABG pH ABG pCO2 at Pt Temp ABG pO2 at Pt Temp ABG HCO3 ABG O2 Sat (Measured) ABG O2 Content ABG Base Excess Chaz Test O2 Delivery Device Oxygen Flow Rate Sodium 136 Potassium 4.3 Chloride 92 L Carbon Dioxide 44 H Anion Gap 0 L BUN 15.5 Creatinine 0.6 Est GFR (CKD-EPI)AfAm 124.89 Est GFR (CKD-EPI)NonAf 107.76 POC Glucometer 208 Random Glucose 146 H Calcium 8.8 Phosphorus 2.9 Magnesium 2.1 Active Medications Generic Name Dose Route Start Last Admin Trade Name Freq PRN Reason Stop Dose Admin Albuterol Sulfate 1 amp 01/12/19 10:13 Ventolin 0.5% - NEB Q4H PRN SHORT OF BREATH/WHEEZING Albuterol/Ipratropium 1 amp 01/12/19 12:00 01/16/19 12:00 Duoneb - NEB 1 amp RQID [facility] Administration Folic Acid 1 mg 01/11/19 10:00 01/16/19 09:27 Folic Acid - PO 1 mg DAILY [facility] Administration Heparin Sodium (Porcine) 5,000 unit 01/10/19 06:00 01/16/19 14:41 Heparin - SQ 5,000 unit TID [facility] Administration Insulin Aspart 1 vial 01/10/19 22:00 01/16/19 12:41 Novolog Vial Sliding Scale - SQ 2 units ACHS [facility] Administration Protocol Nicotine 21 mg 01/11/19 12:45 01/16/19 09:27 Nicoderm Patch - TD 21 mg DAILY [facility] Administration Pantoprazole Sodium 40 mg 01/11/19 10:00 01/16/19 09:28 Protonix - PO 40 mg DAILY [facility] Administration Prednisone 40 mg 01/16/19 10:00 01/16/19 09:28 Deltasone - PO 40 mg DAILY [facility] Administration Thiamine HCl 200 mg 01/11/19 10:00 01/16/19 09:28 Vitamin B1 - PO 200 mg DAILY [facility] Administration ASSESSMENT/PLAN: CT Cervical Spine IMPRESSION: Mild degenerative arthritis with no fracture or acute pathology. CT Head IMPRESSION: No evidence of acute intracranial pathology. CT Abdomen/ Pelvis IMPRESSION: 1. Extensive left lower lobe atelectasis with small bilateral pleural effusions. 2. No evidence of intra-abdominal abscess or acute pathology within the abdomen or pelvis. ASSESSMENT/PLAN: 63M with PMH of simgoid diverticulitis and COPD BIBA after being found down during a social services coordinator field visit. EMS found patient responsive and oriented. In the ED, patient had increased respiratory distress and AMS therefore was intubated to protect airway.In ICU, pt was on propofol gtt. Pt is observed in the ICU. Throughout the ICU course, the pt fell and was seen in mild distress with low sat. pt was put on BIPAP and ABG was drawn showing respiratory acidosis. pt ABG progressively showing improving pCO2. Acute on likely Chronic Hypoxic and Hypercapneic Respiratory Failure -2/2 COPD exacerbation. -pt on 3L NC saturating 94%, will titrate as tolerated -daily ABG, pt retaining CO2 -pt advanced to po prednisone 40 mg and will begin taper -consider initiating Spiriva, symbicort -pulm recs appreciated -pt should follow up outpt with pulmonology for PFT & polysomography -Due to chronic respiratory failure and advancement of COPD along with lack of gas exchange the patient requires ventilation via non invasive ventilator. Bipap no longer is effective in treatment to effectively decrease the work of breathing and improve pulmonary status and prevent interruption or failure of respiratory support Acute metabolic encephalopathy- likely 2/2 hypoxia -pt currently alert and oriented -pt unable to remember events from fall at home -Head and c-spine CT are negative, Utox negative. SIRS- -unclear source -s/p vanc , zosyn in ED -possibly could have aspirated - CT chest above -BCx neg Severe dehydration -resolved -c/w PO intake Lactic acidosis 2/2 hypoxia vs dehydration -resolved w/ IVF RONAK with proteinuria likely 2/2 dehydration -resolved Acute on chronic polycythemia- likely 2/2 hypoxia - epo level 47.6 -s/p phlebotomized 1 unit of PRBC, pt tolerated well -Heme following -pt recommended to get phlebotomized again. Fall: -likely mechanical -pt also has chronic hip pain -PT eval -KAREN on D/C Diabetes A1C is 8.3% c/w BGM and ISS Dysphagia -modified barium swallow performed and shows normal swallow -pt can follow up outpt w/ otolaryngology to r/o laryngopharyngeal reflux B/L hip pain -B/L XRAY negative F: c/w PO intake E: Hyperkalemia and hyperphosphatemia are resolved N: pt should continue on diabetic diet DVT ppx- hep sq Dispo: continue to monitor floors with oxygen monitoring, pt is medically optimized, KAREN when pt is approved Visit type - Emergency Visit Emergency Visit: No - New Patient This patient is new to me today: No - Critical Care Critical Care patient: No - Discharge Referral Referred to [facility] No ATTENDING PHYSICIAN STATEMENT I saw and evaluated the patient. I reviewed the resident's note and discussed the case with the resident. I agree with the resident's findings and plan as documented. SUBJECTIVE: OBJECTIVE: ASSESSMENT AND PLAN:
--- NOTE | 2019-01-16 17:21 | PN ---
Progress Note (short form) - Note Progress Note: Patient seen Breathing somewhat improved Continuing on prednisone taper . As previously mentioned phlebotomy to Hct 455 - optimum from data from [facility].
--- NOTE | 2019-01-16 18:34 | PN ---
Teaching Attending Note Name of Resident: Princess Khalil ATTENDING PHYSICIAN STATEMENT I saw and evaluated the patient. I reviewed the resident's note and discussed the case with the resident. I agree with the resident's findings and plan as documented. SUBJECTIVE: Breathing improved. No stridor. Clearing secretions OBJECTIVE: Afebrile, Hemodynamically Stable. SpO2 91% on 3L Last Vital Signs Temp Pulse Resp BP Pulse Ox 98.4 F 86 18 128/64 91 L 01/16/19 15:00 01/16/19 15:00 01/16/19 15:00 01/16/19 15:00 01/16/19 09:00 Heart - S1, S2, Lungs - reduced air entry bilaterally Abdomen - Soft, non-tender. Bowel Sounds normal. Extremities - No calf tenderness. Laboratory Results - last 24 hr 01/15/19 01/16/19 01/16/19 21:47 05:51 06:15 WBC RBC Hgb Hct MCV MCH MCHC RDW Plt Count MPV Puncture Site Right radial ABG pH 7.39 ABG pCO2 at Pt Temp 70.2 H* ABG pO2 at Pt Temp 61.1 L ABG HCO3 41.2 H ABG O2 Sat (Measured) 89.7 L ABG O2 Content 21.3 ABG Base Excess 12.2 H Chaz Test Positive O2 Delivery Device N/c Oxygen Flow Rate 3l Sodium Potassium Chloride Carbon Dioxide Anion Gap BUN Creatinine Est GFR (CKD-EPI)AfAm Est GFR (CKD-EPI)NonAf POC Glucometer 245 144 Random Glucose Calcium Phosphorus Magnesium 01/16/19 01/16/19 01/16/19 06:20 06:20 11:13 WBC 10.5 H RBC 5.56 Hgb 17.0 H Hct 51.6 H MCV 92.8 MCH 30.5 MCHC 32.9 RDW 16.3 H Plt Count 233 MPV 9.0 Puncture Site ABG pH ABG pCO2 at Pt Temp ABG pO2 at Pt Temp ABG HCO3 ABG O2 Sat (Measured) ABG O2 Content ABG Base Excess Chaz Test O2 Delivery Device Oxygen Flow Rate Sodium 136 Potassium 4.3 Chloride 92 L Carbon Dioxide 44 H Anion Gap 0 L BUN 15.5 Creatinine 0.6 Est GFR (CKD-EPI)AfAm 124.89 Est GFR (CKD-EPI)NonAf 107.76 POC Glucometer 208 Random Glucose 146 H Calcium 8.8 Phosphorus 2.9 Magnesium 2.1 01/16/19 17:05 WBC RBC Hgb Hct MCV MCH MCHC RDW Plt Count MPV Puncture Site ABG pH ABG pCO2 at Pt Temp ABG pO2 at Pt Temp ABG HCO3 ABG O2 Sat (Measured) ABG O2 Content ABG Base Excess Chaz Test O2 Delivery Device Oxygen Flow Rate Sodium Potassium Chloride Carbon Dioxide Anion Gap BUN Creatinine Est GFR (CKD-EPI)AfAm Est GFR (CKD-EPI)NonAf POC Glucometer 227 Random Glucose Calcium Phosphorus Magnesium Current Medications Generic Name Dose Route Start Last Admin Trade Name Freq PRN Reason Stop Dose Admin Albuterol Sulfate 1 amp 01/12/19 10:13 Ventolin 0.5% - NEB Q4H PRN SHORT OF BREATH/WHEEZING Albuterol/Ipratropium 1 amp 01/12/19 12:00 01/16/19 12:00 Duoneb - NEB 1 amp RQID [facility] Administration Folic Acid 1 mg 01/11/19 10:00 01/16/19 09:27 Folic Acid - PO 1 mg DAILY [facility] Administration Heparin Sodium (Porcine) 5,000 unit 01/10/19 06:00 01/16/19 14:41 Heparin - SQ 5,000 unit TID [facility] Administration Insulin Aspart 1 vial 01/10/19 22:00 01/16/19 17:08 Novolog Vial Sliding Scale - SQ 2 units ACHS [facility] Administration Protocol Nicotine 21 mg 01/11/19 12:45 01/16/19 09:27 Nicoderm Patch - TD 21 mg DAILY [facility] Administration Pantoprazole Sodium 40 mg 01/11/19 10:00 01/16/19 09:28 Protonix - PO 40 mg DAILY [facility] Administration Prednisone 40 mg 01/16/19 10:00 01/16/19 09:28 Deltasone - PO 40 mg DAILY [facility] Administration Thiamine HCl 200 mg 01/11/19 10:00 01/16/19 09:28 Vitamin B1 - PO 200 mg DAILY [facility] Administration ASSESSMENT AND PLAN: 63 year old male with history of Diverticulosis, brought to ED after being found on the floor of his home. He was intubated in the ED for airway protection and treated for COPD exacerbation. 1. Acute Hypoxic and Hypercapneic Respiratory Failure secondary to COPD Extubated. SpO2 92% on 2L via [place] Chronic hypercapnea (improving) - Trial of BiPAP recommended but nursing reports patient declining BiPAP. Patient denies this. Likely candidate for Trilogy on discharge. Transitioned to Prednisone. 2. Acute Metabolic Encephalopathy secondary to Hypercapnea. Trial of BiPAP tonight and likely Trilogy on discharge. Will need PFTs and PSG as outpatient. 3. RONAK sec to dehydration - resolved. 4. Polycythemia - likely sec to Chronic Hypoxia due to COPD - s/p phlebotomy 1 unit blood, for removal of another unit as per Hematology. 5. Hyperkalemia/Hyperphosphatemia - resolved. 6. Falls/Ambulatory dysfunction - for PT eval. 7. Dysphagia - reports some difficulty swallowing s/p extubation - clearing secretions, no stridor - Swallow assessment done, MBS normal. If persists, recommend ENT eval on discharge. DVT Px - Heparin SQ GI PX - Protonix
[2019-01-16 23:49] LABS: EPI CELLS 0.6 /HPF (0-5/HPF); HYALINE CASTS 0 /lpf (0-8); URINE APPEARANCE CLEAR; URINE BACTERIA 0.8 /hpf (NEGATIVE); URINE BILIRUBIN NEGATIVE (NEGATIVE); URINE COLOR YELLOW; URINE GLUCOSE (UA) TRACE (NEGATIVE); URINE KETONE NEGATIVE (NEGATIVE); URINE LEUK ESTERASE NEGATIVE (NEGATIVE); URINE NITRITE NEGATIVE (NEGATIVE); URINE PROTEIN 1+ (NEGATIVE); URINE RBC 1 /hpf (0-4); URINE UROBILINOGEN 0.2 mg/dL (0.2-1.0); URINE WBC 1 /hpf (0-5)
[2019-01-17] MEDS: HEPARIN NA (PORCINE) 5,000 UNITS/ML 1ML VIAL SQ SCH ×3 (06:37→21:13)
[2019-01-17] MEDS: INSULIN SLIDING SCALE (NOVOLOG) 1 VIAL SQ SCH ×4 (06:46→21:13)
[2019-01-17] MEDS: ALBUTEROL SO4 2.5/IPRATROPIUM 0.5 INH SOL 3 ML VIAL.NEB. NEB SCH (07:20)
[2019-01-17 07:40] LABS: BILIRUBIN,TOTAL 0.9 mg/dL (0.2-1); BLOOD UREA NITROGEN 14.4 mg/dL (7-18); CALCIUM 8.3 mg/dL (8.5-10.1); CREATININE 0.7 mg/dL (0.55-1.3); MAGNESIUM 2.1 mg/dL (1.8-2.4); PHOSPHOROUS 2.8 mg/dL (2.5-4.9); TOT PROT 6.2 g/dl (6.4-8.2)
[2019-01-17 08:33] LABS: MCH 30.3 pg (25.7-33.7)
[2019-01-17 09:00] LABS: HEMOGLOBIN 17.5 GM/dL (11.7-16.9); MCHC 32.5 g/dl (32.0-35.9); MEAN CELL VOLUME 93.3 fl (80-96); MEAN PLT VOLUME 9.4 fl (7.5-11.1); RBC 5.79 M/mm3 (4.00-5.60); RDW 16.3 % (11.9-15.9); WHITE BLOOD COUNT 9.9 K/mm3 (4.0-10.0)
[2019-01-17 09:02] LABS: PLATELET COUNT 231 K/MM3 (134-434)
[2019-01-17 10:02] LABS: HEMATOCRIT 49.8 % (35.4-49); HEMOGLOBIN 15.8 GM/dL (11.7-16.9); MCH 29.5 pg (25.7-33.7); MCHC 31.7 g/dl (32.0-35.9); MEAN PLT VOLUME 9.2 fl (7.5-11.1); RBC 5.35 M/mm3 (4.00-5.60); RDW 16.3 % (11.9-15.9); WHITE BLOOD COUNT 10.1 K/mm3 (4.0-10.0)
[2019-01-17] MEDS: predniSONE 20 MG TABLET (UD) PO SCH (10:06)
[2019-01-17] MEDS: THIAMINE HCL 100 MG TABLET (FP) PO SCH (10:06)
[2019-01-17] MEDS: PANTOPRAZOLE 40 MG TABLET (FP) PO SCH (10:06)
[2019-01-17] MEDS: NICOTINE 21 MG/24 HOURS TOPICAL PATCH TD SCH (10:06)
[2019-01-17] MEDS: FOLIC ACID 1 MG TABLET (FP) PO SCH (10:07)
--- NOTE | 2019-01-17 10:14 | PN ---
Progress Note (short form) - Note Progress Note: PULMONARY States breathing continues to improve. Ambulating with PT. Vital Signs Period Temp Pulse Resp BP Sys/Anna Pulse Ox Last 24 Hr 98.4 F-99.1 F 86-104 18-20 128-147/64-90 91-93 Gen: NAD at rest Heart: RRR Lung: decreased breath sounds at the bases Abd: soft, nontender Ext: less edema CBC, BMP 01/17/19 06:22 Active Medications Albuterol Sulfate (Ventolin 0.5% -) 1 amp NEB Q4H PRN PRN Reason: SHORT OF BREATH/WHEEZING Albuterol/Ipratropium (Duoneb -) 1 amp NEB RQID [facility] Last Admin: 01/17/19 07:20 Dose: 1 amp Folic Acid (Folic Acid -) 1 mg PO DAILY [facility] Last Admin: 01/17/19 10:07 Dose: 1 mg Heparin Sodium (Porcine) (Heparin -) 5,000 unit SQ TID [facility] Last Admin: 01/17/19 06:37 Dose: 5,000 unit Insulin Aspart (Novolog Vial Sliding Scale -) 1 vial SQ ACHS [facility]; Protocol Last Admin: 01/17/19 06:46 Dose: Not Given Nicotine (Nicoderm Patch -) 21 mg TD DAILY [facility] Last Admin: 01/17/19 10:06 Dose: 21 mg Pantoprazole Sodium (Protonix -) 40 mg PO DAILY [facility] Last Admin: 01/17/19 10:06 Dose: 40 mg Prednisone (Deltasone -) 40 mg PO DAILY [facility] Last Admin: 01/17/19 10:06 Dose: 40 mg Thiamine HCl (Vitamin B1 -) 200 mg PO DAILY [facility] Last Admin: 01/17/19 10:06 Dose: 200 mg A/P Acute on likely Chronic Hypoxic and Hypercapneic Respiratory Failure r/o Pneumonia Acute COPD Exacerbation Acute Kidney Injury improved Polycythemia likely due to chronic hypoxia - prednisone taper - inhaled bronchodilators - O2 to keep SpO2 >90% - monitor urine output, creatinine - PO as tolerated - DVT prophylaxis - when ready for discharge, check ambulatory SpO2 on room air to assess for home O2 - agree with trilogy placement due to chronic hypercapneic respiratory failure - can d/c home from pulmonary standpoint pending above
[2019-01-17 10:23] LABS: PLATELET COUNT 223 K/MM3 (134-434)
[2019-01-17 10:26] LABS: ARTERIAL BLD GAS O2 SATURATION 93.1 % (95-98); ARTERIAL BLOOD GAS PCO2 58.4 mmHg (35-45); ARTERIAL BLOOD GAS PO2 67.5 mmHg (80-105); ARTERIAL BLOOD GAS pH 7.44 (7.35-7.45)
[2019-01-17 10:43] LABS: ALLENS TEST POSITIVE
--- NOTE | 2019-01-17 13:06 | PN ---
Physical Exam: SUBJECTIVE: Patient seen and examined at bedside. pt has no acute complaints OBJECTIVE: Vital Signs Period Temp Pulse Resp BP Sys/Anna Pulse Ox Last 24 Hr 98.4 F-99.1 F 86-104 18-20 128-147/64-90 91-93 GENERAL: The patient is awake, alert, and fully oriented, in no acute distress. LUNGS: Breath sounds equal, clear to auscultation bilaterally, no wheezes, no accessory muscle use. HEART: Regular rate and rhythm, S1, S2 without murmur, rub or gallop. ABDOMEN: Soft, nontender, nondistended, normoactive bowel sounds EXTREMITIES: 2+ pulses, warm, well-perfused, no edema. SKIN: Warm, dry, normal turgor, no rashes or lesions noted Laboratory Results - last 24 hr 01/16/19 01/16/19 01/16/19 17:05 21:37 22:30 WBC RBC Hgb Hct MCV MCH MCHC RDW Plt Count MPV Puncture Site ABG pH ABG pCO2 at Pt Temp ABG pO2 at Pt Temp ABG HCO3 ABG O2 Sat (Measured) ABG O2 Content ABG Base Excess Chaz Test O2 Delivery Device Oxygen Flow Rate Sodium Potassium Chloride Carbon Dioxide Anion Gap BUN Creatinine Est GFR (CKD-EPI)AfAm Est GFR (CKD-EPI)NonAf POC Glucometer 227 238 Random Glucose Calcium Phosphorus Magnesium Total Bilirubin AST ALT Alkaline Phosphatase Total Protein Albumin Urine Color Yellow Urine Appearance Clear Urine pH 8.0 D Ur Specific [place] 1.016 Urine Protein 1+ H Urine Glucose (UA) Trace Urine Ketones Negative Urine Blood Negative Urine Nitrite Negative Urine Bilirubin Negative Urine Urobilinogen 0.2 Ur Leukocyte Esterase Negative Urine WBC (Auto) 1 Urine RBC (Auto) 1 Urine Casts (Auto) 0 U Epithel Cells (Auto) 0.6 Urine Bacteria (Auto) 0.8 01/17/19 01/17/19 01/17/19 06:21 06:22 06:22 WBC 9.9 RBC 5.79 H Hgb 17.5 H Hct 54.0 H MCV 93.3 MCH 30.3 MCHC 32.5 RDW 16.3 H Plt Count 231 MPV 9.4 Puncture Site ABG pH ABG pCO2 at Pt Temp ABG pO2 at Pt Temp ABG HCO3 ABG O2 Sat (Measured) ABG O2 Content ABG Base Excess Chaz Test O2 Delivery Device Oxygen Flow Rate Sodium 136 Potassium 4.0 Chloride 90 L Carbon Dioxide 43 H Anion Gap 2 L BUN 14.4 Creatinine 0.7 Est GFR (CKD-EPI)AfAm 117.22 Est GFR (CKD-EPI)NonAf 101.14 POC Glucometer 163 Random Glucose 124 H Calcium 8.3 L Phosphorus 2.8 Magnesium 2.1 Total Bilirubin 0.9 AST 16 ALT 31 Alkaline Phosphatase 54 Total Protein 6.2 L Albumin 3.0 L Urine Color Urine Appearance Urine pH Ur Specific [place] Urine Protein Urine Glucose (UA) Urine Ketones Urine Blood Urine Nitrite Urine Bilirubin Urine Urobilinogen Ur Leukocyte Esterase Urine WBC (Auto) Urine RBC (Auto) Urine Casts (Auto) U Epithel Cells (Auto) Urine Bacteria (Auto) 01/17/19 01/17/19 01/17/19 09:18 10:05 11:10 WBC 10.1 H RBC 5.35 Hgb 15.8 Hct 49.8 H MCV 93.0 MCH 29.5 MCHC 31.7 L RDW 16.3 H Plt Count 223 MPV 9.2 Puncture Site Right radial ABG pH 7.44 ABG pCO2 at Pt Temp 58.4 H ABG pO2 at Pt Temp 67.5 L ABG HCO3 39.2 H ABG O2 Sat (Measured) 93.1 L ABG O2 Content 22.3 H ABG Base Excess 12.0 H Chaz Test Positive O2 Delivery Device N/c Oxygen Flow Rate 3l Sodium Potassium Chloride Carbon Dioxide Anion Gap BUN Creatinine Est GFR (CKD-EPI)AfAm Est GFR (CKD-EPI)NonAf POC Glucometer 254 Random Glucose Calcium Phosphorus Magnesium Total Bilirubin AST ALT Alkaline Phosphatase Total Protein Albumin Urine Color Urine Appearance Urine pH Ur Specific [place] Urine Protein Urine Glucose (UA) Urine Ketones Urine Blood Urine Nitrite Urine Bilirubin Urine Urobilinogen Ur Leukocyte Esterase Urine WBC (Auto) Urine RBC (Auto) Urine Casts (Auto) U Epithel Cells (Auto) Urine Bacteria (Auto) Current Medications Albuterol Sulfate (Ventolin 0.5% -) 1 amp NEB Q4H PRN PRN Reason: SHORT OF BREATH/WHEEZING Last Admin: 01/17/19 11:50 Dose: 1 amp Folic Acid (Folic Acid -) 1 mg PO DAILY [facility] Last Admin: 01/17/19 10:07 Dose: 1 mg Heparin Sodium (Porcine) (Heparin -) 5,000 unit SQ TID [facility] Last Admin: 01/17/19 06:37 Dose: 5,000 unit Insulin Aspart (Novolog Vial Sliding Scale -) 1 vial SQ ACHS [facility]; Protocol Last Admin: 01/17/19 12:03 Dose: 4 units Nicotine (Nicoderm Patch -) 21 mg TD DAILY [facility] Last Admin: 01/17/19 10:06 Dose: 21 mg Pantoprazole Sodium (Protonix -) 40 mg PO DAILY [facility] Last Admin: 01/17/19 10:06 Dose: 40 mg Prednisone (Deltasone -) 40 mg PO DAILY [facility] Last Admin: 01/17/19 10:06 Dose: 40 mg Thiamine HCl (Vitamin B1 -) 200 mg PO DAILY [facility] Last Admin: 01/17/19 10:06 Dose: [address] Cervical Spine IMPRESSION: Mild degenerative arthritis with no fracture or acute pathology. CT Head IMPRESSION: No evidence of acute intracranial pathology. CT Abdomen/ Pelvis IMPRESSION: 1. Extensive left lower lobe atelectasis with small bilateral pleural effusions. 2. No evidence of intra-abdominal abscess or acute pathology within the abdomen or pelvis. ASSESSMENT/PLAN: 63M with PMH of simgoid diverticulitis and COPD BIBA after being found down during a social insurance analyst field visit. EMS found patient responsive and oriented. In the ED, patient had increased respiratory distress and AMS therefore was intubated to protect airway.In ICU, pt was on propofol gtt. Pt is observed in the ICU. Throughout the ICU course, the pt fell and was seen in mild distress with low sat. pt was put on BIPAP and ABG was drawn showing respiratory acidosis. pt ABG progressively showing improving pCO2. Acute on likely Chronic Hypoxic and Hypercapneic Respiratory Failure -2/2 COPD exacerbation. -pt on 3L NC saturating 94%, will titrate as tolerated -daily ABG, pt retaining CO2 -pt advanced to po prednisone 40 mg and will begin taper -pulm recs appreciated -pt should follow up outpt with pulmonology for PFT & polysomography -Due to chronic respiratory failure and advancement of COPD along with lack of gas exchange the patient requires ventilation via non invasive ventilator. Bipap no longer is effective in treatment to effectively decrease the work of breathing and improve pulmonary status and prevent interruption or failure of respiratory support -Pre and post O2--> pt qualifies for home O2 -recommending patient to attend acute rehab for pulmonary and physical therapy. pt is able to participate in 3 hours of combined therapies daily. Acute metabolic encephalopathy- likely 2/2 hypoxia -pt currently alert and oriented -pt unable to remember events from fall at home -Head and c-spine CT are negative, Utox negative. SIRS- -unclear source -s/p vanc , zosyn in ED -possibly could have aspirated - CT chest above -BCx neg Severe dehydration -resolved -c/w PO intake Lactic acidosis 2/2 hypoxia vs dehydration -resolved w/ IVF RONAK with proteinuria likely 2/2 dehydration -resolved Acute on chronic polycythemia- likely 2/2 hypoxia - epo level 47.6 -Heme following -pt phlebotomized twice and Hct improved to 49.8. -pt should f/u with hematology as out pt Fall: -likely mechanical -pt also has chronic hip pain -PT eval -KAREN on D/C -B/L hip XR neg Diabetes A1C is 8.3% c/w BGM and ISS Dysphagia -modified barium swallow performed and shows normal swallow -pt can follow up outpt w/ otolaryngology to r/o laryngopharyngeal reflux F: c/w PO intake E: Hyperkalemia and hyperphosphatemia are resolved N: pt should continue on diabetic diet DVT ppx- hep sq Dispo: continue on monitor floors, pt is medically optimized, KAREN when pt is approved Visit type - Emergency Visit Emergency Visit: No - New Patient This patient is new to me today: No - Critical Care Critical Care patient: No - Discharge Referral Referred to [facility] No ATTENDING PHYSICIAN STATEMENT I saw and evaluated the patient. I reviewed the resident's note and discussed the case with the resident. I agree with the resident's findings and plan as documented. SUBJECTIVE: OBJECTIVE: ASSESSMENT AND PLAN:
--- NOTE | 2019-01-17 13:31 | PN ---
Progress Note, Physician History of Present Illness: patient stable no new issues - Current Medication List Current Medications: Active Medications Albuterol Sulfate (Ventolin 0.5% -) 1 amp NEB Q4H PRN PRN Reason: SHORT OF BREATH/WHEEZING Last Admin: 01/17/19 11:50 Dose: 1 amp Folic Acid (Folic Acid -) 1 mg PO DAILY [facility] Last Admin: 01/17/19 10:07 Dose: 1 mg Heparin Sodium (Porcine) (Heparin -) 5,000 unit SQ TID [facility] Last Admin: 01/17/19 06:37 Dose: 5,000 unit Insulin Aspart (Novolog Vial Sliding Scale -) 1 vial SQ ACHS [facility]; Protocol Last Admin: 01/17/19 12:03 Dose: 4 units Nicotine (Nicoderm Patch -) 21 mg TD DAILY [facility] Last Admin: 01/17/19 10:06 Dose: 21 mg Pantoprazole Sodium (Protonix -) 40 mg PO DAILY [facility] Last Admin: 01/17/19 10:06 Dose: 40 mg Prednisone (Deltasone -) 40 mg PO DAILY [facility] Last Admin: 01/17/19 10:06 Dose: 40 mg Thiamine HCl (Vitamin B1 -) 200 mg PO DAILY [facility] Last Admin: 01/17/19 10:06 Dose: 200 mg - Objective Vital Signs: Vital Signs Temperature 98.9 F 01/17/19 02:15 Pulse Rate 104 H 01/17/19 09:56 Respiratory Rate 20 01/17/19 02:15 Blood Pressure 146/90 01/17/19 02:15 O2 Sat by Pulse Oximetry (%) 91 L 01/17/19 09:56 Constitutional: Yes: No Distress, Calm Cardiovascular: Yes: S1, S2 Respiratory: Yes: Regular, CTA Bilaterally Gastrointestinal: Yes: Normal Bowel Sounds, Soft Musculoskeletal: Yes: WNL Extremities: Yes: WNL Neurological: Yes: Alert, Oriented Psychiatric: Yes: Alert, Oriented Labs: CBC, BMP 01/17/19 09:18 01/17/19 06:22 INR, PTT INR 0.98 (0.83-1.09) 01/09/19 17:00 Assessment/Plan 63 year old male with a history of COPD and diverticulitis was brought to the ED by ambulance after he was found down in his home and admitted for acute on chronic hypoxic hypercapnic respiratory failure ams resp failure ac kidney njury tremors polycythemia lactic acidosis leukocytosis plan continue current mgmt resp support
--- NOTE | 2019-01-17 15:32 | PN ---
Progress Note, Physician History of Present Illness: Pt seen and examined at bedside. He is awake and alert. He is not always compliant with bipap. He complains of lower ext edema. - Current Medication List Current Medications: Active Medications Albuterol Sulfate (Ventolin 0.5% -) 1 amp NEB Q4H PRN PRN Reason: SHORT OF BREATH/WHEEZING Last Admin: 01/17/19 11:50 Dose: 1 amp Folic Acid (Folic Acid -) 1 mg PO DAILY [facility] Last Admin: 01/17/19 10:07 Dose: 1 mg Heparin Sodium (Porcine) (Heparin -) 5,000 unit SQ TID [facility] Last Admin: 01/17/19 06:37 Dose: 5,000 unit Insulin Aspart (Novolog Vial Sliding Scale -) 1 vial SQ ACHS [facility]; Protocol Last Admin: 01/17/19 12:03 Dose: 4 units Nicotine (Nicoderm Patch -) 21 mg TD DAILY [facility] Last Admin: 01/17/19 10:06 Dose: 21 mg Pantoprazole Sodium (Protonix -) 40 mg PO DAILY [facility] Last Admin: 01/17/19 10:06 Dose: 40 mg Prednisone (Deltasone -) 40 mg PO DAILY [facility] Last Admin: 01/17/19 10:06 Dose: 40 mg Thiamine HCl (Vitamin B1 -) 200 mg PO DAILY [facility] Last Admin: 01/17/19 10:06 Dose: 200 mg - Objective Vital Signs: Vital Signs Temperature 98.9 F 01/17/19 02:15 Pulse Rate 104 H 01/17/19 09:56 Respiratory Rate 20 01/17/19 02:15 Blood Pressure 146/90 01/17/19 02:15 O2 Sat by Pulse Oximetry (%) 91 L 01/17/19 09:56 Constitutional: Yes: Calm Eyes: Yes: Conjunctiva Clear Cardiovascular: Yes: S1, S2 Respiratory: Yes: On Nasal O2 Gastrointestinal: Yes: Soft Genitourinary: Yes: WNL Musculoskeletal: Yes: WNL Edema: Yes Edema: LLE: 1+, RLE: 1+ Neurological: Yes: Oriented Psychiatric: Yes: Oriented Labs: CBC, BMP 01/17/19 09:18 01/17/19 06:22 INR, PTT INR 0.98 (0.83-1.09) 01/09/19 17:00 Problem List - Problems (1) Acute renal failure Code(s): N17.9 - ACUTE KIDNEY FAILURE, UNSPECIFIED (2) COPD (chronic obstructive pulmonary disease) Code(s): J44.9 - CHRONIC OBSTRUCTIVE PULMONARY DISEASE, UNSPECIFIED Qualifiers: COPD type: unspecified COPD Qualified Code(s): J44.9 - Chronic obstructive pulmonary disease, unspecified Assessment/Plan Current Medications Generic Name Dose Route Start Last Admin Trade Name Freq PRN Reason Stop Dose Admin Albuterol Sulfate 1 amp 01/12/19 10:13 01/17/19 11:50 Ventolin 0.5% - NEB 1 amp Q4H PRN Administration SHORT OF BREATH/WHEEZING Folic Acid 1 mg 01/11/19 10:00 01/17/19 10:07 Folic Acid - PO 1 mg DAILY [facility] Administration Heparin Sodium (Porcine) 5,000 unit 01/10/19 06:00 01/17/19 06:37 Heparin - SQ 5,000 unit TID [facility] Administration Insulin Aspart 1 vial 01/10/19 22:00 01/17/19 12:03 Novolog Vial Sliding Scale - SQ 4 units ACHS [facility] Administration Protocol Nicotine 21 mg 01/11/19 12:45 01/17/19 10:06 Nicoderm Patch - TD 21 mg DAILY [facility] Administration Pantoprazole Sodium 40 mg 01/11/19 10:00 01/17/19 10:06 Protonix - PO 40 mg DAILY [facility] Administration Prednisone 40 mg 01/16/19 10:00 01/17/19 10:06 Deltasone - PO 40 mg DAILY [facility] Administration Thiamine HCl 200 mg 01/11/19 10:00 01/17/19 10:06 Vitamin B1 - PO 200 mg DAILY [facility] Administration Impression 1. RONAK 2. dehydration 3. polycythemia 4. copd 5. resp failure requiring intubation 6. lactic acidosis 7. 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
[2019-01-17] MEDS ORDERED: FUROSEMIDE 20 MG TABLET (FP) PO ONE (15:33)
--- NOTE | 2019-01-17 16:52 | PN ---
Teaching Attending Note Name of Resident: Princess Khalil ATTENDING PHYSICIAN STATEMENT I saw and evaluated the patient. I reviewed the resident's note and discussed the case with the resident. I agree with the resident's findings and plan as documented. SUBJECTIVE: Breathing improved. No wheeze. OBJECTIVE: Afebrile, Hemodynamically Stable. SpO2 91% on 2L Last Vital Signs Temp Pulse Resp BP Pulse Ox 98.7 F 84 20 133/79 91 L 01/17/19 10:00 01/17/19 10:00 01/17/19 10:00 01/17/19 10:00 01/17/19 09:56 Heart - S1, S2, RRR Lungs - reduced air entry bilaterally Abdomen - Soft, non-tender. Bowel Sounds normal. Extremities - No calf tenderness. Laboratory Results - last 24 hr 01/16/19 01/16/19 01/16/19 17:05 21:37 22:30 WBC RBC Hgb Hct MCV MCH MCHC RDW Plt Count MPV Puncture Site ABG pH ABG pCO2 at Pt Temp ABG pO2 at Pt Temp ABG HCO3 ABG O2 Sat (Measured) ABG O2 Content ABG Base Excess Chaz Test O2 Delivery Device Oxygen Flow Rate Sodium Potassium Chloride Carbon Dioxide Anion Gap BUN Creatinine Est GFR (CKD-EPI)AfAm Est GFR (CKD-EPI)NonAf POC Glucometer 227 238 Random Glucose Calcium Phosphorus Magnesium Total Bilirubin AST ALT Alkaline Phosphatase Total Protein Albumin Urine Color Yellow Urine Appearance Clear Urine pH 8.0 D Ur Specific [place] 1.016 Urine Protein 1+ H Urine Glucose (UA) Trace Urine Ketones Negative Urine Blood Negative Urine Nitrite Negative Urine Bilirubin Negative Urine Urobilinogen 0.2 Ur Leukocyte Esterase Negative Urine WBC (Auto) 1 Urine RBC (Auto) 1 Urine Casts (Auto) 0 U Epithel Cells (Auto) 0.6 Urine Bacteria (Auto) 0.8 01/17/19 01/17/19 01/17/19 06:21 06:22 06:22 WBC 9.9 RBC 5.79 H Hgb 17.5 H Hct 54.0 H MCV 93.3 MCH 30.3 MCHC 32.5 RDW 16.3 H Plt Count 231 MPV 9.4 Puncture Site ABG pH ABG pCO2 at Pt Temp ABG pO2 at Pt Temp ABG HCO3 ABG O2 Sat (Measured) ABG O2 Content ABG Base Excess Chaz Test O2 Delivery Device Oxygen Flow Rate Sodium 136 Potassium 4.0 Chloride 90 L Carbon Dioxide 43 H Anion Gap 2 L BUN 14.4 Creatinine 0.7 Est GFR (CKD-EPI)AfAm 117.22 Est GFR (CKD-EPI)NonAf 101.14 POC Glucometer 163 Random Glucose 124 H Calcium 8.3 L Phosphorus 2.8 Magnesium 2.1 Total Bilirubin 0.9 AST 16 ALT 31 Alkaline Phosphatase 54 Total Protein 6.2 L Albumin 3.0 L Urine Color Urine Appearance Urine pH Ur Specific [place] Urine Protein Urine Glucose (UA) Urine Ketones Urine Blood Urine Nitrite Urine Bilirubin Urine Urobilinogen Ur Leukocyte Esterase Urine WBC (Auto) Urine RBC (Auto) Urine Casts (Auto) U Epithel Cells (Auto) Urine Bacteria (Auto) 01/17/19 01/17/19 01/17/19 09:18 10:05 11:10 WBC 10.1 H RBC 5.35 Hgb 15.8 Hct 49.8 H MCV 93.0 MCH 29.5 MCHC 31.7 L RDW 16.3 H Plt Count 223 MPV 9.2 Puncture Site Right radial ABG pH 7.44 ABG pCO2 at Pt Temp 58.4 H ABG pO2 at Pt Temp 67.5 L ABG HCO3 39.2 H ABG O2 Sat (Measured) 93.1 L ABG O2 Content 22.3 H ABG Base Excess 12.0 H Chaz Test Positive O2 Delivery Device N/c Oxygen Flow Rate 3l Sodium Potassium Chloride Carbon Dioxide Anion Gap BUN Creatinine Est GFR (CKD-EPI)AfAm Est GFR (CKD-EPI)NonAf POC Glucometer 254 Random Glucose Calcium Phosphorus Magnesium Total Bilirubin AST ALT Alkaline Phosphatase Total Protein Albumin Urine Color Urine Appearance Urine pH Ur Specific [place] Urine Protein Urine Glucose (UA) Urine Ketones Urine Blood Urine Nitrite Urine Bilirubin Urine Urobilinogen Ur Leukocyte Esterase Urine WBC (Auto) Urine RBC (Auto) Urine Casts (Auto) U Epithel Cells (Auto) Urine Bacteria (Auto) 01/17/19 16:35 WBC RBC Hgb Hct MCV MCH MCHC RDW Plt Count MPV Puncture Site ABG pH ABG pCO2 at Pt Temp ABG pO2 at Pt Temp ABG HCO3 ABG O2 Sat (Measured) ABG O2 Content ABG Base Excess Chaz Test O2 Delivery Device Oxygen Flow Rate Sodium Potassium Chloride Carbon Dioxide Anion Gap BUN Creatinine Est GFR (CKD-EPI)AfAm Est GFR (CKD-EPI)NonAf POC Glucometer 306 Random Glucose Calcium Phosphorus Magnesium Total Bilirubin AST ALT Alkaline Phosphatase Total Protein Albumin Urine Color Urine Appearance Urine pH Ur Specific [place] Urine Protein Urine Glucose (UA) Urine Ketones Urine Blood Urine Nitrite Urine Bilirubin Urine Urobilinogen Ur Leukocyte Esterase Urine WBC (Auto) Urine RBC (Auto) Urine Casts (Auto) U Epithel Cells (Auto) Urine Bacteria (Auto) Current Medications Generic Name Dose Route Start Last Admin Trade Name Freq PRN Reason Stop Dose Admin Albuterol Sulfate 1 amp 01/12/19 10:13 01/17/19 11:50 Ventolin 0.5% - NEB 1 amp Q4H PRN Administration SHORT OF BREATH/WHEEZING Folic Acid 1 mg 01/11/19 10:00 01/17/19 10:07 Folic Acid - PO 1 mg DAILY [facility] Administration Heparin Sodium (Porcine) 5,000 unit 01/10/19 06:00 01/17/19 16:31 Heparin - SQ 5,000 unit TID [facility] Administration Insulin Aspart 1 vial 01/10/19 22:00 01/17/19 16:31 Novolog Vial Sliding Scale - SQ 6 units ACHS [facility] Administration Protocol Nicotine 21 mg 01/11/19 12:45 01/17/19 10:06 Nicoderm Patch - TD 21 mg DAILY [facility] Administration Pantoprazole Sodium 40 mg 01/11/19 10:00 01/17/19 10:06 Protonix - PO 40 mg DAILY [facility] Administration Prednisone 40 mg 01/16/19 10:00 01/17/19 10:06 Deltasone - PO 40 mg DAILY [facility] Administration Thiamine HCl 200 mg 01/11/19 10:00 01/17/19 10:06 Vitamin B1 - PO 200 mg DAILY [facility] Administration ASSESSMENT AND PLAN: 63 year old male with history of Diverticulosis, brought to ED after being found on the floor of his home. He was intubated in the ED for airway protection and treated for COPD exacerbation. 1. Acute Hypoxic and Hypercapneic Respiratory Failure secondary to COPD Intubated/Extubated, on O2 via NC Chronic hypercapnea - tolerated short period of BiPAP overnight with significant improvement in pCO2. Likely candidate for Trilogy on discharge. Transitioned to Prednisone - for slow taper. Will need O2 on discharge. 2. Acute Metabolic Encephalopathy secondary to Hypercapnea - resolved. Trial of BiPAP again tonight and Trilogy on discharge. Will need PFTs and PSG as outpatient. 3. RONAK sec to dehydration - resolved. 4. Polycythemia - likely sec to Chronic Hypoxia due to COPD - s/p phlebotomy 2 units blood. 5. Hyperkalemia/Hyperphosphatemia - resolved. 6. Falls/Ambulatory dysfunction - for ongoing PT/SNF. 7. Dysphagia - reports some difficulty swallowing s/p extubation - clearing secretions, no stridor - Swallow assessment done, MBS normal. If persists, recommend ENT eval on discharge. DVT Px - Heparin SQ GI PX - Protonix
[2019-01-18] MEDS: INSULIN SLIDING SCALE (NOVOLOG) 1 VIAL SQ SCH ×2 (06:17→12:21)
[2019-01-18] MEDS: HEPARIN NA (PORCINE) 5,000 UNITS/ML 1ML VIAL SQ SCH (06:19)
[2019-01-18 08:14] LABS: ALBUMIN 2.9 g/dl (3.4-5.0); BILIRUBIN,TOTAL 0.9 mg/dL (0.2-1); BLOOD UREA NITROGEN 14.1 mg/dL (7-18); CALCIUM 8.6 mg/dL (8.5-10.1); CREATININE 0.6 mg/dL (0.55-1.3); POTASSIUM 4.2 mmol/L (3.5-5.1)
[2019-01-18 09:09] VITALS: BP 122/69; PULSE 104; TEMP 99.4
[2019-01-18] MEDS: PANTOPRAZOLE 40 MG TABLET (FP) PO SCH (10:14)
[2019-01-18] MEDS: NICOTINE 21 MG/24 HOURS TOPICAL PATCH TD SCH (10:14)
[2019-01-18] MEDS: predniSONE 20 MG TABLET (UD) PO SCH (10:19)
[2019-01-18] MEDS: THIAMINE HCL 100 MG TABLET (FP) PO SCH (10:20)
[2019-01-18] MEDS: FOLIC ACID 1 MG TABLET (FP) PO SCH (10:20)
--- NOTE | 2019-01-18 16:25 | PN ---
Teaching Attending Note Name of Resident: Princess Khalil ATTENDING PHYSICIAN STATEMENT I saw and evaluated the patient. I reviewed the resident's note and discussed the case with the resident. I agree with the resident's findings and plan as documented. SUBJECTIVE: Breathing improved. No wheeze. No fever/chills. OBJECTIVE: Afebrile, Hemodynamically Stable. SpO2 98% on 3L Last Vital Signs Temp Pulse Resp BP Pulse Ox 99.4 F 104 H 18 122/69 91 L 01/18/19 09:08 01/18/19 09:08 01/18/19 09:08 01/18/19 09:08 01/18/19 09:00 Heart - S1, S2, RRR Lungs - reduced air entry bilaterally Abdomen - Soft, non-tender. Bowel Sounds normal. Extremities - No calf tenderness. Laboratory Results - last 24 hr 01/17/19 01/17/19 01/18/19 16:35 21:12 06:16 Sodium Potassium Chloride Carbon Dioxide Anion Gap BUN Creatinine Est GFR (CKD-EPI)AfAm Est GFR (CKD-EPI)NonAf POC Glucometer 306 197 159 Random Glucose Calcium Total Bilirubin AST ALT Alkaline Phosphatase Total Protein Albumin 01/18/19 06:45 Sodium 136 Potassium 4.2 Chloride 91 L Carbon Dioxide 42 H Anion Gap 3 L BUN 14.1 Creatinine 0.6 Est GFR (CKD-EPI)AfAm 124.89 Est GFR (CKD-EPI)NonAf 107.76 POC Glucometer Random Glucose 127 H Calcium 8.6 Total Bilirubin 0.9 AST 14 L ALT 32 Alkaline Phosphatase 57 Total Protein 6.0 L Albumin 2.9 L Discharge Medications Medication Instructions Recorded Albuterol 2.5/Ipratropium 0.5 1 amp NEB RQID amp 01/18/19 [Duoneb -] Albuterol Sulfate 0.5% [Ventolin 1 amp NEB Q4H PRN amp 01/18/19 0.5% Nebulizing Soln. -] Folic Acid - 1 mg PO DAILY tablet 01/18/19 Insulin Sliding Scale [Novolog 1 vial SQ ACHS units 01/18/19 Vial Sliding Scale -] Nicotine Patch [Nicoderm Patch -] 21 mg TD DAILY patch 01/18/19 Pantoprazole Sodium [Protonix -] 40 mg PO DAILY tablet.ec 01/18/19 Thiamine HCl [Vitamin B1 -] 200 mg PO DAILY tablet 01/18/19 predniSONE [Deltasone -] See Taper PO DAILY #70 tablet 01/18/19 ASSESSMENT AND PLAN: 63 year old male with history of Diverticulosis, brought to ED after being found on the floor of his home. He was intubated in the ED for airway protection and treated for COPD exacerbation. 1. Acute on Chronic Hypoxic and Hypercapneic Respiratory Failure secondary to Acute Exacerbation COPD Intubated/Extubated, on O2 via NC Chronic hypercapnea - tolerated short period of BiPAP overnight with significant improvement in pCO2. Candidate for Trilogy on discharge. Transitioned to Prednisone - for slow taper. Will need O2 on discharge. Pulmonary follow up for titration of COPD meds and for Sleep Study/PSG and PFTs. 2. Acute Metabolic Encephalopathy secondary to Hypercapnea - resolved with trial of BiPAP - for Trilogy on discharge. Will need PFTs and PSG as outpatient. 3. RONAK sec to dehydration - resolved. 4. Polycythemia - likely sec to Chronic Hypoxia due to COPD - s/p phlebotomy 2 units blood. Further phlebotomy by Hematology as out-patient. 5. Hyperkalemia/Hyperphosphatemia - resolved. 6. Falls/Ambulatory dysfunction - for ongoing PT/SNF. 7. Dysphagia - reports some difficulty swallowing s/p extubation - clearing secretions, no stridor - Swallow assessment done, MBS normal. If persists, recommend ENT eval on discharge. Medically stable for transfer to SNF with close Pulmonary outpatient follow up.
--- NOTE | 2019-01-18 19:03 | DS ---
Physical Exam: SUBJECTIVE: Patient seen and examined at bedside. pt has no acute complaints. pt states breathing has improved. OBJECTIVE: Vital Signs Period Temp Pulse Resp BP Sys/Anna Pulse Ox Last 24 Hr 98 F-99.4 F 83-104 18-22 122-143/69-83 91-98 PHYSICAL EXAM GENERAL: The patient is awake, alert, and fully oriented, in no acute distress. HEAD: Normal with no signs of trauma. LUNGS: Breath sounds equal, clear to auscultation bilaterally, b/l scattered crackles, no accessory muscle use. pt on NC HEART: Regular rate and rhythm, S1, S2 without murmur, rub or gallop. ABDOMEN: Soft, nontender, nondistended, normoactive bowel sounds EXTREMITIES: 2+ pulses, warm, well-perfused, B/L 2+ pitting edema. SKIN: Warm, dry, normal turgor, no rashes or lesions noted. LABS Laboratory Results - last 24 hr 01/17/19 01/18/19 01/18/19 21:12 06:16 06:45 Sodium 136 Potassium 4.2 Chloride 91 L Carbon Dioxide 42 H Anion Gap 3 L BUN 14.1 Creatinine 0.6 Est GFR (CKD-EPI)AfAm 124.89 Est GFR (CKD-EPI)NonAf 107.76 POC Glucometer 197 159 Random Glucose 127 H Calcium 8.6 Total Bilirubin 0.9 AST 14 L ALT 32 Alkaline Phosphatase 57 Total Protein 6.0 L Albumin 2.9 L HOSPITAL COURSE: Date of Admission:01/09/19 CT Cervical Spine IMPRESSION: Mild degenerative arthritis with no fracture or acute pathology. CT Head IMPRESSION: No evidence of acute intracranial pathology. CT Abdomen/ Pelvis IMPRESSION: 1. Extensive left lower lobe atelectasis with small bilateral pleural effusions. 2. No evidence of intra-abdominal abscess or acute pathology within the abdomen or pelvis. 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 EMS found patient responsive and oriented. In the ED, patient had increased respiratory distress and AMS therefore was intubated to protect airway.In ICU, pt was on propofol gtt. Pt is observed in the ICU. Throughout the ICU course, the pt fell and was seen in mild distress with low sat. pt was put on BIPAP and ABG was drawn showing respiratory acidosis. pt ABG progressively showing improving pCO2. pt tolerated as oxygen was tapered down and was able to move to medicine floors on 3L NC. daily ABGs showed that pt is chronic retainer for CO2 likely 2/2 COPD. Pulmonolgy followed the pt throughout the hospital course and the recommendations were appreciated. Pt was treated w/ solumedrol. pt is recommended to continue out pt monitoring with pulmonology for PFTs and polysomography.Due to chronic respiratory failure and advancement of COPD along with lack of gas exchange the patient requires ventilation via non invasive ventilator. Bipap no longer is effective in treatment to effectively decrease the work of breathing and improve pulmonary status and prevent interruption or failure of respiratory support. pt also failed pre/post ambulation without O2 therefore necessitating home O2. Pts CBC showed polycythemia likely 2/2 COPD. pt was followed by heme had 2 rounds of phebolotomy. improving the hematocrit level. pt should also follow up with hematology outpt. While admitted, pt had mechanical fall. pt is evaluated by PT. B/L hip XR showed no acute pathology. recommending patient to attend acute rehab for pulmonary and physical therapy. pt is able to participate in 3 hours of combined therapies daily. Pt should follow up outpt with PCP to manage his diabetes. his A1c is 8.3%, managed with BGM and ISS while inpatient. Date of Discharge: 01/18/19 Minutes to complete discharge: 36 Discharge Summary Reason For Visit: ACUTE KIDNEY INJURY Condition: Improved - Instructions Diet, Activity, Other Instructions: You came into the hospital with difficulties breathing. You were treated with different medicines, including steroids for your lungs. Medications: You should continue taking Prednisone : -40 mg for 2 days, 01/19,01/20 -35 mg for 2 days 01/21-723 -30 mg for 2 days, 01/23,01/24 -25 mg for 2 days 01/25-01/26 -20 mg for 2 days,01/27, 01/28 -15 mg for 2 days 01/29-01/30 -10 mg for 2 days 01/31, 02/01 Please continue sliding scale as prescribed. Please continue to use your nebulizer treatments as prescribed You must follow with ENT--Dr Blackburn--To further manage any difficulty with swallowing PLease follow up with Pulmonary (Dr. Razo), Nephrology (Dr. Winter) and hematology (Dr. Palomino) Please continue to refrain from smoking. This is very harmful for your health. PLEASE DO NOT SMOKE AROUND THE OXYGEN TANKS. This is very dangerous. Please follow up with your primary care physician to monitor your improvement. Please return to the ER if you have any signs or symptoms of chest pain, shortness of breath, uncontrollable fever, chills, nausea, vomiting, numbness, tingling, or weakness in any part of your body, changes in vision, or slurred speech. Please return to the ER if symptoms persist, worsen, or new symptoms arise. Referrals: Cooper Love MD [Staff Physician] - Daniel Razo MD [Staff Physician] - Jean Palomino MD [Staff Physician] - Ronda Winter MD [Staff Physician] - Pro Blackburn MD [Staff Physician] - Disposition: TRANSFER ACUTE CARE/OTHER HOSP - Home Medications Comprehensive Discharge Medication List: Ambulatory Orders Albuterol 2.5/Ipratropium 0.5 [Duoneb -] 1 amp NEB RQID amp 01/18/19 Albuterol Sulfate 0.5% [Ventolin 0.5% Nebulizing Soln. -] 1 amp NEB Q4H PRN amp 01/18/19 Folic Acid - 1 mg PO DAILY tablet 01/18/19 Insulin Sliding Scale [Novolog Vial Sliding Scale -] 1 vial SQ ACHS units 01/18 Nicotine Patch [Nicoderm Patch -] 21 mg TD DAILY patch 01/18/19 Pantoprazole Sodium [Protonix -] 40 mg PO DAILY tablet.ec 01/18/19 Thiamine HCl [Vitamin B1 -] 200 mg PO DAILY tablet 01/18/19 predniSONE [Deltasone -] See Taper PO DAILY #70 tablet 01/18/19 This patient is new to me today: No Emergency Visit: No Critical Care patient: No - Discharge Referral Referred to [facility] No ATTENDING PHYSICIAN STATEMENT I saw and evaluated the patient. I reviewed the resident's note and discussed the case with the resident. I agree with the resident's findings and plan as documented. SUBJECTIVE: OBJECTIVE: ASSESSMENT AND PLAN:
== END 2019-01-18 11:45 | disposition short-term general hospital (02) | DRG 133 ==
LOC: JER 16:33 → JICU 21:26 → J7W 01-13 19:06
PROVIDERS: ADMIT Internal Medicine
PROC: 0CHY7BZ Insertion of Airway into Mouth and Throat, Via Natural or Artificial Opening (ICD-10-PCS; principal; 2019-01-09)
PROC: 5A1935Z Respiratory Ventilation, Less than 24 Consecutive Hours (ICD-10-PCS; 2019-01-09)
DX: J96.02 Acute respiratory failure with hypercapnia (principal); D45 Polycythemia vera; R00.0 Tachycardia, unspecified; N17.9 Acute kidney failure, unspecified; E86.0 Dehydration; D72.829 Elevated white blood cell count, unspecified; J96.01 Acute respiratory failure with hypoxia; E86.1 Hypovolemia; I45.10 Unspecified right bundle-branch block; J44.1 Chronic obstructive pulmonary disease with (acute) exacerbation; E87.2 Acidosis; R73.9 Hyperglycemia, unspecified; E87.5 Hyperkalemia; E88.09 Other disorders of plasma-protein metabolism, not elsewhere classified; G93.41 Metabolic encephalopathy; E83.39 Other disorders of phosphorus metabolism; W18.30XA Fall on same level, unspecified, initial encounter; Y92.230 Patient room in hospital as the place of occurrence of the external cause; K57.90 Diverticulosis of intestine, part unspecified, without perforation or abscess without bleeding; R13.10 Dysphagia, unspecified; J18.9 Pneumonia, unspecified organism; R65.10 Systemic inflammatory response syndrome (SIRS) of non-infectious origin without acute organ dysfunction; E87.3 Alkalosis
CPT/HCPCS: 36415; 36600; 70450-TC; 71045-TC-FY; 71250-TC; 72125-TC; 73502-TC-LT-FY; 73502-TC-RT-FY; 73560-TC-LT-FY; 73560-TC-RT-FY; 74176-TC; 74230-TC-FY; 80048; 80053; 80307; 81003; 82009; 82140; 82375; 82550; 82668; 82728; 82747; 82803; 82962; 83036; 83050; 83540; 83550; 83605; 83735; 84100; 84484; 85014; 85025; 85027; 85044; 85610; 85730; 86704; 86706; 86707; 86708; 86709; 87040; 87070; 87086; 87205; 87340; 87389; 87899; 90732; 92611-GN; 93005; 93010; 93306-TC; 94002; 94640; 94660; 94761; 97116-GP; 97161-GP; 99285-25; G0009; J1644; J7030; Q9967